=== PATIENT | male | born 1950 | race Caucasian/White ===

== ENCOUNTER 2017-05-04 07:53 | Emergency (ER) | payer OTHER ==
[~2017-05-04] VITALS: Ht 180.3 cm; Wt 86.5 kg
[~2017-05-04 07:53] MED LIST: ASPCH81 PO; ATOR-26 PO; LSN5 PO
[2017-05-04 07:58] VITALS: TEMP 36.7; Ht 180.3 cm; Wt 86.5 kg
[2017-05-04] MEDS ORDERED: LISI-729 PO (08:09)
--- NOTE | 2017-05-04 08:12 | EMERGENCY ROOM VISIT NOTE ---
History Report prepared by Vicente: Gretchen Paulino Under the Supervision of: Dr. Odell Negrete M.D. First contact with patient: 08:02 Chief Complaint: FOOT PAIN Stated Complaint: RIGHT FOOT PAIN History of Present Illness The patient is a 67 year old male who presents to the Emergency Room with complaints of sudden right foot pain beginning 2 days ago. The patient rates the pain at a 6/10. He denies doing anything out of the ordinary that may have prompted the pain. He reports taking Tylenol which slightly alleviates the pain. He states that he is able to walk on the foot but that it is very painful. He denies having surgery on his ankle or having a history of gout and diabetes. Source of History: patient Onset: 2 days ago Position: foot (right) Symptom Intensity: rated at a 6/10 Timing: other (sudden) Modifying Factors (Relieving): other (Tylenol ) Review of Systems See HPI for pertinent positives & negatives. A total of 10 systems reviewed and were otherwise negative. Past Medical & Surgical Medical Problems: (1) AAA (abdominal aortic aneurysm) (2) Acute appendicitis (3) BPH (benign prostatic hyperplasia) (4) Heart failure (5) HTN (hypertension) (6) Lymphoma (7) PAD (peripheral artery disease) (8) Tobacco abuse Surgical Problems: (1) kidney surgery (2) S/P CABG x 3 (3) S/P carotid endarterectomy Family History Diabetes mellitus BROTHER FH: CAD (coronary artery disease) BROTHER ( of AMI approximately age 58 ) Hypertension FATHER Social History Smoking Status: Current Every Day Smoker Alcohol Use: heavy Marital Status: Housing Status: lives with significant other Occupation Status: retired Current/Historical Medications Scheduled Aspirin (Aspirin Ec), 162 MG PO DAILY Atenolol (Tenormin), 25 MG PO DAILY Atorvastatin (Lipitor), 80 MG PO DAILY Lisinopril (Zestril), 5 MG PO DAILY Nitroglycerin (Nitrostat), 0.4 MG UT PRN Prednisone (Prednisone Tab), 0 PO DAILY Scheduled PRN Oxycodone Immediate Rel Tab (Roxicodone Ir), 1-2 TAB PO Q4H PRN for Severe Pain Allergies Coded Allergies: No Known Allergies (Verified , *, 05/04/17) Physical Exam Vital Signs Date Time Temp Pulse Resp B/P (MAP) Pulse Ox O2 Delivery O2 Flow Rate FiO2 05/04/17 09:40 60 16 141/67 96 05/04/17 09:01 65 15 113/55 93 Room Air 05/04/17 07:58 36.7 63 18 138/70 94 Room Air Physical Exam GENERAL: Patient is a healthy-appearing well-nourished [] HEAD: Normocephalic atraumatic EYES: Ocular movements intact pupils equal and react to light OROPHARYNX mucous membranes are moist no exudates present no erythema or edema present NECK: Supple no nuchal rigidity CHEST: Good equal expansion LUNGS: Clear and equal to auscultation CARDIAC: Normal S1 and S2 ABDOMEN: Soft nontender no guarding BACK: No CVA tenderness EXTREMITIES: Slight rash to the anterior right ankle, it is exquisitely tender to palpation. The rash is 2 cm by 2 cm and is consistent with gouty arthritis. The ankle joint itself does not seem to be involved. NEURO: Patient is following commands and answering questions appropriately. Alert and oriented x3 Cranial Nerves 2-12 grossly intact Medical Decision & Procedures ER Provider Diagnostic Interpretation: X-ray results as stated below per interpretation by me and the radiologist: RIGHT ANKLE MIN 3 VIEWS ROUTINE CLINICAL HISTORY: 67 years-old Male presenting with right ankle pain, redness, swelling along the anterior right ankle, no trauma. TECHNIQUE: Frontal, mortise, and lateral views of the right ankle were obtained. COMPARISON: None. FINDINGS: No acute fracture or malalignment. No significant degenerative change. Mild skin thickening may be present along the anterior right ankle, however, there is no global soft tissue swelling. Bone spur at the inferior calcaneus. Atherosclerosis. IMPRESSION: 1. No acute osseous injury of the right ankle. 2. Inferior calcaneal enthesophyte. Electronically signed by: Sandor Barakat M.D. 05/04/2017 8:46 AM Dictated Date/Time: 05/04/2017 8:43 AM Medications Administered Medications (Trade) Dose Ordered Sig/Gilmer Route Start Time Stop Time Status Last Admin Dose Admin Prednisone (PredniSONE TAB) 40 mg NOW STAT PO 05/04/17 08:10 05/04/17 08:12 DC 05/04/17 08:17 40 MG ED Course 0803: Past medical records reviewed. The patient was evaluated in room A11B. A complete history and physical examination was performed. 0810: Ordered Prednisone 40 mg PO. 0917: The patient is feeling better and I can touch his foot without excess pain. 929: Upon reexamination the patient is resting. I discussed results and treatment plan with the patient. He verbalizes agreement and understanding. The patient is ready for discharge. Medical Decision Prior records/ancillary studies reviewed regarding the history above. Triage Nursing notes reviewed. Additional history obtained from the family. The patient's history was concerning for hypertension. This is a 67-year-old male who presents emergency department complaining of rash that is exquisitely tender to touch to the right ankle area. Based on this finding I feel the patient is suffering from a gouty arthritis. He has no evidence of infection on examination. He is afebrile. Repeat examination revealed improvement the patient's symptoms. I do feel that the patient as well as to be discharged home for follow-up with orthopedics. Patient was in agreement with the treatment plan. Medication Reconcilliation Current Medication List: was personally reviewed by me Blood Pressure Screening Patient's blood pressure: Elevated blood pressure Blood pressure disposition: Referred to PCP Impression Primary Impression: Gouty arthritis Scribe Attestation The scribe's documentation has been prepared under my direction and personally reviewed by me in its entirety. I confirm that the note above accurately reflects all work, treatment, procedures, and medical decision making performed by me. Departure Information Dispostion Home / Self-Care Prescriptions Oxycodone Immediate Rel Tab (ROXICODONE IR) 5 Mg Tab 1-2 TAB PO Q4H Y for Severe Pain, #24 TAB Prov: Odell Negrete MD 05/04/17 Prednisone (Prednisone Tab) 20 Mg Tab 0 PO DAILY, #7 TAB 2 TABS DAILY FOR 2 DAYS, THEN 1 TAB DAILY FOR 2 DAYS, THEN 1/2 TAB DAILY FOR 2 DAYS. Prov: Odell Negrete MD 05/04/17 Referrals Arjun Harris D.O. (PCP) Forms HOME CARE DOCUMENTATION FORM, IMPORTANT VISIT INFORMATION, School Instructions, Work Instructions Patient Instructions Gout Attack Tx, My [facility] Additional Instructions Follow up with DR Jones's office You were found to have an elevated blood pressure today (>120 sytolic or >90 diastolic). Per medicare guidelines, you need to follow up with this blood pressure screening with your Primary Care Physician (PCP). For a new PCP call [phone]. You received narcotic or benzodiazepene medication while in the emergency room today. Do not drive, operate heavy machinery, or drink alcohol under the influence of this medication. Take 1000 mg Tylenol every 6 hours Take oxy for breakthrough pain You have been examined and treated today on an emergency basis only. This is not a substitute for, or an effort to provide, complete comprehensive medical care. It is impossible to recognize and treat all injuries or illnesses in a single emergency department visit. It is therefore important that you follow up closely with Dr Harris. Call as soon as possible for an appointment. Thank you for your time and consideration. I look forward to speaking with you again soon. Please don't hesitate to call us if you have any questions.
--- NOTE | 2017-05-04 08:47 | DIAGNOSTIC IMAGING REPORT ---
RIGHT ANKLE MIN 3 VIEWS ROUTINE CLINICAL HISTORY: 67 years-old Male presenting with right ankle pain, redness, swelling along the anterior right ankle, no trauma. TECHNIQUE: Frontal, mortise, and lateral views of the right ankle were obtained. COMPARISON: None. FINDINGS: No acute fracture or malalignment. No significant degenerative change. Mild skin thickening may be present along the anterior right ankle, however, there is no global soft tissue swelling. Bone spur at the inferior calcaneus. Atherosclerosis. IMPRESSION: 1. No acute osseous injury of the right ankle. 2. Inferior calcaneal enthesophyte. Electronically signed by: Sandor Barakat M.D. 05/04/2017 8:46 AM Dictated Date/Time: 05/04/2017 8:43 AM
[2017-05-04] MEDS ORDERED: PRED20TA2 PO (09:21)
[2017-05-04] MEDS ORDERED: OXYC1TAB3 PO (09:24)
[2017-05-04 09:40] VITALS: BP 141/67; PULSE 60; O2SAT 96
[2017-05-04] MEDS ORDERED: ATEN50TA8 PO (17:56)
[2017-06-15] MEDS ORDERED: ASPI81TA28 PO (08:09)
[2017-06-15] MEDS ORDERED: ATOR-26 PO (08:09)
[2017-06-15] MEDS ORDERED: NTRGSL/4 UT (08:20)
== END 2017-05-04 09:41 | disposition home or self-care (01) ==
LOC: C.EDB 07:55 → C.EDA 09:41
DX: M10.9 Gout, unspecified (principal); N40.0 Benign prostatic hyperplasia without lower urinary tract symptoms; Z85.72 Personal history of non-Hodgkin lymphomas; I73.9 Peripheral vascular disease, unspecified; F17.210 Nicotine dependence, cigarettes, uncomplicated; I11.0 Hypertensive heart disease with heart failure; Z83.3 Family history of diabetes mellitus; Z82.49 Family history of ischemic heart disease and other diseases of the circulatory system; Z79.82 Long term (current) use of aspirin; Z79.899 Other long term (current) drug therapy

== ENCOUNTER 2017-06-15 16:13 | Emergency (ER) | payer OTHER ==
[~2017-06-15] VITALS: Ht 180.3 cm; Wt 86.9 kg
[~2017-06-15 16:13] MED LIST changes: -ASPCH81 PO; +ASPI81TA28 PO; +ATEN50TA8 PO; +LISI-729 PO; -LSN5 PO; +NTRGSL/4 UT; +OXYC1TAB3 PO; +PRED20TA2 PO
[2017-06-15 16:24] VITALS: TEMP 36.9; Ht 180.3 cm; Wt 86.9 kg
[2017-06-15] MEDS ORDERED: LSN5 PO (16:46)
[2017-06-15] MEDS ORDERED: TNR50 PO (16:46)
[2017-06-15] MEDS ORDERED: ACET-1256 PO (16:46)
[2017-06-15 17:01] LABS: BASO % 0.1 %; BASO ABS # 0.01 K/uL (0-0.2); COMPLETE YES; EOS % 3.4 %; HEMATOCRIT 34.3 % (42-52); IG% 1.1 %; LYMPH % 29.6 %; LYMPH ABS # 2.95 K/uL (1.2-3.4); MEAN CELL VOLUME 94.5 fL (80-100); MEAN CORPUSCULAR HEMOGLOBIN 31.4 pg (25-34); MEAN CORPUSCULAR HGB CONC 33.2 g/dl (32-36); MEAN PLATELET VOLUME 10.6 fL (7.4-10.4); MONO % 10.9 %; NEUT % 54.9 %; PLATELET COUNT 116 K/uL (130-400); RED BLOOD COUNT 3.63 M/uL (4.7-6.1); WHITE BLOOD COUNT 9.98 K/uL (4.8-10.8)
--- NOTE | 2017-06-15 17:03 | EMERGENCY ROOM VISIT NOTE ---
ED Visit Note First contact with patient: 16:30 CHIEF COMPLAINT: Redness, swelling, pain to the left knee HISTORY OF PRESENT ILLNESS: This 67-year-old male patient presents to the emergency department, ambulatory, complaining of 2 day history of left knee swelling, redness, and pain. The patient states the pain is worse today than it has been since Wednesday. The patient denies any trauma. He states he does have a history of gout, and has had it before in the right foot and knee. The patient states he did recently have uric acid levels checked a few weeks ago, and was told that they weren't not high enough to start prophylactic medication. The patient states his pain today is worse than it has been with previous gout attacks. Patient denies any recent travel, and has not been sedentary. He denies any fever, discharge from the knee, nausea, vomiting, body aches, swelling, chest pain, dyspnea. The patient describes the pain as sore and rates it 5/10. The patient has taken no medication to help his symptoms. REVIEW OF SYSTEMS: A 10 system review of systems was performed with positives and pertinent negatives listed in the history of present illness. All other systems were reviewed and are negative. ALLERGIES: None MEDICATIONS: Atenolol, nitroglycerin, Lipitor, lisinopril, aspirin PMH: Open heart surgery, gout SOCIAL HISTORY: Lives locally with family. He admits to smoking one pack of cigarettes per day. The patient denies drug or alcohol use. PHYSICAL EXAM: VITALS: Vitals are noted on the nurse's note and reviewed by myself. Vital signs stable. GENERAL: This is a 67-year-old male, in no acute distress, nondiaphoretic, well- developed well-nourished. MENTAL STATUS: Alert, oriented to person place and time, and cooperative. MUSCULOSKELETAL: The left knee is mildly swollen inferiorly to the patella. There is no ecchymosis. There is no joint effusion present. The patient is tender in the anterior aspect, inferiorly to the patella. There is no joint line tenderness. The patella does appropriately subluxate. Range of motion is full, however painful. Strength of the quads and hamstrings is 5/5. Nate's is negative. Gaby's and Anterior Drawer tests are negative. There is no discomfort with varus and valgus stressing. The foot and toes are warm and well -perfused. Dorsalis pedis pulse 2+. Sensation to pain and light touch is intact. Capillary refill less than 2 seconds. RADIOLOGY: X-Ray Left Knee: L KNEE 3 VIEWS CLINICAL HISTORY: 67 years-old Male presenting with left knee redness, swelling, pain. TECHNIQUE: Frontal, lateral, and sunrise views of the left knee were obtained. COMPARISON: Comparison made to plain radiographs of the right knee from 05/03/2016. FINDINGS: Extensive chondrocalcinosis evident. No significant joint space loss. No osteophytosis in the medial or lateral compartments, although minimal osteophytosis is suggested in the patellofemoral compartment. No acute fracture or malalignment. No large effusion. No osseous erosion or periosteal reaction. Mild infrapatellar soft tissue swelling may be present. Surgical clips noted in the soft tissues of the proximal lower leg. Atherosclerosis. IMPRESSION: 1. Chondrocalcinosis can be seen in the setting of calcium pyrophosphate dihydrate deposition disease, osteoarthritis, and other etiologies. 2. Minimal degenerative change in the patellofemoral compartment. 3. Infrapatellar soft tissue swelling. Cellulitis not excluded. Superficial soft tissues would be better evaluated with ultrasound. Electronically signed by: Sandor Barakat M.D. 06/15/2017 5:30 PM Dictated Date/Time: 06/15/2017 5:26 PM EMERGENCY DEPARTMENT COURSE: The patient was seen and evaluated as above. Labs were drawn and an IV established. Lab work did show anemia, however this is improved since previous labs were drawn. The patient states he is under the care of a PCP regarding the anemia. The repeat did not show any significant electrolyte abnormalities. C-reactive protein was slightly elevated at 0.97. Uric level was normal at 6.9. Sedimentation rate was normal. Lyme testing was negative. X-ray of the left knee was reviewed by myself, Dr. Geiger, and radiologist. This did not reveal any acute abnormalities, but was suspicious for a cellulitis. Based on the patient's symptoms, workup, and physical examination, I do feel that treating him at this time for cellulitis versus gout is appropriate. The patient was seen and evaluate by Dr. Geiger as well, who is in agreement with the assessment and plan. The patient will be started on an antibiotic as well as anti-inflammatory medication. He was encouraged to follow up with his PCP in one to 2 days. The patient was discharged home in good condition. DIFFERENTIAL DIAGNOSIS: Gout, cellulitis, septic joint, fracture, effusion, lyme disease, malignancy, and others DIAGNOSIS: Cellulitis left knee DISCHARGE INSTRUCTIONS & TREATMENT: You were seen in the emergency department today for left knee swelling and redness. I do suspect a cellulitis versus gout. We will treat you for both. You were given your first dose of antibiotics and anti-inflammatory medication in the emergency department today. Please take these medications as prescribed. Try to get a second dose of the antibiotic (Keflex) in tonight before bed. Please wait at least 4 hours before taking this medication. You were prescribed Keflex to be taken four times daily. This is an antibiotic. All antibiotics have the potential to cause diarrhea. Stop this medication and contact a medical provider if you were to develop any significant adverse side effects including: wheezing, shortness of breath, passing out, vomiting, or a diffuse rash. Always take antibiotics as directed and COMPLETE the ENTIRE course regardless of the improvement of your symptoms. Please take naproxen 500 mg twice daily until the redness subsides. This will probably be for 3-5 days. Please use the shortest period of time necessary to treat the redness and inflammation. You may use ice with a barrier device over the need to help with swelling and discomfort. FOLLOW UP WITH YOUR PCP THIS WEEK FOR RE-CHECK AND RE-EVALUATION. Return to the ED for worsening redness, swelling, fever, chills, nausea, vomiting, abdominal pain, or other associated symptoms. Problem List Medical Problems: (1) AAA (abdominal aortic aneurysm) Status: Chronic (2) BPH (benign prostatic hyperplasia) Status: Chronic (3) Heart failure Status: Chronic (4) HTN (hypertension) Status: Chronic (5) Lymphoma Status: Chronic (6) PAD (peripheral artery disease) Status: Chronic (7) Tobacco abuse Status: Chronic Surgical Problems: (1) kidney surgery Status: Resolved (2) S/P CABG x 3 Status: Chronic (3) S/P carotid endarterectomy Status: Chronic Current/Historical Medications Scheduled Aspirin (Aspirin Ec), 162 MG PO DAILY Atenolol (Atenolol), 25 MG PO DAILY Atorvastatin (Lipitor), 80 MG PO DAILY Cephalexin Monohydrate (Keflex), 500 MG PO QID Lisinopril (Lisinopril), 5 MG PO DAILY Naproxen (Naprosyn), 500 MG PO BID Scheduled PRN Acetaminophen (Tylenol), 1,000 MG PO Q6H PRN for Pain Nitroglycerin (Nitrostat), 0.4 MG UT UD PRN for Chest Pain Allergies Coded Allergies: No Known Allergies (Verified , *, 05/04/17) Vital Signs Date Time Temp Pulse Resp B/P (MAP) Pulse Ox O2 Delivery O2 Flow Rate FiO2 06/15/17 18:52 64 15 140/64 92 06/15/17 18:39 64 15 140/64 92 Room Air 06/15/17 16:24 36.9 66 18 125/70 95 Room Air Laboratory Results 06/15/17 16:50 Red Blood Count 3.63, Mean Corpuscular Volume 94.5, Mean Corpuscular Hemoglobin 31.4, Mean Corpuscular Hemoglobin Concent 33.2, Mean Platelet Volume 10.6, Neutrophils (%) (Auto) 54.9, Lymphocytes (%) (Auto) 29.6, Monocytes (%) (Auto) 10.9, Eosinophils (%) (Auto) 3.4, Basophils (%) (Auto) 0.1, Neutrophils # (Auto ) 5.48, Lymphocytes # (Auto) 2.95, Monocytes # (Auto) 1.09, Eosinophils # (Auto ) 0.34, Basophils # (Auto) 0.01 06/15/17 16:50 Test 06/15/17 16:50 White Blood Count 9.98 K/uL (4.8-10.8) Red Blood Count 3.63 M/uL (4.7-6.1) Hemoglobin 11.4 g/dL (14.0-18.0) Hematocrit 34.3 % (42-52) Mean Corpuscular Volume 94.5 fL (80-100) Mean Corpuscular Hemoglobin 31.4 pg (25-34) Mean Corpuscular Hemoglobin Concent 33.2 g/dl (32-36) Platelet Count 116 K/uL (130-400) Mean Platelet Volume 10.6 fL (7.4-10.4) Neutrophils (%) (Auto) 54.9 % Lymphocytes (%) (Auto) 29.6 % Monocytes (%) (Auto) 10.9 % Eosinophils (%) (Auto) 3.4 % Basophils (%) (Auto) 0.1 % Neutrophils # (Auto) 5.48 K/uL (1.4-6.5) Lymphocytes # (Auto) 2.95 K/uL (1.2-3.4) Monocytes # (Auto) 1.09 K/uL (0.11-0.59) Eosinophils # (Auto) 0.34 K/uL (0-0.5) Basophils # (Auto) 0.01 K/uL (0-0.2) RDW Standard Deviation 59.9 fL (36.4-46.3) RDW Coefficient of Variation 17.7 % (11.5-14.5) Immature Granulocyte % (Auto) 1.1 % Immature Granulocyte # (Auto) 0.11 K/uL (0.00-0.02) Erythrocyte Sedimentation Rate 9 mm/hr (0-14) Anion Gap 8.0 mmol/L (3-11) Est Creatinine Clear Calc Drug Dose 92.1 ml/min Estimated GFR () 105.7 Estimated GFR (Non- 91.2 BUN/Creatinine Ratio 12.0 (10-20) Uric Acid 6.9 mg/dl (2.6-7.2) Calcium Level 9.5 mg/dl (8.5-10.1) C-Reactive Protein 0.97 mg/dl (0-0.29) Lyme Disease IgG Antibody NEG (NEG) Lyme Disease IgM Antibody NEG (NEG) Medications Administered Medications (Trade) Dose Ordered Sig/Gilmer Route Start Time Stop Time Status Last Admin Dose Admin Cephalexin Monohydrate (Keflex Cap) 500 mg NOW ONCE PO 06/15/17 18:30 06/15/17 18:31 DC 06/15/17 18:38 500 MG Naproxen (Naprosyn Tab) 500 mg NOW STAT PO 06/15/17 18:17 06/15/17 18:20 DC 06/15/17 18:39 500 MG Departure Information Impression Primary Impression: Cellulitis of left knee Additional Impression: Anemia Dispostion Home / Self-Care Condition GOOD Prescriptions Cephalexin Monohydrate (Keflex) 500 Mg Cap 500 MG PO QID for 10 Days, #40 CAP Prov: Soha Schaeffer, PA-C 06/15/17 Naproxen (Naprosyn) 500 Mg Tab 500 MG PO BID, #30 TAB Prov: Soha Schaeffer PA-C 06/15/17 Referrals Arjun Harris D.O. (PCP) Patient Instructions ED Diet Gout, ED Infec Skin Cellulitis, My [facility] Additional Instructions You were seen in the emergency department today for left knee swelling and redness. I do suspect a cellulitis versus gout. We will treat you for both. You were given your first dose of antibiotics and anti-inflammatory medication in the emergency department today. Please take these medications as prescribed. Try to get a second dose of the antibiotic (Keflex) in tonight before bed. Please wait at least 4 hours before taking this medication. You were prescribed Keflex to be taken four times daily. This is an antibiotic. All antibiotics have the potential to cause diarrhea. Stop this medication and contact a medical provider if you were to develop any significant adverse side effects including: wheezing, shortness of breath, passing out, vomiting, or a diffuse rash. Always take antibiotics as directed and COMPLETE the ENTIRE course regardless of the improvement of your symptoms. Please take naproxen 500 mg twice daily until the redness subsides. This will probably be for 3-5 days. Please use the shortest period of time necessary to treat the redness and inflammation. You may use ice with a barrier device over the need to help with swelling and discomfort. FOLLOW UP WITH YOUR PCP THIS WEEK FOR RE-CHECK AND RE-EVALUATION. Return to the ED for worsening redness, swelling, fever, chills, nausea, vomiting, abdominal pain, or other associated symptoms. Problem Qualifiers Additional Impression: Anemia Anemia type: unspecified type Qualified Codes: D64.9 - Anemia, unspecified
[2017-06-15 17:24] LABS: CALCIUM 9.5 mg/dl (8.5-10.1); CREATININE 0.84 mg/dl (0.60-1.40); POTASSIUM 3.8 mmol/L (3.5-5.1); URIC ACID 6.9 mg/dl (2.6-7.2)
--- NOTE | 2017-06-15 17:31 | DIAGNOSTIC IMAGING REPORT ---
L KNEE 3 VIEWS CLINICAL HISTORY: 67 years-old Male presenting with left knee redness, swelling, pain. TECHNIQUE: Frontal, lateral, and sunrise views of the left knee were obtained. COMPARISON: Comparison made to plain radiographs of the right knee from 05/03/2016. FINDINGS: Extensive chondrocalcinosis evident. No significant joint space loss. No osteophytosis in the medial or lateral compartments, although minimal osteophytosis is suggested in the patellofemoral compartment. No acute fracture or malalignment. No large effusion. No osseous erosion or periosteal reaction. Mild infrapatellar soft tissue swelling may be present. Surgical clips noted in the soft tissues of the proximal lower leg. Atherosclerosis. IMPRESSION: 1. Chondrocalcinosis can be seen in the setting of calcium pyrophosphate dihydrate deposition disease, osteoarthritis, and other etiologies. 2. Minimal degenerative change in the patellofemoral compartment. 3. Infrapatellar soft tissue swelling. Cellulitis not excluded. Superficial soft tissues would be better evaluated with ultrasound. Electronically signed by: Sandor Barakat M.D. 06/15/2017 5:30 PM Dictated Date/Time: 06/15/2017 5:26 PM
[2017-06-15 17:34] LABS: C-REACTIVE PROTEIN 0.97 mg/dl (0-0.29)
[2017-06-15] MEDS ORDERED: NAPROXEN 250 MG TAB PO STA (18:17)
[2017-06-15 18:22] LABS: LYME DISEASE AB IGG NEG (NEG); LYME DISEASE AB IGM NEG (NEG)
--- NOTE | 2017-06-15 18:23 | EMERGENCY ROOM VISIT NOTE ---
ED Visit Note First contact with patient: 16:30 I have personally evaluated this patient examined her and reviewed the pertinent labs and data. I have discussed the case with Soha Schaeffer, the physician captain assistant and agree with the plan. Please refer to the PA note This patient has pain in his left knee it is below the joint. On my exam, it does not feel like he has an effusion of the joint itself. He is able to bend the knee but has mild discomfort. He feels that this is consistent with gout that he's had before. He has no fever or white count or elevation of sedimentation rate to suggest inflammation. Uric acid was not elevated. X-ray shows no fracture there are findings that may be consistent with pseudogout. He does have some swelling of the prepatellar area could be that he has a prepatellar bursitis. He's been doing no activities to suggest this. We'll put him on antibiotics and anti-inflammatories it may still may be gout even with a low uric acid. At this point, I do not suspect septic bursitis or septic joint however I do want the patient close follow-up and return if increasing redness or warmth fever chills or any new problems.
[2017-06-15] MEDS ORDERED: CEPHALEXIN MONOHYDRATE 250 MG CAP PO ONE (18:30)
[2017-06-15] MEDS ORDERED: NAPR-1169 PO (18:43)
[2017-06-15] MEDS ORDERED: CEPH500C PO (18:43)
[2017-06-15 18:52] VITALS: BP 140/64; PULSE 64; O2SAT 92
== END 2017-06-15 18:52 | disposition home or self-care (01) ==
LOC: C.EDB 16:15 → C.EDD 18:52
DX: L03.116 Cellulitis of left lower limb (principal); D64.9 Anemia, unspecified; F17.210 Nicotine dependence, cigarettes, uncomplicated; I71.4 Abdominal aortic aneurysm, without rupture; N40.0 Benign prostatic hyperplasia without lower urinary tract symptoms; I50.9 Heart failure, unspecified; I11.0 Hypertensive heart disease with heart failure; I73.9 Peripheral vascular disease, unspecified; C85.90 Non-Hodgkin lymphoma, unspecified, unspecified site; Z95.1 Presence of aortocoronary bypass graft; Z79.82 Long term (current) use of aspirin

== ENCOUNTER 2017-08-28 12:34 | Emergency (ER) | payer OTHER ==
[~2017-08-28] VITALS: Ht 180.3 cm; Wt 85.9 kg
[~2017-08-28 12:34] MED LIST changes: +ACET-1256 PO; -ATEN50TA8 PO; -LISI-729 PO; +LSN5 PO; +NAPR-1169 PO; -OXYC1TAB3 PO; -PRED20TA2 PO; +TNR50 PO
[2017-08-28 12:41] VITALS: TEMP 36.7; Ht 180.3 cm; Wt 85.9 kg
--- NOTE | 2017-08-28 14:48 | EMERGENCY ROOM VISIT NOTE ---
History Report prepared by Vicente: Gretchen Paulino Under the Supervision of: Jo LawlerO. First contact with patient: 13:47 Chief Complaint: SHOULDER PAIN Stated Complaint: L SHOULDER AND R FOOT PAIN History of Present Illness The patient is a 67 year old male who presents to the Emergency Room with complaints of intermittent left shoulder pain beginning weeks ago. The patient rates the pain at a 5/10. He states that movement exacerbates the pain. The patient denies fevers and recent amount. Source of History: patient Onset: weeks ago Position: shoulder (left) Symptom Intensity: rated at a 5/10 Timing: intermittent Associated Symptoms: No fevers Note: also denies: trauma Review of Systems See HPI for pertinent positives & negatives. A total of 10 systems reviewed and were otherwise negative. Past Medical & Surgical Medical Problems: (1) AAA (abdominal aortic aneurysm) (2) Acute appendicitis (3) BPH (benign prostatic hyperplasia) (4) Heart failure (5) HTN (hypertension) (6) Lymphoma (7) PAD (peripheral artery disease) (8) Tobacco abuse Surgical Problems: (1) kidney surgery (2) S/P CABG x 3 (3) S/P carotid endarterectomy Family History Diabetes mellitus BROTHER FH: CAD (coronary artery disease) BROTHER ( of AMI approximately age 58 ) Hypertension FATHER Social History Smoking Status: Current Every Day Smoker Alcohol Use: heavy Marital Status: Housing Status: lives with significant other Occupation Status: retired Current/Historical Medications Scheduled Aspirin (Aspirin Ec), 162 MG PO DAILY Atenolol (Atenolol), 25 MG PO DAILY Atorvastatin (Lipitor), 80 MG PO DAILY Lisinopril (Lisinopril), 5 MG PO DAILY Naproxen (Naprosyn), 500 MG PO BID Scheduled PRN Acetaminophen (Tylenol), 1,000 MG PO Q6H PRN for Pain Nitroglycerin (Nitrostat), 0.4 MG UT UD PRN for Chest Pain Allergies Coded Allergies: No Known Allergies (Verified , *, 05/04/17) Physical Exam Vital Signs Date Time Temp Pulse Resp B/P (MAP) Pulse Ox O2 Delivery O2 Flow Rate FiO2 08/28/17 14:53 73 16 141/70 95 08/28/17 12:41 36.7 70 20 133/69 96 Room Air Physical Exam CONSTITUTIONAL/VITAL SIGNS: Reviewed / noted above. GENERAL: Non-toxic in appearance. INTEGUMENTARY: Warm, dry, and [place]. HEAD: Normocephalic. EYES: without scleral icterus or trauma. ENT/OROPHARYNX: clear and moist. LYMPHADENOPATHY/NECK: Is supple without lymphadenopathy or meningismus. RESPIRATORY: Lungs clear and equal. CARDIOVASCULAR: Regular rate and rhythm. GI/ABDOMEN: Soft and nontender. No organomegaly or pulsatile mass. No rebound or guarding. Normal bowel sounds. EXTREMITIES: No significant increase in warmth compared to opposing side. No redness or ecchymosis. Range of motion limited due to some discomfort. No obvious crepitus. Neurovascular function intact distally. BACK: No CVA tenderness. NEUROLOGICAL: Intact without focal deficits. PSYCHIATRIC: normal affect. MUSCULOSKELETAL: Normally developed with good muscle tone. Medical Decision & Procedures ER Provider Diagnostic Interpretation: Radiology results as stated below per my review and radiologist interpretation: L SHOULDER MIN 2 VIEWS ROUTINE CLINICAL HISTORY: Left shoulder pain. Evaluate for fracture. COMPARISON: Left shoulder radiographs June 30, 2010. FINDINGS: Alignment of the left shoulder is anatomic. No acute fracture is identified. There is no suspicious osseous lesion. There is moderate arthritis of the acromioclavicular and glenohumeral joints. Anterior cervical spinal fusion and median sternotomy wires are noted. IMPRESSION: 1. No acute fracture or dislocation of the left shoulder. 2. 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 Electronically signed by: Rajesh Smith M.D. 08/28/2017 3:01 PM Dictated Date/Time: 08/28/2017 3:00 PM ED Course 1410: Previous medical records were reviewed. The patient was evaluated in room B12B. A complete history and physical examination was performed. 1440: On reevaluation, the patient is resting. I discussed the results and findings with the patient. He verbalized agreement of the treatment plan. He was discharged home. Medical Decision Differential diagnosis: Etiologies such as fracture, dislocation, neurovascular compromise, compartment syndrome, soft tissue injury, as well as others were entertained. this is a 67-year-old male who presents to the ED with a chief complaint of left shoulder pain. The pain is mostly chronic but it intermittently worse. He comes in to the ED for evaluation of this. His also signs in as a patient as well and is being seen for a cough. The patients exam does not reveal any obvious acute findings to suggest acute infectious or traumatic process. X-ray of the left shoulder did not show just acute process. He is felt to be stable for discharge. He was given referral to orthopedics for outpatient follow-up and evaluation. Medication Reconcilliation Current Medication List: was personally reviewed by me Blood Pressure Screening Patient's blood pressure: Normal blood pressure Impression Primary Impression: Left shoulder pain Additional Impression: Arthritis Scribe Attestation The scribe's documentation has been prepared under my direction and personally reviewed by me in its entirety. I confirm that the note above accurately reflects all work, treatment, procedures, and medical decision making performed by me. Departure Information Dispostion Home / Self-Care Referrals Arjun Harris D.O. (PCP) Forms HOME CARE DOCUMENTATION FORM, IMPORTANT VISIT INFORMATION Patient Instructions My [facility] Additional Instructions Follow-up with Dr. Bang, orthopedics with [facility]. Call for an appointment. Take ibuprofen 600 mg every 6 hours as needed for pain. Problem Qualifiers
[2017-08-28 14:53] VITALS: BP 141/70; PULSE 73; O2SAT 95
--- NOTE | 2017-08-28 15:02 | DIAGNOSTIC IMAGING REPORT ---
L SHOULDER MIN 2 VIEWS ROUTINE CLINICAL HISTORY: Left shoulder pain. Evaluate for fracture. COMPARISON: Left shoulder radiographs June 30, 2010. FINDINGS: Alignment of the left shoulder is anatomic. No acute fracture is identified. There is no suspicious osseous lesion. There is moderate arthritis of the acromioclavicular and glenohumeral joints. Anterior cervical spinal fusion and median sternotomy wires are noted. IMPRESSION: 1. No acute fracture or dislocation of the left shoulder. 2. 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 Electronically signed by: Rajesh Smith M.D. 08/28/2017 3:01 PM Dictated Date/Time: 08/28/2017 3:00 PM
== END 2017-08-28 15:01 | disposition home or self-care (01) ==
LOC: C.EDB 12:36
DX: M25.512 Pain in left shoulder (principal); M19.012 Primary osteoarthritis, left shoulder; I71.4 Abdominal aortic aneurysm, without rupture; I11.0 Hypertensive heart disease with heart failure; I50.9 Heart failure, unspecified; N40.0 Benign prostatic hyperplasia without lower urinary tract symptoms; I73.9 Peripheral vascular disease, unspecified; C85.90 Non-Hodgkin lymphoma, unspecified, unspecified site; F17.200 Nicotine dependence, unspecified, uncomplicated; Z95.1 Presence of aortocoronary bypass graft; Z79.82 Long term (current) use of aspirin; Z83.3 Family history of diabetes mellitus; Z82.49 Family history of ischemic heart disease and other diseases of the circulatory system

== ENCOUNTER → 2017-10-12 | Outpatient (CLI) | payer OTHER | END | disposition home or self-care (01) | LOC: C.LAB 14:44 | PROVIDERS: ATTEND Physician Assistant | DX: C85.91 Non-Hodgkin lymphoma, unspecified, lymph nodes of head, face, and neck (principal) ==

== ENCOUNTER 2019-04-30 10:10 | Inpatient (IN) ==
[2019-04-30 12:17] LABS: INR 1.2 (0.9-1.1); Partial Thromboplastin Ratio 1.4; Partial Thromboplastin Time 38.4 Seconds (21.0-31.0); Prothrombin Time 12.1 Seconds (9.0-12.0)
[2019-04-30 12:23] LABS: Albumin Level 2.4 gm/dl (3.4-5.0); BUN Creatinine Ratio 22.4 (10-20); Calcium 8.2 mg/dl (8.5-10.1); Creatinine Clr Calc Pharmacy 60.9 ml/min; Est GFR (African American) 79.5; Est GFR (Non-African American) 68.6; Potassium 4.6 mmol/L (3.5-5.1)
[2019-04-30 12:28] LABS: Albumin Globulin Ratio 0.6 (0.9-2); Bilirubin,Total 1.7 mg/dl (0.2-1); Globulin 4.1 gm/dl (2.5-4.0); Total Protein 6.5 gm/dl (6.4-8.2); Troponin I 0.023 ng/ml (0-0.045)
[2019-04-30 12:46] LABS: Hematocrit (blood only) 20.4 % (42-52); Hemoglobin 6.9 g/dL (14.0-18.0); Mean Corpuscular Hemoglobin 29.1 pg (25-34); Mean Corpuscular Hgb Conc 33.8 g/dL (32-36); Mean Corpuscular Volume 86.1 fL (80-100); Mean Platelet Volume 9.4 fL (7.4-10.4); Platelet Count 62 K/uL (130-400); RDW Coefficient of Variation 22.1 % (11.5-14.5); RDW Standard Deviation 68.9 fL (36.4-46.3); Red Blood Count 2.37 M/uL (4.7-6.1); White Blood Count 2.69 K/uL (4.8-10.8)
[2019-04-30 12:52] LABS: Acanthocytes 1+; Anisocytosis Present; Basophils # (auto) 0.01 K/uL (0-0.2); Basophils % (auto) 0.4 %; Dohle Bodies 1+; Eosinophils # (auto) 0.01 K/uL (0-0.5); Eosinophils % (auto) 0.4 %; Immature Granulocytes # (auto) 0.02 K/uL (0.00-0.02); Immature Granulocytes % (auto) 0.7 %; Lymphocytes # (auto) 1.16 K/uL (1.2-3.4); Lymphocytes % (auto) 43.1 %; Monocytes # (auto) 0.32 K/uL (0.11-0.59); Monocytes % (auto) 11.9 %; Neutrophils # (auto) 1.17 K/uL (1.4-6.5); Neutrophils % (auto) 43.5 %; Ovalocytes 1+; Platelet Estimate Decreased (Normal); Toxic Granulation 2+
[2019-04-30] MEDS ORDERED: OPTIRAY 320 125ml IV PRN (12:56)
--- NOTE | 2019-04-30 13:06 | CT Scan Report ---
CT angio chest PE protocol CLINICAL HISTORY: 69 years-old Male presenting with hypoxemia, left-sided neck pain, concern for pulm onary embolus versus lung mass. TECHNIQUE: Multidetector CT angiography of the chest was performed after administration of intravenou s contrast. 3-D volumetric and/or maximum intensity projection (MIP) images were subsequently reconst ructed for review. IV contrast: 119 mL of Optiray 320. One or more dose lowering techniques were used consistent with the principles of ALARA (as low as reasonably achievable), including automatic expos ure control, mA or kV adjustment to individual patient size, and/or use of iterative reconstruction. COMPARISON: None. CT DOSE (mGy.cm): The estimated cumulative dose is 1029.43 mGy.cm. FINDINGS: Utilization Reviewer topogram: Median sternotomy wires. Pulmonary vasculature: The study is adequate for assessment of the pulmonary vascular tree. No filling defect within the pul monary arteries to suggest embolus. Main pulmonary artery is not enlarged. No flattening of the inter ventricular septum. No intracardiac filling defect. Reflux of contrast into the IVC and hepatic veins . This likely indicates elevated right heart pressure. Remaining chest: Soft tissues: Normal thyroid and thoracic inlet. Enlarged left supraclavicular lymph node. Enlarged m ediastinal lymph nodes in prevascular, paratracheal, precarinal and subcarinal regions. Bilateral hil ar lymphadenopathy. Calcified lymphadenopathy in the right suprahilar region. Atherosclerosis of the aorta. Postsurgical changes of median sternotomy with coronary artery bypass grafting. Normal heart s ize. Coronary artery and aortic valve calcification. No pericardial or pleural effusion. Splenomegaly is suspected. Calcifications in the spleen evidence of granulomatous disease. Lungs and airways: No pneumothorax. Mild diffuse bronchial wall thickening. Centrilobular and limited paraseptal emphysematous changes. Multilobular solid and cystic mass measuring 3.1 cm in the posteri or basal left lower lobe (series 6 image 89). This abuts the pleura. Multifocal dependent infiltrates in the right lower lobe, which are solid to groundglass in density. Few scattered groundglass opacit ies in the upper lobes in a dependent distribution. Pulmonary arteries are not significantly enlarged relative to adjacent bronchi. No interlobular septal thickening. Calcified granuloma noted in the ri ght lower lobe. Tree-in-bud opacities noted in the lingula. Musculoskeletal: Degenerative changes of the spine. Degenerative changes of the glenohumeral joints. IMPRESSION: 1. No evidence of pulmonary embolus. 2. Elevated right heart pressure. 3. Solid cavitary mass in the posterior basal left lower lobe. This is highly suspicious for primary bronchogenic neoplasm. Less likely differential consideration includes infection. 4. Mediastinal and hilar lymphadenopathy highly suspicious for metastatic disease. Left supraclavicu lar lymphadenopathy also noted. 5. Patchy predominant dependent infiltrates and tree in bud opacities may represent aspiration, infe ction, or less likely spread of metastases. 6. Background emphysema and bronchitis, evidence of smoking related lung injury. 7. Splenomegaly. This could potentially relate to metastatic disease, a lymphoproliferative disorder , or portal hypertension among other etiologies. Electronically signed by: Sandor Barakat M.D. 04/30/2019 1:05 PM
--- NOTE | 2019-04-30 13:12 | CT Scan Report ---
CT abd pelvis IV con only CLINICAL HISTORY: 69 years-old Male presenting with hypoxia, left-sided neck pain, concern for mass. TECHNIQUE: Multidetector CT of the abdomen and pelvis was performed after the administration of intra venous contrast. IV contrast: 119 mL of Optiray 320. One or more dose lowering techniques were used c onsistent with the principles of ALARA (as low as reasonably achievable), including automatic exposur e control, mA or kV adjustment to individual patient size, and/or use of iterative reconstruction. COMPARISON: 09/05/2016. CT DOSE (mGy.cm): The estimated cumulative dose is 1029.43. FINDINGS: Driver Salesman topogram: Median sternotomy wires. Lung bases: Normal heart size. Coronary artery calcification. No pericardial or pleural effusion. Lindsey id and partially cavitary mass in the posterior basal left lower lobe. Extensive nodular dependent pr edominant infiltrates. Background emphysema. Liver: Normal morphology. No liver lesion. Patent hepatic vasculature. Biliary: No intrahepatic or extrahepatic biliary ductal dilatation. Gallbladder contains gallstones. Pancreas: Normal. Spleen: Enlarged. Punctate calcification suggest a history of granulomatous disease. Adrenal glands: Normal. Kidneys and ureters: Severe atrophy of the right kidney. Compensatory hypertrophy of the left kidney. No nephrolithiasis or hydronephrosis. Ureters nondistended. Bladder: Circumferential bladder wall thickening. Pelvic organs: Prostate and seminal vesicles normal. Bowel: Postsurgical changes of appendectomy suspected. No bowel obstruction. Peritoneal cavity: No free fluid or intraperitoneal gas. Lymph nodes: No enlarged lymph nodes in the abdomen or pelvis. Vasculature: Atherosclerosis with an abdominal aortic aneurysm in the infrarenal portion. This has a maximum diameter of 3.7 x 3.6 cm, slightly increased in size from prior when it measured 3.5 cm. Dens e calcified atherosclerotic plaque in the right common and superficial femoral arteries. Multifocal s tenoses from calcified plaque. IVC patent. Abdominal wall: Normal. Musculoskeletal: Degenerative changes of the spine. IMPRESSION: 1. Splenomegaly. This is nonspecific. Metastatic disease or lymphoproliferative disorder cannot be e xcluded among other etiologies. 2. Evidence of old granulomatous disease, which could suggest prior histoplasmosis or other granulom atous infection. 3. No lymphadenopathy or other evidence to suggest metastatic disease in abdomen or pelvis. No acute intra-abdominal pathology. 4. Chronic bladder outlet obstruction is suspected despite the absence of prostatomegaly. Correlate with urinalysis to exclude cystitis. 5. Slight interval increased size of the infrarenal abdominal aortic aneurysm which measures 3.7 x 2 .6 cm. 6. Solid partially cavitary mass in the left lower lobe concerning for primary bronchogenic neoplasm . Please see separately dictated CT of the chest. 7. Multifocal dependent infiltrates on a background of emphysema concerning for aspiration or infect ion. Electronically signed by: Sandor Barakat M.D. 04/30/2019 1:11 PM
--- NOTE | 2019-04-30 13:29 | CT Scan Report ---
CT soft tissue neck w con CLINICAL HISTORY: 69 years-old Male presenting with left neck pain eval for mass. TECHNIQUE: Multidetector CT of the neck was performed after the administration of intravenous contras t. IV contrast: 119 mL of Optiray 320. One or more dose lowering techniques were used consistent with the principles of ALARA (as low as reasonably achievable), including automatic exposure control, mA or kV adjustment to individual patient size, and/or use of iterative reconstruction. COMPARISON: 01/12/2015. CT DOSE (mGy.cm): The estimated cumulative dose is 1029.43. FINDINGS: Online Program Coordinator topogram: Median sternotomy wires. No soft tissue mass is evident in the neck. Superficial cystic lesion associated with the acuteness of the premaxillary region on the left likely an epidermal inclusion cyst and similar to prior. Pathologically enlarged lymph nodes in the lower cervical region on the left extending into the left supraclavicular fossa. An index node measures 1.2 cm cyst and axial long axis. No more superior lymph adenopathy is appreciated. Mediastinal lymphadenopathy is partially visualized. Aerodigestive tract widely patent. No effacement of the piriform sinuses or valleculae. Atherosclerosis including of the carotid bifurcations. Internal carotid arteries remain patent. Ather osclerosis of the cavernous segments of the ICAs also noted. Limited intracranial evaluation within n ormal limits. Orbits normal. Mucosal thickening in the left sphenoid sinus and left posterior ethmoid air cells and minimally in t he maxillary sinuses inferiorly. Several teeth are absent with prominent dental caries. Degenerative changes of the cervical spine. Anterior fixation hardware in the cervical spine. Emphysema both centrilobular and paraseptal the lung apices. Scattered nodular opacities at the apice s. IMPRESSION: 1. No soft tissue mass in the neck. No suspicious nodular enhancement along the course of the aerodi gestive tract to suggest a primary lesion. 2. Lymphadenopathy at the left base of the neck and left supraclavicular fossa. Partially visualized mediastinal lymphadenopathy. Electronically signed by: Sandor Barakat M.D. 04/30/2019 1:27 PM
[2019-04-30] MEDS ORDERED: SODIUM CHLORIDE 0.9% 250 ML IV PRN ×2 (13:39→16:52)
[2019-04-30] MEDS ORDERED: SODIUM CHLORIDE 0.9% 1000ML 500 ML IV ONE ×2 (13:39→23:36)
[2019-04-30] MEDS ORDERED: PIPERACILLIN/TAZOBACTAM 4.5 GM/120 ML BAG IV ONE (13:39)
[2019-04-30] MEDS ORDERED: PIPERACILL/TAZOBAC CONSULT ACTIVE PRN ×2 (13:39→23:11)
[2019-04-30] MEDS ORDERED: SODIUM CHLORIDE 0.9% 1000ML 1,000 ML IV ONE (13:40)
--- NOTE | 2019-04-30 14:56 | History & Physical Report ---
Date of Service April 30, 2019 Assessment & Plan (1) Generalized weakness: (2) Pancytopenia: (3) Symptomatic anemia: (4) Mass of left lung: This is a 69-year-old male who has a known significant PMH of CAD with history of CABG x3, HTN, HLD, CHF, PVD, AAA, BPH, history of non-Hodgkin's B-cell lymphoma neck 05/2013, chronic thrombocytopenia who presents to [facility] ED secondary to 5 falls in the past 5 days. In ED pt remained hemodynamically stable; however BP on lower side 90s-low 100s with HR 80-100s. He did require supplemental O2 but remained afebrile. Patient was notably pancytopenic with a hemoglobin by 6.9 hematocrit 20.4, WBC 2.69, platelet 62 CMP significant for sodium 134, BUN 25, creatinine 1.10, total bilirubin 1.7, AST 89, alk phos 154, troponin WNL. In ED pt received IVF resuscitation along with empiric IV Zosyn for initial concerns of SIRS/sepsis. He was typed and screened and 2 units of PRBC were ordered to be transfused. Per current CMS guidelines pt did meet SIRS criteria given SBP < 90 at times, HR > 90, WBC < 4 This is likely in setting of Acute symptomatic Anemia requiring transfusion vs sepsis Lactic acid WNL Given patient's known history of lymphoma CT scan of neck, chest, abdomen pelvis were performed. Revealed solid cavitary mass in the posterior basal left lower lobe highly suspicious for primary bronchogenic neoplasm, mediastinal and hilar lymphadenopathy highly suspicious for metastatic disease, left supra clavicular lymphadenopathy noted. Patchy predominant dependent infiltrates and tree-in-bud opacities, background emphysema and bronchitis, splenomegaly. Patient was seen and examined in collaboration with Dr. Merrill, please see her full addendum for details regarding further assessment and tx plan. (5) Lymphoma: (6) CAD (coronary artery disease): (7) Heart failure: (8) HTN (hypertension): (9) HLD (hyperlipidemia): (10) AAA (abdominal aortic aneurysm): (11) DVT prophylaxis: History of Present Illness Chief Complaint: Fall x 5 days. Primary Care Provider: Arjun Harris, This is a 69-year-old male who has a known significant PMH of CAD with history of CABG x3, HTN, HLD, CHF, PVD, AAA, BPH, history of non-Hodgkin's B-cell lymphoma neck 05/2013, chronic thromobocytopenia who presents to [facility] ED secondary to 5 falls in the past 5 days. Grandson at bedside. Patient elicits his last fall was back in 2013. He now has fallen 5 times in the past 5 days from standing position. He feels like "legs get so weak and I fall." No known injury except mild abrasion and bruising. Overall has noticed increased weakness for the past year, more pronounced in the past week. Has had a 80 pound weight loss in the past 6 months. Complains of productive cough for the past 2 weeks, sputum clear/white. Different than his "smoker's cough." Denies f/c/s, chest pain, sob, padilla, hemopytsis, night sweats, lightheaded, dizz iness, syncope, n/v/d, hematemesis, hematochezia, melena. Elicits he moves his bowels every 5 days, that is normal for him. Despite a pound weight loss has overall good appetite. Of significance patient was diagnosed in April 2013 with low-grade non- Hodgkin's lymphoma, presented with lump in the neck on left side. Biopsy of the lymph node was done and was consistent with indolent low-grade non-Hodgkin's lymphoma. Follows Dr. Cho. Last seen 01/30/2019 which at that time patient overall been doing well. Given his low-grade lymphoma he had been managed conservatively. It was noted there was some unintentional weight loss at that visit but nothing clinically significant and patient otherwise had good appetite. He had CBC, CMP and LH were drawn. LDH was high which prompted CT scan. CT scan of chest was significant for multiple small supraclavicular lymph nodes, increased in size, multiple enlarged mediastinal and hilar lymph nodes. Pulmonary emphysema, new ill-defined patchy opacities in lower lobes, subtle ill-defined groundglass opacities also seen throughout the lung, new since prior exam. Abdomen pelvis CT significant for multiple large gastrohepatic, portal hepatic and retroperitoneal lymph nodes increased in size from prior exam, liver had mildly increased from 80.3 to 19.5 cm. Spleen has also increased in size from 12 cm to 16.3 cm. Stable infrarenal abdominal aortic aneurysm 3.9 x 4.2 cm. Allergies Allergy/AdvReac Type Severity Reaction Status Date / Time No Known Allergies Allergy * Verified 04/30/19 11:49 Home Medications Home Medications Medication Instructions Recorded Confirmed Type atenolol 25 mg PO DAILY 03/07/19 04/30/19 History atorvastatin 40 mg PO QAM 03/07/19 04/30/19 History lisinopril 5 mg PO QAM 03/07/19 04/30/19 History nitroglycerin 0.4 mg SUBLINGUAL Q4H PRN 03/07/19 04/30/19 History aspirin [Aspir-81] 162 mg PO DAILY 04/30/19 04/30/19 History Past Med/Surg History Medical History HLD (hyperlipidemia) (Chronic) Tobacco abuse (Chronic) HTN (hypertension) (Chronic) BPH (benign prostatic hyperplasia) (Chronic) Heart failure (Chronic) PAD (peripheral artery disease) (Chronic) Lymphoma (Chronic) tx with lymph node resection in 2012 AAA (abdominal aortic aneurysm) (Chronic) Cervical stenosis of spinal canal (Resolved) Peripheral vascular disease Surgical History History of fusion of cervical spine (Chronic) History of appendectomy (Chronic) S/P CABG x 3 (Chronic) S/P carotid endarterectomy (Chronic) Family History Mother Choked on food per pt history Father , unknown medical problems No problems noted. Brother Coronary heart disease massive NC age 61 Social History Preferred Language: [place] Communication Ability: Effective Beliefs That Will Affect Care: None marital status: Current Living Situation: Spouse and Family Current Living Situation Comment: Lives with , grandson Other Information That Helps Us Care for You: No Feels Safe at Home: Yes Safety Concerns: Feels Safe At This Time Smoking Status: Former smoker packs per day: 1 ; Years Smoked: 58 ; Smoking End Date: 1.5 months ago ; Hx Alcohol Use: No Hx Substance Use: No Review of Systems Review of Systems: As noted per HPI, 10 systems reviewed and negative unless noted above. Physical Exam Physical Exam: Gen: Thin, malnourished, male, appears older than stated age,NAD, sitting up in bed, purse lip breathing, pleasant, conversing easily Head: Normocephalic, Atraumatic Eyes: Sclera normal, no conjunctival injection, PERRLA, EOMI ENT: Gross hearing intact, normal pharynx, mucous membranes dry, poor dentition Neck: supple, no adenopathy palpated on exam, No JVD, no bruit, Resp: Clear to auscultation b/l, with expiratory wheezing throughout worse upper vs lower, no rales, rhonchi. 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 Extremities: No edema bilaterally, venous insuff changes b/l, diminished pedal pulses b/l but skin warm, good color Skin: warm, moist, no rash, negative turgor, cap refill < 2sec Neuro: Alert and oriented x 3, speech normal, good mood/affect, cran nerve 2-12 intact grossly : deferred Results & Data Vital Signs (Past 12 Hours) Vital Signs Temp Pulse Pulse Resp BP BP Pulse Ox 04/30/19 13:07 96 04/30/19 13:02 92 H 22 97/51 L 91 04/30/19 13:01 22 04/30/19 12:30 98 H 19 92 04/30/19 12:00 98 H 15 104/53 L 96 04/30/19 11:30 95 H 19 95 04/30/19 11:25 85 L 04/30/19 11:15 94 H 26 H 90 04/30/19 11:09 94 H 26 H 101/44 L 90 04/30/19 10:30 36.8 C 102 H 16 86/50 L 92 Laboratory Results Short CBC 04/30/19 04/30/19 Range/Units 11:59 11:59 WBC 2.69 L (4.8-10.8) K/uL Hgb 6.9 L* (14.0-18.0) g/dL Hct 20.4 L* (42-52) % Plt Count 62 L (130-400) K/uL AST 89 H (15-37) U/L BMP 04/30/19 11:59 Sodium 134 L Potassium 4.6 Chloride 101 Carbon Dioxide 24 BUN 25 H Creatinine 1.10 Glucose 103 H Calcium 8.2 L Cardiac Enzymes 04/30/19 Range/Units 11:59 Troponin I 0.023 (0-0.045) ng/ml Liver Function 04/30/19 Range/Units 11:59 Total Bilirubin 1.7 H (0.2-1) mg/dl AST 89 H (15-37) U/L ALT 55 (12-78) U/L Alkaline Phosphatase 154 H (45-117) U/L Albumin 2.4 L (3.4-5.0) gm/dl Diagnostic Findings Soft Tissue Neck CT: IMPRESSION: 1. No soft tissue mass in the neck. No suspicious nodular enhancement along the course of the aerodigestive tract to suggest a primary lesion. 2. Lymphadenopathy at the left base of the neck and left supraclavicular fossa. Partially visualized mediastinal lymphadenopathy. Chest CTA: IMPRESSION: 1. No evidence of pulmonary embolus. 2. Elevated right heart pressure. 3. Solid cavitary mass in the posterior basal left lower lobe. This is highly suspicious for primary bronchogenic neoplasm. Less likely differential consideration includes infection. 4. Mediastinal and hilar lymphadenopathy highly suspicious for metastatic disease. Left supraclavicular lymphadenopathy also noted. 5. Patchy predominant dependent infiltrates and tree in bud opacities may represent aspiration, infection, or less likely spread of metastases. 6. Background emphysema and bronchitis, evidence of smoking related lung injury. 7. Splenomegaly. This could potentially relate to metastatic disease, a lymphoproliferative disorder, or portal hypertension among other etiologies. Abd/Pelvis CT: IMPRESSION: 1. Splenomegaly. This is nonspecific. Metastatic disease or lymphoproliferative disorder cannot be excluded among other etiologies. 2. Evidence of old granulomatous disease, which could suggest prior histoplasmosis or other granulomatous infection. 3. No lymphadenopathy or other evidence to suggest metastatic disease in abdomen or pelvis. No acute intra-abdominal pathology. 4. Chronic bladder outlet obstruction is suspected despite the absence of prostatomegaly. Correlate with urinalysis to exclude cystitis. 5. Slight interval increased size of the infrarenal abdominal aortic aneurysm which measures 3.7 x 2.6 cm. 6. Solid partially cavitary mass in the left lower lobe concerning for primary bronchogenic neoplasm. Please see separately dictated CT of the chest. 7. Multifocal dependent infiltrates on a background of emphysema concerning for aspiration or infection. Medications Administered Ioversol (Optiray 320 125ml) 119 ml IV ONCE PRN PRN Reason: Interaction Checking Stop: 05/04/19 12:55 Last Admin: 04/30/19 12:57 Dose: 119 ml Documented by: [id number] Discontinued Medications Sodium Chloride (Nss 1000ml) 1,000 mls @ 999 mls/hr IV .Q1H1M ONE Stop: 04/30/19 14:40 Last Infusion: 04/30/19 14:55 Dose: 0 mls/hr Documented by: [id number] Admin: 04/30/19 13:41 Dose: 999 mls/hr Documented by: [id number] Piperacillin Sod/Tazobactam Sod (Zosyn) 4.5 gm in 120 mls @ 240 mls/hr IV NOW ONE Stop: 04/30/19 14:08 Last Infusion: 04/30/19 14:55 Dose: 0 mls/hr Documented by: [id number] Admin: 04/30/19 14:13 Dose: 240 mls/hr Documented by: [id number] Sodium Chloride (Nss 1000ml) 500 mls @ 999 mls/hr IV .Q31M ONE Stop: 04/30/19 14:09 Last Admin: 04/30/19 13:50 Dose: Not Given Documented by: [id number] ECG Rate (beats per minute): 91 Findings: + ST depression (Lateral) and + T-wave inversion (Lateral) Code Status & VTE Plan Code Status Full Code VTE Prophylaxis Plan VTE Prophylaxis will be ordered: Yes Reason for no VTE drug order: Contraindicated Supervising Physician Co-Signing Physician Notes Patient was seen and evaluated with JEWELS Recinos Patient is a 69-year-old male with history of CAD with CABG x3, hypertension, hyperlipidemia, CHF, PVD, abdominal aortic aneurysm, non-Hodgkin's B-cell lymphoma neck and 05/2013, chronic thrombocytopenia, Presented to ED with complaint of multiple falls in past 5 days. He feels like legs get so weak that he falls5 times fell in the past 5 days. No known injury except mild abrasion and bruising. Overall has noticed worsening generalized weakness for the past year, more pronounced in past week with 80 pound weight loss in last 6 months. Has productive cough for past 2 weeks. Being followed closely at oncology office for developing lymph nodes with hx of b cell lymphoma. EXAM: GENERAL- AAOX3, chronically ill looking, using pursed lip breathing NECK- Supple, no JVD LUNGS- Air entry bilaterally decreased, coarse breath sounds, few wheezes/crackles. HEART- Regular rate and rhythm. No murmurs ABDOMEN- Soft, non tender, non distended, Bowel sounds heard. EXTREMITIES- Good peripheral pulses, no edema NEUROMUSCULAR- AAOX3, Grossly no focal deficits ASSESSMENT / PLAN Generalized weakness / Physical deconditioning causing frequent falls : Multifactorial Pancytopenia/symptomatic anemia with hemoglobin dropping to 6.9, non-Hodgkin's B-cell lymphoma, splenomegaly, newly diagnosed left lung mass suspicious for malignancy -PT/OT ordered Newly diagnosed left lung mass suspicious for malignancy Patient does have a history of significant weight loss for many months, worsening cough for the past few weeks -As part of the ED work-up given his history of lymphoma, CT scan neck, chest, abdomen and pelvis were performed. Revealed solid cavitary mass in posterior basal left lower lobe highly suspicious for primary bronchogenic neoplasm, mediastinal and hilar lymphadenopathy highly suspicious for metastatic disease, left supraclavicular lymphadenopathy noted. Patchy predominant dependent infiltrates and tree-in-bud opacities, background emphysema and bronchitis, splenomegaly. Patient has a significant smoking history for more than 50 years, quit 1-1/2 years ago. Pulmonary consult placed for newly diagnosed left lung mass. Symptomatic Anemia/pancytopenia in setting of B cell small cell non-Hodgkin's lymphoma/splenomegaly: Chronic thrombocytopenia as per prior records. Chronic anemia in the range of 8-9. Hemoglobin on presentation 6.9. No signs of active bleeding. 2 units of packed red blood cells for transfusion ordered. Work up - 10/2018- Iron studies - neg, Will order FOBT, Reticulocyte count. -Monitor H & H Possible pneumonia Patient does have productive sputum, some chest pain, baseline shortness of breath -CT chest shows multifocal dependent infiltrates on background of emphysema concerning for aspiration or infection -Patient is a poor historian and has multiple respiratory complaints which could be secondary to newly diagnosed lung mass, however, being immunocompromised will cover empirically with Augmentin twice daily -If develops fever or signs of infection, may consider broadening the spectrum of antibiotics Sputum culture sensitivity Non-Hodgkin's B-cell lymphoma Known history of non-Hodgkin's B-cell lymphoma diagnosed in 2012. Follows up with [facility] oncology outpatient on a regular basis As per recent CT scan done in January 2019, had progressive worsening of lymphadenopathy. However, did not have any symptoms related to lymphoma at that time, therefore follow-up was scheduled for May 2019 or sooner if he develops symptoms. -CT scanning soft tissue neck, chest, abdomen, pelvis was done on admission shows lymphadenopathy at left base of neck and left supraclavicular fossa, splenomegaly -Of note, CT scan abd/pelvis here - doesnt show lymph nodes in abd or pelvis, but CT done outpatient in 01/2019 showed large gastrohepatic, portal hepatic, retroperitoneal lymph nodes increased in size from prior exam, hepatosplenomegaly had mildly increased as well. History of coronary artery disease status post CABG x3 Hold aspirin given symptomatic anemia requiring blood transfusion Continue with atorvastatin. COPD with no exacerbation -Mild wheezing on exam -Nebs QID -Not on inhaler at home Hypertension Blood pressure is borderline low in 80s. Received IV fluids in ED. Hold lisinopril 5 mg daily IV fluids Monitor trend Hyperlipidemia Continue with atorvastatin 40 mg nightly Abdominal aortic aneurysm Per CT scan- Slight interval increase in size of infrarenal abdominal aortic aneurysm which measures 3.7 x 2.6 cm Monitor outpatient DVT prophylaxis SCDS/TEDS; Re thrombocytopenia and anemia Full code Disposition Medical management in progress
[2019-04-30 16:26] LABS: Reticulocyte % 1.5 % (0.5-2.0); Reticulocytes # 0.03 10^6/uL (0.02-0.10)
[2019-04-30] MEDS ORDERED: MAGNESIUM HYDROXIDE SUSP 30 ML UDC PO PRN (16:52)
[2019-04-30] MEDS ORDERED: ONDANSETRON INJ 2 MG/ML 2 ML VIAL IV PRN (16:52)
[2019-04-30] MEDS ORDERED: ALUMINUM/MAGNESIUM SUSP 30 ML UDC PO PRN (16:52)
[2019-04-30] MEDS ORDERED: POLYETHYLENE (MIRALAX) 17 GM PACK PO PRN (16:52)
[2019-04-30] MEDS: ALBUT/IPRATROP 3MG/0.5MG NEB 3 ML VIAL NEB SCH ×2 (17:15→19:07)
[2019-04-30] MEDS ORDERED: SODIUM CHLORIDE 0.9% 1000ML 1,000 ML IV SCH ×2 (17:15→23:11)
[2019-04-30] MEDS ORDERED: AMOXICILLIN/CLAVULANATE 875 MG TAB PO SCH (17:30)
--- NOTE | 2019-04-30 17:47 | Emergency Department Note ---
Entered by Jennifer Raymond acting as a scribe for History of Present Illness General Chief complaint: Fall Stated complaint: LOSING BALANCE AND FALLING Source: patient History of Present Illness Provider complaint: weakness Onset (ago): day(s) 3 Location: lower extremity Maximum Pain Intensity: 94 Quality: + other (weakness ) Associated symptoms: + cough (with production) and + other (Positive diarrhea; Negative abdominal pain; Negative black stools; Negative bloody stools; Negative abdominal pain; Negative irregular urinary symptoms; Negative head trauma; Negative ankle pain); no chest pain, no fever/chills, no nausea/vomiting and no shortness of breath Treatments prior to arrival: none The patient, who is a 69 year old male with a medical history of hypertension, benign prostatic hyperplasia and heart failure, presents to the Emergency Room with complaints of weakness that started 3 days ago. The patient explains that for the past three days he fell 5 times. The patient states that during these episodes his legs would become shaky and weak and he would fall to the ground. He denies any significant injuries from the fall. He states that he landed on his buttocks and did not hit his head. The patient states that he had diarrhea three days ago but this has now been resolved. The patient explains that he has a cough with production. The patient denies fever, shortness of breath, chest pain, bloody stools, black stools, abdominal pain, irregular urinary symptoms, head trauma, ankle pain. The patient expresses that the has lost 40 pounds in 6 months. The patient reports that he stopped smoking a month and a half ago. The patient states that he has had open heart surgery 15 years ago. The patient expl ains that he has an enlarged lymph node on his right side that was removed 8 years ago. He was told by his doctor that he had abnormal lymph nodes in his chest which they were going to monitor. He states that recently he has noticed pain to the left side of his neck. Home Medications Home Medications Medication Instructions Recorded Confirmed Type atenolol 25 mg PO DAILY 03/07/19 04/30/19 History atorvastatin 40 mg PO QAM 03/07/19 04/30/19 History lisinopril 5 mg PO QAM 03/07/19 04/30/19 History nitroglycerin 0.4 mg SUBLINGUAL Q4H PRN 03/07/19 04/30/19 History aspirin [Aspir-81] 162 mg PO DAILY 04/30/19 04/30/19 History Allergies Allergy/AdvReac Type Severity Reaction Status Date / Time No Known Allergies Allergy * Verified 04/30/19 11:49 Past Med/Surg History Medical History HLD (hyperlipidemia) (Chronic) Tobacco abuse (Chronic) HTN (hypertension) (Chronic) BPH (benign prostatic hyperplasia) (Chronic) Heart failure (Chronic) PAD (peripheral artery disease) (Chronic) Lymphoma (Chronic) tx with lymph node resection in 2012 AAA (abdominal aortic aneurysm) (Chronic) Cervical stenosis of spinal canal (Resolved) Peripheral vascular disease Surgical History History of fusion of cervical spine (Chronic) History of appendectomy (Chronic) S/P CABG x 3 (Chronic) S/P carotid endarterectomy (Chronic) Family History Mother Choked on food per pt history Father , unknown medical problems No problems noted. Brother Coronary heart disease massive AL age 61 Social History Preferred Language: Belarusian Communication Ability: Effective Beliefs That Will Affect Care: None marital status: Current Living Situation: Spouse and Family Current Living Situation Comment: Lives with , grandson Other Information That Helps Us Care for You: No Feels Safe at Home: Yes Safety Concerns: Feels Safe At This Time Smoking Status: Former smoker packs per day: 1 ; Years Smoked: 58 ; Smoking End Date: 1.5 months ago ; Hx Alcohol Use: No Hx Substance Use: No Review of Systems See HPI for pertinent positives & negatives. and A total of 10 systems reviewed and were otherwise negative Physical Exam Vital Signs Vital Signs - 24 hr 04/30/19 10:30 04/30/19 11:09 04/30/19 11:15 Temperature 36.8 C Temperature Source Oral Sepsis Recent Fever Within 48 Hours No Sepsis New/Unexplained Change in Mental Status No Sepsis Action Taken by Nursing No Action Required Oxygen Flow Rate - Titration Pulse Oximetry Post Tiitration Pulse Rate 102 H 94 H 94 H Pulse Rate [Apical] Pulse Rate from SpO2 Sensor 93 H 100 H Respiratory Rate 16 26 H 26 H Blood Pressure 86/50 L 101/44 L Blood Pressure [Right Arm] Blood Pressure Mean 62 63 Blood Pressure Mean [Right Arm] Pulse Oximetry 92 90 90 Oxygen Delivery Method Room Air Oxygen Flow Rate 04/30/19 11:25 04/30/19 11:30 04/30/19 12:00 Temperature Temperature Source Sepsis Recent Fever Within 48 Hours Sepsis New/Unexplained Change in Mental Status Sepsis Action Taken by Nursing Oxygen Flow Rate - Titration 2 Pulse Oximetry Post Tiitration 94 Pulse Rate 95 H 98 H Pulse Rate [Apical] Pulse Rate from SpO2 Sensor 92 H 96 H Respiratory Rate 19 15 Blood Pressure 104/53 L Blood Pressure [Right Arm] Blood Pressure Mean 70 Blood Pressure Mean [Right Arm] Pulse Oximetry 85 L 95 96 Oxygen Delivery Method Room Air Nasal Cannula Oxygen Flow Rate 2 04/30/19 12:30 04/30/19 13:01 04/30/19 13:02 Temperature Temperature Source Sepsis Recent Fever Within 48 Hours Sepsis New/Unexplained Change in Mental Status Sepsis Action Taken by Nursing Oxygen Flow Rate - Titration Pulse Oximetry Post Tiitration Pulse Rate 98 H 92 H Pulse Rate [Apical] 92 H Pulse Rate from SpO2 Sensor 97 H 90 Respiratory Rate 19 22 25 H Blood Pressure 97/51 L Blood Pressure [Right Arm] 97/51 L Blood Pressure Mean 66 Blood Pressure Mean [Right Arm] 66 Pulse Oximetry 92 92 Oxygen Delivery Method Nasal Cannula Room Air Oxygen Flow Rate 1 04/30/19 13:07 04/30/19 13:30 04/30/19 13:34 Temperature Temperature Source Sepsis Recent Fever Within 48 Hours Sepsis New/Unexplained Change in Mental Status Sepsis Action Taken by Nursing Oxygen Flow Rate - Titration Pulse Oximetry Post Tiitration Pulse Rate 85 89 Pulse Rate [Apical] Pulse Rate from SpO2 Sensor 85 89 Respiratory Rate 24 15 Blood Pressure 75/51 L Blood Pressure [Right Arm] Blood Pressure Mean 59 Blood Pressure Mean [Right Arm] Pulse Oximetry 96 95 95 Oxygen Delivery Method Nasal Cannula Oxygen Flow Rate 2 04/30/19 13:35 04/30/19 13:46 04/30/19 14:00 Temperature Temperature Source Sepsis Recent Fever Within 48 Hours Sepsis New/Unexplained Change in Mental Status Sepsis Action Taken by Nursing Oxygen Flow Rate - Titration Pulse Oximetry Post Tiitration Pulse Rate 85 83 84 Pulse Rate [Apical] Pulse Rate from SpO2 Sensor 87 83 86 Respiratory Rate 21 22 28 H Blood Pressure 88/46 L 93/43 L Blood Pressure [Right Arm] Blood Pressure Mean 60 59 Blood Pressure Mean [Right Arm] Pulse Oximetry 95 97 96 Oxygen Delivery Method Oxygen Flow Rate 04/30/19 14:04 04/30/19 14:30 Temperature Temperature Source Sepsis Recent Fever Within 48 Hours Sepsis New/Unexplained Change in Mental Status Sepsis Action Taken by Nursing Oxygen Flow Rate - Titration Pulse Oximetry Post Tiitration Pulse Rate 88 87 Pulse Rate [Apical] Pulse Rate from SpO2 Sensor 91 H 92 H Respiratory Rate 25 H 26 H Blood Pressure 92/46 L 108/55 L Blood Pressure [Right Arm] Blood Pressure Mean 61 72 Blood Pressure Mean [Right Arm] Pulse Oximetry 92 96 Oxygen Delivery Method Oxygen Flow Rate Constitutional: Vital signs reviewed. Hypoxemic. Eyes: Pupils are equal round reactive to light. Conjunctiva are noninjected. ENT: Pharynx is clear without erythema or exudate. Mucous membranes are moist. Neck supple without meningeal signs. Left cervical lymphadenopathy no swelling or tenderness. Respiratory: Clear to auscultation bilaterally. Breath sounds are equal bilaterally. Pursed lip breathing. Cardiovascular: Regular rate and rhythm. No rubs or gallops. GI: Soft, nondistended and nontender. Bowel sounds are present. Musculoskeletal: No peripheral edema. No lower extremity tenderness. Integumentary: No cyanosis. Neurological: The patient is awake and alert. No focal deficits. Psychiatric: Normal affect. Course 1126: Past medical records reviewed. The patient was evaluated in room C7. A complete history and physical exam was performed. 1339: I reviewed the patient's case with Carmella Recinos PA-C. Dr. Merrill, [facility] will evaluate the patient for further management. 1348: I reassessed the patient who has a blood pressure is 88/46. I discussed his test results in detail. He is agreeable for transfusion after discussion about risk. He is agreeable for treatment and he is just requesting water. They are currently getting a second line and preparing for transfusion. 1438: I reassessed the patient who's blood pressure is 108/55 he received antibiotics and is waiting for blood products. 1533: I reassessed the patient who's blood pressure is 88. They are getting the blood right now. 1551: I reassessed the patient who's blood pressure is 98/51. The first unit of blood is transfusing. Consultations Consultation #1: I reviewed the patient's case with Carmella Recinos PA-C. Dr. Merrill, [facility] Hospitalist will evaluate the patient for further management. Time: 13:39 Administered Medications Albuterol (Duoneb) 3 ml NEB QIDR TAJ Stop: 05/30/19 17:29 Last Admin: 04/30/19 17:15 Dose: 3 ml Documented by: [id number] Ioversol (Optiray 320 125ml) 119 ml IV ONCE PRN PRN Reason: Interaction Checking Stop: 05/04/19 12:55 Last Admin: 04/30/19 12:57 Dose: 119 ml Documented by: [id number] Discontinued Medications Sodium Chloride (Nss 1000ml) 1,000 mls @ 999 mls/hr IV .Q1H1M ONE Stop: 04/30/19 14:40 Last Infusion: 04/30/19 14:55 Dose: 0 mls/hr Documented by: [id number] Admin: 04/30/19 13:41 Dose: 999 mls/hr Documented by: [id number] Piperacillin Sod/Tazobactam Sod (Zosyn) 4.5 gm in 120 mls @ 240 mls/hr IV NOW ONE Stop: 04/30/19 14:08 Last Infusion: 04/30/19 14:55 Dose: 0 mls/hr Documented by: [id number] Admin: 04/30/19 14:13 Dose: 240 mls/hr Documented by: [id number] Sodium Chloride (Nss 1000ml) 500 mls @ 999 mls/hr IV .Q31M ONE Stop: 04/30/19 14:09 Last Admin: 04/30/19 13:50 Dose: Not Given Documented by: [id number] Medical Decision Making Differential Diagnosis Differential diagnosis includes: Lung cancer, abscess, pneumonia, urinary tract infection, anemia, lymphadenopathy as well as others were entertained. Medical Records Attestation: I reviewed the patient's medical records. I did perform a limited focused review of portions of the patient's old chart on the electronic medical record. The patient has had no recent pertinent visits to this hospital. Home Medications Current Medication List: was personally reviewed by me Laboratory Data Attestation: I reviewed the patient's lab results. Result diagrams: 04/30/19 11:59 04/30/19 11:59 Lab Results 04/30/19 04/30/19 04/30/19 Range/Units 11:59 11:59 11:59 WBC 2.69 L (4.8-10.8) K/uL RBC 2.37 L (4.7-6.1) M/uL Hgb 6.9 L* (14.0-18.0) g/dL Hct 20.4 L* (42-52) % MCV 86.1 (80-100) fL MCH 29.1 (25-34) pg MCHC 33.8 (32-36) g/dL RDW Std Deviation 68.9 H (36.4-46.3) fL RDW Coeff of John 22.1 H (11.5-14.5) % Plt Count 62 L (130-400) K/uL MPV 9.4 (7.4-10.4) fL Immature Gran % (Auto) 0.7 % Neut % (Auto) 43.5 % Lymph % (Auto) 43.1 % Gulf % (Auto) 11.9 % Eos % (Auto) 0.4 % Baso % (Auto) 0.4 % Reticulocyte % (Auto) (0.5-2.0) % Immature Gran # (Auto) 0.02 (0.00-0.02) K/uL Neut # (Auto) 1.17 L (1.4-6.5) K/uL Lymph # (Auto) 1.16 L (1.2-3.4) K/uL Gulf # (Auto) 0.32 (0.11-0.59) K/uL Eos # (Auto) 0.01 (0-0.5) K/uL Baso # (Auto) 0.01 (0-0.2) K/uL Reticulocyte # (0.02-0.10) 10^6/uL Toxic Granulation 2+ Dohle Bodies 1+ Platelet Estimate Decreased L (Normal) Anisocytosis Present Ovalocytes 1+ Acanthocytes (Spur) 1+ PT 12.1 H (9.0-12.0) Seconds INR 1.2 H (0.9-1.1) APTT 38.4 H (21.0-31.0) Seconds PTT Ratio 1.4 Sodium 134 L (136-145) mmol/L Potassium 4.6 (3.5-5.1) mmol/L Chloride 101 (98-107) mmol/L Carbon Dioxide 24 (21-32) mmol/L Anion Gap 9.0 (3-11) BUN 25 H (7-18) mg/dl Creatinine 1.10 (0.6-1.4) mg/dl Est Cr Clr Drug Dosing 60.9 ml/min Est GFR ( Amer) 79.5 Est GFR (Non-Af Amer) 68.6 BUN/Creatinine Ratio 22.4 H (10-20) Glucose 103 H (70-99) mg/dl POC Lactic Acid Jerome (0.90-1.70) mmol/L Calcium 8.2 L (8.5-10.1) mg/dl Total Bilirubin 1.7 H (0.2-1) mg/dl AST 89 H (15-37) U/L ALT 55 (12-78) U/L Alkaline Phosphatase 154 H (45-117) U/L Troponin I 0.023 (0-0.045) ng/ml Total Protein 6.5 (6.4-8.2) gm/dl Albumin 2.4 L (3.4-5.0) gm/dl Globulin 4.1 H (2.5-4.0) gm/dl Albumin/Globulin Ratio 0.6 L (0.9-2) Blood Type Antibody Screen Crossmatch 04/30/19 04/30/19 04/30/19 Range/Units 11:59 14:01 14:08 WBC (4.8-10.8) K/uL RBC (4.7-6.1) M/uL Hgb (14.0-18.0) g/dL Hct (42-52) % MCV (80-100) fL MCH (25-34) pg MCHC (32-36) g/dL RDW Std Deviation (36.4-46.3) fL RDW Coeff of John (11.5-14.5) % Plt Count (130-400) K/uL MPV (7.4-10.4) fL Immature Gran % (Auto) % Neut % (Auto) % Lymph % (Auto) % Gulf % (Auto) % Eos % (Auto) % Baso % (Auto) % Reticulocyte % (Auto) 1.5 (0.5-2.0) % Immature Gran # (Auto) (0.00-0.02) K/uL Neut # (Auto) (1.4-6.5) K/uL Lymph # (Auto) (1.2-3.4) K/uL Gulf # (Auto) (0.11-0.59) K/uL Eos # (Auto) (0-0.5) K/uL Baso # (Auto) (0-0.2) K/uL Reticulocyte # 0.03 (0.02-0.10) 10^6/uL Toxic Granulation Dohle Bodies Platelet Estimate (Normal) Anisocytosis Ovalocytes Acanthocytes (Spur) PT (9.0-12.0) Seconds INR (0.9-1.1) APTT (21.0-31.0) Seconds PTT Ratio Sodium (136-145) mmol/L Potassium (3.5-5.1) mmol/L Chloride (98-107) mmol/L Carbon Dioxide (21-32) mmol/L Anion Gap (3-11) BUN (7-18) mg/dl Creatinine (0.6-1.4) mg/dl Est Cr Clr Drug Dosing ml/min Est GFR ( Amer) Est GFR (Non-Af Amer) BUN/Creatinine Ratio (10-20) Glucose (70-99) mg/dl POC Lactic Acid Jerome 0.79 L (0.90-1.70) mmol/L Calcium (8.5-10.1) mg/dl Total Bilirubin (0.2-1) mg/dl AST (15-37) U/L ALT (12-78) U/L Alkaline Phosphatase (45-117) U/L Troponin I (0-0.045) ng/ml Total Protein (6.4-8.2) gm/dl Albumin (3.4-5.0) gm/dl Globulin (2.5-4.0) gm/dl Albumin/Globulin Ratio (0.9-2) Blood Type A Positive Antibody Screen NEGATIVE Crossmatch See Detail Imaging Data Radiologist's Impression: Radiology results as stated below per my review and the radiologist's interpretation: CT abd pelvis IV con only CLINICAL HISTORY: 69 years-old Male presenting with hypoxia, left-sided neck pain, concern for mass. TECHNIQUE: Multidetector CT of the abdomen and pelvis was performed after the administration of intravenous contrast. IV contrast: 119 mL of Optiray 320. One or more dose lowering techniques were used consistent with the principles of ALARA (as low as reasonably achievable), including automatic exposure control, mA or kV adjustment to individual patient size, and/or use of iterative reconstruction. COMPARISON: 09/05/2016. CT DOSE (mGy.cm): The estimated cumulative dose is 1029.43. FINDINGS: Junior Legal Secretary topogram: Median sternotomy wires. Lung bases: Normal heart size. Coronary artery calcification. No pericardial or pleural effusion. Solid and partially cavitary mass in the posterior basal left lower lobe. Extensive nodular dependent predominant infiltrates. Background emphysema. Liver: Normal morphology. No liver lesion. Patent hepatic vasculature. Biliary: No intrahepatic or extrahepatic biliary ductal dilatation. Gallbladder contains gallstones. Pancreas: Normal. Spleen: Enlarged. Punctate calcification suggest a history of granulomatous disease. Adrenal glands: Normal. Kidneys and ureters: Severe atrophy of the right kidney. Compensatory hypertrophy of the left kidney. No nephrolithiasis or hydronephrosis. Ureters nondistended. Bladder: Circumferential bladder wall thickening. Pelvic organs: Prostate and seminal vesicles normal. Bowel: Postsurgical changes of appendectomy suspected. No bowel obstruction. Peritoneal cavity: No free fluid or intraperitoneal gas. Lymph nodes: No enlarged lymph nodes in the abdomen or pelvis. Vasculature: Atherosclerosis with an abdominal aortic aneurysm in the infrarenal portion. This has a maximum diameter of 3.7 x 3.6 cm, slightly increased in size from prior when it measured 3.5 cm. Dense calcified atherosclerotic plaque in the right common and superficial femoral arteries. Multifocal stenoses from calcified plaque. IVC patent. Abdominal wall: Normal. Musculoskeletal: Degenerative changes of the spine. IMPRESSION: 1. Splenomegaly. This is nonspecific. Metastatic disease or lymphoproliferative disorder cannot be excluded among other etiologies. 2. Evidence of old granulomatous disease, which could suggest prior histoplasmosis or other granulomatous infection. 3. No lymphadenopathy or other evidence to suggest metastatic disease in abdomen or pelvis. No acute intra-abdominal pathology. 4. Chronic bladder outlet obstruction is suspected despite the absence of prostatomegaly. Correlate with urinalysis to exclude cystitis. 5. Slight interval increased size of the infrarenal abdominal aortic aneurysm w hich measures 3.7 x 2.6 cm. 6. Solid partially cavitary mass in the left lower lobe concerning for primary bronchogenic neoplasm. Please see separately dictated CT of the chest. 7. Multifocal dependent infiltrates on a background of emphysema concerning for aspiration or infection. Electronically signed by: Sandor Barakat M.D. 04/30/2019 1:[address] angio chest PE protocol CLINICAL HISTORY: 69 years-old Male presenting with hypoxemia, left-sided neck pain, concern for pulmonary embolus versus lung mass. TECHNIQUE: Multidetector CT angiography of the chest was performed after administration of intravenous contrast. 3-D volumetric and/or maximum intensity projection (MIP) images were subsequently reconstructed for review. IV contrast: 119 mL of Optiray 320. One or more dose lowering techniques were used consistent with the principles of ALARA (as low as reasonably achievable), including automatic exposure control, mA or kV adjustment to individual patient size, and/or use of iterative reconstruction. COMPARISON: None. CT DOSE (mGy.cm): The estimated cumulative dose is 1029.43 mGy.cm. FINDINGS: Junior Legal Secretary topogram: Median sternotomy wires. Pulmonary vasculature: The study is adequate for assessment of the pulmonary vascular tree. No filling defect within the pulmonary arteries to suggest embolus. Main pulmonary artery is not enlarged. No flattening of the interventricular septum. No intracardiac filling defect. Reflux of contrast into the IVC and hepatic veins. This likely indicates elevated right heart pressure. Remaining chest: Soft tissues: Normal thyroid and thoracic inlet. Enlarged left supraclavicular lymph node. Enlarged mediastinal lymph nodes in prevascular, paratracheal, precarinal and subcarinal regions. Bilateral hilar lymphadenopathy. Calcified lymphadenopathy in the right suprahilar region. Atherosclerosis of the aorta. Postsurgical changes of median sternotomy with coronary artery bypass grafting. Normal heart size. Coronary artery and aortic valve calcification. No pericardial or pleural effusion. Splenomegaly is suspected. Calcifications in the spleen evidence of granulomatous disease. Lungs and airways: No pneumothorax. Mild diffuse bronchial wall thickening. Centrilobular and limited paraseptal emphysematous changes. Multilobular solid and cystic mass measuring 3.1 cm in the posterior basal left lower lobe (series 6 image 89). This abuts the pleura. Multifocal dependent infiltrates in the right lower lobe, which are solid to groundglass in density. Few scattered groundglass opacities in the upper lobes in a dependent distribution. Pulmonary arteries are not significantly enlarged relative to adjacent bronchi. No interlobular septal thickening. Calcified granuloma noted in the right lower lobe. Tree-in-bud opacities noted in the lingula. Musculoskeletal: Degenerative changes of the spine. Degenerative changes of the glenohumeral joints. IMPRESSION: 1. No evidence of pulmonary embolus. 2. Elevated right heart pressure. 3. Solid cavitary mass in the posterior basal left lower lobe. This is highly suspicious for primary bronchogenic neoplasm. Less likely differential consideration includes infection. 4. Mediastinal and hilar lymphadenopathy highly suspicious for metastatic disease. Left supraclavicular lymphadenopathy also noted. 5. Patchy predominant dependent infiltrates and tree in bud opacities may represent aspiration, infection, or less likely spread of metastases. 6. Background emphysema and bronchitis, evidence of smoking related lung injury. 7. Splenomegaly. This could potentially relate to metastatic disease, a lymphoproliferative disorder, or portal hypertension among other etiologies. Electronically signed by: Sandor Barakat M.D. 04/30/2019 1:[address] soft tissue neck w con CLINICAL HISTORY: 69 years-old Male presenting with left neck pain eval for mass. TECHNIQUE: Multidetector CT of the neck was performed after the administration of intravenous contrast. IV contrast: 119 mL of Optiray 320. One or more dose lowering techniques were used consistent with the principles of ALARA (as low as reasonably achievable), including automatic exposure control, mA or kV adjustment to individual patient size, and/or use of iterative reconstruction. COMPARISON: 01/12/2015. CT DOSE (mGy.cm): The estimated cumulative dose is 1029.43. FINDINGS: Junior Legal Secretary topogram: Median sternotomy wires. No soft tissue mass is evident in the neck. Superficial cystic lesion associated with the acuteness of the premaxillary region on the left likely an epidermal inclusion cyst and similar to prior. Pathologically enlarged lymph nodes in the lower cervical region on the left extending into the left supraclavicular fossa. An index node measures 1.2 cm cyst and axial long axis. No more superior lymphadenopathy is appreciated. Mediastinal lymphadenopathy is partially visualized. Aerodigestive tract widely patent. No effacement of the piriform sinuses or valleculae. Atherosclerosis including of the carotid bifurcations. Internal carotid arteries remain patent. Atherosclerosis of the cavernous segments of the ICAs also noted. Limited intracranial evaluation within normal limits. Orbits normal. Mucosal thickening in the left sphenoid sinus and left posterior ethmoid air cells and minimally in the maxillary sinuses inferiorly. Several teeth are absent with prominent dental caries. Degenerative changes of the cervical spine. Anterior fixation hardware in the cervical spine. Emphysema both centrilobular and paraseptal the lung apices. Scattered nodular opacities at the apices. IMPRESSION: 1. No soft tissue mass in the neck. No suspicious nodular enhancement along the course of the aerodigestive tract to suggest a primary lesion. 2. Lymphadenopathy at the left base of the neck and left supraclavicular fossa. Partially visualized mediastinal lymphadenopathy. Electronically signed by: Sandor Barakat M.D. 04/30/2019 1:27 PM ECG Data Attestation: I personally reviewed and interpreted this ECG as follows: Indication: weakness Rate (beats per minute): 91 Rhythm: sinus rhythm Findings: + other (Short MI interval at 110; No delta waves) and + ST depression (with biphasic T Wave in the lateral doni); no ST elevation Comparison ECG Date: from (08/28/2017) Change: the following changes noted (Similar depressions) Blood Pressure Blood Pressure Findings: Low blood pressure Blood Pressure Disposition: Referred to patients primary care provider MDM Narrative I did evaluate the patient as noted above. Patient is presenting with generalized weakness with frequent falls. He also notes that he has pain to the left side of his neck where he has some lymphadenopathy. He is hypoxemic here and was placed on supplemental oxygen. IV access was established. The patient was placed on a continuous director of cardiac cath lab. He was also hypotensive and was given normal saline IV. I did order and personally review the patient's 12-lead EKG as described above. His twelve-lead EKG showed ST depressions which were present on his previous EKG from 2017. He denies having any chest discomfort or shortness of breath. I did order and review the patient's blood work as noted in the electronic medical record. He has significant pancytopenia with a hemoglobin of 6.9. AST is elevated. Sodium is 134. I did order a CT of the soft tissue neck, chest, abdomen and pelvis. I did review the images myself as well as the radiology report as described above. The patient has mediastinal, hilar and cervical lymphadenopathy. He also has a cavitary mass lesion in the left lung with associated infiltrate concerning for pneumonia. No acute intra- abdominal pathology is noted. I did discuss the test results with the patient. I did recommend hospitalization and transfusion. I did obtain informed consent from the patient for blood transfusion. I did order 2 units of packed red blood cells. Blood cultures were also ordered and I did treat the patient with Zosyn IV. His blood pressure dropped again and blood transfusion was started in the ED. His blood pressure improved and he was admitted to the hospital. I did discuss the case with the hospitalist and correctional counselor/case manager. Impression & Plan Pancytopenia, Hypoxia, Hypotension, Mass of left lung, Pneumonia, Lymphadenopathy Critical Care Time Critical Care Time: Yes Total Critical Care Time: 40 I have personally spent 40 minutes of critical care time in the direct management of this patient. This includes bedside care, interpretation of diagnostic studies, and testing, discussion with consultants, patient, and family members, and other required patient management activities. This 40 minutes is in excess of all separately billable procedures. Discharge Plan Visit Data *Final* Discharge Date/Time: 04/30/19 15:26 Chief Complaint: Fall Stated Complaint: LOSING BALANCE AND FALLING ED Provider: Sancho Dexter Discharge Problem: Pancytopenia, Hypoxia, Hypotension, Mass of left lung, Pneumonia, Lymphadenopathy Patient Disposition: Admitted As Inpatient Discharge Instructions Interventions: ED Discharge Assessment Last Done: 04/30/19 15:26 Discharge Problem: Hypotension Qualifiers: Hypotension type: unspecified hypotension type Qualified Code(s): I95.9 - Hypotension, unspecified Pneumonia Qualifiers: Pneumonia type: due to unspecified organism Laterality: left Lung location: unspecified part of lung Qualified Code(s): J18.9 - Pneumonia, unspecified organism The scribe's documentation has been prepared under my direction and personally reviewed by me in its entirety. I confirm that the note above accurately reflects all work, treatment, procedures, and medical decision making performed by me.
[2019-04-30] MEDS ORDERED: FUROSEMIDE 40 MG/4 ML VIAL IV STA (18:06)
[2019-04-30 18:24] LABS: Hematocrit (blood only) 23.2 % (42-52); Hemoglobin 7.7 g/dL (14.0-18.0)
[2019-04-30] MEDS: ACETAMINOPHEN 325 MG TAB PO PRN (20:13)
[2019-04-30] MEDS ORDERED: ADENOSINE IV SOLN 3 MG/ML 2 ML VIAL IV ONE (20:45)
[2019-04-30] MEDS ORDERED: AMIODARONE / D5W 150 MG/100 ML BAG IV STA (20:55)
[2019-04-30] MEDS ORDERED: AMIODARONE IV BOLUS / DRIP IV STA (20:55)
[2019-04-30] MEDS ORDERED: AMIODARONE 150MG / 100ML D5W IV ONE (20:58)
[2019-04-30] MEDS ORDERED: AMIODARONE 360MG / 200ML D5W IV ONE (20:58)
[2019-04-30] MEDS ORDERED: AMIODARONE / D5W 360 MG/200 ML BAG IV SCH (21:00)
[2019-04-30] MEDS ORDERED: ADENOSINE IV SOLN 3 MG/ML 2 ML VIAL IV STA (21:06)
--- NOTE | 2019-04-30 21:21 | XRay Report ---
XR chest 1V portable CLINICAL HISTORY: 69 years-old Male presenting with congestion. TECHNIQUE: Portable upright AP view of the chest was obtained. COMPARISON: 06/30/2010 and CTA chest performed earlier today. FINDINGS: Median sternotomy wires with breakage of one of the [id number] wires. Mediastinal surgical clips noted. Atherosclerosis of the aortic arch. Cardiac silhouette borderline enlarged. Reticular opaciti es at the left lung base. The cavitary lung mass at the left lung base is minimally apparent. Diffuse ly coarsened lung markings. No pleural effusion or pneumothorax. Anterior cervical fusion hardware. S urgical clip projects over the right upper quadrant. IMPRESSION: 1. Left basilar infiltrates. Infectious etiology to be considered. 2. Dominant left lower lobe mass not well depicted. 3. Borderline cardiomegaly. Electronically signed by: Sandor Barakat M.D. 04/30/2019 9:20 PM
[2019-04-30 21:35] LABS: Hematocrit (blood only) 24.2 % (42-52); Mean Corpuscular Hemoglobin 28.6 pg (25-34); Mean Corpuscular Volume 86.4 fL (80-100); RDW Coefficient of Variation 20.3 % (11.5-14.5); RDW Standard Deviation 64.1 fL (36.4-46.3); White Blood Count 2.16 K/uL (4.8-10.8)
[2019-04-30 21:56] LABS: BUN Creatinine Ratio 18.9 (10-20); Creatinine Clr Calc Pharmacy 54.9 ml/min; Est GFR (African American) 70.2; Est GFR (Non-African American) 60.5; Magnesium 2.3 mg/dl (1.8-2.4)
[2019-04-30 21:57] LABS: Potassium 3.7 mmol/L (3.5-5.1)
[2019-04-30 22:22] LABS: Mean Corpuscular Hgb Conc 33.1 g/dL (32-36); Mean Platelet Volume 9.4 fL (7.4-10.4); Platelet Count 53 K/uL (130-400)
[2019-04-30 22:37] LABS: Acanthocytes 1+; Anisocytosis Present; Basophils # (auto) 0.01 K/uL (0-0.2); Basophils % (auto) 0.5 %; Dohle Bodies 1+; Immature Granulocytes # (auto) 0.03 K/uL (0.00-0.02); Immature Granulocytes % (auto) 1.4 %; Lymphocytes # (auto) 0.92 K/uL (1.2-3.4); Lymphocytes % (auto) 42.6 %; Monocytes # (auto) 0.21 K/uL (0.11-0.59); Monocytes % (auto) 9.7 %; Neutrophils % (auto) 45.8 %; Toxic Granulation 1+
[2019-04-30 22:40] LABS: Neutrophils # (auto) 0.99 K/uL (1.4-6.5)
[2019-04-30] MEDS ORDERED: ALBUMIN 25% 50 ML IV ONE (23:08)
[2019-04-30] MEDS ORDERED: SODIUM CHLORIDE 0.9% 500 ML IV SCH (23:11)
[2019-04-30] MEDS ORDERED: SODIUM CHLORIDE 0.9% 1000ML 250 ML IV ONE (23:36)
--- NOTE | 2019-04-30 23:36 | Procedure Note ---
Procedure Note Date of Service April 30, 2019 Procedure: Arterial Line Placement Attending: Dr. Ramirez APC: Jg Mercado PA-C Indication: Monitoring on Pressors Anesthesia: Lidocaine 1% Procedure discussed with the patient in great length. Risks and complications were discussed the patient. As patient is in unstable A. fib with hypotension and need for aggressive resuscitation including volume and likely need for vasoactive support medications, emergent consent implied. Patient verbally consents given the acuity of situation and state of active extremis. A time-out was completed verifying correct patient, procedure, site, positioning, and implant(s) or special equipment if applicable. Allens test was performed to ensure adequate perfusion. Patients LEFT wrist was prepped and draped in the usual sterile fashion. Ultrasound guidance was used to aid needle placement. A 20g Arrow arterial line was introduced into the LEFT Radial artery. Catheter was threaded, and the needle was removed with appropriate blood return. Good waveform was observed. The patient tolerated the procedure well. Confirmation of placement with ultrasound. Blood Loss: Minimal Complications: None Procedural Ultrasound Guidance: Procedure Date: 05/01/2019 Indication: Hypotension, Frequent Lab Draws, Pressors Attending: Dr. Ramirez APC: Jg Mercado PA-C Artery Identified: YES Line confirmed in Artery with ultrasound: YES Complications: NONE Patient tolerated procedure: WELL Coding CPT Codes Tubes, Drains, and Vasc Access - Tubes, Drains, and Vasc Access: Place Catheter In Artery ([id number])
--- NOTE | 2019-04-30 23:36 | Critical Care Consultation ---
Date of Consultation April 30, 2019 Assessment & Plan (1) Admitted to intensive care unit: Reason Critically Ill: 69-year-old critically ill male presenting with unstable A. fib with rapid ventricular response with associated hypotension requiring increasing resuscitative efforts as well as need for transfusion in the setting of pancytopenia and heme positive stools. NEURO - * CAM ICU: NEGATIVE * s/p Cervical Spine Fusion: * Acetaminophen PRN CARDIAC/VASCULAR - * Atrial fibrillation with rapid ventricular response: * In combination with symptomatic anemia. * Initially received 2 units PRBCs with start of A. fib shortly after. * Initially received adenosine followed by amiodarone bolus and drip without slowing of rate or conversion. * Bedside ultrasound performed and demonstrated collapsibility of IVC indicating persistent hypovolemia. * Resuscitated initially with crystalloid bolus followed by albumin and additional crystalloid bolus. * Potassium and calcium repleted. * We will recheck labs for possibility of worsening anemia. No signs/symptoms of active bleeding at this point. * Will place arterial line for close hemodynamic monitoring, especially if need for vasoactive medications. * Plan to transfuse to maintain hemoglobin ~9. * Will consider initiation of vasopressors, particularly Rian-Synephrine, for the benefit of reflexive bradycardia in the tachycardic patient. * Will hold on Heparin gtt 2/2 thrombocytopenia, Symptomatic anemia, and concerns of lower GIB. * EKG: A.fib w/ RVR @165bpm. ST-depression laterally - unchanged from prior. QTc 480ms. * Monitor on telemetry. RESPIRATORY - * Chronic cough with new LEFT lower lobe lesion concerning for neoplastic proce ss: * Continue with current work-up. * Likely new COPD diagnosis: * Will add scheduled IV steroids. * Will add nebulizers, but will use caution in the tachycardic patient. * Check ABG as he is required supplemental O2. * CTA of the chest points towards malignancy versus metastatic process. No pulmonary emboli. Elevated right heart pressures as expected the patient with diffuse lung disease. GI/NUTRITION - * Heme positive stools: * In the anemic patient, presumed GI bleed. * No overt bleeding at this time. * Will add Protonix twice daily. * Splenomegaly noted on CT abd/pelvis. * No other substantial findings appreciated. * Lactate not elevated to suggest ischemic gut. * Will make n.p.o. at this point. RENAL/LYTES - * While the patient is without significant electrolyte derangement at this point, will optimize electrolytes in the setting of A. fib. * IVF: Currently normal saline at 125 mL/hr - * Bejarano in place - Strict I&Os. ENDO - * No h/o DMII or Thyroid Dz * BSGs per unit protocol. ISS --> gtt per unit policy. * Will check TSH/Free T4 in setting of new onset A. Fib HEME - * Anemia: * Unknown etiology at this point. * Will transfuse to maintain hemoglobin approximately 9 in the patient with new onset A. fib. * Chronic thrombocytopenia: * Monitor platelet count daily. * Transfuse as needed. * Pancytopenia: * In the setting of new malignancy diagnosis. * Neutropenic as well. * Replace neutropenic precautions. ID - * With hypotension and possible concerns of pneumonia versus emphysematous change versus metastatic process, agree with antibiotic coverage. * Received Zosyn and Doxy. * Lactate not elevated. * Will add AM ProCal. LINES/IV ACCESS - * PIVs x3 * LEFT Radial A Line * Bejarano DVT PROPHYLAXIS - * Will hold on prophylaxis or heparin gtt in the setting of anemia and c/o lower GIB. * SCDs I have personally spent 60 minutes of critical care time in the direct management of this patient. This is a life/limb threatening event. This includes time spent evaluating patient, direct bedside care, chart review, placing orders, interpretation of diagnostic studies, discussion with consultants, patient, and family members, as well as other required patient management activ ities. This time is exclusive of all separately billable procedures, and teaching time and separate from and in addition to any other critical care service time. Thank you for allowing us to participate in the care of this patient. Please refer to my attending physician's documentation for any further recommendations. (2) Atrial fibrillation with rapid ventricular response: (3) Hypotension: (4) Symptomatic anemia: (5) Thrombocytopenia: (6) Generalized weakness: (7) Anemia requiring transfusions: (8) CAD (coronary artery disease): (9) Mass of left lung: (10) Hypoxia: (11) Pancytopenia: (12) History of fusion of cervical spine: (13) Heme positive stool: History of Present Illness Attending Physician: Danitza Merrill History of Present Illness Patient is a 69-year-old male with significant past medical history of coronary artery disease status post CABG x3, peripheral arterial disease, peripheral vascular disease, CHF, hyperlipidemia, hypertension, and abdominal aortic aneurysm who presented to the emergency department today for increasing weakness and frequency of falls. During evaluation, he was found to have concerns for new LEFT lower lobe changes of concern for neoplastic process. He was found to be anemic and initially transfused 2 units PRBCs. He received IV Lasix between doses. In addition, he has had Hemoccult positive stools. He reports an 80 pound weight loss in the last 6 months. He reports night sweats despite no change in appetite or food intake. Other than generalized weakness and falls, he reports an ongoing cough which is been nonproductive for the past several months. He did quit smoking 1 month ago. He had previously smoked 1 pack/day for an extended period of time. While admitted to the hospital, the patient went into a rapid A. fib with heart rates in the 170s to 180s. He initially received adenosine x1. He subsequently received amiodarone bolus followed by drip. Pressures dropped with systolics in the 60s to 70s. Despite this, the patient is continuing to mentate well. Patient was transferred to the ICU for further evaluation and management. Upon arrival in the ICU, the patient is awake, alert, and oriented. He reports that during these episodes he felt absolutely nothing. Specifically, he did not feel lightheadedness, dizziness, or palpitations. He reports absolutely no chest pain. Other than increasing weakness and coarse cough, he offers no new complaints otherwise. He denies any headaches, dizziness, vision changes, slurred speech, facial droop, unilateral weakness/numbness, chest pain, palpitations, pleuritic pain, hemoptysis, nausea, vomiting, abdominal pain, hematochezia, melena, hematuria, or dysuria. Other than history of cigarette smoking, the patient denies any significant use of alcohol. He reports no use of illicit drugs. Allergies Allergy/AdvReac Type Severity Reaction Status Date / Time No Known Allergies Allergy * Verified 04/30/19 11:49 Home Medications Home Medications Medication Instructions Recorded Confirmed Type atenolol 25 mg PO DAILY 03/07/19 04/30/19 History atorvastatin 40 mg PO QAM 03/07/19 04/30/19 History lisinopril 5 mg PO QAM 03/07/19 04/30/19 History nitroglycerin 0.4 mg SUBLINGUAL Q4H PRN 03/07/19 04/30/19 History aspirin [Aspir-81] 162 mg PO DAILY 04/30/19 04/30/19 History Patient History Medical History HLD (hyperlipidemia) (Chronic) Tobacco abuse (Chronic) HTN (hypertension) (Chronic) BPH (benign prostatic hyperplasia) (Chronic) Heart failure (Chronic) PAD (peripheral artery disease) (Chronic) Lymphoma (Chronic) tx with lymph node resection in 2012 AAA (abdominal aortic aneurysm) (Chronic) Cervical stenosis of spinal canal (Resolved) Peripheral vascular disease Surgical History History of fusion of cervical spine (Chronic) History of appendectomy (Chronic) S/P CABG x 3 (Chronic) S/P carotid endarterectomy (Chronic) Family History Mother Choked on food per pt history Father , unknown medical problems No problems noted. Brother Coronary heart disease massive VT age 61 Social History Preferred Language: Albanian Communication Ability: Effective Beliefs That Will Affect Care: None marital status: Current Living Situation: Spouse and Family Current Living Situation Comment: Lives with , grandson Other Information That Helps Us Care for You: No Feels Safe at Home: Yes Safety Concerns: Feels Safe At This Time Smoking Status: Former smoker packs per day: 1 ; Years Smoked: 58 ; Smoking End Date: 1.5 months ago ; Hx Alcohol Use: No Hx Substance Use: No Review of Systems Review of Systems: A complete 10 point review of systems was reviewed with the patient with pertinent positives and negatives as per history of present illness. All else were negative. Physical Exam Physical Exam: VITAL SIGNS - Vital signs and nursing notes were reviewed. GENERAL - 69-year-old cachectic appearing male appearing his stated age who is in no acute distress. Communicates well with provider and answers questions appropriately. SKIN - Without rashes. HEAD - NC/AT. EYES - PERRL with EOMI bilaterally. Sclera anicteric. Palpebral conjunctiva pink and moist with no injection noted. EARS - No deformities of external structures noted on gross examination bilaterally. NOSE - Midline and without cyanosis. No epistaxis or purulent drainage noted. MOUTH/OROPHARYNX - Without perioral cyanosis. Buccal mucosa pink and moist and without leukoplakia. Tongue midline with equal elevation of palate bilaterally. No tonsillar hypertrophy, erythema, or exudates noted. Poor dentition noted. NECK - Neck with FROM. Supple to palpation. No lymphadenopathy noted. No nuchal rigidity. LUNGS - Chest wall w/ 1:1 A:P ratio. Pursed lip breathing. Without accessory muscle use, intercostals retractions, or central cyanosis. Normal vesicular breath sounds. Diffuse inspiratory wheezes noted at the lung bases. No rales or rhonchi appreciated. CARDIAC - Irregularly irregular rhythm. No murmur, rubs, or gallops appreciated. ABDOMEN - Abdominal contour flat without pulsations or visible masses. BS normoactive all four quadrants. No tenderness, palpable masses, hepatosplenomegaly, or ascites noted. EXTREMITIES - No clubbing or peripheral cyanosis. No pretibial edema present. +3/5 radial and faint dorsalis pedis pulses palpated throughout. +4/5 strength noted in UE/LE bilaterally. NEUROLOGIC - Cranial nerves II through XII grossly intact. Sensory intact to light touch throughout. PSYCH - A&Ox3 and cooperates fully with examiner. Pt is very pleasant and interacts well with examiner. Results & Data Vital Signs (Past 12 Hours) Vital Signs Temp Pulse Pulse Resp BP BP BP 04/30/19 22:22 135 H 18 85/48 L 04/30/19 22:05 145 H 69/51 L 04/30/19 20:30 194 H 25 H 120/72 04/30/19 19:43 37.3 C 109 H 18 104/57 L 04/30/19 19:32 37.3 C 103 H 18 111/47 L 04/30/19 19:09 94 H 18 04/30/19 19:02 37.3 C 109 H 18 116/58 L 04/30/19 18:47 37.4 C 113 H 18 115/47 L 04/30/19 18:30 37.6 C H 119 H 20 104/60 04/30/19 17:50 37.6 C H 98 H 22 115/47 L 04/30/19 17:48 37.3 C 97 H 19 109/52 L 04/30/19 17:16 95 H 18 04/30/19 17:05 84 04/30/19 16:50 37.2 C 93 H 17 111/51 L 04/30/19 16:20 37.5 C 84 22 89/47 L 04/30/19 16:05 37.5 C 85 24 104/50 L 04/30/19 15:50 37.5 C 87 24 98/51 L 04/30/19 15:46 86 23 98/51 L 04/30/19 15:30 89 23 99/52 L 04/30/19 15:10 91 H 17 88/53 L 04/30/19 15:00 88 22 76/51 L 04/30/19 14:30 87 26 H 108/55 L 04/30/19 14:04 88 25 H 92/46 L 04/30/19 14:00 84 28 H 04/30/19 13:46 83 22 93/43 L 04/30/19 13:35 85 21 88/46 L 04/30/19 13:34 89 15 75/51 L 04/30/19 13:30 85 24 04/30/19 13:07 04/30/19 13:02 92 H 92 H 25 H 97/51 L 97/51 L 04/30/19 13:01 22 04/30/19 12:30 98 H 19 04/30/19 12:00 98 H 15 104/53 L Pulse Ox Pulse Ox 04/30/19 22:22 97 04/30/19 22:05 04/30/19 20:30 98 04/30/19 19:43 97 04/30/19 19:32 96 04/30/19 19:09 97 04/30/19 19:02 97 04/30/19 18:47 97 04/30/19 18:30 04/30/19 17:50 97 04/30/19 17:48 93 04/30/19 17:16 91 04/30/19 17:05 96 04/30/19 16:50 96 04/30/19 16:20 98 04/30/19 16:05 95 04/30/19 15:50 96 04/30/19 15:46 95 04/30/19 15:30 94 04/30/19 15:10 95 04/30/19 15:00 96 04/30/19 14:30 96 04/30/19 14:04 92 04/30/19 14:00 96 04/30/19 13:46 97 04/30/19 13:35 95 04/30/19 13:34 95 04/30/19 13:30 95 04/30/19 13:07 96 04/30/19 13:02 92 04/30/19 13:01 04/30/19 12:30 92 04/30/19 12:00 96 PG Care Time/CCT Total # of Minutes Spent Total Time Spent with Patient: Total time spent is greater than 50% in coord ination of care (as documented) at patient's floor/unit and/or counseling patient: Critical Care Time: Yes Total Critical Care Time: 60 (1) Hypotension Hypotension type: unspecified hypotension type Qualified Code(s): I95.9 - Hypotension, unspecified
[2019-04-30] MEDS ORDERED: CALCIUM GLUCONATE 10% 1,000 MG in SODIUM CHLORIDE 0.9% 50 ML IV STA (23:46)
[2019-05-01] MEDS ORDERED: DOXYCYCLINE HYCLATE 100 MG in DEXTROSE 5% 100 ML IV SCH
[2019-05-01] MEDS: PIPERACILLIN/TAZOBACTAM 4.5 GM in DEXTROSE 5% 100 ML IV SCH ×2 (00:07→08:45)
[2019-05-01] MEDS: POTASSIUM CHLORIDE / WTR 10 MEQ/100 ML PLCT IV SCH ×2 (00:12→01:16)
[2019-05-01 00:31] LABS: Hematocrit (blood only) 22.1 % (42-52); Hemoglobin 7.4 g/dL (14.0-18.0); Reticulocyte % 0.9 % (0.5-2.0); Reticulocytes # 0.02 10^6/uL (0.02-0.10)
[2019-05-01 00:39] LABS: Base Excess ABG -3.5 mEq/L (-9-1.8); HCO3 ABG 20 mmol/L (19-24); Oxygen Saturation ABG 96.9 % (90-95); PCO2 ABG 29 mmHg (35-46); PO2 ABG 129 mm/Hg (80-95); pH ABG 7.46 (7.35-7.45)
[2019-05-01 00:41] LABS: Allen Test POS (Pos)
[2019-05-01 00:59] LABS: T4 Free Thyroxine 1.11 ng/dl (0.8-1.6); Thyroid Stimulating Hormone 1.38 uIu/ml (0.300-4.500)
[2019-05-01] MEDS ORDERED: SODIUM CHLORIDE 0.9% 250 ML IV PRN (01:07)
--- NOTE | 2019-05-01 01:13 | Critical Care Progress Note ---
Date of Service May 01, 2019 Subjective At 0115, the patient was noted to have increasing heart rate with irregularly ir regular pattern noted on monitor. Patient had been previously aggressively resuscitated with amiodarone, crystalloids, electrolytes, and colloids. Patient had been mentating well to this point. Repeat H&H obtained and demonstrates drop in H&H since completion of transfusion. At this point, orders are placed for an additional 2 units of PRBCs to be transfused. Patient is neutropenic and pancytopenic. At this point, with an effort of being cautious, the patient was transfused with irradiated PRBCs. Patient had developed tachyarrhythmia after receiving initial 2 units of blood products. He has no other findings consistent with blood reaction. Regardless, patient was treated with IV Solu- Medrol which would certainly be beneficial for his COPD exacerbation. He was bolused with an additional dose of 12.5 g of 25% albumin. Patient remained hypotensive. Despite this, he is completely asymptomatic and reports feeling well. Orders were placed for second 150 mg amiodarone bolus as well as addition of Rian-Synephrine. I did have nursing staff wait until Rian-Synephrine was at bedside prior to administration of amiodarone. Amiodarone bolus provided no significant relief of tachycardia. Rian-Synephrine. Was instituted. Patient did have great improvement of tachycardia at this point. Blood pressures maintained with maps greater than 60s. 2 units of PRBCs transfused with orders for repeat H&H after transfusion. With addition of vasoactive support, add an additional dose of 40 mg IV Lasix to be administered after the first unit of blood. Will add Normosol at a rate of 80 mL/hr after transfusion complete. Patient monitored and rounded several times and clinically appears well. He reports that he feels much better at this point. I have personally spent 85 minutes of critical care time in the direct management of this patient. This is a life/limb threatening event. This includes time spent evaluating patient, direct bedside care, chart review, placing orders, interpretation of diagnostic studies, discussion with consultants, patient, and family members, as well as other required patient management activities. This time is exclusive of all separately billable procedures, and teaching time and separate from and in addition to any other critical care service time. Results & Data Vital Signs (Past 12 Hours) Vital Signs Temp Pulse Pulse Resp BP BP Pulse Ox 08/12/19 00:30 120 H 29 H 88/56 L 97 05/01/19 00:24 128 H 21 92/56 L 98 05/01/19 00:00 137 H 27 H 98 04/30/19 23:53 137 H 22 94/55 L 94 04/30/19 23:47 136 H 15 71/58 L 98 04/30/19 23:34 133 H 21 98/58 L 97 04/30/19 23:33 136 H 20 72/57 L 98 04/30/19 23:30 143 H 19 98 04/30/19 23:10 140 H 21 78/62 L 99 04/30/19 23:00 144 H 26 H 98 04/30/19 22:49 137 H 29 H 84/73 L 04/30/19 22:31 146 H 28 H 97 04/30/19 22:30 143 H 31 H 79/44 L 96 04/30/19 22:22 150 H 135 H 29 H 85/48 L 85/48 L 97 04/30/19 22:16 144 H 19 62/45 L 95 04/30/19 22:07 145 H 29 H 87/59 L 96 04/30/19 22:05 159 H 145 H 23 69/49 L 69/51 L 95 04/30/19 22:01 154 H 22 96 04/30/19 22:00 147 H 21 70/49 L 94 04/30/19 21:55 152 H 21 81/64 L 96 04/30/19 21:53 161 H 20 74/57 L 95 04/30/19 21:45 157 H 20 77/57 L 97 04/30/19 21:32 171 H 22 77/52 L 96 04/30/19 21:30 160 H 26 H 96 04/30/19 21:15 145 H 25 H 91/51 L 96 04/30/19 21:01 185 H 19 95 04/30/19 21:00 174 H 25 H 113/56 L 96 04/30/19 20:52 180 H 23 84/51 L 96 04/30/19 20:47 181 H 37 H 81/58 L 96 04/30/19 20:45 185 H 22 78/54 L 96 04/30/19 20:37 84/72 L 97 04/30/19 20:31 178 H 97 04/30/19 20:30 185 H 194 H 25 H 120/72 120/72 98 04/30/19 20:29 202 H 108/68 96 04/30/19 20:20 36.8 C 96 04/30/19 19:43 37.3 C 109 H 18 104/57 L 97 04/30/19 19:32 37.3 C 103 H 18 111/47 L 96 04/30/19 19:09 94 H 18 97 04/30/19 19:02 37.3 C 109 H 18 116/58 L 97 04/30/19 18:47 37.4 C 113 H 18 115/47 L 97 04/30/19 18:30 37.6 C H 119 H 20 104/60 04/30/19 17:50 37.6 C H 98 H 22 115/47 L 97 04/30/19 17:48 37.3 C 97 H 19 109/52 L 93 04/30/19 17:16 95 H 18 91 04/30/19 17:05 84 04/30/19 16:50 37.2 C 93 H 17 111/51 L 96 04/30/19 16:20 37.5 C 84 22 89/47 L 98 04/30/19 16:05 37.5 C 85 24 104/50 L 95 04/30/19 15:50 37.5 C 87 24 98/51 L 96 04/30/19 15:46 86 23 98/51 L 95 04/30/19 15:30 89 23 99/52 L 94 04/30/19 15:10 91 H 17 88/53 L 95 04/30/19 15:00 88 22 76/51 L 96 04/30/19 14:30 87 26 H 108/55 L 96 04/30/19 14:04 88 25 H 92/46 L 92 04/30/19 14:00 84 28 H 96 04/30/19 13:46 83 22 93/43 L 97 04/30/19 13:35 85 21 88/46 L 95 04/30/19 13:34 89 15 75/51 L 95 04/30/19 13:30 85 24 95 Pulse Ox 05/01/19 00:30 05/01/19 00:24 05/01/19 00:00 04/30/19 23:53 04/30/19 23:47 04/30/19 23:34 04/30/19 23:33 04/30/19 23:30 04/30/19 23:10 04/30/19 23:00 04/30/19 22:49 04/30/19 22:31 04/30/19 22:30 04/30/19 22:22 04/30/19 22:16 04/30/19 22:07 04/30/19 22:05 04/30/19 22:01 04/30/19 22:00 04/30/19 21:55 04/30/19 21:53 04/30/19 21:45 04/30/19 21:32 04/30/19 21:30 04/30/19 21:15 04/30/19 21:01 04/30/19 21:00 04/30/19 20:52 04/30/19 20:47 04/30/19 20:45 04/30/19 20:37 04/30/19 20:31 04/30/19 20:30 04/30/19 20:29 04/30/19 20:20 04/30/19 19:43 04/30/19 19:32 04/30/19 19:09 04/30/19 19:02 04/30/19 18:47 04/30/19 18:30 04/30/19 17:50 04/30/19 17:48 04/30/19 17:16 04/30/19 17:05 96 04/30/19 16:50 04/30/19 16:20 04/30/19 16:05 04/30/19 15:50 04/30/19 15:46 04/30/19 15:30 04/30/19 15:10 04/30/19 15:00 04/30/19 14:30 04/30/19 14:04 04/30/19 14:00 04/30/19 13:46 04/30/19 13:35 04/30/19 13:34 04/30/19 13:30 PG Care Time/CCT Total # of Minutes Spent Total Time Spent with Patient: Total time spent is greater than 50% in coordination of care (as documented) at patient's floor/unit and/or counseling patient: Critical Care Time: Yes Total Critical Care Time: 85
[2019-05-01] MEDS ORDERED: ALBUMIN 25% 50 ML IV ONE (01:16)
[2019-05-01] MEDS: PANTOprazole 40 MG in SYRINGE 0 ML IV SCH ×3 (01:20→20:18)
[2019-05-01] MEDS ORDERED: AMIODARONE / D5W 150 MG/100 ML BAG IV ONE (01:26)
[2019-05-01] MEDS ORDERED: methylPREDNISolone 40 MG in SYRINGE 0 ML IV ONE (01:30)
[2019-05-01] MEDS ORDERED: AMIODARONE 150MG / 100ML D5W IV ONE (01:32)
[2019-05-01] MEDS ORDERED: ICU PROTOCOL FOR HYPERGLYCEMIA PRN (01:36)
[2019-05-01] MEDS: AMIODARONE / D5W 360 MG/200 ML BAG IV SCH ×2 (02:33→14:46)
[2019-05-01] MEDS: PHENYLEPHRINE HCL 20 MG in DEXTROSE 5% 500 ML IV SCH ×2 (02:47→15:02)
[2019-05-01] MEDS ORDERED: FUROSEMIDE 40 MG/4 ML VIAL IV SCH (04:00)
[2019-05-01] MEDS: NORMOSOL-R 1,000 ML IV SCH ×4 (04:59→20:16)
[2019-05-01] MEDS: methylPREDNISolone 40 MG in SYRINGE 0 ML IV SCH ×3 (05:29→17:26)
[2019-05-01 05:49] LABS: Hematocrit (blood only) 26.8 % (42-52); Mean Corpuscular Hemoglobin 28.8 pg (25-34); Mean Corpuscular Hgb Conc 33.6 g/dL (32-36); Mean Corpuscular Volume 85.9 fL (80-100); RDW Coefficient of Variation 19.2 % (11.5-14.5); RDW Standard Deviation 60.6 fL (36.4-46.3); Red Blood Count 3.12 M/uL (4.7-6.1); White Blood Count 1.63 K/uL (4.8-10.8)
[2019-05-01 06:03] LABS: Mean Platelet Volume 10.7 fL (7.4-10.4); Platelet Count 45 K/uL (130-400)
[2019-05-01 06:06] LABS: INR 1.3 (0.9-1.1); Prothrombin Time 12.9 Seconds (9.0-12.0)
[2019-05-01 06:21] LABS: Albumin Level 2.6 gm/dl (3.4-5.0); Calcium 7.8 mg/dl (8.5-10.1); Creatinine Clr Calc Pharmacy 68.2 ml/min; Est GFR (African American) 89.2; Magnesium 2.2 mg/dl (1.8-2.4); Potassium 4.1 mmol/L (3.5-5.1)
[2019-05-01 06:22] LABS: Basophils # (auto) 0.02 K/uL (0-0.2); Basophils % (auto) 1.2 %; Dohle Bodies 2+; Echinocytes 1+; Immature Granulocytes # (auto) 0.02 K/uL (0.00-0.02); Immature Granulocytes % (auto) 1.2 %; Lymphocytes # (auto) 0.65 K/uL (1.2-3.4); Lymphocytes % (auto) 39.9 %; Monocytes # (auto) 0.16 K/uL (0.11-0.59); Monocytes % (auto) 9.8 %; Neutrophils # (auto) 0.78 K/uL (1.4-6.5); Neutrophils % (auto) 47.9 %; Tear Drop Cells 1+; Toxic Granulation 2+
[2019-05-01 06:30] LABS: Albumin Globulin Ratio 0.7 (0.9-2); Bilirubin,Total 2.9 mg/dl (0.2-1); Globulin 3.9 gm/dl (2.5-4.0); Phosphorus 4.1 mg/dl (2.5-4.9); Total Protein 6.5 gm/dl (6.4-8.2); Troponin I 0.352 ng/ml (0-0.045)
[2019-05-01] MEDS ORDERED: CALCIUM GLUCONATE 10% 1,000 MG in SODIUM CHLORIDE 0.9% 50 ML IV ONE (06:30)
[2019-05-01 07:18] LABS: Fibrinogen 642 mg/dl (184-400)
[2019-05-01 07:22] LABS: D Dimer 2080 ug/L FEU (0-500)
[2019-05-01] MEDS: ALBUT/IPRATROP 3MG/0.5MG NEB 3 ML VIAL NEB SCH ×4 (08:10→19:50)
--- NOTE | 2019-05-01 08:45 | Cardiology Consultation ---
Date of Consultation May 01, 2019 Assessment & Plan (1) Atrial fibrillation with rapid ventricular response: (2) Symptomatic anemia: (3) Heme positive stool: (4) Thrombocytopenia: (5) S/P CABG x 3: (6) S/P carotid endarterectomy: (7) AAA (abdominal aortic aneurysm): (8) Lymphoma: At this point I would recommend that the patient be treated with supportive care. I would continue the Rian-Synephrine as required to maintain his blood pressure. I would except a heart rate in the low 100s with his atrial fibrillation. Some of the tachycardia is stress-induced from his anemia and other medical problems. I would continue the amiodarone. Anticoagulation is not indicated with his profound anemia and possible GI bleeding. Hematology evaluation is pending. We will follow along with you during his hospital stay. History of Present Illness Attending Physician: Danitza Merrill History of Present Illness This is a 69-year-old male patient with a history of a low-grade non-Hodgkin's B-cell lymphoma and thrombocytopenia, which has been treated with observation only since 2012. In 2004 the patient underwent coronary artery bypass surgery receiving a PERSAUD to the LAD, saphenous vein graft to the obtuse marginal and saphenous vein graft to the posterior descending artery. He also has significant arteriosclerotic vascular disease and is status post left carotid endarterectomy and has severe claudication of the lower extremities as well as a history of an abdominal aortic aneurysm. He was last seen in our practice in 2014. He was in his usual state of health until the last couple weeks when he noticed progressive weakness. He considered and was going to see his group fitness instructor this week, but over the past several days he is been lightheaded dizzy and falling. He decided to come to the emergency department where he was found to be profoundly anemic with a hemoglobin is 6.9 and atrial fibrillation with RVR. The patient was found to have a new left lower lobe mass suggested a second primary or metastatic disease. The patient also has guaiac positive stools suggesting GI bleeding. Overnight he has received 4 units of packed red blood cells, admitted to the ICU and started on Rian-Synephrine to maintain blood pressure as well as amiodarone to control his heart rate with the atrial fibrillation. He is currently hemodynamically stable. Consideration is now being given for further care by the critical care team. Past medical history: 1. Atherosclerotic coronary disease, status post coronary bypass grafting, May 2005; PERSAUD graft to LAD, saphenous vein graft to obtuse marginal, saphenous vein graft to posterior descending artery. 2. Atherosclerotic carotid disease, status post left carotid endarterectomy. 3. Atherosclerotic peripheral vascular disease, with chronic right lower extremity 3-block claudication. 4. History of hypertension. 5. History of hyperlipidemia. 6. Chronic tobacco use. 7. Low-grade non-Hodgkin lymphoma. Allergies Allergy/AdvReac Type Severity Reaction Status Date / Time No Known Allergies Allergy * Verified 04/30/19 11:49 Home Medications Home Medications Medication Instructions Recorded Confirmed Type atenolol 25 mg PO DAILY 03/07/19 04/30/19 History atorvastatin 40 mg PO QAM 03/07/19 04/30/19 History lisinopril 5 mg PO QAM 03/07/19 04/30/19 History nitroglycerin 0.4 mg SUBLINGUAL Q4H PRN 03/07/19 04/30/19 History aspirin [Aspir-81] 162 mg PO DAILY 04/30/19 04/30/19 History Patient History Medical History HLD (hyperlipidemia) (Chronic) Tobacco abuse (Chronic) HTN (hypertension) (Chronic) BPH (benign prostatic hyperplasia) (Chronic) Heart failure (Chronic) PAD (peripheral artery disease) (Chronic) Lymphoma (Chronic) tx with lymph node resection in 2012 AAA (abdominal aortic aneurysm) (Chronic) Cervical stenosis of spinal canal (Resolved) Peripheral vascular disease Surgical History History of fusion of cervical spine (Chronic) History of appendectomy (Chronic) S/P CABG x 3 (Chronic) S/P carotid endarterectomy (Chronic) Family History Mother Choked on food per pt history Father , unknown medical problems No problems noted. Brother Coronary heart disease massive [place] age 61 Social History Preferred Language: Thai Communication Ability: Effective Beliefs That Will Affect Care: None marital status: Current Living Situation: Spouse and Family Current Living Situation Comment: Lives with , grandson Other Information That Helps Us Care for You: No Feels Safe at Home: Yes Safety Concerns: Feels Safe At This Time Smoking Status: Former smoker packs per day: 1 ; Years Smoked: 58 ; Smoking End Date: 1.5 months ago ; Hx Alcohol Use: No Hx Substance Use: No Review of Systems Review of Systems: All systems reviewed & are unremarkable except as noted in HPI & below Per the history of chief complaint and no additional information. Physical Exam Physical Exam: General: no acute distress and stated age Head: normocephalic, no masses, lesions, tenderness or abnormalities Eyes: conjunctiva are pink and non-injected, sclera clear Neck: supple, no adenopathy, no bruits, normal jugular venous pulse, no hepatojugular reflux Chest: normal shape and normal respiratory effort Lungs: clear to auscultation and percussion Cardiac Exam: - irregular rate & rhythm, no murmurs gallops or rubs - normal S1, normal S2 Pulses: 2(+) throughout Abdomen: abdomen soft, non-tender, no abnormal masses and no hepatosplenomegaly Musculoskeletal: no gait disturbance, no joint inflammation, no deforming arthritis Extremities: no edema and no cyanosis Neuro: grossly normal exam Results & Data Vital Signs (Past 12 Hours) Vital Signs Temp Pulse Pulse Resp BP BP Pulse Ox 05/01/19 05:00 36.8 C 104 H 23 108/63 95 05/01/19 04:45 109 H 19 95/67 L 96 05/01/19 04:35 36.8 C 102 H 25 H 120/44 L 95 05/01/19 04:30 124 H 26 H 101/67 92 05/01/19 04:16 123 H 25 H 104/67 97 05/01/19 04:15 127 H 21 96 05/01/19 04:01 125 H 16 111/74 96 05/01/19 04:00 116 H 20 98 05/01/19 03:57 36.4 C L 119 H 22 120/82 96 05/01/19 03:45 36.4 C L 123 H 19 120/82 96 05/01/19 03:30 36.8 C 120 H 28 H 113/72 96 05/01/19 03:15 121 H 25 H 97/63 L 95 05/01/19 03:00 97 H 23 103/60 96 05/01/19 02:50 36.8 C 124 H 30 H 92/59 L 96 05/01/19 02:45 101 H 28 H 77/56 L 95 05/01/19 02:30 128 H 25 H 73/55 L 94 05/01/19 02:15 117 H 24 93 05/01/19 02:10 36.6 C 112 H 23 94/40 L 94 05/01/19 02:00 36.6 C 129 H 25 H 81/56 L 94 05/01/19 01:54 130 H 27 H 74/52 L 94 05/01/19 01:45 123 H 26 H 91 05/01/19 01:30 125 H 26 H 98 05/01/19 01:15 135 H 27 H 98 05/01/19 01:00 136 H 28 H 88/57 L 97 05/01/19 00:55 130 H 18 83/54 L 98 05/01/19 00:46 120 H 26 H 74/56 L 97 05/01/19 00:45 112 H 24 97 05/01/19 00:30 120 H 29 H 88/56 L 97 05/01/19 00:24 128 H 21 92/56 L 98 05/01/19 00:15 76 25 H 98 05/01/19 00:00 137 H 27 H 98 04/30/19 23:53 137 H 22 94/55 L 94 04/30/19 23:47 136 H 15 71/58 L 98 04/30/19 23:45 154 H 22 98 04/30/19 23:34 133 H 21 98/58 L 97 04/30/19 23:33 136 H 20 72/57 L 98 04/30/19 23:30 143 H 19 98 04/30/19 23:15 142 H 20 99 04/30/19 23:10 140 H 21 78/62 L 99 04/30/19 23:00 144 H 26 H 98 04/30/19 22:49 137 H 29 H 84/73 L 04/30/19 22:48 155 H 25 H 04/30/19 22:31 146 H 28 H 97 04/30/19 22:30 143 H 31 H 79/44 L 96 04/30/19 22:22 150 H 135 H 29 H 85/48 L 85/48 L 97 04/30/19 22:16 144 H 19 62/45 L 95 04/30/19 22:15 146 H 21 96 04/30/19 22:07 145 H 29 H 87/59 L 96 04/30/19 22:05 159 H 145 H 23 69/49 L 69/51 L 95 04/30/19 22:01 154 H 22 96 04/30/19 22:00 147 H 21 70/49 L 94 04/30/19 21:55 152 H 21 81/64 L 96 04/30/19 21:53 161 H 20 74/57 L 95 04/30/19 21:45 157 H 20 77/57 L 97 04/30/19 21:32 171 H 22 77/52 L 96 04/30/19 21:30 160 H 26 H 96 04/30/19 21:15 145 H 25 H 91/51 L 96 04/30/19 21:01 185 H 19 95 04/30/19 21:00 174 H 25 H 113/56 L 96 04/30/19 20:52 180 H 23 84/51 L 96 04/30/19 20:47 181 H 37 H 81/58 L 96 04/30/19 20:46 182 H 18 97 Laboratory Results Laboratory Results - last 24 hr 04/30/19 04/30/19 04/30/19 11:59 11:59 11:59 WBC 2.69 L RBC 2.37 L Hgb 6.9 L* Hct 20.4 L* MCV 86.1 MCH 29.1 MCHC 33.8 RDW Std Deviation 68.9 H RDW Coeff of John 22.1 H Plt Count 62 L MPV 9.4 Immature Gran % (Auto) 0.7 Neut % (Auto) 43.5 Lymph % (Auto) 43.1 [place] % (Auto) 11.9 Eos % (Auto) 0.4 Baso % (Auto) 0.4 Reticulocyte % (Auto) Immature Gran # (Auto) 0.02 Neut # (Auto) 1.17 L Lymph # (Auto) 1.16 L [place] # (Auto) 0.32 Eos # (Auto) 0.01 Baso # (Auto) 0.01 Reticulocyte # Toxic Granulation 2+ Dohle Bodies 1+ Platelet Estimate Decreased L Anisocytosis Present Tear Drop Cells Ovalocytes 1+ Echinocytes Acanthocytes (Spur) 1+ Haptoglobin PT 12.1 H INR 1.2 H APTT 38.4 H PTT Ratio 1.4 Fibrinogen Fibrin Degrad Products D-Dimer ABG pH ABG pCO2 ABG pO2 ABG HCO3 ABG O2 Saturation ABG Base Excess Logan Test Barometric Pressure Oxygen Given Sodium 134 L Potassium 4.6 Chloride 101 Carbon Dioxide 24 Anion Gap 9.0 BUN 25 H Creatinine 1.10 Est Cr Clr Drug Dosing 60.9 Est GFR ( Amer) 79.5 Est GFR (Non-Af Amer) 68.6 BUN/Creatinine Ratio 22.4 H Glucose 103 H POC Glucose POC Lactic Acid Jerome Lactate Calcium 8.2 L Ionized Calcium Phosphorus Magnesium Total Bilirubin 1.7 H AST 89 H ALT 55 Alkaline Phosphatase 154 H Troponin I 0.023 Total Protein 6.5 Albumin 2.4 L Globulin 4.1 H Albumin/Globulin Ratio 0.6 L Procalcitonin TSH Free T4 Random Cortisol Nasal Screen MRSA (PCR) Stool Occult Bld Scrn Blood Type Antibody Screen Direct Antiglob Test ANDREINA (IgG-AHG) ANDREINA, Polyspecific ANDREINA C3b, C3d 5 Min Crossmatch 04/30/19 04/30/19 04/30/19 11:59 12:01 14:01 WBC RBC Hgb Hct MCV MCH MCHC RDW Std Deviation RDW Coeff of John Plt Count MPV Immature Gran % (Auto) Neut % (Auto) Lymph % (Auto) [place] % (Auto) Eos % (Auto) Baso % (Auto) Reticulocyte % (Auto) 1.5 Immature Gran # (Auto) Neut # (Auto) Lymph # (Auto) [place] # (Auto) Eos # (Auto) Baso # (Auto) Reticulocyte # 0.03 Toxic Granulation Dohle Bodies Platelet Estimate Anisocytosis Tear Drop Cells Ovalocytes Echinocytes Acanthocytes (Spur) Haptoglobin Pending PT INR APTT PTT Ratio Fibrinogen Fibrin Degrad Products D-Dimer ABG pH ABG pCO2 ABG pO2 ABG HCO3 ABG O2 Saturation ABG Base Excess Logan Test Barometric Pressure Oxygen Given Sodium Potassium Chloride Carbon Dioxide Anion Gap BUN Creatinine Est Cr Clr Drug Dosing Est GFR ( Amer) Est GFR (Non-Af Amer) BUN/Creatinine Ratio Glucose POC Glucose POC Lactic Acid Jerome Lactate Calcium Ionized Calcium Phosphorus Magnesium Total Bilirubin AST ALT Alkaline Phosphatase Troponin I Total Protein Albumin Globulin Albumin/Globulin Ratio Procalcitonin TSH Free T4 Random Cortisol Nasal Screen MRSA (PCR) Stool Occult Bld Scrn Blood Type A Positive Antibody Screen NEGATIVE Direct Antiglob Test Pending ANDREINA (IgG-AHG) Pending ANDREINA, Polyspecific Pending ANDREINA C3b, C3d 5 Min Pending Crossmatch See Detail 04/30/19 04/30/19 04/30/19 14:08 18:16 18:45 WBC RBC Hgb 7.7 L Hct 23.2 L MCV MCH MCHC RDW Std Deviation RDW Coeff of John Plt Count MPV Immature Gran % (Auto) Neut % (Auto) Lymph % (Auto) [place] % (Auto) Eos % (Auto) Baso % (Auto) Reticulocyte % (Auto) Immature Gran # (Auto) Neut # (Auto) Lymph # (Auto) [place] # (Auto) Eos # (Auto) Baso # (Auto) Reticulocyte # Toxic Granulation Dohle Bodies Platelet Estimate Anisocytosis Tear Drop Cells Ovalocytes Echinocytes Acanthocytes (Spur) Haptoglobin PT INR APTT PTT Ratio Fibrinogen Fibrin Degrad Products D-Dimer ABG pH ABG pCO2 ABG pO2 ABG HCO3 ABG O2 Saturation ABG Base Excess Logan Test Barometric Pressure Oxygen Given Sodium Potassium Chloride Carbon Dioxide Anion Gap BUN Creatinine Est Cr Clr Drug Dosing Est GFR ( Amer) Est GFR (Non-Af Amer) BUN/Creatinine Ratio Glucose POC Glucose POC Lactic Acid Jerome 0.79 L Lactate Calcium Ionized Calcium Phosphorus Magnesium Total Bilirubin AST ALT Alkaline Phosphatase Troponin I Total Protein Albumin Globulin Albumin/Globulin Ratio Procalcitonin TSH Free T4 Random Cortisol Nasal Screen MRSA (PCR) Stool Occult Bld Scrn Positive A Blood Type Antibody Screen Direct Antiglob Test ANDREINA (IgG-AHG) ANDREINA, Polyspecific ANDREINA C3b, C3d 5 Min Crossmatch 04/30/19 04/30/19 04/30/19 20:40 21:19 21:19 WBC 2.16 L RBC 2.80 L Hgb 8.0 L Hct 24.2 L MCV 86.4 MCH 28.6 MCHC 33.1 RDW Std Deviation 64.1 H RDW Coeff of John 20.3 H Plt Count 53 L MPV 9.4 Immature Gran % (Auto) 1.4 Neut % (Auto) 45.8 Lymph % (Auto) 42.6 [place] % (Auto) 9.7 Eos % (Auto) 0.0 Baso % (Auto) 0.5 Reticulocyte % (Auto) Immature Gran # (Auto) 0.03 H Neut # (Auto) 0.99 L* Lymph # (Auto) 0.92 L [place] # (Auto) 0.21 Eos # (Auto) 0.00 Baso # (Auto) 0.01 Reticulocyte # Toxic Granulation 1+ Dohle Bodies 1+ Platelet Estimate Anisocytosis Present Tear Drop Cells Ovalocytes Echinocytes Acanthocytes (Spur) 1+ Haptoglobin PT INR APTT PTT Ratio Fibrinogen Fibrin Degrad Products D-Dimer ABG pH ABG pCO2 ABG pO2 ABG HCO3 ABG O2 Saturation ABG Base Excess Logan Test Barometric Pressure Oxygen Given Sodium Potassium Chloride Carbon Dioxide Anion Gap BUN Creatinine Est Cr Clr Drug Dosing Est GFR ( Amer) Est GFR (Non-Af Amer) BUN/Creatinine Ratio Glucose POC Glucose 153 H POC Lactic Acid Jerome Lactate Calcium Ionized Calcium Phosphorus Magnesium Total Bilirubin AST ALT Alkaline Phosphatase Troponin I 0.023 Total Protein Albumin Globulin Albumin/Globulin Ratio Procalcitonin TSH Free T4 Random Cortisol Nasal Screen MRSA (PCR) Stool Occult Bld Scrn Blood Type Antibody Screen Direct Antiglob Test ANDREINA (IgG-AHG) ANDREINA, Polyspecific ANDREINA C3b, C3d 5 Min Crossmatch 04/30/19 04/30/19 05/01/19 21:19 22:49 00:19 WBC RBC Hgb 7.4 L Hct 22.1 L MCV MCH MCHC RDW Std Deviation RDW Coeff of John Plt Count MPV Immature Gran % (Auto) Neut % (Auto) Lymph % (Auto) [place] % (Auto) Eos % (Auto) Baso % (Auto) Reticulocyte % (Auto) 0.9 Immature Gran # (Auto) Neut # (Auto) Lymph # (Auto) [place] # (Auto) Eos # (Auto) Baso # (Auto) Reticulocyte # 0.02 Toxic Granulation Dohle Bodies Platelet Estimate Anisocytosis Tear Drop Cells Ovalocytes Echinocytes Acanthocytes (Spur) Haptoglobin PT INR APTT PTT Ratio Fibrinogen Fibrin Degrad Products D-Dimer ABG pH ABG pCO2 ABG pO2 ABG HCO3 ABG O2 Saturation ABG Base Excess Logan Test Barometric Pressure Oxygen Given Sodium 134 L Potassium 3.7 D Chloride 102 Carbon Dioxide 21 Anion Gap 11.0 BUN 23 H Creatinine 1.22 Est Cr Clr Drug Dosing 54.9 Est GFR ( Amer) 70.2 Est GFR (Non-Af Amer) 60.5 BUN/Creatinine Ratio 18.9 Glucose 139 H POC Glucose POC Lactic Acid Jerome Lactate Calcium 8.0 L Ionized Calcium Phosphorus Magnesium 2.3 Total Bilirubin AST ALT Alkaline Phosphatase Troponin I Total Protein Albumin Globulin Albumin/Globulin Ratio Procalcitonin TSH Free T4 Random Cortisol Nasal Screen MRSA (PCR) Negative Stool Occult Bld Scrn Blood Type Antibody Screen Direct Antiglob Test ANDREINA (IgG-AHG) ANDREINA, Polyspecific ANDREINA C3b, C3d 5 Min Crossmatch 05/01/19 05/01/19 05/01/19 00:19 00:19 00:19 WBC RBC Hgb Hct MCV MCH MCHC RDW Std Deviation RDW Coeff of John Plt Count MPV Immature Gran % (Auto) Neut % (Auto) Lymph % (Auto) [place] % (Auto) Eos % (Auto) Baso % (Auto) Reticulocyte % (Auto) Immature Gran # (Auto) Neut # (Auto) Lymph # (Auto) [place] # (Auto) Eos # (Auto) Baso # (Auto) Reticulocyte # Toxic Granulation Dohle Bodies Platelet Estimate Anisocytosis Tear Drop Cells Ovalocytes Echinocytes Acanthocytes (Spur) Haptoglobin PT INR APTT PTT Ratio Fibrinogen Fibrin Degrad Products D-Dimer ABG pH 7.46 H ABG pCO2 29 L ABG pO2 129 H ABG HCO3 20 ABG O2 Saturation 96.9 H ABG Base Excess -3.5 Logan Test POS Barometric Pressure 733.3 Oxygen Given 3 L Sodium Potassium Chloride Carbon Dioxide Anion Gap BUN Creatinine Est Cr Clr Drug Dosing Est GFR ( Amer) Est GFR (Non-Af Amer) BUN/Creatinine Ratio Glucose POC Glucose POC Lactic Acid Jerome Lactate Calcium Ionized Calcium Phosphorus Magnesium Total Bilirubin AST ALT Alkaline Phosphatase Troponin I Total Protein Albumin Globulin Albumin/Globulin Ratio Procalcitonin TSH 1.380 Free T4 1.11 Random Cortisol 27.61 Nasal Screen MRSA (PCR) Stool Occult Bld Scrn Blood Type Antibody Screen Direct Antiglob Test ANDREINA (IgG-AHG) ANDREINA, Polyspecific ANDREINA C3b, C3d 5 Min Crossmatch 05/01/19 05/01/19 05/01/19 00:22 05:34 05:34 WBC 1.63 L RBC 3.12 L Hgb 9.0 L Hct 26.8 L MCV 85.9 MCH 28.8 MCHC 33.6 RDW Std Deviation 60.6 H RDW Coeff of John 19.2 H Plt Count 45 L MPV 10.7 H Immature Gran % (Auto) 1.2 Neut % (Auto) 47.9 Lymph % (Auto) 39.9 [place] % (Auto) 9.8 Eos % (Auto) 0.0 Baso % (Auto) 1.2 Reticulocyte % (Auto) Immature Gran # (Auto) 0.02 Neut # (Auto) 0.78 L* Lymph # (Auto) 0.65 L [place] # (Auto) 0.16 Eos # (Auto) 0.00 Baso # (Auto) 0.02 Reticulocyte # Toxic Granulation 2+ Dohle Bodies 2+ Platelet Estimate Anisocytosis Tear Drop Cells 1+ Ovalocytes Echinocytes 1+ Acanthocytes (Spur) Haptoglobin PT 12.9 H INR 1.3 H APTT PTT Ratio Fibrinogen Fibrin Degrad Products D-Dimer ABG pH ABG pCO2 ABG pO2 ABG HCO3 ABG O2 Saturation ABG Base Excess Logan Test Barometric Pressure Oxygen Given Sodium Potassium Chloride Carbon Dioxide Anion Gap BUN Creatinine Est Cr Clr Drug Dosing Est GFR ( Amer) Est GFR (Non-Af Amer) BUN/Creatinine Ratio Glucose POC Glucose POC Lactic Acid Jerome Lactate 0.9 Calcium Ionized Calcium Phosphorus Magnesium Total Bilirubin AST ALT Alkaline Phosphatase Troponin I Total Protein Albumin Globulin Albumin/Globulin Ratio Procalcitonin TSH Free T4 Random Cortisol Nasal Screen MRSA (PCR) Stool Occult Bld Scrn Blood Type Antibody Screen Direct Antiglob Test ANDREINA (IgG-AHG) ANDREINA, Polyspecific ANDREINA C3b, C3d 5 Min Crossmatch 05/01/19 05/01/19 05/01/19 05:34 05:34 05:34 WBC RBC Hgb Hct MCV MCH MCHC RDW Std Deviation RDW Coeff of John Plt Count MPV Immature Gran % (Auto) Neut % (Auto) Lymph % (Auto) [place] % (Auto) Eos % (Auto) Baso % (Auto) Reticulocyte % (Auto) Immature Gran # (Auto) Neut # (Auto) Lymph # (Auto) [place] # (Auto) Eos # (Auto) Baso # (Auto) Reticulocyte # Toxic Granulation Dohle Bodies Platelet Estimate Anisocytosis Tear Drop Cells Ovalocytes Echinocytes Acanthocytes (Spur) Haptoglobin PT INR APTT PTT Ratio Fibrinogen 642 H Fibrin Degrad Products 10-40 H D-Dimer 2080 H* ABG pH ABG pCO2 ABG pO2 ABG HCO3 ABG O2 Saturation ABG Base Excess Logan Test Barometric Pressure Oxygen Given Sodium 135 L Potassium 4.1 Chloride 103 Carbon Dioxide 22 Anion Gap 10.0 BUN 19 H Creatinine 1.00 Est Cr Clr Drug Dosing 68.2 Est GFR ( Amer) 89.2 Est GFR (Non-Af Amer) 77.0 BUN/Creatinine Ratio 19.0 Glucose 167 H POC Glucose POC Lactic Acid Jerome Lactate Calcium 7.8 L Ionized Calcium Phosphorus 4.1 Magnesium 2.2 Total Bilirubin 2.9 H D AST 134 H ALT 94 H Alkaline Phosphatase 219 H Troponin I 0.352 H* Total Protein 6.5 Albumin 2.6 L Globulin 3.9 Albumin/Globulin Ratio 0.7 L Procalcitonin TSH Free T4 Random Cortisol Nasal Screen MRSA (PCR) Stool Occult Bld Scrn Blood Type Antibody Screen Direct Antiglob Test ANDREINA (IgG-AHG) ANDREINA, Polyspecific ANDREINA C3b, C3d 5 Min Crossmatch 05/01/19 05/01/19 05/01/19 05:34 05:34 05:34 WBC RBC Hgb Hct MCV MCH MCHC RDW Std Deviation RDW Coeff of John Plt Count MPV Immature Gran % (Auto) Neut % (Auto) Lymph % (Auto) [place] % (Auto) Eos % (Auto) Baso % (Auto) Reticulocyte % (Auto) Immature Gran # (Auto) Neut # (Auto) Lymph # (Auto) [place] # (Auto) Eos # (Auto) Baso # (Auto) Reticulocyte # Toxic Granulation Dohle Bodies Platelet Estimate Anisocytosis Tear Drop Cells Ovalocytes Echinocytes Acanthocytes (Spur) Haptoglobin PT INR APTT PTT Ratio Fibrinogen Fibrin Degrad Products D-Dimer ABG pH ABG pCO2 ABG pO2 ABG HCO3 ABG O2 Saturation ABG Base Excess Logan Test Barometric Pressure Oxygen Given Sodium Potassium Chloride Carbon Dioxide Anion Gap BUN Creatinine Est Cr Clr Drug Dosing Est GFR ( Amer) Est GFR (Non-Af Amer) BUN/Creatinine Ratio Glucose POC Glucose POC Lactic Acid Jerome Lactate 1.0 Calcium Ionized Calcium 1.04 L Phosphorus Magnesium Total Bilirubin AST ALT Alkaline Phosphatase Troponin I Total Protein Albumin Globulin Albumin/Globulin Ratio Procalcitonin 0.88 H TSH Free T4 Random Cortisol Nasal Screen MRSA (PCR) Stool Occult Bld Scrn Blood Type Antibody Screen Direct Antiglob Test ANDREINA (IgG-AHG) ANDREINA, Polyspecific ANDREINA C3b, C3d 5 Min Crossmatch 05/01/19 06:13 WBC RBC Hgb Hct MCV MCH MCHC RDW Std Deviation RDW Coeff of John Plt Count MPV Immature Gran % (Auto) Neut % (Auto) Lymph % (Auto) [place] % (Auto) Eos % (Auto) Baso % (Auto) Reticulocyte % (Auto) Immature Gran # (Auto) Neut # (Auto) Lymph # (Auto) [place] # (Auto) Eos # (Auto) Baso # (Auto) Reticulocyte # Toxic Granulation Dohle Bodies Platelet Estimate Anisocytosis Tear Drop Cells Ovalocytes Echinocytes Acanthocytes (Spur) Haptoglobin PT INR APTT PTT Ratio Fibrinogen Fibrin Degrad Products D-Dimer ABG pH ABG pCO2 ABG pO2 ABG HCO3 ABG O2 Saturation ABG Base Excess Logan Test Barometric Pressure Oxygen Given Sodium Potassium Chloride Carbon Dioxide Anion Gap BUN Creatinine Est Cr Clr Drug Dosing Est GFR ( Amer) Est GFR (Non-Af Amer) BUN/Creatinine Ratio Glucose POC Glucose 188 H POC Lactic Acid Jerome Lactate Calcium Ionized Calcium Phosphorus Magnesium Total Bilirubin AST ALT Alkaline Phosphatase Troponin I Total Protein Albumin Globulin Albumin/Globulin Ratio Procalcitonin TSH Free T4 Random Cortisol Nasal Screen MRSA (PCR) Stool Occult Bld Scrn Blood Type Antibody Screen Direct Antiglob Test ANDREINA (IgG-AHG) ANDREINA, Polyspecific ANDREINA C3b, C3d 5 Min Crossmatch Medications Administered Current Inpatient Medications Acetaminophen (Tylenol) 650 mg PO Q4H PRN PRN Reason: Pain or Fever Stop: 05/30/19 16:51 Last Admin: 04/30/19 20:13 Dose: 650 mg Documented by: Al Hydrox/Mg Hydrox/Simethicone (Maalox) 15 ml PO Q4H PRN PRN Reason: Dyspepsia Stop: 05/30/19 16:51 Albuterol (Duoneb) 3 ml NEB QIDR TAJ Stop: 05/30/19 17:29 Last Admin: 05/01/19 08:10 Dose: Not Given Documented by: Amiodarone HCl/Dextrose (Nexterone / D5w) 360 mg in 200 mls @ 16.667 mls/hr IV .Q12H TAJ Stop: 05/31/19 02:55 Last Infusion: 05/01/19 07:06 Dose: 0.5 mg/min, 16.7 mls/hr Documented by: Doxycycline Hyclate 100 mg/ (Dextrose) 110 mls @ 50 mls/hr IV Q12H TAJ Stop: 05/08/19 00:00 Last Infusion: 05/01/19 02:18 Dose: Infused Documented by: Sodium Chloride (Nss) 250 mls @ 15 mls/hr IV .[id number] PRN PRN Reason: For Transfusion Stop: 05/31/19 01:06 Pantoprazole Sodium 40 mg/ (Syringe) 10 mls @ 5 mls/min IV Q12 [facility] Stop: 05/31/19 01:29 Last Admin: 05/01/19 01:20 Dose: 5 mls/min Documented by: Phenylephrine HCl 20 mg/ (Dextrose) 502 mls @ 50.45 mls/hr IV .[id number] [facility]; Protocol Stop: 05/31/19 01:18 Last Titration: 05/01/19 07:06 Dose: 0.5 mcg/kg/min, 50.5 mls/hr Documented by: Methylprednisolone 40 mg/ (Syringe) 0.64 mls @ 1.5 mls/min IV Q6 [facility] Stop: 05/31/19 05:59 Last Admin: 05/01/19 05:29 Dose: 1.5 mls/min Documented by: Parenteral Electrolytes (Normosol-R) 1,000 mls @ 80 mls/hr IV .[id number] [facility] Stop: 05/31/19 06:59 Last Infusion: 05/01/19 07:06 Dose: 80 mls/hr Documented by: Magnesium Hydroxide (Milk Of Magnesia) 30 ml PO Q12H PRN PRN Reason: Constipation Stop: 05/30/19 16:51 Miscellaneous (Icu Protocol For Hyperglycemia) 1 ea N/A PRN PRN; Protocol PRN Reason: Hyperglycemia Protocol Stop: 05/03/19 01:35 Ondansetron HCl (Zofran) 4 mg IV Q6H PRN PRN Reason: Nausea Stop: 05/30/19 16:51 Polyethylene Glycol (Miralax Powder Packet) 17 gm PO DAILY PRN PRN Reason: Constipation Stop: 05/30/19 16:51
--- NOTE | 2019-05-01 08:47 | Hospitalist Progress Note ---
Date of Service May 01, 2019 Subjective Date of service: 04/30/19 Was Called as patient was having tachycardia. Heart rates in 190-201 range on the monitor. Patient feeling diaphoretic but no other complains. It was narrow complex tachycardia. EKG earlier showed a fib. Was given iv adenosine 6mg but nothing happened. Patient heart rates still in same range. Systolic Blood pressure dropped to 80's. Given fluid bolus which improved BP. Called Cardiology and was advised for amiodarone bolus and drip which was started and heart rates improved to 160 range. But later SBP was dropping to 60-80. Labs showed hb 8.0. He was heme positive in ER. At that time transferred to ICU for close monitoring. Also stated on zosyn and doxycyline. In ICU was placed on ppi drip and later required phenyl epherine drip.Echo ordered. Results & Data Vital Signs (Past 12 Hours) Vital Signs Temp Pulse Pulse Resp BP BP Pulse Ox 05/01/19 05:00 36.8 C 104 H 23 108/63 95 05/01/19 04:45 109 H 19 95/67 L 96 05/01/19 04:35 36.8 C 102 H 25 H 120/44 L 95 05/01/19 04:30 124 H 26 H 101/67 92 05/01/19 04:16 123 H 25 H 104/67 97 05/01/19 04:15 127 H 21 96 05/01/19 04:01 125 H 16 111/74 96 05/01/19 04:00 116 H 20 98 05/01/19 03:57 36.4 C L 119 H 22 120/82 96 05/01/19 03:45 36.4 C L 123 H 19 120/82 96 05/01/19 03:30 36.8 C 120 H 28 H 113/72 96 05/01/19 03:15 121 H 25 H 97/63 L 95 05/01/19 03:00 97 H 23 103/60 96 05/01/19 02:50 36.8 C 124 H 30 H 92/59 L 96 05/01/19 02:45 101 H 28 H 77/56 L 95 05/01/19 02:30 128 H 25 H 73/55 L 94 05/01/19 02:15 117 H 24 93 05/01/19 02:10 36.6 C 112 H 23 94/40 L 94 05/01/19 02:00 36.6 C 129 H 25 H 81/56 L 94 05/01/19 01:54 130 H 27 H 74/52 L 94 05/01/19 01:45 123 H 26 H 91 05/01/19 01:30 125 H 26 H 98 05/01/19 01:15 135 H 27 H 98 05/01/19 01:00 136 H 28 H 88/57 L 97 05/01/19 00:55 130 H 18 83/54 L 98 05/01/19 00:46 120 H 26 H 74/56 L 97 05/01/19 00:45 112 H 24 97 05/01/19 00:30 120 H 29 H 88/56 L 97 05/01/19 00:24 128 H 21 92/56 L 98 05/01/19 00:15 76 25 H 98 05/01/19 00:00 137 H 27 H 98 04/30/19 23:53 137 H 22 94/55 L 94 04/30/19 23:47 136 H 15 71/58 L 98 04/30/19 23:45 154 H 22 98 04/30/19 23:34 133 H 21 98/58 L 97 04/30/19 23:33 136 H 20 72/57 L 98 04/30/19 23:30 143 H 19 98 04/30/19 23:15 142 H 20 99 04/30/19 23:10 140 H 21 78/62 L 99 04/30/19 23:00 144 H 26 H 98 04/30/19 22:49 137 H 29 H 84/73 L 04/30/19 22:48 155 H 25 H 04/30/19 22:31 146 H 28 H 97 04/30/19 22:30 143 H 31 H 79/44 L 96 04/30/19 22:22 150 H 135 H 29 H 85/48 L 85/48 L 97 04/30/19 22:16 144 H 19 62/45 L 95 04/30/19 22:15 146 H 21 96 04/30/19 22:07 145 H 29 H 87/59 L 96 04/30/19 22:05 159 H 145 H 23 69/49 L 69/51 L 95 04/30/19 22:01 154 H 22 96 04/30/19 22:00 147 H 21 70/49 L 94 04/30/19 21:55 152 H 21 81/64 L 96 04/30/19 21:53 161 H 20 74/57 L 95 04/30/19 21:45 157 H 20 77/57 L 97 04/30/19 21:32 171 H 22 77/52 L 96 04/30/19 21:30 160 H 26 H 96 04/30/19 21:15 145 H 25 H 91/51 L 96 04/30/19 21:01 185 H 19 95 04/30/19 21:00 174 H 25 H 113/56 L 96 04/30/19 20:52 180 H 23 84/51 L 96 04/30/19 20:47 181 H 37 H 81/58 L 96 04/30/19 20:46 182 H 18 97 04/30/19 20:45 185 H 22 78/54 L 96
[2019-05-01] MEDS ORDERED: GLUCAGON FOR INJ 1 MG VIAL SQ PRN (09:15)
[2019-05-01] MEDS ORDERED: GLUCOSE 40% GEL 15 GM TUBE PO PRN (09:15)
[2019-05-01] MEDS ORDERED: GLUCOSE 10 TABS/TUBE PO PRN (09:15)
[2019-05-01] MEDS ORDERED: CARBOHYDRATES FOR HYPOGLYCEMIA PO PRN (09:15)
[2019-05-01] MEDS ORDERED: DEXTROSE 50% 50 ML SYRINGE IV PRN (09:15)
[2019-05-01 09:21] LABS: Hematocrit (blood only) 28.2 % (42-52); Hemoglobin 9.6 g/dL (14.0-18.0)
[2019-05-01 09:51] LABS: Troponin I 0.934 ng/ml (0-0.045); Uric Acid 5.1 mg/dl (2.6-7.2)
--- NOTE | 2019-05-01 10:47 | Procedure Note ---
Procedure Note Date of Service May 01, 2019 Note INTERNAL JUGULAR CENTRAL LINE PROCEDURE NOTE: Procedure: Internal Jugular Central Line Placement Attending: Dr. Anthony Ramirez Provider: FRANKLIN Kessler Indication: Central Drug Administration Anesthesia: Lidocaine 1% Consent was signed and placed on the chart prior to procedure. Indication, risks, and benefits were explained at length. A time-out was completed verifying correct patient, procedure, site, positioning, and implants(s) or special equipment if applicable. Patients right neck was cleansed and draped in the typical sterile fashion using Chloraprep. The Internal Jugular Vein and Carotid Artery were identified using ultrasound. The superficial tissue was anesthetized using 5 mL of 1% lidocaine without epinephrine under direct visualization with the ultrasound. After adequate anesthetization was achieved, the Internal Jugular vein was cannulated under direct ultrasound guidance using an introducer needle on a syringe. Good venous blood return was maintained prior to removal of syringe from introducer needle. Using Seldinger Technique, a guide wire was advanced through the introducer needle without resistance. The introducer needle was removed and ultrasound images were obtained of the guide wire within the Internal Jugular Vein and saved to the patients medical record. A small incision was made in penetrating fashion at the guide wire insertion site utilizing an 11 blade scalpel. The dilator was advanced to the vessel without resistance. The dilator was exchanged for the triple lumen catheter which was advanced into the vessel without resistance. The guide wire was removed intact from the catheter without issue. Claves were placed on each catheter tip with confirmation of good blood flow from each lumen. Each port was easily flushed with sterile saline. The catheter was placed at 15 cm and sutured in place. BioPatch was applied to the catheter and a sterile Tegaderm dressing was applied over the catheter with careful attention to sterility. Patient tolerated procedure well. No immediate complications were met. Post procedure x-ray was completed, placement was appropriate and no pneumothorax was noted. Images obtained are saved for permanent record Procedural Ultrasound Guidance: Procedure Date: 05/01/2019 Indication: Right IJ central line placement Attending: Dr. Anthony Ramirez Provider: FRANKLIN Kessler Artery AND Vein visualized: Yes Compressible Vein: Yes Guidewire or Short Catheter seen in vein prior to dilation: Yes Line confirmed in Vein with ultrasound: Yes Images obtained are saved for permanent record. Supervising Physician Co-Signing Physician Notes I was present and scrubbed for the procedure and assisted with weinberg elements. Please refer to the MERRY's note for additional details. Coding
--- NOTE | 2019-05-01 10:52 | XRay Report ---
XR chest 1V portable CLINICAL HISTORY: cvc insertion line position COMPARISON STUDY: 04/30/2019 FINDINGS: Mild stable cardiomegaly. Prior median sternotomy. Central catheter placed in superior vena cava. No evidence for pneumothorax. Stable infiltrative liriano ges left lung base. IMPRESSION: Central catheter placed in the superior vena cava. No evidence of pneumothorax. Otherwis e unchanged exam from the prior study. The above report was generated using voice recognition software. It may contain grammatical, syntax or spelling errors. Electronically signed by: Hipolito Haddad M.D. 05/01/2019 10:50 AM
--- NOTE | 2019-05-01 11:02 | Pulmonology Progress Note ---
Date of Service May 01, 2019 Assessment & Plan (1) Admitted to intensive care unit: Patient seen and examined. Electronic medical record extensively reviewed as well as independently review of all imaging studies. Please refer to the separate MERRY note from this day for complete details. Briefly this is a 69-year-old male who presented to the emergency room with weakness and falls. He is had a 60 pound unintentional weight loss over the last several months. CT scanning showed presence of mediastinal and hilar adenopathy with a new peripheral lung lesion concerning for potential neoplastic process. The patient does have a history of a B-cell lymphoma diagnosed approximately 5 years ago. He has been undergoing clinical surveillance for this. He initially was admitted to the floor but developed atrial fibrillation with rapid ventricular response and was transferred to the intensive care unit. Arterial line was placed and he was initiated on pressors in the form of Rian- Synephrine. Amiodarone was also initiated given his A. fib. He has been on antibiotics for possible infectious etiology and did receive blood products in the form of packed red cells for low hemoglobin. No obvious sites of bleeding or acute blood loss were identified. Recommendations: 1. Pancytopenia: Discussed case with hematology oncology. They recommended obtaining a biopsy of lymph node. The patient does have targets for endobronchial ultrasound with transbronchial needle aspiration although this would not provide definitive lymph node architecture. There is comment of a supraclavicular node on the CT scan. May need to discuss with surgery whether or not this is accessible. PET scan would be helpful but cannot be obtained in the acute setting. We discussed a bone marrow biopsy but they would like to hold off pending a biopsy of his lymph nodes. If the patient's hemodynamic status improves, consideration for bronchoscopy with endobronchial ultrasound transbronchial needle aspiration can be undertaken if the lymph nodes are not accessible. We will check LDH, uric acid and see if haptoglobin and Jennifer can be added to his admission/pretransfusion labs 2. Atrial fibrillation with rapid ventricular response: Appreciate cardiology input. Continue amiodarone. Patient's troponin is mildly elevated but I suspect this is likely supply demand mismatch rather than an acute coronary syndrome. No indication for anticoagulation currently 3. Hypotension: Lactate is normal. He is currently on a low-dose of Rian- Synephrine. Formal echocardiogram pending. He did receive steroids which should be adequate for relative adrenal insufficiency if present. His cortisol was borderline. 4. Possible infection: His CT scan is not highly concerning for infection but will continue antibiotics after discussion with oncology given his potential immune suppressed state. If cultures remain negative, these can likely be discontinued. 5. Hyponatremia: Potential hypovolemic hyponatremia. We will continue to trend as resuscitation is undertaken and reassess. Patient remains critically ill at this point time with significant possibility of clinical deterioration. We will continue to follow. Additional 30 minutes critical care time added to MERRY's time and previous notes 5. 5. Results & Data Vital Signs (Past 12 Hours) Vital Signs Temp Pulse Resp BP Pulse Ox 05/01/19 08:00 109 H 05/01/19 05:00 36.8 C 104 H 23 108/63 95 05/01/19 04:45 109 H 19 95/67 L 96 05/01/19 04:35 36.8 C 102 H 25 H 120/44 L 95 05/01/19 04:30 124 H 26 H 101/67 92 05/01/19 04:16 123 H 25 H 104/67 97 05/01/19 04:15 127 H 21 96 05/01/19 04:01 125 H 16 111/74 96 05/01/19 04:00 116 H 20 98 05/01/19 03:57 36.4 C L 119 H 22 120/82 96 05/01/19 03:45 36.4 C L 123 H 19 120/82 96 05/01/19 03:30 36.8 C 120 H 28 H 113/72 96 05/01/19 03:15 121 H 25 H 97/63 L 95 05/01/19 03:00 97 H 23 103/60 96 05/01/19 02:50 36.8 C 124 H 30 H 92/59 L 96 05/01/19 02:45 101 H 28 H 77/56 L 95 05/01/19 02:30 128 H 25 H 73/55 L 94 05/01/19 02:15 117 H 24 93 05/01/19 02:10 36.6 C 112 H 23 94/40 L 94 05/01/19 02:00 36.6 C 129 H 25 H 81/56 L 94 05/01/19 01:54 130 H 27 H 74/52 L 94 05/01/19 01:45 123 H 26 H 91 08/12/19 01:30 125 H 26 H 98 08/12/19 01:15 135 H 27 H 98 05/01/19 01:00 136 H 28 H 88/57 L 97 05/01/19 00:55 130 H 18 83/54 L 98 05/01/19 00:46 120 H 26 H 74/56 L 97 05/01/19 00:45 112 H 24 97 05/01/19 00:30 120 H 29 H 88/56 L 97 05/01/19 00:24 128 H 21 92/56 L 98 05/01/19 00:15 76 25 H 98 05/01/19 00:00 137 H 27 H 98 04/30/19 23:53 137 H 22 94/55 L 94 04/30/19 23:47 136 H 15 71/58 L 98 04/30/19 23:45 154 H 22 98 04/30/19 23:34 133 H 21 98/58 L 97 04/30/19 23:33 136 H 20 72/57 L 98 04/30/19 23:30 143 H 19 98 04/30/19 23:15 142 H 20 99 04/30/19 23:10 140 H 21 78/62 L 99 04/30/19 23:00 144 H 26 H 98 PG Care Time/CCT Total # of Minutes Spent Total Time Spent with Patient: Total time spent is greater than 50% in coordination of care (as documented) at patient's floor/unit and/or counseling patient:
[2019-05-01] MEDS: cefTRIAXone SODIUM 1,000 MG in DEXTROSE 5% 50 ML IV SCH (11:20)
[2019-05-01] MEDS: AZITHROMYCIN 250 MG in DEXTROSE 5% 250 ML IV SCH (11:35)
[2019-05-01] MEDS: ALBUMIN 25% 50 ML IV SCH ×2 (11:43→12:26)
[2019-05-01] MEDS ORDERED: INSULIN ASPART 100 UNITS/ML 3 ML PEN SC SCH (12:00)
[2019-05-01] MEDS ORDERED: PHARMACY GLYCEMIC MGMT CONSULT PRN (12:21)
--- NOTE | 2019-05-01 12:29 | Pharmacy Report ---
Pharmacy Glycemic Short Note 2 - Date of Service May 01, 2019 - Glycemic Short BSG Results (Last 24 hours): 04/30/19 04/30/19 04/30/19 11:59 20:40 21:19 Glucose 103 H 139 H POC Glucose 153 H 05/01/19 05/01/19 05/01/19 05:34 06:13 12:05 Glucose 167 H POC Glucose 188 H 200 H OUTPATIENT ANTIDIABETIC REGIMEN: * N/A ASSESSMENT: * 69 year old male presenting with weakness with 60 pound unintentional weight loss over several months, patient has history of B-cell lymphoma undergoing clinical surveillance with CT with new peripheral lung lesion. * No known history of diabetes and patient is not on medications outpatient. BSGs increased with initiation of methylprenisolone 40 mg q6H. Additionally patient is on phenylephrine and amiodarone drips. Patient is pancytopenic and on azithromycin/rocephin. * BSGs mildly elevated 188 this morning and then 200 at noon, (with no previous correction) * Initiated weight based stress of 2 lantus/novolog per icu protocol. Will continue to monitor PLAN FOR INPATIENT GLYCEMIC CONTROL: * Hold outpatient oral diabetes medications * Basal insulin * Lantus 12 units SQ x1 * scale for evening 0/03/01 * Bolus insulin * NovoLog per scale ACHS or Q6hrs while NPO * Goal Range: Low 140 mg/dL - High 180 mg/dL * Correction Factor: 35 mg/dL/unit * Nutritional / Prandial insulin per carb ratio of 1 unit per 11 grams CHO consumed
[2019-05-01] MEDS ORDERED: INSULIN GLARGINE SOLOSTAR 100 UNITS/ML 3 ML PEN SC ONE ×2 (12:30→21:00)
[2019-05-01 14:11] LABS: Hemoglobin 8.5 g/dL (14.0-18.0)
[2019-05-01] MEDS: INSULIN ASPART 100 UNITS/ML 3 ML PEN SC SCH ×2 (15:49→20:15)
--- NOTE | 2019-05-01 16:02 | Hospitalist Progress Note ---
Date of Service May 01, 2019 Assessment & Plan (1) Mass of left lung: Patient presented with generalized weakness causing frequent falls in last 5 days. Admitted to Med surg telemetry and overnight transferred to ICU for A flutter with RVR , Borderline low BP. Newly diagnosed left lung mass suspicious for malignancy Patient does have a history of significant weight loss for many months, worsening cough for the past few weeks. -As part of the ED work-up given his history of lymphoma, CT scan neck, chest, abdomen and pelvis were performed. Revealed solid cavitary mass in posterior basal left lower lobe highly suspicious for primary bronchogenic neoplasm, mediastinal and hilar lymphadenopathy highly suspicious for metastatic disease, left supraclavicular lymphadenopathy noted. Patchy predominant dependent infiltrates and tree-in-bud opacities, background emphysema and bronchitis, splenomegaly. Patient has a significant smoking history for more than 50 years, quit 1-1/2 years ago. -Per d/w pulmonary , this could be lymphoma than primary lung malignancy. -Per d/w oncology with pulmonary, biopsy of lymph node would provide more information. Pulmonary will discuss with surgery to plan lymph node excision. Appreciate pulmonary inputs Symptomatic Anemia/pancytopenia in setting of B cell small cell non-Hodgkin's lymphoma/splenomegaly: Chronic thrombocytopenia as per prior records. Chronic anemia in the range of 8-9. Hemoglobin on presentation 6.9. No signs of active bleeding. 2 units of packed red blood cells since admission Work up - 10/2018- Iron studies - neg, FOBT, Reticulocyte count. -Monitor H & H Atrial fibrillation with RVR Contributing factors: Anemia -Started on IV Amiodarone drip overnight as BP borderline low -Converted to NSR with HR in 60s now -Not a candidate for anticoagulation given thrombocytopenia -Echo- EF 40-45%, Mild moderate MR, Mild TR, Post, inferior wall kinesis= old, LV -dilated -Cardiology on board Hypotension -S/P IVF. Held lisinopril -Off Neosynephrine which was started overnight -Received steroids -Monitor trend Possible pneumonia Patient does have productive sputum, some chest pain, baseline shortness of breath -CT chest shows multifocal dependent infiltrates on background of emphysema concerning for aspiration or infection -Empirically started on IV rocephin and azithromycin -Sputum c/s ordered -If cx neg, may discontinue Non-Hodgkin's B-cell lymphoma Known history of non-Hodgkin's B-cell lymphoma diagnosed in 2012. Follows up with [facility] oncology outpatient on a regular basis As per recent CT scan done in January 2019, had progressive worsening of lymphadenopathy. However, did not have any symptoms related to lymphoma at that time, therefore follow-up was scheduled for May 2019 or sooner if he develops symptoms. -CT scanning soft tissue neck, chest, abdomen, pelvis was done on admission shows lymphadenopathy at left base of neck and left supraclavicular fossa, splenomegaly -Of note, CT scan abd/pelvis here - doesnt show lymph nodes in abd or pelvis, but CT done outpatient in 01/2019 showed large gastrohepatic, portal hepatic, retroperitoneal lymph nodes increased in size from prior exam, hepatosplenomegaly had mildly increased as well. Generalized weakness / Physical deconditioning causing frequent falls : Multifactorial Pancytopenia/symptomatic anemia with hemoglobin dropping to 6.9, non-Hodgkin's B-cell lymphoma, splenomegaly, newly diagnosed left lung mass suspicious for malignancy -PT/OT ordered History of coronary artery disease status post CABG x3 Hold aspirin given symptomatic anemia requiring blood transfusion Continue with atorvastatin. COPD with no exacerbation -Mild wheezing on exam on admission -Nebs QID -Not on inhaler at home Hyperlipidemia Continue with atorvastatin 40 mg nightly Abdominal aortic aneurysm Per CT scan- Slight interval increase in size of infrarenal abdominal aortic aneurysm which measures 3.7 x 2.6 cm Monitor outpatient DVT prophylaxis SCDS/TEDS; Re thrombocytopenia and anemia Full code Disposition Continue with ICU monitoring Discussed case with pulmonary Subjective Patient was transferred to ICU overnight for A flutter with RVR. Currently doing better. Denies any chest pain, fever, chills. Not on oxygen On amiodarone drip Physical Exam Physical Exam: GENERAL- AAOX3, No acute distress LUNGS- Air entry bilaterally decreased, coarse breath sounds, no wheezing HEART- Regular rate and rhythm. No murmurs ABDOMEN- Soft, non tender, non distended, Bowel sounds heard. EXTREMITIES- Good peripheral pulses, no edema SKIN- Central line present Results & Data Vital Signs (Past 12 Hours) Vital Signs Temp Pulse Resp BP Pulse Ox 05/01/19 12:30 62 18 113/63 97 05/01/19 12:16 64 16 122/64 97 05/01/19 12:00 36.4 C L 58 L 20 116/62 97 05/01/19 11:46 59 L 19 130/67 94 05/01/19 11:30 106 H 19 127/77 92 05/01/19 11:00 117 H 20 123/74 98 05/01/19 10:00 114 H 21 108/83 96 05/01/19 09:00 93 H 19 112/78 97 05/01/19 08:00 36.4 C L 103 H 23 113/80 95 05/01/19 07:00 87 23 124/74 97 05/01/19 05:00 36.8 C 104 H 23 108/63 95 05/01/19 04:45 109 H 19 95/67 L 96 05/01/19 04:35 36.8 C 102 H 25 H 120/44 L 95 05/01/19 04:30 124 H 26 H 101/67 92 05/01/19 04:16 123 H 25 H 104/67 97 05/01/19 04:15 127 H 21 96 05/01/19 04:01 125 H 16 111/74 96 05/01/19 04:00 116 H 20 98 05/01/19 03:57 36.4 C L 119 H 22 120/82 96
[2019-05-01 17:29] LABS: Hematocrit (blood only) 26.2 % (42-52); Mean Corpuscular Hemoglobin 29.2 pg (25-34); Mean Corpuscular Hgb Conc 34.4 g/dL (32-36); Mean Corpuscular Volume 85.1 fL (80-100); Mean Platelet Volume 10.8 fL (7.4-10.4); Platelet Count 43 K/uL (130-400); RDW Coefficient of Variation 19.4 % (11.5-14.5); RDW Standard Deviation 60.2 fL (36.4-46.3); Red Blood Count 3.08 M/uL (4.7-6.1); White Blood Count 0.79 K/uL (4.8-10.8)
[2019-05-01 18:32] LABS: Echinocytes 1+; Immature Granulocytes # (auto) 0.04 K/uL (0.00-0.02); Immature Granulocytes % (auto) 5.1 %; Lymphocytes % (auto) 50.6 %; Monocytes # (auto) 0.01 K/uL (0.11-0.59); Monocytes % (auto) 1.3 %; Neutrophils # (auto) 0.34 K/uL (1.4-6.5)
[2019-05-01] MEDS: TAMSULOSIN HCL 0.4 MG CAP PO SCH (20:17)
--- NOTE | 2019-05-01 20:52 | Consultation Report ---
DATE OF CONSULTATION: 05/01/2019 REASON FOR CONSULTATION: Evaluate for possible mediastinoscopy. HISTORY OF PRESENT ILLNESS: Aman Gonzales is a 69-year-old male with a history of lymphoma that was diagnosed with a biopsy but never treated. He has a history of undergoing a coronary artery bypass grafting x3 about 15 years ago at [facility]. He has peripheral vascular disease, long history of active cigarette smoking. His B-cell lymphoma was diagnosed back in 2012, who has chronic thrombocytopenia who presented with falls over the last 5 days. He was found to be in atrial fibrillation with a very high rate. His hemoglobin was only 6.9 when he came in, white blood count of only 2.69 and platelet count of 62,000. The patient has mediastinal adenopathy with a very small supraclavicular lymph node on the left. He also had some patchy infiltrates, but the bigger concern from a parenchymal standpoint appeared to be a cavitary lesion in the left lower lobe. He also has some bullous disease and emphysema. I was asked to evaluate him for tissue diagnosis. It is felt that an endobronchial ultrasound with biopsy is not going to be as helpful as it will not preserve the cellular architecture required to identify this particular lymphoma. PAST MEDICAL HISTORY: 1. 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 He was smoking cigarettes up until this admission). 2. Hypertension. 3. Hyperlipidemia. 4. Episodes of congestive heart failure. 5. Peripheral arterial disease. 6. Benign prostatic hypertrophy. 7. Chronic lymphoma. 8. Known abdominal aortic aneurysm. 9. Cervical stenosis of spinal canal. 10. Coronary artery disease. 11. Cerebrovascular disease. PAST SURGICAL HISTORY: 1. Coronary artery bypass grafting x3. 2. Status post carotid endarterectomy. 3. History of appendectomy. 4. History of cervical decompression with fusion. MEDICATIONS AT HOME: 1. Aspirin. 2. Atenolol. 3. Nitroglycerin sublingually p.r.n. 4. Lisinopril. 5. Atorvastatin. ALLERGIES: No known drug allergies. 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 He grew up in [place], but did not go very far in school. He has been smoking at least a pack a day for the last 58 years. He states he quit a few weeks ago when he developed a cough which would not resolve. He lives with his spouse. His grandson also lives with him. 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 FAMILY MEDICAL HISTORY: The patient's brother from a myocardial infarction at age 61. Father in his fairly elderly. Mother after a "choking on some food." REVIEW OF SYSTEMS: The patient has lost about 60 pounds in the last year. He has also become very weak. He has had easy bruising. He has had a cough for the last few weeks. States this is "different." He is productive of whitish sputum. He has had no fever or chills. He denies palpitations or chest pain, but he did get hypotensive when he had a rapid atrial fibrillation. He has had no hemoptysis or night sweats. He denies any GI symptoms such as hematemesis or hematochezia, but has been a bit anorexic. He has had some abrasions to his legs upon falling. He is normally followed by Dr. Cho who was instrumental in him being diagnosed. He developed a left supraclavicular lymph node which was biopsied and was found to have a low-grade lymphoma. This was not treated. He had been followed; however, and was found to have weight loss. He had a CT scan which showed the marked mediastinal and hilar nodes. He also had some patchy infiltrates and I am a bit concerned about the left lower lobe mass. He also has some abdominal lymph nodes. His infrarenal abdominal aortic aneurysm measures 4.2 cm. PHYSICAL EXAMINATION: GENERAL: This is a thin 5 feet 11 inch, 150 pound male who is awake, alert and oriented. He has a ashton. He looks older than stated age of 69. He is conversant, awake and alert. His daughter was with him. He has very poor dentition. HEENT: Extraocular movements are intact. He has bilateral arcus senilis. Sclerae are anicteric. They are a bit pale. He has no nasolabial flattening. Tongue is midline. Oral mucosa is a bit dry. NECK: Thin but supple. I really do not palpate his supraclavicular adenopathy. He has a well-healed right carotid incision. He has a soft bruit on the right side. He has no neck vein distention or thyromegaly. LUNGS: Upon auscultation he has expiratory wheezing throughout. He has a few upper airway rhonchi. HEART: He has a regular rate and rhythm currently of his heart at about 90 beats per minute. ABDOMEN: Flat, soft, nontender with no evidence of ascites. Despite the findings on the CT scan, I could not really palpate a spleen and his liver did not appear enlarged. EXTREMITIES: He does have a palpable aneurysm in the infrarenal aortic area. He has femoral pulses. I actually can palpate dorsalis pedis pulses bilaterally, but I do not palpate posterior tibialis. His feet are fairly cool but have good capillary refill. He has no joint effusions. NEUROLOGIC: He is awake, alert, oriented without focal deficits. ASSESSMENT AND PLAN: Mediastinal adenopathy in a patient with a longstanding history of lymphoma. I would agree that we need tissue diagnosis and I believe a mediastinoscopy would be the best way to approach this. His left supraclavicular node is small. Platelet count is only 62,000 and this is chronic for him. I do not think it should be a problem. I would like to make sure his rhythm stays stable and I will plan on offering him a video mediastinoscopy in the next few days.
[2019-05-02] MEDS: methylPREDNISolone 40 MG in SYRINGE 0 ML IV SCH ×4 (00:11→22:01)
[2019-05-02] MEDS: INSULIN ASPART 100 UNITS/ML 3 ML PEN SC SCH ×6 (00:41→21:36)
[2019-05-02 02:50] LABS: INR 1.3 (0.9-1.1); Prothrombin Time 13.2 Seconds (9.0-12.0)
[2019-05-02 03:04] LABS: Albumin Level 2.3 gm/dl (3.4-5.0); BUN Creatinine Ratio 24.1 (10-20); Bilirubin Direct 0.5 mg/dl (0-0.2); Calcium 7.8 mg/dl (8.5-10.1); Creatinine Clr Calc Pharmacy 89.7 ml/min; Est GFR (African American) 108.7; Est GFR (Non-African American) 93.7; Magnesium 2.4 mg/dl (1.8-2.4); Potassium 3.6 mmol/L (3.5-5.1)
[2019-05-02 03:06] LABS: Hematocrit (blood only) 23.9 % (42-52); Hemoglobin 8.2 g/dL (14.0-18.0); Mean Corpuscular Hgb Conc 34.3 g/dL (32-36); Mean Corpuscular Volume 84.5 fL (80-100); Mean Platelet Volume 9.9 fL (7.4-10.4); Platelet Count 41 K/uL (130-400); RDW Coefficient of Variation 19.3 % (11.5-14.5); RDW Standard Deviation 59.8 fL (36.4-46.3); Red Blood Count 2.83 M/uL (4.7-6.1); White Blood Count 0.83 K/uL (4.8-10.8)
[2019-05-02 03:07] LABS: Dohle Bodies 2+; Echinocytes 1+; Immature Granulocytes # (auto) 0.04 K/uL (0.00-0.02); Immature Granulocytes % (auto) 4.8 %; Lymphocytes % (auto) 48.2 %; Monocytes # (auto) 0.04 K/uL (0.11-0.59); Monocytes % (auto) 4.8 %; Neutrophils # (auto) 0.35 K/uL (1.4-6.5); Neutrophils % (auto) 42.2 %; Tear Drop Cells 1+; Toxic Granulation 2+
[2019-05-02] MEDS ORDERED: CALCIUM GLUCONATE 10% 1,000 MG in SODIUM CHLORIDE 0.9% 50 ML IV STA (03:17)
[2019-05-02 03:23] LABS: Bilirubin,Total 1.4 mg/dl (0.2-1); Phosphorus 2.9 mg/dl (2.5-4.9); Total Protein 5.9 gm/dl (6.4-8.2)
[2019-05-02] MEDS: AMIODARONE / D5W 360 MG/200 ML BAG IV SCH (04:23)
[2019-05-02] MEDS: ALBUT/IPRATROP 3MG/0.5MG NEB 3 ML VIAL NEB SCH (07:01)
--- NOTE | 2019-05-02 07:27 | Critical Care Progress Note ---
Date of Service May 02, 2019 Assessment & Plan (1) Admitted to intensive care unit: Reason Critically Ill: 69-year-old critically ill male presenting with unstable A. fib with rapid ventricular response with associated hypotension requiring increasing resuscitative efforts as well as need for transfusion in the setting of pancytopenia and heme positive stools. NEURO - CAM ICU: NEGATIVE Acetaminophen PRN CARDIAC/VASCULAR - Atrial fibrillation RVR: Initial onset after receiving 2 units RBCs, received adenosine followed by amiodarone bolus and drip -Converted to sinus rhythm yesterday, amiodarone drip now off -Cardiology following, appreciate Recs -Initially required kimberly-drip, now weaned off -We will hold anticoagulation considering platelet count -Continue to monitor on telemetry RESPIRATORY - Chronic cough with new LEFT lower lobe lesion concerning for neoplastic process: Currently stable on room air, still has productive cough -We will continue antibiotics -Biopsy of mass planned for with Dr. Quinn - Continue IV steroids. PRN nebs CTA of the chest points towards malignancy versus metastatic process. No pulmonary emboli. Elevated right heart pressures as expected the patient with diffuse lung disease. GI/NUTRITION - Heme positive stools: Patient was initially anemic, however H&H has been stable and patient has not passed any melena. Anemia more likely related to malignancy We will continue PPI Splenomegaly noted on CT abd/pelvis, No other substantial findings appreciated. Diet advanced RENAL/LYTES - Maximize electrolytes, routine BMPs - Bejarano in place - Strict I&Os. ENDO - No h/o DMII or Thyroid Dz Will continue NovoLog, Lantus; hyperglycemia likely related to IV steroids/stress TSH/T4 within normal limit HEME - Pancytopenia: Likely secondary to new malignancy -Patient is currently neutropenic, thrombocytopenic with platelet 41 this a.m. -Was also anemic and required total 4 units RBCs, H&H currently stable, will continue to monitor -Follow neutropenic precautions -Heme-onc consulted, holding on bone biopsy until biopsy of lung mass obtained, patient scheduled for ID - Currently on azithromycin and cefepime Lactate not elevated. Procalcitonin unremarkable LINES/IV ACCESS - Right IJ CVC LEFT Radial A Line Bejarano DVT PROPHYLAXIS - SCDs, holding anticoagulants for thrombocytopenia Thank you for allowing us to participate in the care of this patient. Please refer to my attending physician's documentation for any further recommendations. (2) PAF (paroxysmal atrial fibrillation): (3) Atrial fibrillation with rapid ventricular response: (4) Heme positive stool: (5) Hypoxia: (6) Pancytopenia: (7) CAD (coronary artery disease): (8) Mass of left lung: Supervising Physician Co-Signing Physician Notes I have personally evaluated and examined this patient. I agree with assessment and plan of Brent REID. Subjective Patient remains stable overnight, no longer requiring vasopressors or oxygen since yesterday. He is currently on neutropenic precautions. On interview he was alert and oriented and sitting in chair. He denies pain, headache, syncopal episodes, shortness of breath, increased work of breathing, palpitations, chest pain, or abdominal pain. He denies nausea vomiting or blood in stools. He reports a productive cough which is unchanged. Patient is scheduled for biopsy of lung mass on . At this time patient is stable for downgrade. Review of Systems Review of Systems: All systems reviewed & are unremarkable except as noted in HPI & below Physical Exam Constitutional: WD/WN, vitals as above Eyes: PERRL, conjunctivae normal, anicteric sclerae ENMT: external ear and nose normal, oropharynx normal Neck: trachea midline, no thyromegaly Respiratory: normal respiratory effort, lungs clear to auscultation normal respiratory effort Cardiovascular: RRR, no murmur, no edema Rate/Rhythm: regular rate and regular rhythm Heart Sounds: normal S1 and normal S2 Vessels: no JVD Extremities: normal capillary refill Gastrointestinal (Abdomen): normal bowel sounds, soft, nontender, no hepatosplenomegaly Skin: no rashes, warm and dry Neurologic: PERRL, EOMI, accommodation nl, no face palsy, no dysarthria Psychiatric: A+Ox3, euthymic affect Results & Data Vital Signs (Past 12 Hours) Vital Signs Temp Pulse Pulse Resp BP Pulse Ox 05/02/19 07:01 55 L 16 100 05/02/19 06:00 65 21 130/67 100 05/02/19 05:01 54 L 18 106/60 91 05/02/19 04:00 36.6 C 54 L 17 125/56 L 99 05/02/19 03:01 58 L 21 113/51 L 97 05/02/19 02:01 57 L 15 127/64 99 05/02/19 01:01 53 L 18 119/60 98 05/02/19 00:00 36.5 C 67 21 136/69 99 05/01/19 23:00 63 22 128/66 97 05/01/19 22:01 61 22 124/65 93 05/01/19 21:30 69 14 119/62 93 05/01/19 21:01 70 19 124/63 93 05/01/19 20:45 70 19 124/60 96 05/01/19 20:30 72 17 122/64 95 05/01/19 20:00 36.5 C 65 20 127/60 96 05/01/19 19:51 60 16 93 05/01/19 19:44 70 05/01/19 19:30 61 24 128/62 94 PG Care Time/CCT Total # of Minutes Spent Total Time Spent with Patient: Total time spent is greater than 50% in coordination of care (as documented) at patient's floor/unit and/or counseling patient:
[2019-05-02] MEDS: PANTOprazole 40 MG in SYRINGE 0 ML IV SCH ×2 (07:45→22:01)
[2019-05-02] MEDS: NORMOSOL-R 1,000 ML IV SCH (07:45)
[2019-05-02] MEDS ORDERED: ONDANSETRON INJ 2 MG/ML 2 ML VIAL IV PRN (08:43)
[2019-05-02] MEDS ORDERED: INSULIN GLARGINE SOLOSTAR 100 UNITS/ML 3 ML PEN SC SCH ×2 (09:00→21:00)
--- NOTE | 2019-05-02 09:21 | Cardiology Progress Note ---
Date of Service May 02, 2019 Assessment & Plan (1) Pancytopenia: (2) Lymphoma: (3) PAF (paroxysmal atrial fibrillation): (4) Mass of left lung: (5) S/P CABG x 3: (6) S/P carotid endarterectomy: (7) AAA (abdominal aortic aneurysm): The patient is clinically stable and off of pressors. Amiodarone was discontinued yesterday and he is maintaining sinus rhythm. Patient is currently pancytopenic most likely due to bone marrow failure. He is scheduled to undergo bronchoscopy for biopsy of his lung mass later this week. Subjective Patient has no new cardiac complaints today. He converted to sinus rhythm he late yesterday morning and is currently in a sinus rhythm. Amiodarone was discontinued by the critical care service. Review of Systems Review of Systems: All systems reviewed & are unremarkable except as noted in HPI & below Nothing additional Physical Exam Physical Exam: General: no acute distress and stated age Head: normocephalic, no masses, lesions, tenderness or abnormalities Eyes: conjunctiva are pink and non-injected, sclera clear Neck: supple, no adenopathy, no bruits, normal jugular venous pulse, no hepatojugular reflux Chest: normal shape and normal respiratory effort Lungs: clear to auscultation and percussion Cardiac Exam: - regular rate & rhythm, no murmurs gallops or rubs - normal S1, normal S2 Pulses: 2(+) throughout Abdomen: abdomen soft, non-tender, no abnormal masses and no hepatosplenomegaly Musculoskeletal: no gait disturbance, no joint inflammation, no deforming arthritis Extremities: no edema and no cyanosis Neuro: grossly normal exam Results & Data Vital Signs (Past 12 Hours) Vital Signs Temp Pulse Pulse Resp BP Pulse Ox 05/02/19 08:00 36.5 C 90 18 115/64 94 05/02/19 07:01 55 L 16 100 05/02/19 07:00 59 L 17 126/67 100 05/02/19 06:00 65 21 130/67 100 05/02/19 05:01 54 L 18 106/60 91 05/02/19 04:00 36.6 C 54 L 17 125/56 L 99 05/02/19 03:01 58 L 21 113/51 L 97 05/02/19 02:01 57 L 15 127/64 99 05/02/19 01:01 53 L 18 119/60 98 05/02/19 00:00 36.5 C 67 21 136/69 99 05/01/19 23:00 63 22 128/66 97 05/01/19 22:01 61 22 124/65 93 05/01/19 21:30 69 14 119/62 93 Laboratory Results Laboratory Results - last 24 hr 04/30/19 05/01/19 05/01/19 14:01 09:09 09:09 WBC RBC Hgb 9.6 L Hct 28.2 L MCV MCH MCHC RDW Std Deviation RDW Coeff of John Plt Count MPV Immature Gran % (Auto) Neut % (Auto) Lymph % (Auto) Arroyo % (Auto) Eos % (Auto) Baso % (Auto) Immature Gran # (Auto) Neut # (Auto) Lymph # (Auto) Arroyo # (Auto) Eos # (Auto) Baso # (Auto) Toxic Granulation Dohle Bodies Tear Drop Cells Echinocytes PT INR Sodium Potassium Chloride Carbon Dioxide Anion Gap BUN Creatinine Est Cr Clr Drug Dosing Est GFR ( Amer) Est GFR (Non-Af Amer) BUN/Creatinine Ratio Glucose POC Glucose Uric Acid 5.1 Calcium Phosphorus Magnesium Total Bilirubin Direct Bilirubin AST ALT Alkaline Phosphatase Lactate Dehydrogenase Troponin I 0.934 H* Total Protein Albumin Procalcitonin Direct Antiglob Test Negative ANDREINA (IgG-AHG) Neg ANDREINA, Polyspecific Neg ANDREINA C3b, C3d 5 Min Neg Crossmatch See Detail 05/01/19 05/01/19 05/01/19 09:09 12:05 13:38 WBC RBC Hgb 8.5 L Hct 25.0 L MCV MCH MCHC RDW Std Deviation RDW Coeff of John Plt Count MPV Immature Gran % (Auto) Neut % (Auto) Lymph % (Auto) Arroyo % (Auto) Eos % (Auto) Baso % (Auto) Immature Gran # (Auto) Neut # (Auto) Lymph # (Auto) Arroyo # (Auto) Eos # (Auto) Baso # (Auto) Toxic Granulation Dohle Bodies Tear Drop Cells Echinocytes PT INR Sodium Potassium Chloride Carbon Dioxide Anion Gap BUN Creatinine Est Cr Clr Drug Dosing Est GFR ( Amer) Est GFR (Non-Af Amer) BUN/Creatinine Ratio Glucose POC Glucose 200 H Uric Acid Calcium Phosphorus Magnesium Total Bilirubin Direct Bilirubin AST ALT Alkaline Phosphatase Lactate Dehydrogenase 324 H Troponin I Total Protein Albumin Procalcitonin Direct Antiglob Test ANDREINA (IgG-AHG) ANDREINA, Polyspecific ANDREINA C3b, C3d 5 Min Crossmatch 05/01/19 05/01/19 05/01/19 15:48 17:17 20:12 WBC 0.79 L* RBC 3.08 L Hgb 9.0 L Hct 26.2 L MCV 85.1 MCH 29.2 MCHC 34.4 RDW Std Deviation 60.2 H RDW Coeff of John 19.4 H Plt Count 43 L MPV 10.8 H Immature Gran % (Auto) 5.1 Neut % (Auto) 43.0 Lymph % (Auto) 50.6 Arroyo % (Auto) 1.3 Eos % (Auto) 0.0 Baso % (Auto) 0.0 Immature Gran # (Auto) 0.04 H Neut # (Auto) 0.34 L* Lymph # (Auto) 0.40 L Arroyo # (Auto) 0.01 L Eos # (Auto) 0.00 Baso # (Auto) 0.00 Toxic Granulation Dohle Bodies Tear Drop Cells Echinocytes 1+ PT INR Sodium Potassium Chloride Carbon Dioxide Anion Gap BUN Creatinine Est Cr Clr Drug Dosing Est GFR ( Amer) Est GFR (Non-Af Amer) BUN/Creatinine Ratio Glucose POC Glucose 186 H 207 H Uric Acid Calcium Phosphorus Magnesium Total Bilirubin Direct Bilirubin AST ALT Alkaline Phosphatase Lactate Dehydrogenase Troponin I Total Protein Albumin Procalcitonin Direct Antiglob Test ANDREINA (IgG-AHG) ANDREINA, Polyspecific ANDREINA C3b, C3d 5 Min Crossmatch 05/02/19 05/02/19 05/02/19 00:00 02:33 02:33 WBC 0.83 L* RBC 2.83 L Hgb 8.2 L Hct 23.9 L MCV 84.5 MCH 29.0 MCHC 34.3 RDW Std Deviation 59.8 H RDW Coeff of John 19.3 H Plt Count 41 L MPV 9.9 Immature Gran % (Auto) 4.8 Neut % (Auto) 42.2 Lymph % (Auto) 48.2 Arroyo % (Auto) 4.8 Eos % (Auto) 0.0 Baso % (Auto) 0.0 Immature Gran # (Auto) 0.04 H Neut # (Auto) 0.35 L* Lymph # (Auto) 0.40 L Arroyo # (Auto) 0.04 L Eos # (Auto) 0.00 Baso # (Auto) 0.00 Toxic Granulation 2+ Dohle Bodies 2+ Tear Drop Cells 1+ Echinocytes 1+ PT INR Sodium 135 L Potassium 3.6 Chloride 101 Carbon Dioxide 27 Anion Gap 7.0 BUN 18 Creatinine 0.76 Est Cr Clr Drug Dosing 89.7 Est GFR ( Amer) 108.7 Est GFR (Non-Af Amer) 93.7 BUN/Creatinine Ratio 24.1 H Glucose 176 H POC Glucose 211 H Uric Acid Calcium 7.8 L Phosphorus 2.9 D Magnesium 2.4 Total Bilirubin 1.4 H D Direct Bilirubin 0.5 H AST 63 H ALT 68 Alkaline Phosphatase 160 H Lactate Dehydrogenase Troponin I Total Protein 5.9 L Albumin 2.3 L Procalcitonin Direct Antiglob Test ANDREINA (IgG-AHG) ANDREINA, Polyspecific ANDREINA C3b, C3d 5 Min Crossmatch 05/02/19 05/02/19 05/02/19 02:33 02:33 04:15 WBC RBC Hgb Hct MCV MCH MCHC RDW Std Deviation RDW Coeff of John Plt Count MPV Immature Gran % (Auto) Neut % (Auto) Lymph % (Auto) Arroyo % (Auto) Eos % (Auto) Baso % (Auto) Immature Gran # (Auto) Neut # (Auto) Lymph # (Auto) Arroyo # (Auto) Eos # (Auto) Baso # (Auto) Toxic Granulation Dohle Bodies Tear Drop Cells Echinocytes PT 13.2 H INR 1.3 H Sodium Potassium Chloride Carbon Dioxide Anion Gap BUN Creatinine Est Cr Clr Drug Dosing Est GFR ( Amer) Est GFR (Non-Af Amer) BUN/Creatinine Ratio Glucose POC Glucose 182 H Uric Acid Calcium Phosphorus Magnesium Total Bilirubin Direct Bilirubin AST ALT Alkaline Phosphatase Lactate Dehydrogenase Troponin I Total Protein Albumin Procalcitonin 0.36 Direct Antiglob Test ANDREINA (IgG-AHG) ANDREINA, Polyspecific ANDREINA C3b, C3d 5 Min Crossmatch 05/02/19 07:40 WBC RBC Hgb Hct MCV MCH MCHC RDW Std Deviation RDW Coeff of John Plt Count MPV Immature Gran % (Auto) Neut % (Auto) Lymph % (Auto) Arroyo % (Auto) Eos % (Auto) Baso % (Auto) Immature Gran # (Auto) Neut # (Auto) Lymph # (Auto) Arroyo # (Auto) Eos # (Auto) Baso # (Auto) Toxic Granulation Dohle Bodies Tear Drop Cells Echinocytes PT INR Sodium Potassium Chloride Carbon Dioxide Anion Gap BUN Creatinine Est Cr Clr Drug Dosing Est GFR ( Amer) Est GFR (Non-Af Amer) BUN/Creatinine Ratio Glucose POC Glucose 192 H Uric Acid Calcium Phosphorus Magnesium Total Bilirubin Direct Bilirubin AST ALT Alkaline Phosphatase Lactate Dehydrogenase Troponin I Total Protein Albumin Procalcitonin Direct Antiglob Test ANDREINA (IgG-AHG) ANDREINA, Polyspecific ANDREINA C3b, C3d 5 Min Crossmatch Medications Administered Current Inpatient Medications Acetaminophen (Tylenol) 650 mg PO Q4H PRN PRN Reason: Pain or Fever Stop: 05/30/19 16:51 Last Admin: 04/30/19 20:13 Dose: 650 mg Documented by: Al Hydrox/Mg Hydrox/Simethicone (Maalox) 15 ml PO Q4H PRN PRN Reason: Dyspepsia Stop: 05/30/19 16:51 Albuterol (Duoneb) 3 ml NEB QIDR PRN PRN Reason: Shortness Of Breath Or Wheezing Stop: 05/30/19 11:59 Dextrose (Dextrose 50%) 25 - 50 ml IV UD PRN; Protocol PRN Reason: Hypoglycemia Protocol Stop: 05/31/19 09:14 Glucagon (Glucagen) 1 mg SQ UD PRN; Protocol PRN Reason: Hypoglycemia Protocol Stop: 05/31/19 09:14 Glucose (Glucose 40%) 15 - 30 gm PO UD PRN; Protocol PRN Reason: Hypoglycemia Protocol Stop: 05/31/19 09:14 Glucose (Dex4 Glucose) 4 - 8 tabs PO UD PRN; Protocol PRN Reason: Hypoglycemia Protocol Stop: 05/31/19 09:14 Sodium Chloride (Nss) 250 mls @ 15 mls/hr IV .[id number] PRN PRN Reason: For Transfusion Stop: 05/31/19 01:06 Pantoprazole Sodium 40 mg/ (Syringe) 10 mls @ 5 mls/min IV Q12 TAJ Stop: 05/31/19 01:29 Last Admin: 05/02/19 07:45 Dose: 5 mls/min Documented by: Azithromycin 250 mg/ Dextrose 252.5 mls @ 125 mls/hr IV Q24H TAJ Stop: 05/08/19 10:59 Last Infusion: 05/01/19 14:00 Dose: Infused Documented by: Ceftriaxone Sodium 1,000 mg/ (Dextrose) 50 mls @ 100 mls/hr IV Q24H [facility]; Protocol Stop: 05/08/19 10:59 Last Infusion: 05/01/19 12:02 Dose: Infused Documented by: Methylprednisolone 40 mg/ (Syringe) 0.64 mls @ 1.5 mls/min IV Q8H [facility] Stop: 06/01/19 13:59 Insulin Aspart (Novolog Flexpen) 0 units SC Q4 TAJ Stop: 05/31/19 11:59 Last Admin: 05/02/19 07:46 Dose: 11 units Documented by: Insulin Glargine (Lantus Solostar Pen) 0 units SC BID [facility]; Protocol Stop: 06/01/19 08:59 Last Admin: 05/02/19 07:46 Dose: 17 units Documented by: Magnesium Hydroxide (Milk Of Magnesia) 30 ml PO Q12H PRN PRN Reason: Constipation Stop: 05/30/19 16:51 Miscellaneous (Carbohydrates For Hypoglycemia) 15 - 30 gm PO UD PRN PRN Reason: Hypoglycemia Treatment Stop: 05/31/19 09:14 Miscellaneous Information (Consult Glycemic Management Pharmacy) 1 ea N/A UD PRN PRN Reason: Consult Stop: 05/31/19 12:20 Ondansetron HCl (Zofran) 4 mg IV Q12 PRN PRN Reason: Nausea Stop: 05/30/19 16:51 Polyethylene Glycol (Miralax Powder Packet) 17 gm PO DAILY PRN PRN Reason: Constipation Stop: 05/30/19 16:51 Tamsulosin HCl (Flomax) 0.4 mg PO HS [facility] Stop: 05/31/19 20:59 Last Admin: 05/01/19 20:17 Dose: 0.4 mg Documented by:
--- NOTE | 2019-05-02 10:20 | Pharmacy Report ---
Pharmacy Glycemic Short Note 2 - Date of Service May 02, 2019 - Glycemic Short BSG Results (Last 24 hours): 05/01/19 05/01/19 05/01/19 12:05 15:48 20:12 Glucose POC Glucose 200 H 186 H 207 H 05/02/19 05/02/19 05/02/19 00:00 02:33 04:15 Glucose 176 H POC Glucose 211 H 182 H 05/02/19 07:40 Glucose POC Glucose 192 H OUTPATIENT ANTIDIABETIC REGIMEN: * N/A * A1c = ?; not checked secondary to transfusions The patient is currently receiving: * Basal insulin: Lantus 12 units SQ BID x 2 doses on 05/01 * Correctional Insulin: Novolog Correction per scale ACHS Goal Range: Low 140 mg/dL - High 180 mg/dL Correction Factor: 35 mg/dL/unit * Prandial insulin: Per carb ratio of 1 unit per 11 grams CHO consumed ASSESSMENT: 05/02 * BSGs have remained above goal for last 24 hrs * Last BSG 192, this is a fasting value * Will increase basal and correctional insulin doses at this time. Patient has not yet eaten, thus will continue current prandial insulin dose and monitor response. * IV steroid dose will be reduced ~25% today 05/01 * 69 year old male presenting with weakness with 60 pound unintentional weight loss over several months, patient has history of B-cell lymphoma undergoing clinical surveillance with CT with new peripheral lung lesion. * No known history of diabetes and patient is not on medications outpatient. BSGs increased with initiation of methylprenisolone 40 mg q6H. Additionally patient is on phenylephrine and amiodarone drips. Patient is pancytopenic and on azithromycin/rocephin. * BSGs mildly elevated 188 this morning and then 200 at noon, (with no previous correction) * Initiated weight based stress of 2 lantus/novolog per icu protocol. Will co ntinue to monitor PLAN FOR INPATIENT GLYCEMIC CONTROL: * Basal insulin (increase in dose) * Lantus SQ BID per the following scale: * 0 units if less than 120 * 6 units if 121-150 * 12 units if 151-180 * 17 units if greater than 180 * Bolus insulin (increase in dose) * NovoLog per scale Q 4 hrs * Goal Range: Low 120 mg/dL - High 160 mg/dL * Correction Factor: 20 mg/dL/unit (increase in dose) * Nutritional / Prandial insulin per carb ratio of 1 unit per 8 grams CHO consumed (no change)
[2019-05-02] MEDS: AZITHROMYCIN 250 MG in DEXTROSE 5% 250 ML IV SCH (11:02)
[2019-05-02] MEDS: cefTRIAXone SODIUM 1,000 MG in DEXTROSE 5% 50 ML IV SCH (11:02)
--- NOTE | 2019-05-02 11:32 | Anesthesiology Consultation ---
Date of Service May 02, 2019 Pancytopenia presumable related to lymphoma - platlets at 41,000 - Hb 8 - monitor between now and Assessment & Plan (1) Encounter for pre-operative examination: Chart Review Chart Review: Pending: Refer to Additional Notes / Consult section (monitor his Hb between now and to make sure it does not drop below 8 and platelets don't drop significantly further) History Surgery Operation Date: 05/04/19 08:30 Proposed Procedures p Video Mediastinoscopy - Mathew Quinn MD, FACS Height/Weight Height: 5 ft 11 in Weight: 65.8 kg Allergies Allergy/AdvReac Type Severity Reaction Status Date / Time No Known Allergies Allergy * Verified 04/30/19 11:49 Medications Home Medications Medication Instructions Recorded Confirmed Last Taken atenolol 25 mg PO DAILY 03/07/19 04/30/19 03/07/19 atorvastatin 40 mg PO QAM 03/07/19 04/30/19 03/07/19 lisinopril 5 mg PO QAM 03/07/19 04/30/19 03/07/19 nitroglycerin 0.4 mg SUBLINGUAL Q4H PRN 03/07/19 04/30/19 Unknown aspirin [Aspir-81] 162 mg PO DAILY 04/30/19 04/30/19 Unknown Active Medications Generic Name Dose Route Start Last Admin Trade Name Freq PRN Reason Stop Dose Admin Acetaminophen 650 mg 04/30/19 16:52 04/30/19 20:13 Tylenol PO 05/30/19 16:51 650 mg Q4H PRN Administration Pain or Fever Pantoprazole Sodium 40 mg/ 10 mls @ 5 mls/min 05/01/19 01:30 05/02/19 07:45 Syringe IV 05/31/19 01:29 5 mls/min Q12 TAJ Administration Azithromycin 250 mg/ Dextrose 252.5 mls @ 125 mls/hr 05/01/19 11:00 05/02/19 11:02 IV 05/08/19 10:59 125 mls/hr Q24H TAJ Administration Ceftriaxone Sodium 1,000 mg/ 50 mls @ 100 mls/hr 05/01/19 11:00 05/02/19 11:02 Dextrose IV 05/08/19 10:59 100 mls/hr Q24H TAJ Administration Protocol Insulin Aspart 0 units 05/01/19 16:00 05/02/19 07:46 Novolog Flexpen SC 05/31/19 11:59 11 units Q4 TAJ Administration Insulin Glargine 0 units 05/02/19 09:00 05/02/19 07:46 Lantus Solostar Pen SC 06/01/19 08:59 17 units BID TAJ Administration Protocol Tamsulosin HCl 0.4 mg 05/01/19 21:00 05/01/19 20:17 Flomax PO 05/31/19 20:59 0.4 mg HS TAJ Administration Past Medical History Medical History HLD (hyperlipidemia) (Chronic) Tobacco abuse (Chronic) HTN (hypertension) (Chronic) BPH (benign prostatic hyperplasia) (Chronic) Heart failure (Chronic) PAD (peripheral artery disease) (Chronic) Lymphoma (Chronic) tx with lymph node resection in 2012 AAA (abdominal aortic aneurysm) (Chronic) Cervical stenosis of spinal canal (Resolved) A-fib With rapid rate requiring pressers until converted Anemia Mass of left lung Pancytopenia Peripheral vascular disease Past Family History Family History Mother Choked on food per pt history Father , unknown medical problems No problems noted. Brother Coronary heart disease massive ID age 61 Past Surgical History Surgical History History of fusion of cervical spine (Chronic) History of appendectomy (Chronic) S/P CABG x 3 (Chronic) S/P carotid endarterectomy (Chronic) Social History Smoking Status: Former smoker Smoking End Date: 1.5 months ago Hx Alcohol Use: No Hx Substance Use: No Physical Exam Vital Signs Last Vital Signs Temp 36.5 C 05/02/19 08:00 Pulse 61 05/02/19 10:00 Resp 21 05/02/19 10:00 BP 118/75 05/02/19 10:00 Pulse Ox 94 05/02/19 10:00 Testing Laboratory Results 05/02/19 02:33 05/02/19 02:33 PT 13.2 Seconds (9.0-12.0) H 05/02/19 02:33 INR 1.3 (0.9-1.1) H 05/02/19 02:33 APTT 38.4 Seconds (21.0-31.0) H 04/30/19 11:59 Blood Type A Positive 04/30/19 14:01 Antibody Screen NEGATIVE 04/30/19 14:01 04/30/19 17:20 Gram Stain - Final Sputum, Expectorated Sputum Culture - Final Moderate normal thompson. 04/30/19 13:59 Aerobic Blood Culture - Preliminary Blood No growth in Aerobic bottle after 24 hours. Anaerobic Blood Culture - Preliminary No growth in Anaerobic bottle after 24 hours. 04/30/19 14:00 Aerobic Blood Culture - Preliminary Blood No growth in Aerobic bottle after 24 hours. Anaerobic Blood Culture - Preliminary No growth in Anaerobic bottle after 24 hours. 05/02/19 05/02/19 05/02/19 07:40 04:15 00:00 POC Glucose 192 H 182 H 211 H Electrocardiogram Date: 05/01/19 Findings: + NSST changes and + AFIB @ ((flutter) 101 consider anterolateral ischemia) Chest X-Ray Date: 05/01/19 left lung cavitary lesion, no pneumothorax Echocardiogram Date: 05/01/19 EF: 40% RWMA: + akinetic (posterior wall) and + hypokinetic (inferior wall) Valvular Disease: + MR (mild to moderate)
[2019-05-02] MEDS ORDERED: ALBUT/IPRATROP 3MG/0.5MG NEB 3 ML VIAL NEB PRN (12:00)
[2019-05-02] MEDS ORDERED: SEVERE STRESS LEVEL ONE (12:59)
[2019-05-02] MEDS ORDERED: INSULIN PROTOCOL GOAL RANGE ONE (12:59)
[2019-05-02] MEDS ORDERED: INSULIN REGULAR 250 UNITS in SODIUM CHLORIDE 0.9% 247.5 ML IV SCH (13:00)
[2019-05-02] MEDS ORDERED: POTASSIUM CHLORIDE 20 MEQ TABCR PO ONE (13:15)
--- NOTE | 2019-05-02 15:59 | Progress Note ---
DATE: 05/02/2019 Mr. Gonzales was seen today. He remains in the ICU, bed 107. He has had a quiet night. He is on room air with 96% saturations. I do have a few concerns. One is that his white count is now down to 830. His platelet count is 41,000, although that does not concern me as much. I discussed this case with Dr. Danny Merrill from a Hematology/Oncology as well as Dr. Ferny Romero from Anesthesia. We have to get a diagnosis on this patient. We are going to perform a mediastinoscopy on 05/04/2019. I have explained to the patient and his family that he is going to be at an increased risk; however, a diagnosis is necessary. I have discussed this case with Dr. Abdifatah Minor from Pathology and we feel that a piece of tissue was of utmost importance to get a diagnosis, so we can start therapy. An endobronchial ultrasound with a fine needle aspiration will not suffice.
--- NOTE | 2019-05-02 18:37 | Hospitalist Progress Note ---
Date of Service May 02, 2019 Assessment & Plan (1) Mass of left lung: Present on admission with fall due to generalized weakness CT chest showed solid cavitary mass in the posterior basal left lower lobe that is highly suspicious for primary bronchogenic neoplasm. Mediastinal and hilar l ymphadenopathy highly suspicious for metastatic disease. Rabago significant weight loss for many months, worsening cough for the past few weeks. hilar lymphadenopathy highly suspicious for metastatic disease, left supraclavicular lymphadenopathy noted. Per d/w pulmonary , this could be lymphoma than primary lung malignancy. Per d/w oncology with pulmonary, biopsy of lymph node would provide more infor mation. Pulmonary will discuss with surgery to plan lymph node excision. Thoracic surgery on board Dr. Quinn that plan to perform a mediastinoscopy on 05/04/2019. Symptomatic Anemia/pancytopenia in setting of B cell small cell non-Hodgkin's lymphoma/splenomegaly: Chronic thrombocytopenia as per prior records. Chronic anemia in the range of 8-9. Hemoglobin on presentation 6.9. Received 2 units PRBC during hospital course do far No signs of active bleeding. Hbg 8.2 Monitor CBC Atrial fibrillation with RVR Contributing factors: Anemia Converted back to NSR Amidarone drip discontinue Not a candidate for anticoagulation given thrombocytopenia Echo showed EF 40-45%, Mild moderate MR, Mild TR, Post, inferior wall kinesis= old, LV -dilated Cardiology on board Hypotension BP stable Off Neosynephrine Possible pneumonia Patient does have productive sputum, some chest pain, baseline shortness of breath CT chest shows multifocal dependent infiltrates on background of emphysema concerning for aspiration or infection Sputum cx and blood cx negative Continue IV rocephin and azithromycin Non-Hodgkin's B-cell lymphoma Known history of non-Hodgkin's B-cell lymphoma diagnosed in 2012. Follows up with [facility] oncology outpatient on a regular basis As per recent CT scan done in January 2019, had progressive worsening of lymphadenopathy. However, did not have any symptoms related to lymphoma at that time, therefore follow-up was scheduled for May 2019 or sooner if he develops symptoms. CT scanning soft tissue neck, chest, abdomen, pelvis was done on admission shows lymphadenopathy at left base of neck and left supraclavicular fossa, splenomegaly Follow up with oncology Generalized weakness / Physical deconditioning causing frequent falls : Multifactorial Pancytopenia/symptomatic anemia, non-Hodgkin's B-cell lymphoma Fall precaution PT/OT History of coronary artery disease status post CABG x3 Hold aspirin due to drop on hgb and low platelet Continue with atorvastatin. COPD with no exacerbation Continue neb treatment Stable Abdominal aortic aneurysm Per CT scan- Slight interval increase in size of infrarenal abdominal aortic aneurysm which measures 3.7 x 2.6 cm Will need to monitor outpatient DVT prophylaxis SCDS/TEDS; Re thrombocytopenia and anemia Full code Disposition Will transfer to tele Subjective Pt was seen and examined Lying in bed with no distress Pt said that he feels ok He is been off the pressors and amiodarone drip Denies any chest pain, palpitation, dizziness and SOB Physical Exam Physical Exam: General- No acute distress Head- atraumatic Eyes- PERRL, EOMI, ENT- oropharynx clear Neck- supple, no JVD Lungs- clear to auscultation Heart- regular rhythm; no murmur Abdomen- normal bowel sounds, soft, nontender Extremities- no calf tenderness Neuro- alert, oriented x 3; PERRL, EOMI; no facial palsy; no dysarthria Skin- warm & dry Results & Data Vital Signs (Past 12 Hours) Vital Signs Temp Pulse Pulse Resp BP Pulse Ox 05/02/19 18:00 65 20 132/66 93 05/02/19 17:00 68 21 128/65 95 05/02/19 16:00 71 20 128/71 94 05/02/19 15:00 61 21 118/66 95 05/02/19 14:00 63 19 130/67 96 05/02/19 13:00 64 20 127/67 95 05/02/19 12:00 36.5 C 63 22 116/61 95 05/02/19 11:00 64 24 118/61 95 05/02/19 10:00 61 21 118/75 94 05/02/19 09:00 80 23 110/67 92 05/02/19 08:00 36.5 C 90 18 115/64 94 05/02/19 07:01 55 L 16 100 05/02/19 07:00 59 L 17 126/67 100
[2019-05-02] MEDS ORDERED: POTASSIUM CHLORIDE 20 MEQ TABCR PO SCH (21:00)
[2019-05-02] MEDS: TAMSULOSIN HCL 0.4 MG CAP PO SCH (21:55)
[2019-05-02] MEDS ORDERED: INSULIN GLARGINE SOLOSTAR 100 UNITS/ML 3 ML PEN SC ONE (22:00)
[2019-05-03] MEDS: methylPREDNISolone 40 MG in SYRINGE 0 ML IV SCH ×3 (06:28→21:15)
[2019-05-03 06:40] LABS: Hematocrit (blood only) 27.1 % (42-52); Hemoglobin 9.2 g/dL (14.0-18.0); Mean Corpuscular Hemoglobin 29.3 pg (25-34); Mean Corpuscular Hgb Conc 33.9 g/dL (32-36); Mean Corpuscular Volume 86.3 fL (80-100); RDW Coefficient of Variation 19.4 % (11.5-14.5); Red Blood Count 3.14 M/uL (4.7-6.1); White Blood Count 1.23 K/uL (4.8-10.8)
[2019-05-03 07:12] LABS: Mean Platelet Volume 8.9 fL (7.4-10.4); Platelet Count 46 K/uL (130-400)
[2019-05-03 07:16] LABS: BUN Creatinine Ratio 31.1 (10-20); Calcium 8.6 mg/dl (8.5-10.1); Creatinine Clr Calc Pharmacy 91.9 ml/min; Est GFR (African American) 109.8; Est GFR (Non-African American) 94.8; Potassium 4.6 mmol/L (3.5-5.1)
[2019-05-03] MEDS: PANTOprazole 40 MG in SYRINGE 0 ML IV SCH ×2 (08:49→21:15)
[2019-05-03] MEDS: INSULIN ASPART 100 UNITS/ML 3 ML PEN SC SCH ×4 (08:50→21:23)
[2019-05-03] MEDS ORDERED: INSULIN GLARGINE SOLOSTAR 100 UNITS/ML 3 ML PEN SC SCH (09:00)
--- NOTE | 2019-05-03 10:09 | Cardiology Progress Note ---
Date of Service May 03, 2019 Assessment & Plan (1) Pancytopenia: (2) Lymphoma: (3) PAF (paroxysmal atrial fibrillation): (4) Mass of left lung: (5) S/P CABG x 3: (6) S/P carotid endarterectomy: (7) AAA (abdominal aortic aneurysm): The patient remains clinically stable and is maintaining a sinus rhythm. He remains pancytopenic with a planned thorascopic procedure by surgery to perform a biopsy of a lung mass. This procedure is planned with increased risk to the pancytopenia and other medical problems. The patient was on atenolol at home. He is currently on no blood pressure medications or beta-blockers. Due to his risk of returning in the atrial fibrillation I am going to start metoprolol at 12.5 mg twice daily today. Subjective The patient is a good spirits. He has no new cardiac complaints. Review of Systems Review of Systems: All systems reviewed & are unremarkable except as noted in HPI & below No additional information. Physical Exam Physical Exam: General: no acute distress and stated age Head: normocephalic, no masses, lesions, tenderness or abnormalities Eyes: conjunctiva are pink and non-injected, sclera clear Neck: supple, no adenopathy, no bruits, normal jugular venous pulse, no hepatojugular reflux Chest: normal shape and normal respiratory effort Lungs: clear to auscultation and percussion Cardiac Exam: - regular rate & rhythm, no murmurs gallops or rubs - normal S1, normal S2 Pulses: 2(+) throughout Abdomen: abdomen soft, non-tender, no abnormal masses and no hepatosplenomegaly Musculoskeletal: no gait disturbance, no joint inflammation, no deforming arthritis Extremities: no edema and no cyanosis Neuro: grossly normal exam Results & Data Vital Signs (Past 12 Hours) Vital Signs Temp Pulse Pulse Pulse Resp BP Pulse Ox 05/03/19 07:26 36.4 C L 59 L 16 135/74 95 05/03/19 04:22 36.4 C L 67 16 106/65 93 05/03/19 01:23 36.5 C 54 L 18 136/69 93 05/02/19 22:55 55 L Laboratory Results Laboratory Results - last 24 hr 04/30/19 05/01/19 05/02/19 12:01 17:17 11:07 WBC 0.79 L* RBC 3.08 L Hgb 9.0 L Hct 26.2 L MCV 85.1 MCH 29.2 MCHC 34.4 RDW Std Deviation 60.2 H RDW Coeff of John 19.4 H Plt Count 43 L MPV 10.8 H Immature Gran % (Auto) 5.1 Neut % (Auto) 43.0 Lymph % (Auto) 50.6 Ramsey % (Auto) 1.3 Eos % (Auto) 0.0 Baso % (Auto) 0.0 Immature Gran # (Auto) 0.04 H Neut # (Auto) 0.34 L* Lymph # (Auto) 0.40 L Ramsey # (Auto) 0.01 L Eos # (Auto) 0.00 Baso # (Auto) 0.00 Echinocytes 1+ Haptoglobin 349 H Sodium Potassium Chloride Carbon Dioxide Anion Gap BUN Creatinine Est Cr Clr Drug Dosing Est GFR ( Amer) Est GFR (Non-Af Amer) BUN/Creatinine Ratio Glucose POC Glucose 269 H Calcium 05/02/19 05/02/19 05/02/19 14:23 15:37 16:37 WBC RBC Hgb Hct MCV MCH MCHC RDW Std Deviation RDW Coeff of John Plt Count MPV Immature Gran % (Auto) Neut % (Auto) Lymph % (Auto) Ramsey % (Auto) Eos % (Auto) Baso % (Auto) Immature Gran # (Auto) Neut # (Auto) Lymph # (Auto) Ramsey # (Auto) Eos # (Auto) Baso # (Auto) Echinocytes Haptoglobin Sodium Potassium Chloride Carbon Dioxide Anion Gap BUN Creatinine Est Cr Clr Drug Dosing Est GFR ( Amer) Est GFR (Non-Af Amer) BUN/Creatinine Ratio Glucose POC Glucose 153 H 119 H 109 H Calcium 05/02/19 05/02/19 05/02/19 17:32 18:34 19:34 WBC RBC Hgb Hct MCV MCH MCHC RDW Std Deviation RDW Coeff of John Plt Count MPV Immature Gran % (Auto) Neut % (Auto) Lymph % (Auto) Ramsey % (Auto) Eos % (Auto) Baso % (Auto) Immature Gran # (Auto) Neut # (Auto) Lymph # (Auto) Ramsey # (Auto) Eos # (Auto) Baso # (Auto) Echinocytes Haptoglobin Sodium Potassium Chloride Carbon Dioxide Anion Gap BUN Creatinine Est Cr Clr Drug Dosing Est GFR ( Amer) Est GFR (Non-Af Amer) BUN/Creatinine Ratio Glucose POC Glucose 117 H 117 H 111 H Calcium 05/02/19 05/03/19 05/03/19 21:34 01:02 04:13 WBC RBC Hgb Hct MCV MCH MCHC RDW Std Deviation RDW Coeff of John Plt Count MPV Immature Gran % (Auto) Neut % (Auto) Lymph % (Auto) Ramsey % (Auto) Eos % (Auto) Baso % (Auto) Immature Gran # (Auto) Neut # (Auto) Lymph # (Auto) Ramsey # (Auto) Eos # (Auto) Baso # (Auto) Echinocytes Haptoglobin Sodium Potassium Chloride Carbon Dioxide Anion Gap BUN Creatinine Est Cr Clr Drug Dosing Est GFR ( Amer) Est GFR (Non-Af Amer) BUN/Creatinine Ratio Glucose POC Glucose 106 H 142 H 131 H Calcium 05/03/19 05/03/19 05/03/19 06:29 06:29 07:26 WBC 1.23 L RBC 3.14 L Hgb 9.2 L Hct 27.1 L MCV 86.3 MCH 29.3 MCHC 33.9 RDW Std Deviation 62.0 H RDW Coeff of John 19.4 H Plt Count 46 L MPV 8.9 Immature Gran % (Auto) Neut % (Auto) Lymph % (Auto) Ramsey % (Auto) Eos % (Auto) Baso % (Auto) Immature Gran # (Auto) Neut # (Auto) Lymph # (Auto) Ramsey # (Auto) Eos # (Auto) Baso # (Auto) Echinocytes Haptoglobin Sodium 137 Potassium 4.6 D Chloride 106 Carbon Dioxide 25 Anion Gap 7.0 BUN 23 H Creatinine 0.74 Est Cr Clr Drug Dosing 91.9 Est GFR ( Amer) 109.8 Est GFR (Non-Af Amer) 94.8 BUN/Creatinine Ratio 31.1 H Glucose 135 H POC Glucose 149 H Calcium 8.6 Medications Administered Current Inpatient Medications Acetaminophen (Tylenol) 650 mg PO Q4H PRN PRN Reason: Pain or Fever Stop: 05/30/19 16:51 Last Admin: 04/30/19 20:13 Dose: 650 mg Documented by: Al Hydrox/Mg Hydrox/Simethicone (Maalox) 15 ml PO Q4H PRN PRN Reason: Dyspepsia Stop: 05/30/19 16:51 Albuterol (Duoneb) 3 ml NEB QIDR PRN PRN Reason: Shortness Of Breath Or Wheezing Stop: 05/30/19 11:59 Dextrose (Dextrose 50%) 25 - 50 ml IV UD PRN; Protocol PRN Reason: Hypoglycemia Protocol Stop: 05/31/19 09:14 Glucagon (Glucagen) 1 mg SQ UD PRN; Protocol PRN Reason: Hypoglycemia Protocol Stop: 05/31/19 09:14 Glucose (Glucose 40%) 15 - 30 gm PO UD PRN; Protocol PRN Reason: Hypoglycemia Protocol Stop: 05/31/19 09:14 Glucose (Dex4 Glucose) 4 - 8 tabs PO UD PRN; Protocol PRN Reason: Hypoglycemia Protocol Stop: 05/31/19 09:14 Pantoprazole Sodium 40 mg/ (Syringe) 10 mls @ 5 mls/min IV Q12 TAJ Stop: 05/31/19 01:29 Last Admin: 05/03/19 08:49 Dose: 5 mls/min Documented by: Azithromycin 250 mg/ Dextrose 252.5 mls @ 125 mls/hr IV Q24H TAJ Stop: 05/08/19 10:59 Last Infusion: 05/02/19 13:18 Dose: Infused Documented by: Ceftriaxone Sodium 1,000 mg/ (Dextrose) 50 mls @ 100 mls/hr IV Q24H TAJ; Protocol Stop: 05/08/19 10:59 Last Infusion: 05/02/19 12:00 Dose: Infused Documented by: Methylprednisolone 40 mg/ (Syringe) 0.64 mls @ 1.5 mls/min IV Q8H TAJ Stop: 06/01/19 13:59 Last Admin: 05/03/19 06:28 Dose: 1.5 mls/min Documented by: Insulin Aspart (Novolog Flexpen) 0 units SC ACHS TAJ Stop: 06/01/19 16:29 Last Admin: 05/03/19 08:50 Dose: 7 units Documented by: Insulin Glargine (Lantus Solostar Pen) 15 units SC BID TJA; Protocol Stop: 06/02/19 08:59 Last Admin: 05/03/19 08:50 Dose: 15 units Documented by: Magnesium Hydroxide (Milk Of Magnesia) 30 ml PO Q12H PRN PRN Reason: Constipation Stop: 05/30/19 16:51 Metoprolol Tartrate (Lopressor) 12.5 mg PO BID TAJ Stop: 06/02/19 10:14 Miscellaneous (Carbohydrates For Hypoglycemia) 15 - 30 gm PO UD PRN PRN Reason: Hypoglycemia Treatment Stop: 05/31/19 09:14 Miscellaneous Information (Consult Glycemic Management Pharmacy) 1 ea N/A UD PRN PRN Reason: Consult Stop: 05/31/19 12:20 Ondansetron HCl (Zofran) 4 mg IV Q12 PRN PRN Reason: Nausea Stop: 05/30/19 16:51 Polyethylene Glycol (Miralax Powder Packet) 17 gm PO DAILY PRN PRN Reason: Constipation Stop: 05/30/19 16:51 Tamsulosin HCl (Flomax) 0.4 mg PO HS TAJ Stop: 05/31/19 20:59 Last Admin: 05/02/19 21:55 Dose: 0.4 mg Documented by:
[2019-05-03 10:35] LABS: Nucleated RBC # (auto) 0.02 K/uL (0-0); Nucleated RBC % (auto) 1.6 %
--- NOTE | 2019-05-03 11:08 | Pharmacy Report ---
Pharmacy Glycemic Short Note 2 - Date of Service May 03, 2019 - Glycemic Short BSG Results (Last 24 hours): 05/02/19 05/02/19 05/02/19 11:07 14:23 15:37 Glucose POC Glucose 269 H 153 H 119 H 05/02/19 05/02/19 05/02/19 16:37 17:32 18:34 Glucose POC Glucose 109 H 117 H 117 H 05/02/19 05/02/19 05/03/19 19:34 21:34 01:02 Glucose POC Glucose 111 H 106 H 142 H 05/03/19 05/03/19 05/03/19 04:13 06:29 07:26 Glucose 135 H POC Glucose 131 H 149 H OUTPATIENT ANTIDIABETIC REGIMEN: * N/A * A1c = ?; not checked secondary to transfusions The patient is currently receiving: * Basal insulin: Lantus 17 units in AM, 8 units in PM on 05/02 * Correctional Insulin: Novolog Correction per scale ACHS Goal Range: Low 120 mg/dL - High 160 mg/dL Correction Factor: 20 mg/dL/unit * Prandial insulin: Per carb ratio of 1 unit per 8 grams CHO consumed * Insulin drip ran from 1300 - 2100 yesterday, with last drip rate of 0.8 units/hr ASSESSMENT: 05/03 * Mr. Gonzales's BSGs are improved today * Insulin drip was initiated for high BSGs in the ICU yesterday but was infused only for a short period of time before BSGs had improved * He remains on Solu-medrol 40 mg IV q8h * Will plan to increase basal to total of 30 units. Novolog parameters are already fairly aggressive so will continue for now * Patient will now be NPO after midnight for procedure with Dr. Quinn tomorrow. Will cut basal dose in 1/2 starting tonight since BSGs already at lower end of goal range. 05/02 * BSGs have remained above goal for last 24 hrs * Last BSG 192, this is a fasting value * Will increase basal and correctional insulin doses at this time. Patient has not yet eaten, thus will continue current prandial insulin dose and monitor response. * IV steroid dose will be reduced ~25% today 05/01 * 69 year old male presenting with weakness with 60 pound unintentional weight loss over several months, patient has history of B-cell lymphoma undergoing clinical surveillance with CT with new peripheral lung lesion. * No known history of diabetes and patient is not on medications outpatient. BSGs increased with initiation of methylprenisolone 40 mg q6H. Additionally patient is on phenylephrine and amiodarone drips. Patient is pancytopenic and on azithromycin/rocephin. * BSGs mildly elevated 188 this morning and then 200 at noon, (with no previous correction) * Initiated weight based stress of 2 lantus/novolog per icu protocol. Will continue to monitor PLAN FOR INPATIENT GLYCEMIC CONTROL: * d/c insulin drip * Basal insulin (increase in dose) * Lantus 15 units BID * Decrease to 8 units BID starting tonight for NPO status after midnight * Bolus insulin (tighten goal range) * NovoLog per scale ACHS * Goal Range: Low 110 mg/dL - High 150 mg/dL * Correction Factor: 20 mg/dL/unit * Nutritional / Prandial insulin per carb ratio of 1 unit per 8 grams CHO consumed
[2019-05-03 11:25] LABS: Basophils # (auto) 0.01 K/uL (0-0.2); Basophils % (auto) 0.8 %; Immature Granulocytes # (auto) 0.02 K/uL (0.00-0.02); Immature Granulocytes % (auto) 1.7 %; Lymphocytes # (auto) 0.62 K/uL (1.2-3.4); Lymphocytes % (auto) 52.1 %; Monocytes # (auto) 0.01 K/uL (0.11-0.59); Monocytes % (auto) 0.8 %; Neutrophils # (auto) 0.53 K/uL (1.4-6.5); Neutrophils % (auto) 44.6 %
[2019-05-03 11:27] LABS: Echinocytes 1+; Tear Drop Cells 1+; Toxic Granulation 1+
[2019-05-03] MEDS: cefTRIAXone SODIUM 1,000 MG in DEXTROSE 5% 50 ML IV SCH (12:25)
[2019-05-03] MEDS: AZITHROMYCIN 250 MG in DEXTROSE 5% 250 ML IV SCH (12:26)
[2019-05-03] MEDS: METOPROLOL TARTRATE 25 MG TAB PO SCH ×2 (15:37→21:14)
--- NOTE | 2019-05-03 18:18 | Hospitalist Progress Note ---
Date of Service May 03, 2019 Assessment & Plan (1) Mass of left lung: Present on admission with fall due to generalized weakness CT chest showed solid cavitary mass in the posterior basal left lower lobe that is highly suspicious for primary bronchogenic neoplasm. Mediastinal and hilar l ymphadenopathy highly suspicious for metastatic disease. Rabago significant weight loss for many months, worsening cough for the past few weeks. hilar lymphadenopathy highly suspicious for metastatic disease, left supraclavicular lymphadenopathy noted. Per d/w pulmonary , this could be lymphoma than primary lung malignancy. Per d/w oncology with pulmonary, biopsy of lymph node would provide more infor mation. Pulmonary will discuss with surgery to plan lymph node excision. Thoracic surgery on board Dr. Quinn that plan to perform a mediastinoscopy tomorrow Will make NPO after midnight Symptomatic Anemia/pancytopenia in setting of B cell small cell non-Hodgkin's lymphoma/splenomegaly: Chronic thrombocytopenia as per prior records. Chronic anemia in the range of 8-9. Hemoglobin on presentation 6.9. Received 2 units PRBC during hospital course do far No signs of active bleeding. Hbg 9.2 today Case discussed with Oncology Dr. Merrill and awared of the procedure in am Atrial fibrillation with RVR Contributing factors: Anemia Converted back to NSR Amidarone drip discontinued Not a candidate for anticoagulation given thrombocytopenia Echo showed EF 40-45%, Mild moderate MR, Mild TR, Post, inferior wall kinesis= old, LV -dilated Cardiology on board Starting on Metoprolol 12.5 BID Hypotension BP stable Off Neosynephrine Possible pneumonia Patient does have productive sputum, some chest pain, baseline shortness of breath CT chest shows multifocal dependent infiltrates on background of emphysema concerning for aspiration or infection Sputum cx and blood cx negative Continue IV rocephin and azithromycin Non-Hodgkin's B-cell lymphoma Known history of non-Hodgkin's B-cell lymphoma diagnosed in 2012. Follows up with [facility] oncology outpatient on a regular basis As per recent CT scan done in January 2019, had progressive worsening of lymphade nopathy. However, did not have any symptoms related to lymphoma at that time, therefore follow-up was scheduled for May 2019 or sooner if he develops symptoms. CT scanning soft tissue neck, chest, abdomen, pelvis was done on admission shows lymphadenopathy at left base of neck and left supraclavicular fossa, splenomegaly Follow up with oncology Generalized weakness / Physical deconditioning causing frequent falls : Multifactorial Pancytopenia/symptomatic anemia, non-Hodgkin's B-cell lymphoma Fall precaution PT/OT History of coronary artery disease status post CABG x3 Hold aspirin due to drop on hgb and low platelet Continue with atorvastatin. COPD with no exacerbation Continue neb treatment Stable Abdominal aortic aneurysm Per CT scan- Slight interval increase in size of infrarenal abdominal aortic aneurysm which measures 3.7 x 2.6 cm Will need to monitor outpatient DVT prophylaxis SCDS/TEDS; Re thrombocytopenia and anemia Full code Disposition Continue monitor in tele Subjective Pt was seen and examined Lying in bed with no distress Pt said that he feels ok Denies any chest pain, palpitation and SOB Physical Exam Physical Exam: General- No acute distress Head- atraumatic Eyes- PERRL, EOMI, ENT- oropharynx clear Neck- supple, no JVD Lungs- clear to auscultation Heart- regular rhythm; no murmur Abdomen- normal bowel sounds, soft, nontender Extremities- no calf tenderness Neuro- alert, oriented x 3; PERRL, EOMI; no facial palsy; no dysarthria Skin- warm & dry Results & Data Vital Signs (Past 12 Hours) Vital Signs Temp Pulse Resp BP Pulse Ox 05/03/19 15:32 36.6 C 70 18 117/59 L 96 05/03/19 10:53 36.4 C L 64 20 130/65 95 05/03/19 07:26 36.4 C L 59 L 16 135/74 95
--- NOTE | 2019-05-03 20:50 | Progress Note ---
DATE: 05/03/2019 Mr. Gonzales is seen today. His numbers have rebounded a bit. His platelet counts are up a bit at 46,000. His white count is up over 2000. I discussed this case in detail with the patient and we mentioned recurrent laryngeal nerve injuries as well as bleeding, although I am not too concerned about that. He is more concerned as am I about his diagnosis. We are going to proceed with a video mediastinoscopy tomorrow. FLAKO
[2019-05-03] MEDS: TAMSULOSIN HCL 0.4 MG CAP PO SCH (21:15)
[2019-05-03] MEDS: INSULIN GLARGINE SOLOSTAR 100 UNITS/ML 3 ML PEN SC SCH (21:23)
[2019-05-04 05:41] LABS: Hematocrit (blood only) 30.2 % (42-52); Mean Corpuscular Hemoglobin 28.7 pg (25-34); Mean Corpuscular Hgb Conc 33.1 g/dL (32-36); Mean Corpuscular Volume 86.8 fL (80-100); RDW Standard Deviation 60.7 fL (36.4-46.3); Red Blood Count 3.48 M/uL (4.7-6.1); White Blood Count 1.26 K/uL (4.8-10.8)
[2019-05-04 05:43] LABS: Mean Platelet Volume 9.3 fL (7.4-10.4); Platelet Count 58 K/uL (130-400)
[2019-05-04] MEDS: methylPREDNISolone 40 MG in SYRINGE 0 ML IV SCH ×3 (06:02→15:29)
[2019-05-04 06:48] LABS: Immature Granulocytes # (auto) 0.04 K/uL (0.00-0.02); Immature Granulocytes % (auto) 3.2 %; Lymphocytes # (auto) 0.78 K/uL (1.2-3.4); Lymphocytes % (auto) 61.9 %; Monocytes # (auto) 0.04 K/uL (0.11-0.59); Monocytes % (auto) 3.2 %; Neutrophils % (auto) 31.7 %; Toxic Granulation 1+
[2019-05-04] MEDS: INSULIN GLARGINE SOLOSTAR 100 UNITS/ML 3 ML PEN SC SCH ×2 (07:33→20:50)
[2019-05-04] MEDS: INSULIN ASPART 100 UNITS/ML 3 ML PEN SC SCH ×4 (07:35→20:56)
[2019-05-04] MEDS: METOPROLOL TARTRATE 25 MG TAB PO SCH ×2 (07:36→20:48)
[2019-05-04] MEDS: PANTOprazole 40 MG in SYRINGE 0 ML IV SCH ×2 (07:38→20:57)
[2019-05-04] MEDS ORDERED: PROPOFOL IV EMULSION 10 MG/ML 20 ML VIAL IV ONE (08:59)
[2019-05-04] MEDS ORDERED: CISATRACURIUM BESYLATE IV SOLN 2 MG/ML 10 ML VIAL IV ONE (08:59)
[2019-05-04] MEDS ORDERED: fentaNYL citrate 100 MCG/2 ML VIAL ONE (08:59)
[2019-05-04] MEDS ORDERED: MIDAZOLAM HCL 1 MG/ML 2ML VIAL ONE (08:59)
[2019-05-04] MEDS ORDERED: LIDOCAINE HCL 2% 2 ML VIAL/AMP(20MG/ML) INFIL ONE (08:59)
[2019-05-04] MEDS ORDERED: BUPIVACAINE 0.5 % 5 MG/1 ML MPF 30ML VIAL ONE (09:01)
--- NOTE | 2019-05-04 09:16 | History & Physical Bridge Note ---
Date of Service May 04, 2019 History & Physical Bridge Note I have examined the patient, reviewed the History & Physical and in the interval since the performance of the History & Physical I have noted the following changes of clinical significance: no changes noted
[2019-05-04] MEDS ORDERED: CEFAZOLIN 2000MG 2,000 MG/15 ML SYR IV ONE (10:43)
[2019-05-04] MEDS ORDERED: SURGICEL ABSORB HEMOSTAT 2IN X 14IN TOP ONE (11:23)
[2019-05-04] MEDS ORDERED: NEOSTIGMINE METHYLSULFATE 5 MG/5 ML SYR ONE (11:30)
[2019-05-04] MEDS ORDERED: GLYCOPYRROLATE 0.2 MG/ML VIAL ONE (11:30)
--- NOTE | 2019-05-04 11:39 | Post Operative Brief Note ---
PG Immediate Post Op with CF Date of Surgery May 04, 2019 Pre & Post Diagnosis Operation Date: 05/04/19 09:50 Pre-Op Diagnosis: Lymphoma left lower lobe mass Mediastinal lymphadenopathy Post-Op Diagnosis: Lymphoma left lower lobe mass Mediastinal lymphadenopathy Procedure Operation Date: 05/04/19 09:50 Actual Procedures p Video Mediastinoscopy - Mathew Quinn MD, FACS Surgeon Mathew Quinn MD, FACS Spice Room Worker Liliam Salas Estimated Blood Loss 75 Findings Consistent with Post-Op Diagnosis Specimens Specimen Description: Frozen section#1 R4 lymph node Frozen Section#2 R10 lymph node A. R4 lymph node x2 B. Level 7 lymph node
[2019-05-04] MEDS ORDERED: ATROPINE SULFATE 0.1 MG/ML 10ML SYR IV PRN (11:54)
[2019-05-04] MEDS ORDERED: ePHEDrine sulfate 50 MG/ML AMP IV PRN (11:54)
[2019-05-04] MEDS ORDERED: LABETALOL HCL IV 5 MG/ML 20ML IV PRN (11:54)
[2019-05-04] MEDS ORDERED: ONDANSETRON INJ 2 MG/ML 2 ML VIAL IV PRN (11:54)
[2019-05-04] MEDS ORDERED: NALOXONE HCL 0.4 MG/1 ML VIAL/CARP IV PRN (11:54)
[2019-05-04] MEDS ORDERED: FLUMAZENIL 0.1 MG/1 ML 10 ML VIAL IV PRN (11:54)
[2019-05-04] MEDS ORDERED: PROMETHAZINE HCL 12.5 MG in SODIUM CHLORIDE 0.9% 50 ML IV PRN (11:54)
[2019-05-04] MEDS ORDERED: fentaNYL citrate 100 MCG/2 ML VIAL IV PRN (11:54)
[2019-05-04] MEDS ORDERED: ROCURONIUM BROMIDE 10 MG/ML 5 ML VIAL ONE (12:15)
--- NOTE | 2019-05-04 12:27 | XRay Report ---
XR chest 1V portable CLINICAL HISTORY: mediastinoscopy postoperative COMPARISON STUDY: 05/01/2019 FINDINGS: No evidence for pneumothorax or pneumomediastinum. Unchanged infiltrative process left lung base. Lungs otherwise appear clear. Findings were prior median sternotomy. IMPRESSION: 1. No evidence for pneumothorax or pneumomediastinum. 2. Unchanged parenchymal infiltrative process left base. The above report was generated using voice recognition software. It may contain grammatical, syntax or spelling errors. Electronically signed by: Hipolito Haddad M.D. 05/04/2019 12:26 PM
--- NOTE | 2019-05-04 12:55 | Anesthesiology Progress Note ---
Date of Service May 04, 2019 Anesthesia Post Procedure Vital Signs Vital Signs: Temp Pulse Pulse Pulse Resp BP BP 05/04/19 12:50 64 19 121/65 05/04/19 12:40 36.5 C 63 19 124/62 05/04/19 12:30 67 19 118/59 L 05/04/19 12:20 81 19 113/53 L 05/04/19 12:10 77 19 115/71 05/04/19 12:00 80 20 118/79 05/04/19 11:52 36.3 C L 82 16 153/75 H 05/04/19 09:21 36.5 C 62 20 151/74 H 05/04/19 08:05 36.4 C L 52 L 16 140/63 05/04/19 08:00 58 L 05/04/19 03:39 36.9 C 64 16 123/67 05/04/19 00:35 36.5 C 61 16 143/67 H 05/03/19 20:50 36.4 C L 71 18 142/80 H 05/03/19 15:32 36.6 C 70 18 117/59 L BP Pulse Ox 05/04/19 12:50 95 05/04/19 12:40 112/49 L 95 05/04/19 12:30 117/52 L 96 05/04/19 12:20 103/50 L 95 05/04/19 12:10 113/53 L 94 05/04/19 12:00 123/74 94 05/04/19 11:52 96 05/04/19 09:21 99 05/04/19 08:05 96 05/04/19 08:00 05/04/19 03:39 98 05/04/19 00:35 95 05/03/19 20:50 96 05/03/19 15:32 96 Pain Intensity Right Foot: Pain Intensity: 0 Transfer of Care Handoff Completed per policy Notes Mental Status: alert / awake / arousable Patient Amnestic to Procedure: Yes Nausea / Vomiting: adequately controlled Pain: adequately controlled Airway Patency, RR, SpO2: stable & adequate BP & HR: stable & adequate Hydration State: stable & adequate Anesthetic Complications: no major complications apparent
[2019-05-04] MEDS: cefTRIAXone SODIUM 1,000 MG in DEXTROSE 5% 50 ML IV SCH (13:22)
[2019-05-04] MEDS: AZITHROMYCIN 250 MG in DEXTROSE 5% 250 ML IV SCH (13:29)
--- NOTE | 2019-05-04 14:55 | Pharmacy Report ---
Pharmacy Glycemic Short Note 2 - Date of Service May 04, 2019 - Glycemic Short BSG Results (Last 24 hours): 05/03/19 05/03/19 05/04/19 16:22 21:23 07:19 POC Glucose 162 H 123 H 127 H OUTPATIENT ANTIDIABETIC REGIMEN: * N/A * A1c = ?; not checked secondary to transfusions ASSESSMENT: * Pt received 42 units of insulin over the past 24hrs * 23 units of basal insulin * 19 units of prandial/correctional insulin * Basal insulin dosing reduced last evening and this morning for NPO status for video mediastinoscopy today * Will continue with reduced insulin dosing for NPO or increase back to previous dosing if/when PO intake resumed * No changes needed to CF/CR, post-prandial BSGs are within range PLAN FOR INPATIENT GLYCEMIC CONTROL: * Basal insulin * Lantus SQ BID * Give 8 units for NPO * Give 15 units if taking PO * Bolus insulin * NovoLog per scale ACHS * Goal Range: Low 110 mg/dL - High 150 mg/dL * Correction Factor: 20 mg/dL/unit * Nutritional / Prandial insulin per carb ratio of 1 unit per 8 grams CHO consumed
--- NOTE | 2019-05-04 17:39 | Hospitalist Progress Note ---
Date of Service May 04, 2019 Assessment & Plan (1) Mass of left lung: Present on admission with fall due to generalized weakness CT chest showed solid cavitary mass in the posterior basal left lower lobe that is highly suspicious for primary bronchogenic neoplasm. Mediastinal and hilar l ymphadenopathy highly suspicious for metastatic disease. Rabago significant weight loss for many months, worsening cough for the past few weeks. hilar lymphadenopathy highly suspicious for metastatic disease, left supraclavicular lymphadenopathy noted. Per d/w pulmonary , this could be lymphoma than primary lung malignancy. Per d/w oncology with pulmonary, biopsy of lymph node would provide more infor mation. Pulmonary will discuss with surgery to plan lymph node excision. S/P video mediastinoscopy done today by thoracic surgery Dr. Quinn Specimen sent to pathology - pending result Symptomatic Anemia/pancytopenia in setting of B cell small cell non-Hodgkin's lymphoma/splenomegaly: Chronic thrombocytopenia as per prior records. Chronic anemia in the range of 8-9. Hemoglobin on presentation 6.9. Received 2 units PRBC during hospital course do far No signs of active bleeding. Hbg 10 today Case discussed with Oncology Dr. Merrill and awared of the procedure in am Atrial fibrillation with RVR Contributing factors: Anemia Converted back to NSR Amidarone drip discontinued Not a candidate for anticoagulation given thrombocytopenia Echo showed EF 40-45%, Mild moderate MR, Mild TR, Post, inferior wall kinesis= old, LV -dilated Cardiology on board Continue Metoprolol 12.5 BID Hypotension BP stable Off Neosynephrine Possible pneumonia Patient does have productive sputum, some chest pain, baseline shortness of breath CT chest shows multifocal dependent infiltrates on background of emphysema concerning for aspiration or infection Sputum cx and blood cx negative Continue IV rocephin and azithromycin Non-Hodgkin's B-cell lymphoma Known history of non-Hodgkin's B-cell lymphoma diagnosed in 2012. Follows up with [facility] oncology outpatient on a regular basis As per recent CT scan done in January 2019, had progressive worsening of lymphadenopathy. However, did not have any symptoms related to lymphoma at that time, therefore follow-up was scheduled for May 2019 or sooner if he develops symptoms. CT scanning soft tissue neck, chest, abdomen, pelvis was done on admission shows lymphadenopathy at left base of neck and left supraclavicular fossa, splenomegaly Follow up with oncology Generalized weakness / Physical deconditioning causing frequent falls : Multifactorial Pancytopenia/symptomatic anemia, non-Hodgkin's B-cell lymphoma Fall precaution PT/OT History of coronary artery disease status post CABG x3 Hold aspirin due to drop on hgb and low platelet Continue with atorvastatin. COPD with no exacerbation Continue neb treatment Stable Abdominal aortic aneurysm Per CT scan- Slight interval increase in size of infrarenal abdominal aortic aneurysm which measures 3.7 x 2.6 cm Will need to monitor outpatient DVT prophylaxis SCDS/TEDS; Re thrombocytopenia and anemia Full code Disposition Continue monitor in tele Subjective Pt was seen and examined Lying in bed with no distress Pt had the biopsy done this morning with no complication He said that he feels fine Denies any chest pain, palpitation, dizziness and SOB Physical Exam Physical Exam: General- No acute distress Head- atraumatic Eyes- PERRL, EOMI, ENT- oropharynx clear Neck- supple, no JVD Lungs- clear to auscultation Heart- regular rhythm; no murmur Abdomen- normal bowel sounds, soft, nontender Extremities- no calf tenderness Neuro- alert, oriented x 3; PERRL, EOMI; no facial palsy; no dysarthria Skin- warm & dry Results & Data Vital Signs (Past 12 Hours) Vital Signs Temp Pulse Pulse Pulse Resp BP BP 05/04/19 16:00 36.6 C 73 22 110/62 05/04/19 15:15 36.6 C 68 22 110/62 05/04/19 14:15 36.6 C 67 18 116/60 05/04/19 14:00 36.6 C 65 22 122/62 05/04/19 13:45 36.6 C 64 18 118/61 05/04/19 13:30 36.5 C 64 22 117/61 05/04/19 13:15 36.5 C 64 22 126/62 05/04/19 12:50 64 19 121/65 05/04/19 12:40 36.5 C 63 19 124/62 05/04/19 12:30 67 19 118/59 L 05/04/19 12:20 81 19 113/53 L 05/04/19 12:10 77 19 115/71 05/04/19 12:00 80 20 118/79 05/04/19 11:52 36.3 C L 82 16 153/75 H 05/04/19 09:21 36.5 C 62 20 151/74 H 05/04/19 08:05 36.4 C L 52 L 16 140/63 05/04/19 08:00 58 L BP Pulse Ox 05/04/19 16:00 93 05/04/19 15:15 94 05/04/19 14:15 96 05/04/19 14:00 3 L 05/04/19 13:45 95 05/04/19 13:30 3 L 05/04/19 13:15 3 L 05/04/19 12:50 95 05/04/19 12:40 112/49 L 95 05/04/19 12:30 117/52 L 96 05/04/19 12:20 103/50 L 95 05/04/19 12:10 113/53 L 94 05/04/19 12:00 123/74 94 05/04/19 11:52 96 05/04/19 09:21 99 05/04/19 08:05 96 05/04/19 08:00
[2019-05-04] MEDS: TAMSULOSIN HCL 0.4 MG CAP PO SCH (20:48)
--- NOTE | 2019-05-04 22:33 | Operative Report ---
DATE OF OPERATION: 05/04/2019 PREOPERATIVE DIAGNOSES: 1. History of lymphoma. 2. Mediastinal lymphadenopathy. 3. Left lower lobe mass. 4. History of cigarette smoking. 5. Pancytopenia. POSTOPERATIVE DIAGNOSES: 1. History of lymphoma. 2. Mediastinal lymphadenopathy. 3. Left lower lobe mass. 4. History of cigarette smoking. 5. Pancytopenia. PROCEDURE: Video mediastinoscopy with biopsy. SURGEON: Mahtew Quinn MD. ORCHID SUPERINTENDENT: Rashida Salas RN. ANESTHESIA: General anesthesia, endotracheal intubation. INDICATION FOR PROCEDURE AND FINDINGS: This is a 69-year-old with a history of heavy cigarette smoking quit a few weeks ago who presented with weight loss and shortness of breath and was found to have marked mediastinal adenopathy. He has a history of a lymphoma diagnosed with a lymph node biopsy a few years ago. The patient presented with pancytopenia and was found to have a low hemoglobin and a low platelet count as well has a very low white count. This was somewhat stable and I brought him to the operating room today on 05/04/2019. He had an uncomplicated video mediastinoscopy. We biopsied the right level 4, level 7 and right level 10 lymph nodes. Frozen section showed no evidence of carcinoma. He tolerated it quite well. DESCRIPTION OF PROCEDURE: The patient brought to the operating room, laid in supine position. General anesthesia induced and endotracheal intubation was performed. After appropriate timeout had been called and prophylactic antibiotics given, an incision was made one fingerbreadth above the sternal notch. This was carried down to the strap muscles, which were divided in the midline and was able to develop with nice plane. I developed this plane bluntly and then placed the video mediastinoscope in place. I was able to dissect down to the bifurcation quite nicely. There is a very large right level 4 node and I biopsied this essentially in its entirety and sent it down to the lab for frozen. I biopsied another higher level 4 node and sent off multiple pieces. I then went down and biopsied the level 7 node and this had some bleeding which was controlled with cautery. I did not biopsy anything on the left. Going down the right, I biopsied a level 10 lymph node and got into some bleeding which was controlled with the cautery. I did place a piece of Surgicel over this. Frozen section showed no evidence of malignancy. He did have enough for flow cytometry. We had plenty of lymphatic tissue. I slowly withdrew the video mediastinoscope and saw no evidence of any further bleeding. A 3-0 Vicryl was used in running continuous fashion to close the strap muscles and 4-0 Monocryl was used in running subcuticular fashion to approximate the wound edges. He tolerated it well. I attest to the content of the Intraoperative Record and any orders documented therein. Any exception s are noted below.
[2019-05-05] MEDS: ACETAMINOPHEN 325 MG TAB PO PRN ×3 (00:04→20:29)
[2019-05-05 06:56] LABS: Hematocrit (blood only) 30.3 % (42-52); Hemoglobin 9.9 g/dL (14.0-18.0); Mean Corpuscular Hemoglobin 28.7 pg (25-34); Mean Corpuscular Hgb Conc 32.7 g/dL (32-36); Mean Corpuscular Volume 87.8 fL (80-100); RDW Coefficient of Variation 18.6 % (11.5-14.5); RDW Standard Deviation 60.2 fL (36.4-46.3); Red Blood Count 3.45 M/uL (4.7-6.1); White Blood Count 2.17 K/uL (4.8-10.8)
[2019-05-05] MEDS: methylPREDNISolone 40 MG in SYRINGE 0 ML IV SCH ×2 (07:39→20:29)
[2019-05-05] MEDS: METOPROLOL TARTRATE 25 MG TAB PO SCH ×2 (07:40→20:31)
[2019-05-05] MEDS: PANTOprazole 40 MG in SYRINGE 0 ML IV SCH (07:40)
[2019-05-05] MEDS: INSULIN ASPART 100 UNITS/ML 3 ML PEN SC SCH ×4 (07:45→20:34)
[2019-05-05] MEDS: INSULIN GLARGINE SOLOSTAR 100 UNITS/ML 3 ML PEN SC SCH (07:47)
[2019-05-05 07:48] LABS: Mean Platelet Volume 9.8 fL (7.4-10.4); Platelet Count 60 K/uL (130-400)
[2019-05-05 07:51] LABS: Acanthocytes 1+; Immature Granulocytes # (auto) 0.02 K/uL (0.00-0.02); Immature Granulocytes % (auto) 0.9 %; Lymphocytes # (auto) 1.59 K/uL (1.2-3.4); Lymphocytes % (auto) 73.3 %; Monocytes # (auto) 0.07 K/uL (0.11-0.59); Monocytes % (auto) 3.2 %; Neutrophils # (auto) 0.49 K/uL (1.4-6.5); Neutrophils % (auto) 22.6 %; Tear Drop Cells 1+; Toxic Granulation 3+
--- NOTE | 2019-05-05 10:09 | Cardiology Progress Note ---
Date of Service May 05, 2019 Assessment & Plan (1) Pancytopenia: (2) Lymphoma: (3) PAF (paroxysmal atrial fibrillation): (4) Mass of left lung: (5) S/P CABG x 3: (6) S/P carotid endarterectomy: (7) AAA (abdominal aortic aneurysm): The patient is clinically stable. Pathology is pending from recent mediastinoscopy and biopsy. The patient remains pancytopenic but is improving. He is maintaining sinus rhythm. Would recommend continuing the current cardiac treatment. Subjective The patient had an uneventful night. No additional cardiac complaints. Rhythm has remained sinus. Review of Systems Review of Systems: All systems reviewed & are unremarkable except as noted in HPI & below Nothing additional. Physical Exam Physical Exam: General: no acute distress and stated age Head: normocephalic, no masses, lesions, tenderness or abnormalities Eyes: conjunctiva are pink and non-injected, sclera clear Neck: supple, no adenopathy, no bruits, normal jugular venous pulse, no hepatojugular reflux Chest: normal shape and normal respiratory effort Lungs: clear to auscultation and percussion Cardiac Exam: - regular rate & rhythm, no murmurs gallops or rubs - normal S1, normal S2 Pulses: 2(+) throughout Abdomen: abdomen soft, non-tender, no abnormal masses and no hepatosplenomegaly Musculoskeletal: no gait disturbance, no joint inflammation, no deforming arthritis Extremities: no edema and no cyanosis Neuro: grossly normal exam Results & Data Vital Signs (Past 12 Hours) Vital Signs Temp Pulse Pulse Resp BP BP Pulse Ox 05/05/19 08:00 72 05/05/19 07:11 36.4 C L 51 L 16 127/62 92 05/05/19 04:00 36.8 C 58 L 19 143/66 H 91 05/04/19 23:56 57 L 145/69 H 93 Laboratory Results Laboratory Results - last 24 hr 05/04/19 05/04/19 05/04/19 11:00 11:29 13:54 WBC RBC Hgb Hct MCV MCH MCHC RDW Std Deviation RDW Coeff of John Plt Count MPV Immature Gran % (Auto) Neut % (Auto) Lymph % (Auto) [place] % (Auto) Eos % (Auto) Baso % (Auto) Immature Gran # (Auto) Neut # (Auto) Lymph # (Auto) [place] # (Auto) Eos # (Auto) Baso # (Auto) Toxic Granulation Tear Drop Cells Acanthocytes (Spur) POC Glucose 175 H B&T Cell Panel (Flow) Pending Pending 05/04/19 05/04/19 05/05/19 16:37 20:08 06:38 WBC 2.17 L RBC 3.45 L Hgb 9.9 L Hct 30.3 L MCV 87.8 MCH 28.7 MCHC 32.7 RDW Std Deviation 60.2 H RDW Coeff of John 18.6 H Plt Count 60 L MPV 9.8 Immature Gran % (Auto) 0.9 Neut % (Auto) 22.6 Lymph % (Auto) 73.3 Chester % (Auto) 3.2 Eos % (Auto) 0.0 Baso % (Auto) 0.0 Immature Gran # (Auto) 0.02 Neut # (Auto) 0.49 L* Lymph # (Auto) 1.59 Chester # (Auto) 0.07 L Eos # (Auto) 0.00 Baso # (Auto) 0.00 Toxic Granulation 3+ Tear Drop Cells 1+ Acanthocytes (Spur) 1+ POC Glucose 258 H 159 H B&T Cell Panel (Flow) 05/05/19 07:09 WBC RBC Hgb Hct MCV MCH MCHC RDW Std Deviation RDW Coeff of John Plt Count MPV Immature Gran % (Auto) Neut % (Auto) Lymph % (Auto) Chester % (Auto) Eos % (Auto) Baso % (Auto) Immature Gran # (Auto) Neut # (Auto) Lymph # (Auto) Chester # (Auto) Eos # (Auto) Baso # (Auto) Toxic Granulation Tear Drop Cells Acanthocytes (Spur) POC Glucose 88 B&T Cell Panel (Flow) Medications Administered Current Inpatient Medications Acetaminophen (Tylenol) 650 mg PO Q4H PRN PRN Reason: Pain or Fever Stop: 05/30/19 16:51 Last Admin: 05/05/19 06:23 Dose: 650 mg Documented by: Al Hydrox/Mg Hydrox/Simethicone (Maalox) 15 ml PO Q4H PRN PRN Reason: Dyspepsia Stop: 05/30/19 16:51 Albuterol (Duoneb) 3 ml NEB QIDR PRN PRN Reason: Shortness Of Breath Or Wheezing Stop: 05/30/19 11:59 Dextrose (Dextrose 50%) 25 - 50 ml IV UD PRN; Protocol PRN Reason: Hypoglycemia Protocol Stop: 05/31/19 09:14 Glucagon (Glucagen) 1 mg SQ UD PRN; Protocol PRN Reason: Hypoglycemia Protocol Stop: 05/31/19 09:14 Glucose (Glucose 40%) 15 - 30 gm PO UD PRN; Protocol PRN Reason: Hypoglycemia Protocol Stop: 05/31/19 09:14 Glucose (Dex4 Glucose) 4 - 8 tabs PO UD PRN; Protocol PRN Reason: Hypoglycemia Protocol Stop: 05/31/19 09:14 Pantoprazole Sodium 40 mg/ (Syringe) 10 mls @ 5 mls/min IV Q12 TAJ Stop: 05/31/19 01:29 Last Admin: 05/05/19 07:40 Dose: 5 mls/min Documented by: Azithromycin 250 mg/ Dextrose 252.5 mls @ 125 mls/hr IV Q24H [facility] Stop: 05/08/19 10:59 Last Infusion: 05/04/19 15:30 Dose: Infused Documented by: Ceftriaxone Sodium 1,000 mg/ (Dextrose) 50 mls @ 100 mls/hr IV Q24H TAJ; Protocol Stop: 05/08/19 10:59 Last Infusion: 05/04/19 13:50 Dose: 0 mls/hr Documented by: Methylprednisolone 40 mg/ (Syringe) 0.64 mls @ 1.5 mls/min IV BID [facility] Stop: 06/04/19 08:59 Last Admin: 05/05/19 07:39 Dose: 1.5 mls/min Documented by: Insulin Aspart (Novolog Flexpen) 0 units SC ACHS TAJ Stop: 06/01/19 16:29 Last Admin: 05/05/19 07:45 Dose: 5 units Documented by: Insulin Glargine (Lantus Solostar Pen) 0 units SC BID TAJ; Protocol Stop: 06/03/19 20:59 Last Admin: 05/05/19 07:47 Dose: 15 units Documented by: Magnesium Hydroxide (Milk Of Magnesia) 30 ml PO Q12H PRN PRN Reason: Constipation Stop: 05/30/19 16:51 Metoprolol Tartrate (Lopressor) 12.5 mg PO BID [facility] Stop: 06/02/19 10:14 Last Admin: 05/05/19 07:40 Dose: 12.5 mg Documented by: Miscellaneous (Carbohydrates For Hypoglycemia) 15 - 30 gm PO UD PRN PRN Reason: Hypoglycemia Treatment Stop: 05/31/19 09:14 Miscellaneous Information (Consult Glycemic Management Pharmacy) 1 ea N/A UD PRN PRN Reason: Consult Stop: 05/31/19 12:20 Ondansetron HCl (Zofran) 4 mg IV Q12 PRN PRN Reason: Nausea Stop: 05/30/19 16:51 Polyethylene Glycol (Miralax Powder Packet) 17 gm PO DAILY PRN PRN Reason: Constipation Stop: 05/30/19 16:51 Tamsulosin HCl (Flomax) 0.4 mg PO HS TAJ Stop: 05/31/19 20:59 Last Admin: 05/04/19 20:48 Dose: 0.4 mg Documented by:
--- NOTE | 2019-05-05 10:25 | Pharmacy Report ---
Pharmacy Glycemic Short Note 2 - Date of Service May 05, 2019 - Glycemic Short BSG Results (Last 24 hours): 05/04/19 05/04/19 05/04/19 13:54 16:37 20:08 POC Glucose 175 H 258 H 159 H 05/05/19 07:09 POC Glucose 88 OUTPATIENT ANTIDIABETIC REGIMEN: * N/A * A1c = ?; not checked secondary to transfusions ASSESSMENT: 05/05 * Patient received total of 36 units of insulin yesterday, of which 23 were basal (was NPO yesterday AM, changed to diet in afternoon) * Fasting BSG 88 mg/dL this morning, continues on diet this morning - patient requires about 23 units of Lantus while on diet / about ~45 units total of insulin per day; will continue with Lantus 15 units this AM, and add scale on for this evening * Continue same CF/CR. Steroids decreasing from solm 40 q 8 hrs to q12 hrs yesterday 05/04 * Pt received 42 units of insulin over the past 24hrs * 23 units of basal insulin * 19 units of prandial/correctional insulin * Basal insulin dosing reduced last evening and this morning for NPO status for video mediastinoscopy today * Will continue with reduced insulin dosing for NPO or increase back to previous dosing if/when PO intake resumed * No changes needed to CF/CR, post-prandial BSGs are within range PLAN FOR INPATIENT GLYCEMIC CONTROL: * Basal insulin - 15 units Qam * Lantus SQ BID * Give 0 for BSG < 110 * Give 5 for BSG 110-180 * Give 8 for BSG > 180 * Bolus insulin * NovoLog per scale ACHS * Goal Range: Low 110 mg/dL - High 150 mg/dL * Correction Factor: 20 mg/dL/unit * Nutritional / Prandial insulin per carb ratio of 1 unit per 8 grams CHO consumed
[2019-05-05] MEDS: cefTRIAXone SODIUM 1,000 MG in DEXTROSE 5% 50 ML IV SCH (11:07)
[2019-05-05] MEDS: AZITHROMYCIN 250 MG in DEXTROSE 5% 250 ML IV SCH (11:07)
--- NOTE | 2019-05-05 11:53 | Progress Note ---
DATE: 05/05/2019 The patient was seen today on 05/05/2019. He looks quite good. He had a small amount of ecchymosis, but really no swelling. His voice is strong. His x-ray looked good after the mediastinoscopy yesterday. Final pathology is still pending, but we saw no obvious evidence of carcinoma. This could represent lymphoma. At any rate, I am quite pleased with how well he looks today. If the patient is discharged from the hospital, I will see him back in the office and we will go over his pathology. I am still concerned about his left lower lobe mass. It appears from our preliminary samples that this may well represent a lymphoma.
--- NOTE | 2019-05-05 12:02 | Anesthesiology Progress Note ---
Date of Service May 05, 2019 Anesthesia Post Procedure Vital Signs Vital Signs: Temp Pulse Pulse Resp BP BP BP 05/05/19 11:07 36.4 C L 50 L 18 96/48 L 05/05/19 08:00 72 05/05/19 07:11 36.4 C L 51 L 16 127/62 05/05/19 04:00 36.8 C 58 L 19 143/66 H 05/04/19 23:56 57 L 145/69 H 05/04/19 19:00 36.7 C 62 18 119/59 L 05/04/19 16:00 36.6 C 73 22 110/62 05/04/19 15:15 36.6 C 68 22 110/62 05/04/19 14:15 36.6 C 67 18 116/60 05/04/19 14:00 36.6 C 65 22 122/62 05/04/19 13:45 36.6 C 64 18 118/61 05/04/19 13:30 36.5 C 64 22 117/61 05/04/19 13:15 36.5 C 64 22 126/62 05/04/19 12:50 64 19 121/65 05/04/19 12:40 36.5 C 63 19 124/62 112/49 L 05/04/19 12:30 67 19 118/59 L 117/52 L 05/04/19 12:20 81 19 113/53 L 103/50 L 05/04/19 12:10 77 19 115/71 113/53 L Pulse Ox 05/05/19 11:07 90 05/05/19 08:00 05/05/19 07:11 92 05/05/19 04:00 91 05/04/19 23:56 93 05/04/19 19:00 96 05/04/19 16:00 93 05/04/19 15:15 94 05/04/19 14:15 96 05/04/19 14:00 3 L 05/04/19 13:45 95 05/04/19 13:30 3 L 05/04/19 13:15 3 L 05/04/19 12:50 95 05/04/19 12:40 95 05/04/19 12:30 96 05/04/19 12:20 95 05/04/19 12:10 94 Pain Intensity Right Foot: Pain Intensity: 0 Notes Mental Status: alert / awake / arousable Patient Amnestic to Procedure: Yes Nausea / Vomiting: adequately controlled Pain: adequately controlled Airway Patency, RR, SpO2: stable & adequate BP & HR: stable & adequate Hydration State: stable & adequate Anesthetic Complications: no major complications apparent and Pt Satisfied with anesthetic care
--- NOTE | 2019-05-05 16:21 | Hospitalist Progress Note ---
Date of Service May 05, 2019 Assessment & Plan (1) Mass of left lung: Present on admission with fall due to generalized weakness CT chest showed solid cavitary mass in the posterior basal left lower lobe that is highly suspicious for primary bronchogenic neoplasm. Mediastinal and hilar l ymphadenopathy highly suspicious for metastatic disease. Rabago significant weight loss for many months, worsening cough for the past few weeks. hilar lymphadenopathy highly suspicious for metastatic disease, left supraclavicular lymphadenopathy noted. Per d/w pulmonary , this could be lymphoma than primary lung malignancy. Per d/w oncology with pulmonary, biopsy of lymph node would provide more infor mation. Pulmonary will discuss with surgery to plan lymph node excision. S/P video mediastinoscopy done yesterday by thoracic surgery Dr. Quinn Specimen sent to pathology - pending result Case discussed with Dr. Quinn and will follow outpatient Symptomatic Anemia/pancytopenia in setting of B cell small cell non-Hodgkin's lymphoma/splenomegaly: Chronic thrombocytopenia as per prior records. Chronic anemia in the range of 8-9. Hemoglobin on presentation 6.9. Received 2 units PRBC during hospital course do far No signs of active bleeding. Hbg 9.9 today Case discussed with Oncology Dr. Merrill and will follow as an outpatient stable Atrial fibrillation with RVR Contributing factors: Anemia Converted back to NSR Amiodarone drip discontinued Not a candidate for anticoagulation given thrombocytopenia Echo showed EF 40-45%, Mild moderate MR, Mild TR, Post, inferior wall kinesis= old, LV -dilated Cardiology on board Continue Metoprolol 12.5 BID on discharge Stable from cardiology standpoint Hypotension Off Neosynephrine Resolved Possible pneumonia Patient does have productive sputum, some chest pain, baseline shortness of breath CT chest shows multifocal dependent infiltrates on background of emphysema concerning for aspiration or infection Sputum cx and blood cx negative Continue IV rocephin and azithromycin Will change to oral abx on discharge Non-Hodgkin's B-cell lymphoma Known history of non-Hodgkin's B-cell lymphoma diagnosed in 2012. Follows up with [facility] oncology outpatient on a regular basis As per recent CT scan done in January 2019, had progressive worsening of lymphadenopathy. However, did not have any symptoms related to lymphoma at that time, therefore follow-up was scheduled for May 2019 or sooner if he develops symptoms. CT scanning soft tissue neck, chest, abdomen, pelvis was done on admission shows lymphadenopathy at left base of neck and left supraclavicular fossa, splenomegaly Follow up with oncology outpatient Generalized weakness / Physical deconditioning causing frequent falls : Multifactorial Pancytopenia/symptomatic anemia, non-Hodgkin's B-cell lymphoma Fall precaution PT/OT eval- waiting for therapy eval to discharge History of coronary artery disease status post CABG x3 Hold aspirin due to drop on hgb and low platelet Continue with atorvastatin. COPD Continue neb treatment Solumedrol taper, will transition to oral prednisone Stable Abdominal aortic aneurysm Per CT scan- Slight interval increase in size of infrarenal abdominal aortic aneurysm which measures 3.7 x 2.6 cm Will need to monitor outpatient DVT prophylaxis SCDS/TEDS; Re thrombocytopenia and anemia Full code Disposition Ok to discharge home tomorrow if safe from PT/OT standpoint Follow up with PCP Dr. Harris on 05/09 @ 10:05 AM Follow up with oncology Dr. Merrill Subjective Pt was seen and examined Lying in bed with no distress Pt said that he feels much better He said that his getting stronger Denies any chest pain, palpitation, dizziness and SOB Physical Exam Physical Exam: General- No acute distress Head- atraumatic Eyes- PERRL, EOMI, ENT- oropharynx clear Neck- supple, no JVD Lungs- clear to auscultation Heart- regular rhythm; no murmur Abdomen- normal bowel sounds, soft, nontender Extremities- no calf tenderness Neuro- alert, oriented x 3; PERRL, EOMI; no facial palsy; no dysarthria Skin- warm & dry Results & Data Vital Signs (Past 12 Hours) Vital Signs Temp Pulse Pulse Resp BP BP Pulse Ox 05/05/19 16:00 36.4 C L 76 22 136/76 100 05/05/19 15:45 36.5 C 53 L 18 144/67 H 94 05/05/19 11:07 36.4 C L 50 L 18 96/48 L 90 05/05/19 08:00 72 05/05/19 07:11 36.4 C L 51 L 16 127/62 92
[2019-05-05] MEDS: TAMSULOSIN HCL 0.4 MG CAP PO SCH (20:32)
[2019-05-05] MEDS: PANTOprazole 40 MG TAB PO SCH (20:35)
[2019-05-05] MEDS ORDERED: INSULIN GLARGINE SOLOSTAR 100 UNITS/ML 3 ML PEN SC SCH (21:00)
[2019-05-06] MEDS: PANTOprazole 40 MG TAB PO SCH (08:18)
[2019-05-06] MEDS: methylPREDNISolone 40 MG in SYRINGE 0 ML IV SCH (08:18)
[2019-05-06] MEDS: METOPROLOL TARTRATE 25 MG TAB PO SCH (08:18)
[2019-05-06] MEDS: INSULIN ASPART 100 UNITS/ML 3 ML PEN SC SCH ×2 (08:22→12:38)
[2019-05-06] MEDS ORDERED: INSULIN GLARGINE SOLOSTAR 100 UNITS/ML 3 ML PEN SC SCH (09:00)
--- NOTE | 2019-05-06 10:53 | Pharmacy Report ---
Pharmacy Glycemic Short Note 2 - Date of Service May 06, 2019 - Glycemic Short BSG Results (Last 24 hours): 05/05/19 05/05/19 05/05/19 11:04 16:19 20:22 POC Glucose 161 H 102 H 110 H 05/06/19 07:38 POC Glucose 111 H OUTPATIENT ANTIDIABETIC REGIMEN: * N/A * A1c = ?; not checked secondary to transfusions ASSESSMENT: * ? Diabetic, no outpatient antidiabetic medications and unable to assess degree of glycemic control since A1c not checked secondary to transfusion. * Pt receiving RTC Solumedrol * SQ basal bolus insulin initiated d/t steroid induced hyperglycemia * Pt has been receiving ~ 30-35 units of insulin per day with near adequate control. * BSGs ranging 88-161 mg/dl * 15 units on basal insulin * 15+ units of prandial/correctional insulin * Steroid dose reduced from Solumedrol 40mg IV Q8hrs to 40mg IV Q12hrs. Since total daily dose is still >80mg/dl unlikely to see a huge improvement in BSGs. * Will continue with ~30 units of insulin per day and taper with each step down in steroid dosing. PLAN FOR INPATIENT GLYCEMIC CONTROL: * Basal insulin - Lantus 15 units Qam * Bolus insulin * NovoLog per scale ACHS * Goal Range: Low 110 mg/dL - High 150 mg/dL * Correction Factor: 20 mg/dL/unit * Nutritional / Prandial insulin per carb ratio of 1 unit per 8 grams CHO consumed
--- NOTE | 2019-05-06 11:04 | Cardiology Progress Note ---
Date of Service May 06, 2019 Assessment & Plan (1) PAF (paroxysmal atrial fibrillation): Patient remains in sinus rhythm having converted with IV amiodarone. Now on oral metoprolol without amiodarone. He is not a candidate for anticoagulation or antiplatelet therapy due to his anemia and thrombocytopenia (2) Thrombocytopenia: CBC performed yesterday 05/05/2019 revealed stable hemoglobin of 9.9, platelet count of 60,000, compared to 58,000 on 05/04/2019 and 46,000 on 05/03/2019. (3) Lymphadenopathy: History of indolent B-cell lymphoma. Significant lymphadenopathy, for which he underwent mediastinoscopy, biopsy on 05/04/2019, pathology report pending. (4) S/P CABG x 3: Patient is long-standing history of coronary heart disease status post CABG x3 in 2004 and past left carotid endarterectomy, history of peripheral arterial disease with chronic claudication. Statin therapy likely held due to elevated bilirubin, transaminases earlier this admission. Check CMP tomorrow. Subjective Chief complaint: Follow-up atrial fibrillation Subjective: Patient sitting in bed. Comfortable. Denies complaints. Telemetry reveals sinus rhythm in the range of 60 bpm with occasional PVCs. No recent recurrence of atrial fibrillation. Review of Systems Review of Systems: All systems reviewed & are unremarkable except as noted in HPI & below Physical Exam Physical Exam: Temp Pulse Resp BP Pulse Ox 36.4 C L 56 L 18 160/77 H 97 05/06/19 06:52 05/06/19 08:00 05/06/19 04:56 05/06/19 06:52 05/06/19 06:52 Constitutional: no acute distress Respiratory: normal respiratory effort, lungs clear to auscultation Cardiovascular: RRR, no murmur, no edema Heart Sounds: no murmur Vessels: no JVD Extremities: no edema Chest (Breasts): Additional Comments: Well-healed midline sternotomy incision Gastrointestinal (Abdomen): normal bowel sounds, soft, nontender, no hepatosplenomegaly Neurologic: moves all extremities; no focal motor deficits Results & Data Vital Signs (Past 12 Hours) Vital Signs Temp Pulse Pulse Resp BP Pulse Ox 05/06/19 08:00 56 L 05/06/19 06:52 36.4 C L 72 160/77 H 97 05/06/19 04:56 36.4 C L 64 18 132/83 96 05/05/19 23:36 36.5 C 66 16 133/78 94 05/05/19 23:16 56 L Laboratory Results Intake and Output 05/05/19 05/06/19 05/06/19 22:59 06:59 14:59 Intake Total 500 / 1749.167 600 / 1749.167 Output Total 1550 / 3475 725 / 3475 Balance -1050 / -1725.833 -125 / -1725.833 Intake: Oral 500 / 1450 600 / 1450 Output: Urine 1550 / 3475 725 / 3475 Other: Weight 68.3 kg 68.1 kg Medications Administered Current Inpatient Medications Acetaminophen (Tylenol) 650 mg PO Q4H PRN PRN Reason: Pain or Fever Stop: 05/30/19 16:51 Last Admin: 05/05/19 20:29 Dose: 650 mg Documented by: Al Hydrox/Mg Hydrox/Simethicone (Maalox) 15 ml PO Q4H PRN PRN Reason: Dyspepsia Stop: 05/30/19 16:51 Albuterol (Duoneb) 3 ml NEB QIDR PRN PRN Reason: Shortness Of Breath Or Wheezing Stop: 05/30/19 11:59 Dextrose (Dextrose 50%) 25 - 50 ml IV UD PRN; Protocol PRN Reason: Hypoglycemia Protocol Stop: 05/31/19 09:14 Glucagon (Glucagen) 1 mg SQ UD PRN; Protocol PRN Reason: Hypoglycemia Protocol Stop: 05/31/19 09:14 Glucose (Glucose 40%) 15 - 30 gm PO UD PRN; Protocol PRN Reason: Hypoglycemia Protocol Stop: 05/31/19 09:14 Glucose (Dex4 Glucose) 4 - 8 tabs PO UD PRN; Protocol PRN Reason: Hypoglycemia Protocol Stop: 05/31/19 09:14 Azithromycin 250 mg/ Dextrose 252.5 mls @ 125 mls/hr IV Q24H TAJ Stop: 05/08/19 10:59 Last Infusion: 05/05/19 13:10 Dose: Infused Documented by: Ceftriaxone Sodium 1,000 mg/ (Dextrose) 50 mls @ 100 mls/hr IV Q24H TAJ; Protocol Stop: 05/08/19 10:59 Last Infusion: 05/05/19 11:35 Dose: Infused Documented by: Methylprednisolone 40 mg/ (Syringe) 0.64 mls @ 1.5 mls/min IV BID [facility] Stop: 06/04/19 08:59 Last Admin: 05/06/19 08:18 Dose: 1.5 mls/min Documented by: Insulin Aspart (Novolog Flexpen) 0 units SC ACHS [facility] Stop: 06/01/19 16:29 Last Admin: 05/06/19 08:22 Dose: Not Given Documented by: Insulin Glargine (Lantus Solostar Pen) 15 units SC QAM [facility]; Protocol Stop: 06/05/19 08:59 Last Admin: 05/06/19 08:18 Dose: 15 units Documented by: Insulin Glargine (Lantus Solostar Pen) 0 units SC HS [facility]; Protocol Stop: 06/04/19 20:59 Last Admin: 05/05/19 20:32 Dose: Not Given Documented by: Magnesium Hydroxide (Milk Of Magnesia) 30 ml PO Q12H PRN PRN Reason: Constipation Stop: 05/30/19 16:51 Metoprolol Tartrate (Lopressor) 12.5 mg PO BID [facility] Stop: 06/02/19 10:14 Last Admin: 05/06/19 08:18 Dose: 12.5 mg Documented by: Miscellaneous (Carbohydrates For Hypoglycemia) 15 - 30 gm PO UD PRN PRN Reason: Hypoglycemia Treatment Stop: 05/31/19 09:14 Miscellaneous Information (Consult Glycemic Management Pharmacy) 1 ea N/A UD PRN PRN Reason: Consult Stop: 05/31/19 12:20 Ondansetron HCl (Zofran) 4 mg IV Q12 PRN PRN Reason: Nausea Stop: 05/30/19 16:51 Pantoprazole Sodium (Protonix) 40 mg PO BID [facility] Stop: 06/04/19 20:59 Last Admin: 05/06/19 08:18 Dose: 40 mg Documented by: Polyethylene Glycol (Miralax Powder Packet) 17 gm PO DAILY PRN PRN Reason: Constipation Stop: 05/30/19 16:51 Tamsulosin HCl (Flomax) 0.4 mg PO HS [facility] Stop: 05/31/19 20:59 Last Admin: 05/05/19 20:32 Dose: 0.4 mg Documented by:
[2019-05-06] MEDS: cefTRIAXone SODIUM 1,000 MG in DEXTROSE 5% 50 ML IV SCH (11:46)
[2019-05-06 12:01] VITALS: PULSE 70; TEMP 98.4; O2SAT 100
[2019-05-06] MEDS: AZITHROMYCIN 250 MG in DEXTROSE 5% 250 ML IV SCH (12:19)
--- NOTE | 2019-05-06 12:28 | Hospitalist Progress Note ---
Date of Service May 06, 2019 Assessment & Plan (1) Mass of left lung: Left lung mass Presented with fall due to generalized weakness CT chest showed solid cavitary mass in the posterior basal left lower lobe that is highly suspicious for primary bronchogenic neoplasm. Mediastinal and hilar lymphadenopathy highly suspicious for metastatic disease. [place]ago significant weight loss for many months, worsening cough for the past few weeks; hilar lymphadenopathy highly suspicious for metastatic disease, left supraclavicular lymphadenopathy noted. -Per d/w pulmonary , this could be lymphoma than primary lung malignancy. -Per d/w oncology with pulmonary, biopsy of lymph node would provide more information. -S/P video mediastinoscopy done on 05/04/[address] Quinn -05/04/2017 - Specimen sent to pathology - pending result -Case discussed with Dr. Quinn and will follow outpatient Symptomatic Anemia/pancytopenia in setting of B cell small cell non-Hodgkin's lymphoma/splenomegaly: Chronic thrombocytopenia as per prior records. Chronic anemia in the range of 8-9. -Hemoglobin on presentation 6.9. -Received 2 units PRBC during hospital course do far -No signs of active bleeding. -Case discussed with Oncology Dr. Merrill and will follow as an outpatient Atrial fibrillation with RVR Contributing factors: Anemia -Converted back to NSR -Amiodarone drip discontinued -Not a candidate for anticoagulation given thrombocytopenia -Echo showed EF 40-45%, Mild moderate MR, Mild TR, Post, inferior wall kinesis= old, LV -dilated -Continue Metoprolol 12.5 BID on discharge -Cardiology on board Hypotension -Off Neosynephrine -Resolved Possible pneumonia Patient does have productive sputum, some chest pain, baseline shortness of breath -CT chest shows multifocal dependent infiltrates on background of emphysema concerning for aspiration or infection -Sputum cx and blood cx negative -On IV rocephin and azithromycin ---> Received IV antibiotics for 6 days. Wont give any on discharge Non-Hodgkin's B-cell lymphoma Known history of non-Hodgkin's B-cell lymphoma diagnosed in 2012. Follows up with [facility] oncology outpatient on a regular basis -As per recent CT scan done in January 2019, had progressive worsening of lymphadenopathy. However, did not have any symptoms related to lymphoma at that time, therefore follow-up was scheduled for May 2019 or sooner if he develops symptoms. -CT scanning soft tissue neck, chest, abdomen, pelvis was done on admission shows lymphadenopathy at left base of neck and left supraclavicular fossa, splenomegaly -Follow up with oncology outpatient Generalized weakness / Physical deconditioning causing frequent falls : -Multifactorial Pancytopenia/symptomatic anemia, non-Hodgkin's B-cell lymphoma -Fall precaution -PT/OT eval- Ambulating [address] way with no issues History of coronary artery disease status post CABG x3 -Hold aspirin due to drop on hgb and low platelet. Will restart it as no procedures planned and given the hx of CABG -Continue with atorvastatin. COPD -Continue neb treatment -Solumedrol taper, transitioned to PO prednisone Abdominal aortic aneurysm -Per CT scan- Slight interval increase in size of infrarenal abdominal aortic aneurysm which measures 3.7 x 2.6 cm -Will need to monitor outpatient DVT prophylaxis -SCDS/TEDS; Re thrombocytopenia and anemia Full code Disposition Ok to discharge home today Eager to be discharged. Follow up with PCP Dr. Harris on 05/09 @ 10:05 AM Follow up with oncology Dr. Merrill Subjective Patient denies any complaints. Ambulating in the [address] way and eager to be discharged home. Telemetry reveals sinus rhythm in the range of 60 bpm with occasional PVCs. No recent recurrence of atrial fibrillation. Physical Exam Physical Exam: General- Chronically ill looking, AAOX3, No acute distress Lungs- clear to auscultation Heart- regular rhythm; no murmur Abdomen- normal bowel sounds, soft, nontender Extremities- no calf tenderness Skin- warm & dry Results & Data Vital Signs (Past 12 Hours) Vital Signs Temp Pulse Pulse Resp BP BP Pulse Ox 05/06/19 11:40 36.9 C 70 16 95/53 L 100 05/06/19 08:00 56 L 05/06/19 06:52 36.4 C L 72 160/77 H 97 05/06/19 04:56 36.4 C L 64 18 132/83 96
--- NOTE | 2019-05-06 13:07 | Discharge Summary ---
Date of Service May 06, 2019 Admission HPI Per Admitting Provider This is a 69-year-old male who has a known significant PMH of CAD with history of CABG x3, HTN, HLD, CHF, PVD, AAA, BPH, history of non-Hodgkin's B-cell lymphoma neck 05/2013, chronic thromobocytopenia who presents to [facility] ED secondary to 5 falls in the past 5 days. Grandson at bedside. Patient elicits his last fall was back in 2013. He now has fallen 5 times in the past 5 days from standing position. He feels like "legs get so weak and I fall." No known injury except mild abrasion and bruising. Overall has noticed increased weakness for the past year, more pronounced in the past week. Has had a 80 pound weight loss in the past 6 months. Complains of productive cough for the past 2 weeks, sputum clear/white. Different than his "smoker's cough." Denies f/c/s, chest pain, sob, padilla, hemopytsis, night sweats, lightheaded, dizziness, syncope, n/v/d, hematemesis, hematochezia, melena. Elicits he moves his bowels every 5 days, that is normal for him. Despite a pound weight loss has overall good appetite. Of significance patient was diagnosed in April 2013 with low-grade non- Hodgkin's lymphoma, presented with lump in the neck on left side. Biopsy of the lymph node was done and was consistent with indolent low-grade non-Hodgkin's lymphoma. Follows Dr. Cho. Last seen 01/30/2019 which at that time patient overall been doing well. Given his low-grade lymphoma he had been managed conservatively. It was noted there was some unintentional weight loss at that visit but nothing clinically significant and patient otherwise had good appetite. He had CBC, CMP and LH were drawn. LDH was high which prompted CT scan. CT scan of chest was significant for multiple small supraclavicular lymph nodes, increased in size, multiple enlarged mediastinal and hilar lymph nodes. Pulmonary emphysema, new ill-defined patchy opacities in lower lobes, subtle ill-defined groundglass opacities also seen throughout the lung, new since prior exam. Abdomen pelvis CT significant for multiple large gastrohepatic, portal hepatic and retroperitoneal lymph nodes increased in size from prior exam, liver had mildly increased from 80.3 to 19.5 cm. Spleen has also increased in size fr om 12 cm to 16.3 cm. Stable infrarenal abdominal aortic aneurysm 3.9 x 4.2 cm. Principal Diagnosis 1. Left lung mass, possible lymphoma, biopsy pending 2. S/P Left Video mediastinoscopy with biopsy 3. Atrial fibrillation with RVR 4. Hypotension requiring pressors 5. Symptomatic Anemia/Pancytopenia 6. 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 Hx of CAD S/P CABG 2. AAA 3. COPD without exacerbation Discharge Exam General- Chronically ill looking, AAOX3, No acute distress Lungs- clear to auscultation Heart- regular rhythm; no murmur Abdomen- normal bowel sounds, soft, nontender Extremities- no calf tenderness Skin- warm & dry Discharge Data Allergies Allergy/AdvReac Type Severity Reaction Status Date / Time No Known Drug Allergies Allergy Verified 05/04/19 09:18 Consultations 04/30/19 13:39 ED Decision to Admit Stat 04/30/19 16:52 Consult Case Management - Discharge Planning Routine Consult Oncology Routine Consult Pulmonology Routine 04/30/19 22:28 Consult Plastics Technician Routine 04/30/19 23:11 Consult Plastics Technician Routine 05/01/19 01:36 Consult Case Management - Discharge Planning Routine 05/01/19 08:00 Consult Cardiology Routine Procedures Performed Operation Date: 05/04/19 09:50 Actual Procedures p Video Mediastinoscopy - Mathew Quinn MD, FACS Ordered Studies 04/30/19 11:37 CT abd pelvis IV con only Stat CT angio chest PE protocol Stat CT soft tissue neck w con Stat 05/01/19 03:20 US point of care ultrasound Urgent 05/01/19 09:26 US point of care ultrasound Routine Hospital Course (1) Mass of left lung: Left lung mass Presented with fall due to generalized weakness CT chest showed solid cavitary mass in the posterior basal left lower lobe that is highly suspicious for primary bronchogenic neoplasm. Mediastinal and hilar lymphadenopathy highly suspicious for metastatic disease. [place]ago significant weight loss for many months, worsening cough for the past few weeks; hilar lymphadenopathy highly suspicious for metastatic disease, left supraclavicular lymphadenopathy noted. -Per d/w pulmonary , this could be lymphoma than primary lung malignancy. -Per d/w oncology with pulmonary, biopsy of lymph node would provide more information. -S/P video mediastinoscopy done on 05/04/[address] Quinn -05/04/2017 - Specimen sent to pathology - pending result -Case discussed with Dr. Quinn and will follow outpatient Symptomatic Anemia/pancytopenia in setting of B cell small cell non-Hodgkin's lymphoma/splenomegaly: Chronic thrombocytopenia as per prior records. Chronic anemia in the range of 8-9. -Hemoglobin on presentation 6.9. -Received 2 units PRBC during hospital course do far -No signs of active bleeding. -Case discussed with Oncology Dr. Merrill and will follow as an outpatient Atrial fibrillation with RVR Contributing factors: Anemia -Converted back to NSR -Amiodarone drip discontinued -Not a candidate for anticoagulation given thrombocytopenia -Echo showed EF 40-45%, Mild moderate MR, Mild TR, Post, inferior wall kinesis= old, LV -dilated -Continue Metoprolol 12.5 BID on discharge -Cardiology on board Hypotension -Off Neosynephrine -Resolved Possible pneumonia Patient does have productive sputum, some chest pain, baseline shortness of breath -CT chest shows multifocal dependent infiltrates on background of emphysema concerning for aspiration or infection -Sputum cx and blood cx negative -On IV rocephin and azithromycin ---> Received IV antibiotics for 6 days. Wont give any on discharge Non-Hodgkin's B-cell lymphoma Known history of non-Hodgkin's B-cell lymphoma diagnosed in 2012. Follows up with [facility] oncology outpatient on a regular basis -As per recent CT scan done in January 2019, had progressive worsening of lymphadenopathy. However, did not have any symptoms related to lymphoma at that time, therefore follow-up was scheduled for May 2019 or sooner if he develops symptoms. -CT scanning soft tissue neck, chest, abdomen, pelvis was done on admission shows lymphadenopathy at left base of neck and left supraclavicular fossa, splenomegaly -Follow up with oncology outpatient Generalized weakness / Physical deconditioning causing frequent falls : -Multifactorial Pancytopenia/symptomatic anemia, non-Hodgkin's B-cell lymphoma -Fall precaution -PT/OT eval- Ambulating navarro way with no issues History of coronary artery disease status post CABG x3 -Hold aspirin due to drop on hgb and low platelet. Will restart it as no procedures planned and given the hx of CABG -Continue with atorvastatin. COPD -Continue neb treatment -Solumedrol taper, transitioned to PO prednisone Abdominal aortic aneurysm -Per CT scan- Slight interval increase in size of infrarenal abdominal aortic aneurysm which measures 3.7 x 2.6 cm -Will need to monitor outpatient DVT prophylaxis -SCDS/TEDS; Re thrombocytopenia and anemia Full code Disposition Ok to discharge home today Eager to be discharged. Follow up with PCP Dr. Harris on 05/09 @ 10:05 AM Follow up with oncology Dr. Merrill Total Time Total Time Spent Total Time Spent (In Minutes): 40 minutes Discharge Plan Discharge Items Patient Disposition: Home - Self-Care Reason For Visit: ANEMIA, NEW LUNG MASS Discharge Diagnosis: 1. Left lung mass S/P video mediastinoscopy on 05/04/19, Biopsy results pending 2. Atrial fibrillation with Rapid rate Discharge Goals: Decrease discomfort and Diagnostic testing Activity: Resume your previous activity Non-emergency contact: Primary Care Provider Call non-emergency contact if: your symptoms worsen Follow-up/Referrals: Danny Merrill MD [Surgeon] - (They will call you for appt date/time) Arjun Harris DO [Primary Care Provider] - 05/09/19 10:05 am Diet: Heart Healthy Addtl Provider Instructions: You were admitted to hospital for generalized weakness. You were found to have a left lung mass suspicious to be related to your lym phoma. You had a procedure called video mediastinoscopy with biopsy done on 05/04/19 - Results are still pending and needs to be followed up outpatient MEDICATION CHANGES 1. Discontinued atenolol, Lisinopril as BP borderline low and stable without being on it 2. New medication- Metoprolol tartrate 12.5 mg PO twice a day for Atrial fibrillation, rate control 3. New medication- tamsulosin 0.4 mg q HS for prostate enlargement Prescriptions: New tamsulosin 0.4 mg Capsule 0.4 mg PO HS 30 Days Qty: 30 RF: 0 metoprolol tartrate 25 mg Tablet 12.5 mg PO BID 30 Days Qty: 30 RF: 0 Continued atorvastatin 40 mg tablet 40 mg PO QAM RF: 0 nitroglycerin 0.4 mg tablet, sublingual 0.4 mg sublingual Q4H PRN (Reason: Angina) RF: 0 aspirin [Aspir-81] 81 mg Tablet,Delayed Release (Dr/Ec) 162 mg PO DAILY RF: 0 Discontinued lisinopril 5 mg tablet 5 mg PO QAM RF: 0 atenolol 50 mg tablet 25 mg PO DAILY RF: 0 Stand-Alone Forms: [facility] Discharge Orders: Discharge Order (Routine); Ordered 05/06/19 Ordered By: Danitza Merrill Admission Data Admit Date/Time: 04/30/19 14:48 Attending Provider: Danitza Merrill Admit Provider: Danitza Merrill Primary Care Provider: Arjun Harris Other Providers: Eddie Ayala ; Danitza Merrill ; Danny Merrill ; Anthony Ramirez ; Felipe Huerta Service: Telemetry Other Pending Studies at Discharge: Yes Studies:: FOLLOW UP PATHOLOGY RESULTS - 05/04/19 VIDEO MEDIASTINOSCOPY BIOPSY
[2019-05-06 14:05] VITALS: BP 114/75
--- NOTE | 2019-05-11 05:22 | Coding Query ---
PATHOLOGY To promote full compliance with coding requirements relating to patient care, physician participation is requested in all cases of floor tech uncertainty. Please assist us with the question(s) below: Please review the Pathology report (from mediastinoscopy) and please document any relevant diagnosis(es) below. Thank you . FRANCIS Barroso [facility] Diagnosis(es): MTDD
--- NOTE | 2019-06-21 04:45 | Coding Query ---
Non Small Cell Carcinoma of lung metastatic to mediastinal lymph nodes PATHOLOGY To promote full compliance with coding requirements relating to patient care, physician participation is requested in all cases of phlebotomist lab assistant uncertainty. Please assist us with the question(s) below: Please review the Pathology report and please document any relevant diagnosis(es) below: Diagnosis(es): Thank you [facility]
== END 2019-05-06 14:47 | disposition home or self-care (01) | DRG 166 ==
LOC: ED 10:10 → 2E 14:48 → SUATTDRO 14:48 → 2E 15:26 → 1E 22:26 → 2E 05-02 22:57

== ENCOUNTER 2019-05-18 07:28 | Inpatient (IN) ==
[2019-05-18] MEDS ORDERED: HYDROCODONE/ACETAMOPHEN 5/325MG TAB PO STA ×2 (07:51→13:02)
[2019-05-18] MEDS ORDERED: KETOROLAC TROMETHAMINE 60 MG/2 ML VIAL IM STA (07:51)
[2019-05-18] MEDS ORDERED: CYCLOBENZAPRINE HCL 10 MG TAB PO STA (07:51)
--- NOTE | 2019-05-18 07:58 | Emergency Department Note ---
History of Present Illness General Chief complaint: Neck Injury/Pain Stated complaint: NECK & LEG PAIN Time Seen by Provider: 05/18/19 07:35 History of Present Illness Maximum Pain Intensity: 10 This 69-year-old male presents to the ER with 2 complaints of left-sided neck pain and low back pain. The patient states 3 days a week ago he woke up in the morning and had pain and stiffness in the left side of his neck. The patient took 1 Motrin with little relief of the pain. He has not taken anything today. The patient tried a heating pad with slight relief of the pain. The patient also is complaining of low back pain that started this morning when he woke up. The patient thinks that he is just "sleeping wrong". The patient denies any pain radiating down his arms or legs. He denies any numbness and tingling. The patient states that he was recently diagnosed with lung cancer. He was recently hospitalized 2 weeks ago. The patient also states that he has had problems with his right shoulder for which he is currently being referred to orthopedics for evaluation of the right shoulder. The patient states that it hurts when he lays down which could be why he is laying differently at night. Home Medications Home Medications Medication Instructions Recorded Confirmed Type atorvastatin 40 mg PO QAM 03/07/19 05/18/19 History nitroglycerin 0.4 mg SUBLINGUAL Q4H PRN 03/07/19 05/18/19 History aspirin [Aspir-81] 162 mg PO DAILY 04/30/19 05/18/19 History metoprolol tartrate 12.5 mg PO BID 30 Days #30 tab 05/06/19 05/18/19 Rx tamsulosin 0.4 mg PO HS 30 Days #30 cap 05/06/19 05/18/19 Rx atenolol 25 mg PO DAILY 05/18/19 05/18/19 History lisinopril 5 mg PO DAILY 05/18/19 05/18/19 History Allergies Allergy/AdvReac Type Severity Reaction Status Date / Time No Known Drug Allergies Allergy Verified 05/18/19 08:09 Past Med/Surg History Medical History HLD (hyperlipidemia) (Chronic) Tobacco abuse (Chronic) HTN (hypertension) (Chronic) BPH (benign prostatic hyperplasia) (Chronic) Heart failure (Chronic) PAD (peripheral artery disease) (Chronic) Lymphoma (Chronic) tx with lymph node resection in 2013 AAA (abdominal aortic aneurysm) (Chronic) Cervical stenosis of spinal canal (Resolved) A-fib With rapid rate requiring pressers until converted Anemia Mass of left lung Pancytopenia Peripheral vascular disease Surgical History History of fusion of cervical spine (Chronic) History of appendectomy (Chronic) S/P CABG x 3 (Chronic) S/P carotid endarterectomy (Chronic) Family History Mother Choked on food per pt history Father , unknown medical problems No problems noted. Brother Coronary heart disease massive [place] age 61 Social History Preferred Language: Ghanaian Communication Ability: Effective Beliefs That Will Affect Care: None marital status: Current Living Situation: Spouse and Family Current Living Situation Comment: Lives with , grandson Feels Safe at Home: Yes Smoking Status: Current every day smoker packs per day: 1 ; Hx Alcohol Use: No Hx Substance Use: No Review of Systems A total of 10 systems reviewed and were otherwise negative Physical Exam Vital Signs Vital Signs - 24 hr 05/18/19 07:29 05/18/19 07:32 05/18/19 09:54 Temperature 36.8 C Temperature Source Oral Oral Sepsis Recent Fever Within 48 Hours No Sepsis New/Unexplained Change in Mental Status No Sepsis Action Taken by Nursing No Action Required Pulse Rate 100 H Pulse Rate [Right Finger] 74 Respiratory Rate 20 20 Respiratory Depth Normal Blood Pressure 101/56 L Blood Pressure [Left Arm] 110/52 L Blood Pressure Mean 71 Blood Pressure Mean [Left Arm] 71 Pulse Oximetry 98 95 Oxygen Delivery Method Room Air GENERAL: 69-year-old white male appears older than that he is in no acute distress. MENTAL Status: Alert and oriented x3. EYES: PERRLA. EOMs intact. NECK: Supple, no lymphadenopathy noted. No carotid bruits noted. LUNGS: Patient has rhonchi throughout both lung rosales. No wheezing noted. CARDIAC: Regular rate and rhythm without murmur. Pulses is full and equal throughout. CERVICAL SPINE: No gross bony deformity noted. The patient is nontender to palpation over the spinous processes. He is tender to palpation of his left paravertebral region. Right side nontender. The patient has full range of motion with pain elicited with right rotation and right bending. THORACIC SPINE: No gross bony deformity noted. The patient is nontender throughout. LUMBAR SPINE: No gross bony deformity noted. The patient is tender to palpation over the lower lumbar spinous processes. He is also tender to palpation over the paravertebral regions at this level. Limited range of motion secondary to pain. RIGHT HAND: There is edema and erythema noted over the dorsal and palmar aspect of the hand. Course Administered Medications Discontinued Medications Hydrocodone Bitart/Acetaminophen ([place] 5/325) 2 tab PO NOW STA Stop: 05/18/19 07:52 Last Admin: 05/18/19 08:04 Dose: 2 tab Documented by: [id number] Cyclobenzaprine HCl (Flexeril) 10 mg PO NOW STA Stop: 05/18/19 07:52 Last Admin: 05/18/19 08:04 Dose: 10 mg Documented by: [id number] Ketorolac Tromethamine (Toradol) 60 mg IM NOW STA Stop: 05/18/19 07:52 Last Admin: 05/18/19 08:04 Dose: 60 mg Documented by: [id number] Medical Decision Making Differential Diagnosis Lumbar strain versus, compression fracture, bone lesion, cervical strain Medical Records Attestation: I reviewed the patient's medical records. Home Medications Current Medication List: was personally reviewed by me Laboratory Data Result diagrams: 05/18/19 10:22 05/18/19 10:22 Lab Results 05/18/19 05/18/19 05/18/19 Range/Units 10:22 10:22 10:22 WBC 2.53 L (4.8-10.8) K/uL RBC 2.62 L (4.7-6.1) M/uL Hgb 7.7 L (14.0-18.0) g/dL Hct 23.1 L (42-52) % MCV 88.2 (80-100) fL MCH 29.4 (25-34) pg MCHC 33.3 (32-36) g/dL RDW Std Deviation 57.9 H (36.4-46.3) fL RDW Coeff of John 18.1 H (11.5-14.5) % Plt Count 79 L (130-400) K/uL MPV 9.9 (7.4-10.4) fL Immature Gran % (Auto) 0.4 % Neut % (Auto) 28.8 % Lymph % (Auto) 51.0 % [place] % (Auto) 19.8 % Eos % (Auto) 0.0 % Baso % (Auto) 0.0 % Immature Gran # (Auto) 0.01 (0.00-0.02) K/uL Neut # (Auto) 0.73 L* (1.4-6.5) K/uL Lymph # (Auto) 1.29 (1.2-3.4) K/uL [place] # (Auto) 0.50 (0.11-0.59) K/uL Eos # (Auto) 0.00 (0-0.5) K/uL Baso # (Auto) 0.00 (0-0.2) K/uL Toxic Granulation 2+ Acanthocytes (Spur) 1+ Schistocytes 1+ PT 12.5 H (9.0-12.0) Seconds INR 1.2 H (0.9-1.1) Sodium 134 L (136-145) mmol/L Potassium 4.1 (3.5-5.1) mmol/L Chloride 103 (98-107) mmol/L Carbon Dioxide 26 (21-32) mmol/L Anion Gap 6.0 (3-11) BUN 16 (7-18) mg/dl Creatinine 0.85 (0.6-1.4) mg/dl Est Cr Clr Drug Dosing Not Reportable Est GFR ( Amer) 103.8 Est GFR (Non-Af Amer) 89.5 BUN/Creatinine Ratio 19.2 (10-20) Glucose 108 H (70-99) mg/dl Calcium 8.4 L (8.5-10.1) mg/dl Imaging Data Attestation: I personally reviewed and interpreted this imaging study as follows: My Impression: No evidence of fracture within the lumbar spine Cortical fracture noted at the sacrococcygeal junction Radiologist's Impression: XR lumbar spine min 4V routine HISTORY: Pain Low back pain/history of lung cancer COMPARISON: None. FINDINGS: Moderate degenerative disc changes throughout the entire lumbar region. Slight concavity superior endplate L2 and L1 felt to be nonacute. Considerable anterior and anterolateral osteophytic changes throughout. Lateral projection suggests a nondisplaced cortical fracture of the sacrococcygeal junction. Age is uncertain. No subluxation. Moderate degenerative disc changes throughout IMPRESSION: 1. Moderate degenerative change throughout the entire lumbar region. 2. No acute process. 3. Potential cortical fracture sacrococcygeal junction with specific images of the sacrococcygeal region suggested. The above report was generated using voice recognition software. It may contain grammatical, syntax or spelling errors. Electronically signed by: Hipolito Haddad M.D. 05/18/2019 8:50 AM Dictated: 05/18/19 0847 Transcribed: 05/18/1946 XR sacrum coccyx min 2V CLINICAL HISTORY: Low back pain/abnormality seen on lumbar spine x-ray pain COMPARISON: None. DISCUSSION: Nondisplaced cortical fracture of the sacrococcygeal junction. Alignment is anatomic. Sacral foramina are symmetric. There is no evidence for soft tissue swelling. IMPRESSION: Nondisplaced cortical fracture sacrococcygeal junction. The above report was generated using voice recognition software. It may contain grammatical, syntax or spelling errors. Electronically signed by: Hipolito Haddad M.D. 05/18/2019 9:52 AM Dictated: 05/18/19 0952 Transcribed: 05/18/19 0952 RIGHT UPPER EXTREMITY VENOUS DOPPLER HISTORY: Erythema, edema, pain right upper extremity COMPARISON STUDY: None. FINDINGS: The right internal jugular vein is patent. There is normal flow within the right subclavian vein. There is normal flow and compressibility within the right axillary, basilic, radial, ulnar, and visualized cephalic veins. Near occlusive focal thrombus seen within the distal right basilic vein. IMPRESSION: Near occlusive focal thrombus within the distal right basilic vein. Electronically signed by: David Lyon M.D. 05/18/2019 12:38 PM Dictated: 05/18/19 1237 Transcribed: 05/18/19 1237 Blood Pressure Blood Pressure Findings: Low blood pressure MDM Narrative The patient was evaluated. Patient was given Toradol 60 mg IM, Flexeril 10 mg p.o. and [place] 5/325 mg 2 tablets p.o. for pain. X-ray of the lumbar spine was ordered interpreted by the radiologist and myself as above with no acute process within the lumbar spine but there is a potential cortical fracture at the sacrococcygeal junction and specific images were recommended. The patient was informed of the findings and was reevaluated. The patient states he was feeling much better. X-ray of the sacrococcygeal area was ordered and interpreted by the radiologist and myself as above nondisplaced cortical fracture at the sac rococcygeal junction. The patient was informed of the findings. This was obtained. CBC and differential, renal profile was ordered. Coags were ordered. Coags were PT 12.5 and INR 1.2 labs revealed an anemia at hemoglobin of 7.7 and hematocrit of 23.1. The patient required packed RBCs when he was in the hospital 2 weeks ago. His hemoglobin was down to 6.9 but then went up to over 9 after receiving the RBCs. A venous Doppler was performed of the right upper extremity and revealed near occlusive thrombus of the distal basilic vein the patient was informed of the findings. The patient was independently evaluated by Dr. Coronel who agrees with treatment plan[facility] Impression & Plan DVT (deep venous thrombosis), Anemia, Neutropenia, Sacral fracture Discharge Plan Visit Data Chief Complaint: Neck Injury/Pain Stated Complaint: NECK & LEG PAIN ED Provider: Tyrel Coronel ED Midlevel Provider: Nichole Haddad Discharge Problem: DVT (deep venous thrombosis), Anemia, Neutropenia, Sacral fracture Patient Disposition: Being Evaluated by Hospitalist Condition: Good Forms Stand Alone Forms: [facility] [employer] Prescriptions Prescriptions: No Action atorvastatin 40 mg tablet 40 mg PO QAM RF: 0 nitroglycerin 0.4 mg tablet, sublingual 0.4 mg sublingual Q4H PRN (Reason: Angina) RF: 0 aspirin [Aspir-81] 81 mg Tablet,Delayed Release (Dr/Ec) 162 mg PO DAILY RF: 0 tamsulosin 0.4 mg Capsule 0.4 mg PO HS 30 Days Qty: 30 RF: 0 metoprolol tartrate 25 mg Tablet 12.5 mg PO BID 30 Days Qty: 30 RF: 0 lisinopril 5 mg tablet 5 mg PO DAILY RF: 0 atenolol 50 mg tablet 25 mg PO DAILY RF: 0 Referrals Referrals: Arjun Harris, [Primary Care Provider] -
--- NOTE | 2019-05-18 08:51 | XRay Report ---
XR lumbar spine min 4V routine HISTORY: Pain Low back pain/history of lung cancer COMPARISON: None. FINDINGS: Moderate degenerative disc changes throughout the entire lumbar region. Slight concavity superior endplate L2 and L1 felt to be nonacute. Considerable anterior and anterolateral osteophytic changes throughout. Lateral projection suggests a nondisplaced cortical fracture of the sacrococcygeal junction. Age is u ncertain. No subluxation. Moderate degenerative disc changes throughout IMPRESSION: 1. Moderate degenerative change throughout the entire lumbar region. 2. No acute process. 3. Potential cortical fracture sacrococcygeal junction with specific images of the sacrococcygeal reg ion suggested. The above report was generated using voice recognition software. It may contain grammatical, syntax or spelling errors. Electronically signed by: Hipolito Haddad M.D. 05/18/2019 8:50 AM
--- NOTE | 2019-05-18 09:54 | XRay Report ---
XR sacrum coccyx min 2V CLINICAL HISTORY: Low back pain/abnormality seen on lumbar spine x-ray pain COMPARISON: None. DISCUSSION: Nondisplaced cortical fracture of the sacrococcygeal junction. Alignment is anatomic. Sac ral foramina are symmetric. There is no evidence for soft tissue swelling. IMPRESSION: Nondisplaced cortical fracture sacrococcygeal junction. The above report was generated using voice recognition software. It may contain grammatical, syntax or spelling errors. Electronically signed by: Hipolito Haddad M.D. 05/18/2019 9:52 AM
[2019-05-18 10:35] LABS: Hematocrit (blood only) 23.1 % (42-52); Hemoglobin 7.7 g/dL (14.0-18.0); Mean Corpuscular Hemoglobin 29.4 pg (25-34); Mean Corpuscular Hgb Conc 33.3 g/dL (32-36); Mean Corpuscular Volume 88.2 fL (80-100); RDW Coefficient of Variation 18.1 % (11.5-14.5); RDW Standard Deviation 57.9 fL (36.4-46.3); Red Blood Count 2.62 M/uL (4.7-6.1); White Blood Count 2.53 K/uL (4.8-10.8)
[2019-05-18 10:37] LABS: Mean Platelet Volume 9.9 fL (7.4-10.4); Platelet Count 79 K/uL (130-400)
[2019-05-18 10:54] LABS: BUN Creatinine Ratio 19.2 (10-20); Blood Urea Nitrogen 16 mg/dl (7-18); Calcium 8.4 mg/dl (8.5-10.1); Carbon Dioxide 26 mmol/L (21-32); Chloride 103 mmol/L (98-107); Est GFR (African American) 103.8; Est GFR (Non-African American) 89.5; Glucose 108 mg/dl (70-99); Potassium 4.1 mmol/L (3.5-5.1); Sodium 134 mmol/L (136-145)
[2019-05-18 11:01] LABS: INR 1.2 (0.9-1.1); Prothrombin Time 12.5 Seconds (9.0-12.0)
[2019-05-18 11:20] LABS: Acanthocytes 1+; Immature Granulocytes # (auto) 0.01 K/uL (0.00-0.02); Immature Granulocytes % (auto) 0.4 %; Lymphocytes # (auto) 1.29 K/uL (1.2-3.4); Monocytes % (auto) 19.8 %; Neutrophils # (auto) 0.73 K/uL (1.4-6.5); Neutrophils % (auto) 28.8 %; Schistocytes 1+; Toxic Granulation 2+
--- NOTE | 2019-05-18 12:40 | Ultrasound Report ---
RIGHT UPPER EXTREMITY VENOUS DOPPLER HISTORY: Erythema, edema, pain right upper extremity COMPARISON STUDY: None. FINDINGS: The right internal jugular vein is patent. There is normal flow within the right subclavian vein. There is normal flow and compressibility within the right axillary, basilic, radial, ulnar, an d visualized cephalic veins. Near occlusive focal thrombus seen within the distal right basilic vein. IMPRESSION: Near occlusive focal thrombus within the distal right basilic vein. Electronically signed by: David Lyon M.D. 05/18/2019 12:38 PM
--- NOTE | 2019-05-18 12:58 | Emergency Department Note ---
ED Visit Note Staff note: I have reviewed the Patients chart and have discussed this case with my PA. I generally agree with the ED note and findings. .
--- NOTE | 2019-05-18 13:16 | Emergency Department Note ---
ED Visit Note Staff note: I have reviewed the Patients chart and have discussed this case with my PA. I generally agree with the ED note and findings. . : DVT (deep venous thrombosis) Qualifiers: DVT location: upper extremity Affected thrombotic vein of extremity: other upper extremity vein Chronicity: acute Laterality: right Qualified Code(s): I82.621 - Acute embolism and thrombosis of deep veins of right upper extremity Anemia Qualifiers: Anemia type: iron deficiency Iron deficiency anemia type: unspecified iron deficiency Qualified Code(s): D50.9 - Iron deficiency anemia, unspecified Neutropenia Qualifiers: Neutropenia type: unspecified Qualified Code(s): D70.9 - Neutropenia, unspecified Sacral fracture Qualifiers: Encounter type: initial encounter Fracture type: closed Fracture morphology: unspecified fracture morphology Qualified Code(s): S32.10XA - Unspecified fracture of sacrum, initial encounter for closed fracture
[2019-05-18 14:40] LABS: Troponin I 0.016 ng/ml (0-0.045)
--- NOTE | 2019-05-18 15:03 | History & Physical Report ---
Date of Service May 18, 2019 Assessment & Plan (1) DVT (deep venous thrombosis): Noted to have near-occlusive thrombus distal right basilic vein - suspect acute due to new onset of swelling in right hand/forearm since discharge. Denies increased shortness of breath but did have transient chest pain last evening relieved by nitro. Troponin today is negative. - Monitor on telemetry - Will consult hem/onc for recommendations on anticoagulation due to pancytopenia - Currently vitals are stable - no tachycardia, no hypoxia, no tachypnea. Will monitor closely and if develops hypoxia, persistent tachycardia, recurrent chest pain, may consider CTA chest to r/o PE. (2) Pancytopenia: WBCs and platelets appears relatively stable from outpatient values and discharge. However, hemoglobin has dropped from 9.9 (on 05/05)/10.6 (on 05/09) to 7.7 today. Monitor for stability. May need to consider transfusion during this admission. Pt denies active bleeding including no epistaxis, hematuria, blood in stools. (3) Sacral fracture: Likely related to a prior fall but pt reports no falls since discharged - unclear how old fracture is based on imaging. - Pain control - PT/OT consults - Fall precautions (4) PAF (paroxysmal atrial fibrillation): Converted to sinus rhythm during last admission with amiodarone. - Monitor on telemetry - Continue beta-nilton (5) CAD (coronary artery disease): - Continue beta-nilton, aspirin. Will need to clarify if pt is taking statin. Appears to have been held at some point during hospitalization due to elevated LFTs but resolved upon f/u labs as outpatient. Tentatively will resume while admitted. 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 - Consult stem roller or crusher operator for additional supplement recommendations - Will give 1 liter of NSS due to clinical mild dehydration on exam Pt seen and reviewed with attending physician, Dr. Garcia. Plan of care d iscussed and as outlined above. Gene Barker PA-C History of Present Illness Chief Complaint: Back and neck pain Primary Care Provider: Arjun Harris DO This is a 69-year-old male with a PMH of CAD with history of CABG x3, HTN, HLD, CHF, PVD, AAA, BPH, history of non-Hodgkin's B-cell lymphoma neck 05/2013, chronic thrombocytopenia (more recently pancytopenia) and new left lung mass who presented to ED with intractable back and neck pain. Pt was recently admitted to this facility from 04/30-05/06/19 with left lung mass, atrial fibrillation with RVR (converted with amiodarone to NSR), hypotension requiring pressors and symptomatic anemia/pancytopenia. Pt reports that since discharge he has overall done well. Followed up with CT surgery and PCP but has not yet seen oncology. He denies any falls since discharge. His appetite has been good and he is supplementing with Boost 2x/day. His labs were rechecked as outpatient and blood counts have been stable with no additional need for transfusion (received four units during last admission). He also saw orthopedics due to right shoulder issues. He reports that Dr. Badillo noted swelling of pt's RUE so he had the nurse wrap the area with an KEENAN wrap. Pt reports that he left the wrap in place for 3-4 days and when he removed it the area was less swollen. However, the swelling has gradually returned over the past couple days. Today, he presented to the ED with increased lower back pain and neck pain - initially attributed to sleeping in a different position from the shoulder pain. Tried Motrin x 1 and heat at home without significant relief. He reports that his initial pain was "15" out of 10 but is currently well-controlled and rates as 7/. Pt was originally diagnosed with low-grade non-Hodgkin's lymphoma in April 2013 which has been managed conservatively. Prior to this month, his last visit with oncology (Dr. Cho) was 01/30/19 when he was noted to have an elevated LDH so a CT of chest/abdomen/pelvis were done and showed multiple small supraclavicular lymph nodes, increased in size, multiple enlarged mediastinal and hilar lymph nodes. Pulmonary emphysema, new ill-defined patchy opacities in lower lobes, subtle ill-defined groundglass opacities also seen throughout the lung, new since prior exam. Multiple large gastrohepatic, portal hepatic and retroperitoneal lymph nodes increased in size from prior exam, liver had mildly increased from 80.3 to 19.5 cm. Spleen has also increased in size from 12 cm to 16.3 cm. Stable infrarenal abdominal aortic aneurysm 3.[address] chest done 04/30/19 showed no PE; elevated right heart pressure; solid cavitary mass in the posterior basal left lower lobe, highly suspicious for primary bronchogenic neoplasm vs infection (less likely); mediastinal and hilater LAD highly suspicious for metastatic disease; left supraclavicular LAD; patchy predominant dependent infiltrates and tree-in-bud opacities (aspiration vs infection vs metastatic disease); background emphysema and bronchitis, evidence of smoking- related lung injury; splenomegaly. Pt was seen by CT surgery, Dr. Quinn, during admission and underwent mediastinoscopy with biopsy of multiple LN on 05/04/19. Pt followed up with CT surg on 05/16/19 to review pathology that showed CLL and non-small cell lung cancer per outpt note. Allergies Allergy/AdvReac Type Severity Reaction Status Date / Time No Known Drug Allergies Allergy Verified 05/18/19 08:09 Home Medications Home Medications Medication Instructions Recorded Confirmed Type atorvastatin 40 mg PO QAM 03/07/19 05/18/19 History nitroglycerin 0.4 mg SUBLINGUAL Q4H PRN 03/07/19 05/18/19 History aspirin [Aspir-81] 162 mg PO DAILY 04/30/19 05/18/19 History metoprolol tartrate 12.5 mg PO BID 30 Days #30 tab 05/06/19 05/18/19 Rx tamsulosin 0.4 mg PO HS 30 Days #30 cap 05/06/19 05/18/19 Rx Past Med/Surg History Medical History Peripheral vascular disease (Chronic) Pancytopenia A-fib With rapid rate requiring pressers until converted Mass of left lung HLD (hyperlipidemia) (Chronic) Tobacco abuse (Chronic) HTN (hypertension) (Chronic) BPH (benign prostatic hyperplasia) (Chronic) Heart failure (Chronic) PAD (peripheral artery disease) (Chronic) Lymphoma (Chronic) tx with lymph node resection in 2013 AAA (abdominal aortic aneurysm) (Chronic) Cervical stenosis of spinal canal (Resolved) Anemia Surgical History History of fusion of cervical spine (Chronic) History of appendectomy (Chronic) S/P CABG x 3 (Chronic) S/P carotid endarterectomy (Chronic) Family History Mother Choked on food per pt history Father , unknown medical problems No problems noted. Brother Coronary heart disease massive RI age 61 Social History Preferred Language: Czech Communication Ability: Effective Beliefs That Will Affect Care: None marital status: Current Living Situation: Spouse and Family Current Living Situation Comment: Lives with , grandson Feels Safe at Home: Yes Smoking Status: Current every day smoker Tobacco Type: cigarettes ; packs per day: 1 ; Cigarettes Per Day: 10 ; Hx Alcohol Use: No Hx Substance Use: No Review of Systems Review of Systems: All systems reviewed & are unremarkable except as noted in HPI & below Constitutional: + chills (on Wednesday for half a day), + fatigue and + weakness; no fever and no sweats Pt with a history of recent wt loss but is unsure today if his weight has been stable Eyes: no diplopia and no worsening vision Ear, Nose, Mouth, Throat: no ear pain, no nasal congestion, no sore throat and no dysphagia Respiratory: + cough and + sputum production (occasionally cough is productive of "mucus"); no chest congestion, no dyspnea on exertion, no hemoptysis and no wheezing Cardiovascular: + chest pain (last evening - described as burning discomfort. Took nitro and resolved) and + edema (RUE - denies LE edema. ); no palpitations, no lightheadedness, no syncope and no calf pain Gastrointestinal: + diarrhea/loose stools (pt related to taking tamsulosin - thinks this has been causing diarrhea so stopped this three days ago); no abdominal pain, no nausea, no vomiting, no blood in stools and no melena Genitourinary: + nocturia (chronic 2-3x/night); no dysuria, no urinary frequency and no hematuria Musculoskeletal: + back pain and + neck pain Integumentary: no rash and no non-healing lesions Neurologic: + falls (was admitted for frequent falls earlier this month - pt denies any new falls since ); no seizure-like activity, no dizziness, no syncope and no headache(s) Physical Exam Constitutional: + thin and + frail appearing; no acute distress Eyes: PERRL, conjunctivae normal, anicteric sclerae ENMT: Nose: no external nose abnormality and no nasal discharge Mouth: + oral mucosal abnormality (dry oral mucosa) and + dentition abnormality (multiple teeth missing) Throat: no posterior oropharynx abnormality Neck: trachea midline Respiratory: + cough (intermittently during exam); no respiratory distress, no labored breathing and does not use accessory muscles Auscultation: + rhonchi (occasional that clear with coughing); no rales and no wheezes Cardiovascular: Rate/Rhythm: regular rate and regular rhythm Heart Sounds: no murmur Vessels: dorsalis pedis pulses present and radial pulses present; no JVD Extremities: no calf tenderness and no pedal edema Gastrointestinal (Abdomen): Inspection/Auscultation: normal bowel sounds; abdomen not distended Percussion/Palpation: abdomen soft; abdomen nontender Musculoskeletal: Head/Neck/Chest: normocephalic, head atraumatic and neck supple Palpation of chest wall without pain Decreased safety assistant strength on right due to pain/swelling, 5/5 on left Dorsiflexion/plantarflexion 4/5 RUE with mild edema of hand> forearm. Mild erythema of right hand Skin: no jaundice Neurologic: moves all extremities Speech / Cognition: normal speech Psychiatric: A+Ox3, euthymic affect Results & Data Vital Signs (Past 12 Hours) Vital Signs Temp Pulse Pulse Resp BP BP Pulse Ox 05/18/19 14:00 76 20 106/56 L 96 05/18/19 12:58 67 18 106/52 L 96 05/18/19 09:54 74 20 110/52 L 95 05/18/19 07:32 36.8 C 100 H 20 101/56 L 98 Laboratory Results Laboratory Results - last 24 hr 05/18/19 05/18/19 05/18/19 10:22 10:22 10:22 WBC 2.53 L RBC 2.62 L Hgb 7.7 L Hct 23.1 L MCV 88.2 MCH 29.4 MCHC 33.3 RDW Std Deviation 57.9 H RDW Coeff of John 18.1 H Plt Count 79 L MPV 9.9 Immature Gran % (Auto) 0.4 Neut % (Auto) 28.8 Lymph % (Auto) 51.0 Mcleod % (Auto) 19.8 Eos % (Auto) 0.0 Baso % (Auto) 0.0 Immature Gran # (Auto) 0.01 Neut # (Auto) 0.73 L* Lymph # (Auto) 1.29 Mcleod # (Auto) 0.50 Eos # (Auto) 0.00 Baso # (Auto) 0.00 Toxic Granulation 2+ Acanthocytes (Spur) 1+ Schistocytes 1+ PT 12.5 H INR 1.2 H Sodium 134 L Potassium 4.1 Chloride 103 Carbon Dioxide 26 Anion Gap 6.0 BUN 16 Creatinine 0.85 Est Cr Clr Drug Dosing Not Reportable Est GFR ( Amer) 103.8 Est GFR (Non-Af Amer) 89.5 BUN/Creatinine Ratio 19.2 Glucose 108 H Calcium 8.4 L Troponin I 05/18/19 10:22 WBC RBC Hgb Hct MCV MCH MCHC RDW Std Deviation RDW Coeff of John Plt Count MPV Immature Gran % (Auto) Neut % (Auto) Lymph % (Auto) Mcleod % (Auto) Eos % (Auto) Baso % (Auto) Immature Gran # (Auto) Neut # (Auto) Lymph # (Auto) Mcleod # (Auto) Eos # (Auto) Baso # (Auto) Toxic Granulation Acanthocytes (Spur) Schistocytes PT INR Sodium Potassium Chloride Carbon Dioxide Anion Gap BUN Creatinine Est Cr Clr Drug Dosing Est GFR ( Amer) Est GFR (Non-Af Amer) BUN/Creatinine Ratio Glucose Calcium Troponin I 0.016 Diagnostic Findings Lumbar Spine X-ray 05/18/19 - IMPRESSION: 1. Moderate degenerative change throughout the entire lumbar region. 2. No acute process. 3. Potential cortical fracture sacrococcygeal junction with specific images of the sacrococ cygeal region suggested. Sacrum and Coccyx X-ray 05/18/19 - IMPRESSION: Nondisplaced cortical fracture sacrococcygeal junction. RUE Venous Doppler 05/18/19 - IMPRESSION: Near occlusive focal thrombus within the distal right basilic vein. Medications Administered Discontinued Medications Hydrocodone Bitart/Acetaminophen (Flint 5/325) 2 tab PO NOW STA Stop: 05/18/19 07:52 Last Admin: 05/18/19 08:04 Dose: 2 tab Documented by: [id number] Hydrocodone Bitart/Acetaminophen (Flint 5/325) 1 tab PO NOW STA Stop: 05/18/19 13:03 Last Admin: 05/18/19 13:26 Dose: 1 tab Documented by: [id number] Cyclobenzaprine HCl (Flexeril) 10 mg PO NOW STA Stop: 05/18/19 07:52 Last Admin: 05/18/19 08:04 Dose: 10 mg Documented by: [id number] Ketorolac Tromethamine (Toradol) 60 mg IM NOW STA Stop: 05/18/19 07:52 Last Admin: 05/18/19 08:04 Dose: 60 mg Documented by: [id number] Code Status & VTE Plan Code Status Pt requests to be full code as long as reasonable change of recovery. Declines to be on a ventilator long-term but willing to if only for a few days. VTE Prophylaxis Plan VTE Prophylaxis will be ordered: No Reason for no VTE drug order: Contraindicated (potential contraindication due to thrombocytopenia/concern for active blood loss with drop in H&H from last week. Await hem/onc opinion. ) Supervising Physician Co-Signing Physician Notes Pt was seen and examined. Agreed with Kinjal DONIS exam, assessment and plan. 69-year-old male with a PMH of CAD with history of CABG x3, HTN, HLD, CHF, PVD, AAA, BPH, history of non-Hodgkin's B-cell lymphoma neck 05/2013, chronic thrombocytopenia non smal cell lung carcinoma presented to ED with worsening intractable back and neck pain. He is also having righ hand pain and swelling. Xray sacrum/coccyx showed nondisplaced cortical fracture sacrococcygeal junction. Doppler of RUE showed near occlusive focal thrombus within the distal right basilic vein. Lab on admission showed low platelets 78 and hemoglobin 7.7. Case discussed with Oncology Dr. Cho advised not to start on anticoagulant due to thrombocytopenia and dropped in hemoglobin form 9.9 (on 05/05) to 7.[address] Cho said that in the past his platelet dropped as low in the 40's. Dr. Cho said that he would see him next week in the office. Currently pt is stable. Consider CTA chest to r/o any PE if pt develops any sign of PE such as SOB, tachycardia or chest pain. Currently denies any chest pain and SOB. PT/OT eval and fall precaution. Will monitor closely. MD Jose (1) DVT (deep venous thrombosis) Affected thrombotic vein of extremity: other upper extremity vein Chronicity: acute DVT location: upper extremity Laterality: right Qualified Code(s): I82.621 - Acute embolism and thrombosis of deep veins of right upper extremity (2) Lymphoma B-cell lymphoma type: unspecified B-cell Lymphoma site: unspecified region Lymphoma type: non-Hodgkin Non-Hodgkin lymphoma type: B-cell Qualified Code(s): C85.10 - Unspecified B-cell lymphoma, unspecified site (3) Sacral fracture Encounter type: initial encounter Fracture morphology: unspecified fracture morphology Fracture type: closed Qualified Code(s): S32.10XA - Unspecified fracture of sacrum, initial encounter for closed fracture
[2019-05-18] MEDS ORDERED: SODIUM CHLORIDE 0.9% 1000ML 1,000 ML IV SCH (18:00)
[2019-05-18] MEDS: HYDROCODONE/ACETAMOPHEN 5/325MG TAB PO PRN (20:00)
[2019-05-18] MEDS: TAMSULOSIN HCL 0.4 MG CAP PO SCH (20:01)
[2019-05-18] MEDS: METOPROLOL TARTRATE 25 MG TAB PO SCH (20:01)
[2019-05-18] MEDS ORDERED: METOPROLOL TARTRATE 25 MG TAB PO STA (23:23)
[2019-05-18 23:44] LABS: Magnesium 2.2 mg/dl (1.8-2.4)
[2019-05-19] MEDS: HYDROCODONE/ACETAMOPHEN 5/325MG TAB PO PRN ×4 (02:30→20:57)
[2019-05-19 05:43] LABS: Hemoglobin 7.6 g/dL (14.0-18.0); Mean Corpuscular Hemoglobin 28.9 pg (25-34); Mean Corpuscular Volume 87.5 fL (80-100); RDW Coefficient of Variation 17.8 % (11.5-14.5); RDW Standard Deviation 57.4 fL (36.4-46.3); Red Blood Count 2.63 M/uL (4.7-6.1); White Blood Count 1.91 K/uL (4.8-10.8)
[2019-05-19 06:04] LABS: Platelet Count 83 K/uL (130-400)
[2019-05-19 06:05] LABS: Immature Granulocytes # (auto) 0.01 K/uL (0.00-0.02); Immature Granulocytes % (auto) 0.5 %; Lymphocytes # (auto) 0.93 K/uL (1.2-3.4); Lymphocytes % (auto) 48.7 %; Monocytes # (auto) 0.38 K/uL (0.11-0.59); Monocytes % (auto) 19.9 %; Neutrophils # (auto) 0.59 K/uL (1.4-6.5); Neutrophils % (auto) 30.9 %
[2019-05-19 06:07] LABS: Albumin Level 2.1 gm/dl (3.4-5.0); BUN Creatinine Ratio 26.1 (10-20); Calcium 7.7 mg/dl (8.5-10.1); Creatinine Clr Calc Pharmacy 97.5 ml/min; Est GFR (African American) 113.7; Est GFR (Non-African American) 98.1; Potassium 4.5 mmol/L (3.5-5.1)
[2019-05-19 06:10] LABS: Albumin Globulin Ratio 0.5 (0.9-2); Bilirubin,Total 1.2 mg/dl (0.2-1); Globulin 3.9 gm/dl (2.5-4.0)
[2019-05-19 06:28] LABS: Giant Platelets 1+; Poikilocytosis Present
[2019-05-19] MEDS: ATORVASTATIN 40 MG TAB PO SCH (08:35)
[2019-05-19] MEDS: ASPIRIN 81 MG ECTAB PO SCH (08:35)
[2019-05-19] MEDS: METOPROLOL TARTRATE 25 MG TAB PO SCH ×2 (08:35→20:58)
[2019-05-19] MEDS ORDERED: SODIUM CHLORIDE 0.9% 250 ML IV PRN (09:20)
[2019-05-19] MEDS: LIDOCAINE 5% 1 PATCH TD SCH (10:45)
--- NOTE | 2019-05-19 13:06 | Hospitalist Progress Note ---
Date of Service May 19, 2019 Assessment & Plan (1) DVT (deep venous thrombosis): Present on admission with right upper extremity swelling and tenderness Doppler of RUE showed near-occlusive thrombus distal right basilic vein Case discussed with Hem/onc Dr. Cho about anticoagulant Dr. Cho advised not to start on anticoagulant due to thrombocytopenia and dropped in hemoglobin from 9.9 (on 05/05) to 7.7 Dr. Cho said that in the past his platelet dropped as low in the 40's. He recommended to continue aspirin Will continue monitor closely (2) Pancytopenia: Anemia Platelet 83, WBC 1.9 and Hgb 7.6 today type and cross and consent signed Will transfuse 1 unit PRBC No active sign of bleeding Monitor CBC Follow up with Hem/Onc next week (3) Sacral fracture: Back pain Mostly related to fall Sacrum xray showed nondisplaced cortical fracture sacrococcygeal junction. Xray Lumbar spine showed moderate degenerative change throughout the entire lumbar region. Continue pain control Fall precaution PT/OT (4) PAF (paroxysmal atrial fibrillation): On NSR with rate control Continue metoprolol and aspirin Not a candidate for anticoagulant due to low platelet and low hgb (5) CAD (coronary artery disease): Continue beta-nilton, aspirin. Stable (6) Mass of left lung: Mediastinoscopy with LN biopsies during last admission - path c/w metastatic non-small cell in 2/4 nodes, all nodes with chronic lymphocytic leukemia/small lymphocytic lymphoma Follow up with Dr. 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 (10) Malnutrition: Continue boost supplement DVT px on SCDS Disposition Will discharge home tomorrow CODE STATUS Full code Subjective Pt was seen and examined Lying in bed with no distress Pt said that he is having back pain He said that the pain med helped He said that his strength seems to improve slightly He is not very excited with the idea to go to rehab denies any chest pain, palpitation, dizziness and SOB Physical Exam Physical Exam: General- cachectic Head- atraumatic Eyes- PERRL, EOMI, ENT- oropharynx clear Neck- supple, no JVD Lungs- clear to auscultation Heart- regular rhythm; no murmur Abdomen- normal bowel sounds, soft, nontender Extremities- no calf tenderness Neuro- alert, oriented x 3; PERRL, EOMI; no facial palsy; no dysarthria Skin- warm & dry Results & Data Vital Signs (Past 12 Hours) Vital Signs Temp Pulse Resp BP Pulse Ox 05/19/19 11:08 36.8 C 78 17 91/55 L 93 05/19/19 07:31 37.0 C 94 H 19 120/56 L 94 05/19/19 03:43 37.2 C 86 22 107/52 L 94 (1) DVT (deep venous thrombosis) Affected thrombotic vein of extremity: other upper extremity vein Chronicity: acute DVT location: upper extremity Laterality: right Qualified Code(s): I82.621 - Acute embolism and thrombosis of deep veins of right upper extremity (2) Lymphoma B-cell lymphoma type: unspecified B-cell Lymphoma site: unspecified region Lymphoma type: non-Hodgkin Non-Hodgkin lymphoma type: B-cell Qualified Code(s): C85.10 - Unspecified B-cell lymphoma, unspecified site (3) Sacral fracture Encounter type: initial encounter Fracture morphology: unspecified fracture morphology Fracture type: closed Qualified Code(s): S32.10XA - Unspecified fracture of sacrum, initial encounter for closed fracture
[2019-05-19] MEDS: TAMSULOSIN HCL 0.4 MG CAP PO SCH (20:59)
[2019-05-19] MEDS ORDERED: KETOROLAC TROMETHAMINE 15 MG/ML VIAL IV ONE (23:55)
[2019-05-20] MEDS: TIZANIDINE HCL 4 MG TABLET PO PRN ×2 (00:36→08:32)
[2019-05-20 08:03] LABS: Hematocrit (blood only) 25.7 % (42-52); Hemoglobin 8.6 g/dL (14.0-18.0); Mean Corpuscular Hemoglobin 29.2 pg (25-34); Mean Corpuscular Hgb Conc 33.5 g/dL (32-36); Mean Corpuscular Volume 87.1 fL (80-100); RDW Coefficient of Variation 17.4 % (11.5-14.5); RDW Standard Deviation 55.3 fL (36.4-46.3); Red Blood Count 2.95 M/uL (4.7-6.1); White Blood Count 1.66 K/uL (4.8-10.8)
[2019-05-20 08:04] LABS: Mean Platelet Volume 9.2 fL (7.4-10.4); Platelet Count 83 K/uL (130-400)
[2019-05-20] MEDS: ATORVASTATIN 40 MG TAB PO SCH (08:31)
[2019-05-20] MEDS: METOPROLOL TARTRATE 25 MG TAB PO SCH (08:31)
[2019-05-20] MEDS: LIDOCAINE 5% 1 PATCH TD SCH (08:31)
[2019-05-20] MEDS: ASPIRIN 81 MG ECTAB PO SCH (08:31)
[2019-05-20] MEDS: HYDROCODONE/ACETAMOPHEN 5/325MG TAB PO PRN (08:34)
--- NOTE | 2019-05-20 12:24 | Hospitalist Progress Note ---
Date of Service May 20, 2019 Assessment & Plan (1) DVT (deep venous thrombosis): Present on admission with right upper extremity swelling and tenderness Doppler of RUE showed near-occlusive thrombus distal right basilic vein Case discussed with Hem/onc Dr. Cho about anticoagulant Dr. Cho advised not to start on anticoagulant due to thrombocytopenia and dropped in hemoglobin from 9.9 (on 05/05) to 7.7 Dr. Cho said that in the past his platelet dropped as low in the 40's. He recommended to continue aspirin for now Follow up with Hem/Onc and will reassess on anticoagulant if platelet and hgb improves. (2) Pancytopenia: Anemia Platelet 83, WBC 1.6 and Hgb 8.6 today type and cross and consent signed Received 1 unit PRBC today No active sign of bleeding Follow up with Hem/Onc next week Check CBC within 5 days (3) Sacral fracture: Back pain Mostly related to fall Sacrum xray showed nondisplaced cortical fracture sacrococcygeal junction. Xray Lumbar spine showed moderate degenerative change throughout the entire lumbar region. Does not want to go to rehab Continue pain control Fall precaution Continue PT/OT (4) PAF (paroxysmal atrial fibrillation): On NSR with rate control Continue metoprolol and aspirin Not a candidate for anticoagulant due to low platelet and low hgb (5) CAD (coronary artery disease): Continue beta-nilton, aspirin. Stable (6) Mass of left lung: Mediastinoscopy with LN biopsies during last admission - path c/w met astatic non-small cell in 2/4 nodes, all nodes with chronic lymphocytic leukemia/small lymphocytic lymphoma Follow up with Dr. 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 Cho on 05/30 @ 2:15 PM Follow up with your primary care provider Dr. Harris (Office will call you for the appointment) Subjective Pt was seen and examined Lying in bed with no distress Pt said he feels a little better He said that back pain/spasm improves after receiving the muscle relaxant He does not want to go to rehab Denies any chest pain, palpitation and SOB Physical Exam Physical Exam: General- cachectic Head- atraumatic Eyes- PERRL, EOMI, ENT- oropharynx clear Neck- supple, no JVD Lungs- clear to auscultation Heart- regular rhythm; no murmur Abdomen- normal bowel sounds, soft, nontender Extremities- no calf tenderness Neuro- alert, oriented x 3; PERRL, EOMI; no facial palsy; no dysarthria Skin- warm & dry Results & Data Vital Signs (Past 12 Hours) Vital Signs Temp Pulse Resp BP Pulse Ox 05/20/19 11:40 36.7 C 73 18 114/63 94 05/20/19 07:36 36.9 C 80 18 136/58 L 96 05/20/19 03:50 36.7 C 72 17 124/61 97 (1) DVT (deep venous thrombosis) Affected thrombotic vein of extremity: other upper extremity vein Chronicity: acute DVT location: upper extremity Laterality: right Qualified Code(s): I82.621 - Acute embolism and thrombosis of deep veins of right upper extremity (2) Lymphoma B-cell lymphoma type: unspecified B-cell Lymphoma site: unspecified region Lymphoma type: non-Hodgkin Non-Hodgkin lymphoma type: B-cell Qualified Code(s): C85.10 - Unspecified B-cell lymphoma, unspecified site (3) Sacral fracture Encounter type: initial encounter Fracture morphology: unspecified fracture morphology Fracture type: closed Qualified Code(s): S32.10XA - Unspecified fracture of sacrum, initial encounter for closed fracture
--- NOTE | 2019-05-21 09:00 | Discharge Summary ---
Date of Service May 20, 2019 Admission HPI Per Admitting Provider This is a 69-year-old male with a PMH of CAD with history of CABG x3, HTN, HLD, CHF, PVD, AAA, BPH, history of non-Hodgkin's B-cell lymphoma neck 05/2013, chronic thrombocytopenia (more recently pancytopenia) and new left lung mass who presented to ED with intractable back and neck pain. Pt was recently admitted to this facility from 04/30-05/06/19 with left lung mass, atrial fibrillation with RVR (converted with amiodarone to NSR), hypotension requiring pressors and symptomatic anemia/pancytopenia. Pt reports that since discharge he has overall done well. Followed up with CT surgery and PCP but has not yet seen oncology. He denies any falls since discharge. His appetite has been good and he is supplementing with Boost 2x/day. His labs were rechecked as outpatient and blood counts have been stable with no additional need for transfusion (received four units during last admission). He also saw orthopedics due to right shoulder issues. He reports that Dr. Badillo noted swelling of pt's RUE so he had the nurse wrap the area with an KEENAN wrap. Pt reports that he left the wrap in place for 3-4 days and when he removed it the area was less swollen. However, the swelling has gradually returned over the past couple days. Today, he presented to the ED with increased lower back pain and neck pain - initially attributed to sleeping in a different position from the shoulder pain. Tried Motrin x 1 and heat at home without significant relief. He reports that his initial pain was "15" out of 10 but is currently well-controlled and rates as 7/10. Pt was originally diagnosed with low-grade non-Hodgkin's lymphoma in April 2013 which has been managed conservatively. Prior to this month, his last visit with oncology (Dr. Cho) was 01/30/19 when he was noted to have an elevated LDH so a CT of chest/abdomen/pelvis were done and showed multiple small supraclavicular lymph nodes, increased in size, multiple enlarged mediastinal and hilar lymph nodes. Pulmonary emphysema, new ill-defined patchy opacities in lower lobes, subtle ill-defined groundglass opacities also seen throughout the lung, new since prior exam. Multiple large gastrohepatic, portal hepatic and retroperitoneal lymph nodes increased in size from prior exam, liver had mildly increased from 80.3 to 19.5 cm. Spleen has also increased in size from 12 cm to 16.3 cm. Stable infrarenal abdominal aortic aneurysm 3.[address] chest done 04/30/19 showed no PE; elevated right heart pressure; solid cavitary mass in the posterior basal left lower lobe, highly suspicious for primary bronchogenic neoplasm vs infection (less likely); mediastinal and hilater LAD highly suspicious for metastatic disease; left supraclavicular LAD; patchy predominant dependent infiltrates and tree-in-bud opacities (aspiration vs infection vs metastatic disease); background emphysema and bronchitis, evidence of smoking- related lung injury; splenomegaly. Pt was seen by CT surgery, Dr. Quinn, during admission and underwent mediastinoscopy with biopsy of multiple LN on 05/04/19. Pt followed up with CT surg on 05/16/19 to review pathology that showed CLL and non-small cell lung cancer per outpt note. Admission Exam Per Admitting Provider Review of Systems: All systems reviewed & are unremarkable except as noted in HPI & below Constitutional: + chills (on Wednesday for half a day), + fatigue and + weakness; no fever and no sweats Pt with a history of recent wt loss but is unsure today if his weight has been stable Eyes: no diplopia and no worsening vision Ear, Nose, Mouth, Throat: no ear pain, no nasal congestion, no sore throat and no dysphagia Respiratory: + cough and + sputum production (occasionally cough is productive of "mucus"); no chest congestion, no dyspnea on exertion, no hemoptysis and no wheezing Cardiovascular: + chest pain (last evening - described as burning discomfort. Took nitro and resolved) and + edema (RUE - denies LE edema. ); no palpitations, no lightheadedness, no syncope and no calf pain Gastrointestinal: + diarrhea/loose stools (pt related to taking tamsulosin - thinks this has been causing diarrhea so stopped this three days ago); no abdominal pain, no nausea, no vomiting, no blood in stools and no melena Genitourinary: + nocturia (chronic 2-3x/night); no dysuria, no urinary frequency and no hematuria Musculoskeletal: + back pain and + neck pain Integumentary: no rash and no non-healing lesions Neurologic: + falls (was admitted for frequent falls earlier this month - pt denies any new falls since ); no seizure-like activity, no dizziness, no syncope and no headache(s) Principal Diagnosis DVT (deep venous thrombosis) Sacral Fracture Pancytopenia PAF (paroxysmal atrial fibrillation) Chronic lymphocytic leukemia Hypertension BPH (benign prostatic hyperplasia) Discharge Exam General- cachectic Head- atraumatic Eyes- PERRL, EOMI, ENT- oropharynx clear Neck- supple, no JVD Lungs- clear to auscultation Heart- regular rhythm; no murmur Abdomen- normal bowel sounds, soft, nontender Extremities- no calf tenderness Neuro- alert, oriented x 3; PERRL, EOMI; no facial palsy; no dysarthria Skin- warm & dry Discharge Data Allergies Allergy/AdvReac Type Severity Reaction Status Date / Time No Known Drug Allergies Allergy Verified 05/18/19 08:09 Consultations 05/18/19 12:53 ED Decision to Admit Stat 05/18/19 15:14 Consult Oncology Routine Ordered Studies 05/18/19 10:04 US venous doppler UE RT Stat RIGHT UPPER EXTREMITY VENOUS DOPPLER HISTORY: Erythema, edema, pain right upper extremity COMPARISON STUDY: None. FINDINGS: The right internal jugular vein is patent. There is normal flow within the right subclavian vein. There is normal flow and compressibility within the right axillary, basilic, radial, ulnar, and visualized cephalic veins. Near occlusive focal thrombus seen within the distal right basilic vein. IMPRESSION: Near occlusive focal thrombus within the distal right basilic vein. Electronically signed by: David Lyon M.D. 05/18/2019 12:38 PM Dictated: 05/18/19 1237 Transcribed: 05/18/19 1237 XR sacrum coccyx min 2V CLINICAL HISTORY: Low back pain/abnormality seen on lumbar spine x-ray pain COMPARISON: None. DISCUSSION: Nondisplaced cortical fracture of the sacrococcygeal junction. Alignment is anatomic. Sacral foramina are symmetric. There is no evidence for soft tissue swelling. IMPRESSION: Nondisplaced cortical fracture sacrococcygeal junction. The above report was generated using voice recognition software. It may contain grammatical, syntax or spelling errors. Electronically signed by: Hipolito Haddad M.D. 05/18/2019 9:52 AM Dictated: 05/18/1951 Transcribed: 05/18/1952 XR lumbar spine min 4V routine HISTORY: Pain Low back pain/history of lung cancer COMPARISON: None. FINDINGS: Moderate degenerative disc changes throughout the entire lumbar region. Slight concavity superior endplate L2 and L1 felt to be nonacute. Considerable anterior and anterolateral osteophytic changes throughout. Lateral projection suggests a nondisplaced cortical fracture of the sacrococcygeal junction. Age is uncertain. No subluxation. Moderate degenerative disc changes throughout IMPRESSION: 1. Moderate degenerative change throughout the entire lumbar region. 2. No acute process. 3. Potential cortical fracture sacrococcygeal junction with specific images of the sacrococcygeal region suggested. The above report was generated using voice recognition software. It may contain grammatical, syntax or spelling errors. Electronically signed by: Hipolito Haddad M.D. 05/18/2019 8:50 AM Dictated: 05/18/19846 Transcribed: 05/18/19846 Hospital Course (1) DVT (deep venous thrombosis): Present on admission with right upper extremity swelling and tenderness Doppler of RUE showed near-occlusive thrombus distal right basilic vein Case discussed with Hem/onc Dr. Cho about anticoagulant Dr. Cho advised not to start on anticoagulant due to thrombocytopenia and dropped in hemoglobin from 9.9 (on 05/05) to 7.7 Dr. Cho said that in the past his platelet dropped as low in the 40's. He recommended to continue aspirin for now Follow up with Hem/Onc and will reassess on anticoagulant if platelet and hgb improves. (2) Pancytopenia: Anemia Platelet 83, WBC 1.6 and Hgb 8.6 today type and cross and consent signed Received 1 unit PRBC today No active sign of bleeding Follow up with Hem/Onc next week Check CBC within 5 days (3) Sacral fracture: Back pain Mostly related to fall Sacrum xray showed nondisplaced cortical fracture sacrococcygeal junction. Xray Lumbar spine showed moderate degenerative change throughout the entire lumbar region. Does not want to go to rehab Continue pain control Fall precaution Continue PT/OT (4) PAF (paroxysmal atrial fibrillation): On NSR with rate control Continue metoprolol and aspirin Not a candidate for anticoagulant due to low platelet and low hgb (5) CAD (coronary artery disease): Continue beta-nilton, aspirin. Stable (6) Mass of left lung: Mediastinoscopy with LN biopsies during last admission - path c/w metastatic non-small cell in 2/4 nodes, all nodes with chronic lymphocytic leukemia/small lymphocytic lymphoma Follow up with Dr. 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 Cho on 05/30 @ 2:15 PM Follow up with your primary care provider Dr. Harris (Office will call you for the appointment) Total Time Total Time Spent Total Time Spent (In Minutes): 35 minutes Total Time Includes: Examination of the Patient, Discharge Planning, Medication Reconciliation, Communication With Other Providers and Other Discharge Plan Discharge Items Patient Disposition: Home - Home Health Services Reason For Visit: RUE DVT, SACROCOCCYGEAL FRACTURE Discharge Diagnosis: DVT (deep venous thrombosis) Sacral Fracture Pancytopenia PAF (paroxysmal atrial fibrillation) Chronic lymphocytic leukemia Hypertension BPH (benign prostatic hyperplasia) Condition: Good Discharge Goals: Decrease discomfort Activity: Resume your previous activity Activity Comment: As tolerated Non-emergency contact: Primary Care Provider Call non-emergency contact if: you have any medication questions Follow-up/Referrals: Arjun Harris, [Primary Care Provider] - Diet: Heart Healthy Addtl Provider Instructions: Follow up with Oncology Dr. Cho on 05/30 @ 2:15 PM Follow up with your primary care provider Dr. Harris (Office will call you for the appointment) Continue physical and occupational therapy Fall precaution Check CBC within 1 week to check hemoglobin and platelet level Monitor for any abnormal bleeding such as blood in your stool and your urine Do not drive or operate any machine after taking narcotic Please hold next dose of hydrocodone if you become drowsy and lethargy Prescriptions: New tizanidine 4 mg Tablet 2 mg PO BID PRN (Reason: muscle spasticity) Qty: 30 RF: 0 hydrocodone-acetaminophen [Neoga] 5-325 mg Tablet 1 tab PO Q8H PRN (Reason: pain) Qty: 12 RF: 0 Continued atorvastatin 40 mg tablet 40 mg PO QAM RF: 0 nitroglycerin 0.4 mg tablet, sublingual 0.4 mg sublingual Q4H PRN (Reason: Angina) RF: 0 aspirin [Aspir-81] 81 mg Tablet,Delayed Release (Dr/Ec) 162 mg PO DAILY RF: 0 tamsulosin 0.4 mg Capsule 0.4 mg PO HS 30 Days Qty: 30 RF: 0 metoprolol tartrate 25 mg Tablet 12.5 mg PO BID 30 Days Qty: 30 RF: 0 Stand-Alone Forms: [facility], [facility] Discharge Orders: Discharge Order (Routine); Ordered 05/20/19 Ordered By: Memo Garcia Admission Data Admit Date/Time: 05/18/19 13:52 Attending Provider: Memo Garcia Admit Provider: Memo Garcia Primary Care Provider: Arjun Harris Other Providers: Janae Isidro ; Julissa Cho Service: Telemetry Other Interventions: Discharge Summary Assessment (RN) Last Done: 05/20/19 13:18 DC Date/Time DO NOT enter until pt leaves facility: 05/20/19 15:00
== END 2019-05-20 15:00 | disposition home health service (06) | DRG 300 ==
LOC: ED 07:28 → 2S 13:52

== ENCOUNTER 2019-07-02 20:56 | Inpatient (IN) ==
[2019-07-02] MEDS ORDERED: SODIUM CHLORIDE 0.9% 1000ML 500 ML IV ONE (21:56)
--- NOTE | 2019-07-02 22:14 | XRay Report ---
XR chest 1V portable CLINICAL HISTORY: Sepsis COMPARISON STUDY: 05/04/2019 FINDINGS: There are postsurgical changes of a midline sternotomy. There are asymmetric increased inte rstitial markings, likely representing asymmetric edema. There is an increasing left lower lung zone opacity. There are no significant pleural effusions. IMPRESSION: 1. Slight enlargement in the left lower lobe opacity. This is likely neoplastic 2. Asymmetric right lung edema pattern. While likely representing asymmetric cardiogenic edema, and i nterstitial infectious or inflammatory processes could appear similar Electronically signed by: Fuad Carpenter M.D. 07/02/2019 10:13 PM
[2019-07-02 23:03] LABS: Hematocrit (blood only) 18.2 % (42-52); Hemoglobin 6.1 g/dL (14.0-18.0); Mean Corpuscular Hemoglobin 30.7 pg (25-34); Mean Corpuscular Hgb Conc 33.5 g/dL (32-36); Mean Corpuscular Volume 91.5 fL (80-100); Mean Platelet Volume 10.1 fL (7.4-10.4); Platelet Count 141 K/uL (130-400); RDW Coefficient of Variation 20.8 % (11.5-14.5); Red Blood Count 1.99 M/uL (4.7-6.1); White Blood Count 3.59 K/uL (4.8-10.8)
[2019-07-02] MEDS ORDERED: fentaNYL citrate 100 MCG/2 ML VIAL IV STA (23:03)
[2019-07-02 23:10] LABS: Alanine Aminotransferase 55 U/L (12-78); Aspartate Aminotransferase 92 U/L (15-37); BUN Creatinine Ratio 34.6 (10-20); Blood Urea Nitrogen 24 mg/dl (7-18); Calcium 8.5 mg/dl (8.5-10.1); Carbon Dioxide 25 mmol/L (21-32); Chloride 92 mmol/L (98-107); Creatinine Clr Calc Pharmacy 96.1 ml/min; Est GFR (African American) 111.7; Est GFR (Non-African American) 96.4; Glucose 108 mg/dl (70-99); INR 1.3 (0.9-1.1); Partial Thromboplastin Ratio 1.3; Partial Thromboplastin Time 35.9 Seconds (21.0-31.0); Potassium 4.7 mmol/L (3.5-5.1); Prothrombin Time 13.2 Seconds (9.0-12.0); Sodium 126 mmol/L (136-145)
[2019-07-02] MEDS ORDERED: SODIUM CHLORIDE 0.9% 250 ML IV PRN (23:11)
[2019-07-02 23:24] LABS: Albumin Globulin Ratio 0.5 (0.9-2); Alkaline Phosphatase 393 U/L (45-117); Bilirubin,Total 2.6 mg/dl (0.2-1); Creatine Kinase 332 U/L (39-308); Globulin 4.3 gm/dl (2.5-4.0); Total Protein 6.3 gm/dl (6.4-8.2)
[2019-07-02] MEDS ORDERED: IOVERSOL 100ml IV PRN (23:44)
[2019-07-02 23:59] LABS: ALC (manual) 1.78 K/uL (1.2-3.4); ANC (manual) 1.59 K/uL (1.4-6.5); Acanthocytes 1+; Anisocytosis Present; Lymphocytes # (manual) 1.78 K/uL (1.2-3.4); Lymphocytes % (manual) 49.6 %; Monocytes # (manual) 0.19 K/uL (0.11-0.59); Monocytes % (manual) 5.2 %; Neutrophils # (manual) 1.59 K/uL (1.4-6.5); Neutrophils % (manual) 44.3 %; Promyelocytes # (manual) 0.03 K/uL (0-0); Promyelocytes % (manual) 0.9 %
[2019-07-03] MEDS ORDERED: cefTRIAXone SODIUM 2,000 MG/70 ML BAG IV STA (00:01)
--- NOTE | 2019-07-03 00:01 | Emergency Department Note ---
ED Visit Note Patient was seen and evaluated at the bedside w/ Catherine Barnett PA-C . Please see their note for history, physical, details, and disposition. Patient apparently is on hospice but was brought to the emergency department due to declining care. There is a concern of possible negligence there was a concern about the possibility of the grandson stealing the patient's morphine. The patient does have multiple medical comorbidities but is DNR/DNI. The power of staff attorney is requesting that the patient received full care. Patient was consented for blood did have blood work completed positive troponin. No chest pains. . : Myocardial infarction Qualifiers: Myocardial infarction type: unspecified Involved coronary artery: unspecified coronary artery Qualified Code(s): I21.9 - Acute myocardial infarction, unspecified
--- NOTE | 2019-07-03 00:11 | Emergency Department Note ---
History of Present Illness General Chief complaint: Illness Stated complaint: GENERALIZED PAIN, LOWER BACK PAIN History of Present Illness Maximum Pain Intensity: 8 This 69-year-old presents to the ER complaining of increasing weakness body aches who is on hospice for lung cancer with metastases Location: Generalized Quality: Aching Severity: Moderate Duration: Past few days Timing: Patient fell out of bed the other day and has been getting worse Context: Family was concerned and brought him in Modifying factors: better with rest; worse with activity Patient states his hospice nurse gives him his medications but is not there daily. Sometimes his [id number] gives him his medications. He is unsure what he is supposed to take. Patient denies chest pain, neck pain, abdominal pain, fever, chills. He states is tolerating p.o. fluids but has a decreased appetite. He has required blood transfusions in the past. He has a history of thrombocytopenia. He has a DVT in the right arm. This is treated with aspirin. Home Medications Home Medications Medication Instructions Recorded Confirmed Type atorvastatin 40 mg PO QAM 03/07/19 07/02/19 History nitroglycerin 0.4 mg SUBLINGUAL Q4H PRN 03/07/19 07/02/19 History aspirin [Aspir-81] 162 mg PO DAILY 04/30/19 07/02/19 History hydrocodone-acetaminophen [[place]] 1 tab PO Q8H PRN #12 tab 05/20/19 07/02/19 Rx tizanidine 2 mg PO BID PRN #30 tab 05/20/19 07/02/19 Rx docusate sodium 100 mg PO BID 07/02/19 07/02/19 History metoprolol succinate 12.5 mg PO QAM 07/02/19 07/02/19 History polyethylene glycol 3350 [Miralax] 17 g PO DIRECTED PRN 07/02/19 07/02/19 History tamsulosin 0.4 mg PO HS 07/02/19 07/02/19 History Allergies Allergy/AdvReac Type Severity Reaction Status Date / Time No Known Drug Allergies Allergy Verified 07/02/19 21:36 Past Med/Surg History Medical History Peripheral vascular disease (Chronic) Pancytopenia A-fib With rapid rate requiring pressers until converted Mass of left lung HLD (hyperlipidemia) (Chronic) Tobacco abuse (Chronic) HTN (hypertension) (Chronic) BPH (benign prostatic hyperplasia) (Chronic) Heart failure (Chronic) PAD (peripheral artery disease) (Chronic) Lymphoma (Chronic) tx with lymph node resection in 2012 AAA (abdominal aortic aneurysm) (Chronic) Cervical stenosis of spinal canal (Resolved) Anemia Surgical History History of fusion of cervical spine (Chronic) History of appendectomy (Chronic) S/P CABG x 3 (Chronic) S/P carotid endarterectomy (Chronic) Family History Mother Choked on food per pt history Father , unknown medical problems No problems noted. Brother Coronary heart disease massive [place] age 61 Social History Preferred Language: Peruvian Communication Ability: Effective Beliefs That Will Affect Care: None marital status: Current Living Situation: Spouse and Family Current Living Situation Comment: Lives with , grandson Feels Safe at Home: Yes Smoking Status: Current every day smoker Tobacco Type: cigarettes ; packs per day: 1 ; Cigarettes Per Day: 10 ; Hx Alcohol Use: No Hx Substance Use: No Review of Systems All systems reviewed & are unremarkable except as noted in HPI & below Physical Exam Vital Signs Vital Signs - 24 hr 07/02/19 21:08 07/02/19 21:13 07/02/19 21:21 Temperature 36.4 C L Temperature Source Oral Sepsis Recent Fever Within 48 Hours No Sepsis New/Unexplained Change in Mental Status No Sepsis Action Taken by Nursing No Action Required Pulse Rate 110 H 118 H Pulse Rate from SpO2 Sensor 108 H Pulse Rhythm Regular Pulse Strength Normal Respiratory Rate 21 19 Respiratory Effort / Characteristics Non-Labored Respiratory Depth Normal Blood Pressure 105/58 L 105/58 L Blood Pressure Mean 73 73 Pulse Oximetry 96 98 98 Oxygen Delivery Method Room Air Room Air 07/02/19 21:47 07/02/19 22:00 07/02/19 22:30 Temperature Temperature Source Sepsis Recent Fever Within 48 Hours Sepsis New/Unexplained Change in Mental Status Sepsis Action Taken by Nursing Pulse Rate 113 H 110 H 111 H Pulse Rate from SpO2 Sensor 107 H 108 H Pulse Rhythm Pulse Strength Respiratory Rate 21 21 20 Respiratory Effort / Characteristics Respiratory Depth Blood Pressure 110/57 L 99/64 L 98/62 L Blood Pressure Mean 74 75 74 Pulse Oximetry 93 96 Oxygen Delivery Method 07/02/19 23:00 07/02/19 23:30 07/02/19 23:34 Temperature Temperature Source Sepsis Recent Fever Within 48 Hours Sepsis New/Unexplained Change in Mental Status Sepsis Action Taken by Nursing Pulse Rate 113 H 104 H 105 H Pulse Rate from SpO2 Sensor 110 H 104 H Pulse Rhythm Pulse Strength Respiratory Rate 28 H 19 21 Respiratory Effort / Characteristics Respiratory Depth Blood Pressure 93/56 L 78/55 L 92/54 L Blood Pressure Mean 68 62 66 Pulse Oximetry 95 94 Oxygen Delivery Method 07/02/19 23:45 07/02/19 23:58 07/03/19 00:00 Temperature Temperature Source Sepsis Recent Fever Within 48 Hours Sepsis New/Unexplained Change in Mental Status Sepsis Action Taken by Nursing Pulse Rate 99 H 104 H Pulse Rate from SpO2 Sensor 101 H 103 H Pulse Rhythm Pulse Strength Respiratory Rate 24 24 Respiratory Effort / Characteristics Respiratory Depth Blood Pressure 96/56 L 91/54 L Blood Pressure Mean 69 66 Pulse Oximetry 94 92 100 Oxygen Delivery Method Room Air 07/03/19 00:30 07/03/19 00:39 07/03/19 01:00 Temperature Temperature Source Sepsis Recent Fever Within 48 Hours Sepsis New/Unexplained Change in Mental Status Sepsis Action Taken by Nursing Pulse Rate 99 H 98 H 105 H Pulse Rate from SpO2 Sensor 98 H 106 H Pulse Rhythm Pulse Strength Respiratory Rate 26 H 20 25 H Respiratory Effort / Characteristics Respiratory Depth Blood Pressure 92/56 L 99/55 L 102/60 Blood Pressure Mean 68 69 74 Pulse Oximetry 94 97 Oxygen Delivery Method 07/03/19 01:37 07/03/19 01:40 07/03/19 02:00 Temperature 36.9 C Temperature Source Oral Sepsis Recent Fever Within 48 Hours Sepsis New/Unexplained Change in Mental Status Sepsis Action Taken by Nursing Pulse Rate 100 H 102 H 108 H Pulse Rate from SpO2 Sensor 101 H 102 H Pulse Rhythm Pulse Strength Respiratory Rate 17 27 H 22 Respiratory Effort / Characteristics Respiratory Depth Blood Pressure 91/53 L 85/58 L 96/64 L Blood Pressure Mean 65 67 74 Pulse Oximetry 97 93 Oxygen Delivery Method 07/03/19 02:20 07/03/19 02:35 Temperature 36.4 C L 36.7 C Temperature Source Oral Oral Sepsis Recent Fever Within 48 Hours Sepsis New/Unexplained Change in Mental Status Sepsis Action Taken by Nursing Pulse Rate 110 H 106 H Pulse Rate from SpO2 Sensor Pulse Rhythm Pulse Strength Respiratory Rate 23 24 Respiratory Effort / Characteristics Respiratory Depth Blood Pressure 95/57 L 110/67 Blood Pressure Mean 69 81 Pulse Oximetry 99 95 Oxygen Delivery Method VITALS: Vitals are noted on the nurse's note and reviewed by myself. Vital signs hypertensive and tachycardic. GENERAL: Elderly male pale appearing, in no acute distress, nondiaphoretic SKIN: The skin was without rashes, erythema, edema, or bruising. There is no tenting of the skin. Capillary reflex less than 2 seconds. Stage I pressure ulcer to the sacral region without signs of infection. HEAD: Normocephalic atraumatic. EARS: External auditory canals clear, tympanic membranes pearly alegre without erythema or effusion bilaterally. EYES: Pupils equal round and reactive to light and accommodation. Conjunctivae without injection, sclerae with slight icterus. Extraocular movements intact. NOSE: Patent, turbinates without inflammation or discharge. No sinus tenderness. MOUTH: Mucous membranes moist. Pharynx without erythema or exudate. Uvula midline. Airway patent. Tongue does not deviate. NECK: Supple without nuchal rigidity. No lymphadenopathy. No thyromegaly. Cervical spine is nontender. No JVD. HEART: Regular rate and rhythm LUNGS: Mild diffuse and expiratory wheezes. No retractions or accessory muscle use. ABDOMEN: Positive bowel sounds x 4. Normal tympanic percussion. Soft, minimally tender diffusely without localized pain, without masses or organomegaly. Rodrigez sign negative. No guarding or rebound tenderness. No CVA tenderness MUSCULOSKELETAL: No muscle atrophy, erythema noted. Pedal edema present. NEURO: Patient was alert and oriented to person place and time. Normal sensation to light and sharp touch. No focal neurological deficits. Course Administered Medications Ioversol (Optiray 320 100ml) 93 ml IV ONCE PRN PRN Reason: Interaction Checking Stop: 07/06/19 23:43 Last Admin: 07/02/19 23:45 Dose: 93 ml Documented by: [id number] Discontinued Medications Fentanyl Citrate (Fentanyl Citrate) 50 mcg IV NOW STA Stop: 07/02/19 23:04 Last Admin: 07/02/19 23:11 Dose: 50 mcg Documented by: [id number] Fentanyl Citrate (Fentanyl Citrate) 50 mcg IV NOW STA Stop: 07/03/19 00:28 Last Admin: 07/03/19 00:40 Dose: 50 mcg Documented by: [id number] Sodium Chloride (Nss 1000ml) 500 mls @ 999 mls/hr IV .Q31M ONE Stop: 07/02/19 22:26 Last Infusion: 07/03/19 00:57 Dose: 0 mls/hr Documented by: [id number] Admin: 07/02/19 22:15 Dose: 999 mls/hr Documented by: [id number] Sodium Chloride (Nss 1000ml) 500 mls @ 999 mls/hr IV .Q31M ONE Stop: 07/03/19 00:46 Last Infusion: 07/03/19 01:16 Dose: 0 mls/hr Documented by: [id number] Admin: 07/03/19 00:45 Dose: 999 mls/hr Documented by: [id number] Piperacillin Sod/Tazobactam Sod (Zosyn) 4.5 gm in 120 mls @ 240 mls/hr IV NOW ONE Stop: 07/03/19 00:45 Last Infusion: 07/03/19 01:16 Dose: 0 mls/hr Documented by: [id number] Admin: 07/03/19 00:43 Dose: 240 mls/hr Documented by: [id number] Sodium Chloride (Nss) 250 mls @ 999 mls/hr IV .Q16M ONE Stop: 07/03/19 02:08 Last Infusion: 07/03/19 02:19 Dose: 0 mls/hr Documented by: [id number] Admin: 07/03/19 01:45 Dose: 999 mls/hr Documented by: [id number] Medical Decision Making Medical Records Attestation: I reviewed the patient's medical records. Home Medications Current Medication List: was personally reviewed by me Laboratory Data Attestation: I reviewed the patient's lab results. Result diagrams: 07/02/19 22:30 07/02/19 22:30 Lab Results 07/02/19 07/02/19 07/02/19 Range/Units 22:30 22:30 22:30 WBC 3.59 L (4.8-10.8) K/uL RBC 1.99 L (4.7-6.1) M/uL Hgb 6.1 L* (14.0-18.0) g/dL Hct 18.2 L* (42-52) % MCV 91.5 (80-100) fL MCH 30.7 (25-34) pg MCHC 33.5 (32-36) g/dL RDW Std Deviation 69.0 H (36.4-46.3) fL RDW Coeff of John 20.8 H (11.5-14.5) % Plt Count 141 (130-400) K/uL MPV 10.1 (7.4-10.4) fL Neutrophils % (Manual) 44.3 % Lymphocytes % (Manual) 49.6 % Monocytes % (Manual) 5.2 % Promyelocytes % (Man) 0.9 % Neutrophils # (Manual) 1.59 (1.4-6.5) K/uL Total Absolute Neuts 1.59 (1.4-6.5) K/uL Lymphocytes # (Manual) 1.78 (1.2-3.4) K/uL Total Abs Lymphocytes 1.78 (1.2-3.4) K/uL Monocytes # (Manual) 0.19 (0.11-0.59) K/uL Promyelocytes # (Man) 0.03 H (0-0) K/uL Anisocytosis Present Acanthocytes (Spur) 1+ PT 13.2 H (9.0-12.0) Seconds INR 1.3 H (0.9-1.1) APTT 35.9 H (21.0-31.0) Seconds PTT Ratio 1.3 Sodium (136-145) mmol/L Potassium (3.5-5.1) mmol/L Chloride (98-107) mmol/L Carbon Dioxide (21-32) mmol/L Anion Gap (3-11) BUN (7-18) mg/dl Creatinine (0.6-1.4) mg/dl Est Cr Clr Drug Dosing ml/min Est GFR ( Amer) Est GFR (Non-Af Amer) BUN/Creatinine Ratio (10-20) Glucose (70-99) mg/dl Osmolality (280-300) mOsm/kg Lactate (0.4-2.0) mmol/L Calcium (8.5-10.1) mg/dl Magnesium (1.8-2.4) mg/dl Total Bilirubin (0.2-1) mg/dl AST (15-37) U/L ALT (12-78) U/L Alkaline Phosphatase (45-117) U/L Total Creatine Kinase (39-308) U/L Troponin I (0-0.045) ng/ml NT-Pro-B Natriuret Pep (0-900) pg/ml Total Protein (6.4-8.2) gm/dl Albumin (3.4-5.0) gm/dl Globulin (2.5-4.0) gm/dl Albumin/Globulin Ratio (0.9-2) Procalcitonin 0.68 H (0-0.5) ng/ml Urine Color Urine Appearance (Clear) Urine pH (4.5-7.5) Ur Specific [place] (1.000-1.030) Urine Protein (Negative) Urine Glucose (UA) (Negative) Urine Ketones (Negative) Urine Blood (Negative) Urine Nitrite (Negative) Urine Bilirubin (Negative) Urine Urobilinogen (Negative) Ur Leukocyte Esterase (Negative) Urine WBC (Auto) (0-5) /hpf Urine RBC (Auto) (0-4) /hpf U Hyaline Cast (Auto) (0-5) /lpf U Epithel Cells (Auto) (0-5) /lpf Urine Bacteria (Auto) (Negative) Urine Yeast Urine Opiates Screen (Neg) Ur Methadone, Qual (Neg) Urine Barbiturates (Neg) Ur Phencyclidine (PCP) (Neg) U Amphetamin/Meth Scrn (Neg) MDMA (Ecstasy) Screen (Neg) U Benzodiazepines Scrn (Neg) Ur Cocaine Metabolite (Neg) U Marijuana (THC) Screen (Neg) Blood Type Antibody Screen Crossmatch 07/02/19 07/02/19 07/02/19 Range/Units 22:30 22:30 22:30 WBC (4.8-10.8) K/uL RBC (4.7-6.1) M/uL Hgb (14.0-18.0) g/dL Hct (42-52) % MCV (80-100) fL MCH (25-34) pg MCHC (32-36) g/dL RDW Std Deviation (36.4-46.3) fL RDW Coeff of John (11.5-14.5) % Plt Count (130-400) K/uL MPV (7.4-10.4) fL Neutrophils % (Manual) % Lymphocytes % (Manual) % Monocytes % (Manual) % Promyelocytes % (Man) % Neutrophils # (Manual) (1.4-6.5) K/uL Total Absolute Neuts (1.4-6.5) K/uL Lymphocytes # (Manual) (1.2-3.4) K/uL Total Abs Lymphocytes (1.2-3.4) K/uL Monocytes # (Manual) (0.11-0.59) K/uL Promyelocytes # (Man) (0-0) K/uL Anisocytosis Acanthocytes (Spur) PT (9.0-12.0) Seconds INR (0.9-1.1) APTT (21.0-31.0) Seconds PTT Ratio Sodium 126 L (136-145) mmol/L Potassium 4.7 (3.5-5.1) mmol/L Chloride 92 L (98-107) mmol/L Carbon Dioxide 25 (21-32) mmol/L Anion Gap 9.0 (3-11) BUN 24 H (7-18) mg/dl Creatinine 0.71 (0.6-1.4) mg/dl Est Cr Clr Drug Dosing 96.1 ml/min Est GFR ( Amer) 111.7 Est GFR (Non-Af Amer) 96.4 BUN/Creatinine Ratio 34.6 H (10-20) Glucose 108 H (70-99) mg/dl Osmolality 264 L (280-300) mOsm/kg Lactate 1.3 (0.4-2.0) mmol/L Calcium 8.5 (8.5-10.1) mg/dl Magnesium 2.0 (1.8-2.4) mg/dl Total Bilirubin 2.6 H (0.2-1) mg/dl AST 92 H (15-37) U/L ALT 55 (12-78) U/L Alkaline Phosphatase 393 H (45-117) U/L Total Creatine Kinase 332 H (39-308) U/L Troponin I 7.000 H* (0-0.045) ng/ml NT-Pro-B Natriuret Pep > 29532 H (0-900) pg/ml Total Protein 6.3 L (6.4-8.2) gm/dl Albumin 2.0 L (3.4-5.0) gm/dl Globulin 4.3 H (2.5-4.0) gm/dl Albumin/Globulin Ratio 0.5 L (0.9-2) Procalcitonin (0-0.5) ng/ml Urine Color Urine Appearance (Clear) Urine pH (4.5-7.5) Ur Specific [place] (1.000-1.030) Urine Protein (Negative) Urine Glucose (UA) (Negative) Urine Ketones (Negative) Urine Blood (Negative) Urine Nitrite (Negative) Urine Bilirubin (Negative) Urine Urobilinogen (Negative) Ur Leukocyte Esterase (Negative) Urine WBC (Auto) (0-5) /hpf Urine RBC (Auto) (0-4) /hpf U Hyaline Cast (Auto) (0-5) /lpf U Epithel Cells (Auto) (0-5) /lpf Urine Bacteria (Auto) (Negative) Urine Yeast Urine Opiates Screen (Neg) Ur Methadone, Qual (Neg) Urine Barbiturates (Neg) Ur Phencyclidine (PCP) (Neg) U Amphetamin/Meth Scrn (Neg) MDMA (Ecstasy) Screen (Neg) U Benzodiazepines Scrn (Neg) Ur Cocaine Metabolite (Neg) U Marijuana (THC) Screen (Neg) Blood Type Antibody Screen Crossmatch 07/02/19 07/02/19 07/02/19 Range/Units 23:22 23:38 23:38 WBC (4.8-10.8) K/uL RBC (4.7-6.1) M/uL Hgb (14.0-18.0) g/dL Hct (42-52) % MCV (80-100) fL MCH (25-34) pg MCHC (32-36) g/dL RDW Std Deviation (36.4-46.3) fL RDW Coeff of John (11.5-14.5) % Plt Count (130-400) K/uL MPV (7.4-10.4) fL Neutrophils % (Manual) % Lymphocytes % (Manual) % Monocytes % (Manual) % Promyelocytes % (Man) % Neutrophils # (Manual) (1.4-6.5) K/uL Total Absolute Neuts (1.4-6.5) K/uL Lymphocytes # (Manual) (1.2-3.4) K/uL Total Abs Lymphocytes (1.2-3.4) K/uL Monocytes # (Manual) (0.11-0.59) K/uL Promyelocytes # (Man) (0-0) K/uL Anisocytosis Acanthocytes (Spur) PT (9.0-12.0) Seconds INR (0.9-1.1) APTT (21.0-31.0) Seconds PTT Ratio Sodium (136-145) mmol/L Potassium (3.5-5.1) mmol/L Chloride (98-107) mmol/L Carbon Dioxide (21-32) mmol/L Anion Gap (3-11) BUN (7-18) mg/dl Creatinine (0.6-1.4) mg/dl Est Cr Clr Drug Dosing ml/min Est GFR ( Amer) Est GFR (Non-Af Amer) BUN/Creatinine Ratio (10-20) Glucose (70-99) mg/dl Osmolality (280-300) mOsm/kg Lactate (0.4-2.0) mmol/L Calcium (8.5-10.1) mg/dl Magnesium (1.8-2.4) mg/dl Total Bilirubin (0.2-1) mg/dl AST (15-37) U/L ALT (12-78) U/L Alkaline Phosphatase (45-117) U/L Total Creatine Kinase (39-308) U/L Troponin I (0-0.045) ng/ml NT-Pro-B Natriuret Pep (0-900) pg/ml Total Protein (6.4-8.2) gm/dl Albumin (3.4-5.0) gm/dl Globulin (2.5-4.0) gm/dl Albumin/Globulin Ratio (0.9-2) Procalcitonin (0-0.5) ng/ml Urine Color Dark Yellow Urine Appearance Cloudy A (Clear) Urine pH 5.0 (4.5-7.5) Ur Specific [place] 1.020 (1.000-1.030) Urine Protein Negative (Negative) Urine Glucose (UA) Negative (Negative) Urine Ketones Negative (Negative) Urine Blood 2+ H (Negative) Urine Nitrite Positive A (Negative) Urine Bilirubin 2+ H (Negative) Urine Urobilinogen Positive H (Negative) Ur Leukocyte Esterase 1+ H (Negative) Urine WBC (Auto) 5-10 H (0-5) /hpf Urine RBC (Auto) 0-4 (0-4) /hpf U Hyaline Cast (Auto) 5-10 H (0-5) /lpf U Epithel Cells (Auto) 10-20 H (0-5) /lpf Urine Bacteria (Auto) 1+ H (Negative) Urine Yeast Not Reportable Urine Opiates Screen Pos H (Neg) Ur Methadone, Qual Neg (Neg) Urine Barbiturates Neg (Neg) Ur Phencyclidine (PCP) Neg (Neg) U Amphetamin/Meth Scrn Neg (Neg) MDMA (Ecstasy) Screen Neg (Neg) U Benzodiazepines Scrn Neg (Neg) Ur Cocaine Metabolite Neg (Neg) U Marijuana (THC) Screen Neg (Neg) Blood Type A Positive Antibody Screen NEGATIVE Crossmatch See Detail Imaging Data Attestation: I personally reviewed and interpreted this imaging study as follows: Blood Pressure Blood Pressure Findings: Low blood pressure MDM Narrative Prior records/ancillary studies reviewed and summarized above. Nursing notes reviewed. Additional history obtained from family. The patient's history was concerning for increasing fatigue, bone pain who fell a few days ago who is on hospice for terminal lung cancer. Differential diagnosis: Etiologies such as metabolic, progression of cancer, infection, hypo/hyperglycemia, electrolyte abnormalities, cardiac sources, intracerebral event, toxicologic, neurologic, as well as others were entertained. Physical examination: As above. ER treatment provided: IV Lock IV fluids, Zosyn, RBCs On reassessment the patient felt better. Diagnostics interpretation by me: ECG: Ordered for weakness EKG: Normal sinus, ST depression in the anterior lateral leads, normal intervals, EKG compared to prior EKG: Impression normal sinus rhythm with ST depression in the lateral leads interpreted by myself I think arrhythmia is unlikely. EKG shows normal sinus rhythm with no interval abnormalities such as QT prolongation or WPW. There are no findings to suggest Brugada syndrome. Cardiac monitoring in the emergency department reveals no tachycardic or bradycardic dysrhythmia. Hypertrophic cardiomyopathy was considered but there are no clear historical elements pointing toward this. EKG is not suggestive. The QRS voltage is not extremely large and there are no suggestive Q waves. The labs revealed severe anemia and patient was consented to blood. Paperwork was filled out and placed on chart. Elevated troponin. Patient's EKG does not show ischemia. Patient is not a candidate for interventional treatment. Urine concerning for infection and sent for culture Imaging studies: CT ABDOMEN & PELVIS With Contrast: Axial images only. No reformatted sagittal or coronal images. Mass in the left lung base measuring approximate 4.2 cm. Pulmonary emphysema. Basilar atelectasis/pneumonitis. Old granulomatous disease. Cholelithiasis and gallbladder wall thickening-edema. Splenomegaly. Abdominal aortic aneurysm measuring 3.6 cm. Diffuse atherosclerotic disease Severe atrophy of the right kidney. Bejarano catheter. Presumed appendectomy. Correlate. No colitis or bowel obstruction. Radiologist: Bud Diallo M.D. Negative Head CT scan per Stat radiology The patient's family is requesting that we manage his symptoms and give antibiotics, fluids and blood to treat. They do not want him intubated or CPR. I did inform the family that he most likely is suffering from a heart attack but is not a candidate for treatment interventionally and they understand this. Patient is on hospice but the family and patient would like everything done today besides intubation and CPR. Consultation: A consultation was placed with the hospitalist, Dr Wheatley. The case was discussed and diagnostics were reviewed. The patient was evaluated in the ER for further treatment. CURB Score: Confusion: 0 Urea (BUN > 19): 1 Respiratory Rate (>30/min): 0 Blood Pressure: Diastolic <60 or Systolic <90 1 Age (>= 65) 1 Total (0-1 low risk, 2-5 high risk): 3 HEART SCORE: Hx: high/mod/low suspicion: 1 ECG: ST depression/nonspecific changes/normal: 2 Age: Greater than 65/45-64/less than 45: 2 Risk factors: (Hypertension, hyperlipidemia, diabetes, coronary disease, tobacco use, cocaine use): 2 Troponin: Greater than 2 times normal limits/1-2 times normal limits/normal: 2 Total: 7 Exam and history seem consistent with severe anemia, non-STEMI, pneumonia, UTI and possible infected gallbladder. Patient was started on antibiotics. He was typed and crossmatch. He was hypotensive and given fluids and the blood pressure came up. Blood cultures are pending. Negative lactic acid. Sodium was low. Patient was given fluids. Patient and family are agreeable to treatment plan of admission. Medicine was consulted. Curb score was high. Patient was given Zosyn. He was admitted. Heart score was elevated. Troponin was positive. Patient had an abnormal EKG. By the evaluation outlined above emergent etiologies such as intracerebral event, toxologic, neurologic, abnormalities blood glucose, metabolic, as well as others were deemed relatively unlikely. The pt informed about the findings as listed above. All questions were answered and pleased with the treatment. Case reviewed with my attending The chart was completed utilizing [employer] voice recognition software. Grammatical errors, random word insertions, pronoun errors, and incomplete sentences are an occassional consequence of this system due to software limitations, ambient noise, and hardware issues. Any formal questions or concerns about the content, text, or information contained within the body of this dictation should be directly addressed to the physician assistant to the dean for clarification. Impression & Plan Myocardial infarction, Pneumonia, Anemia, Acute hyponatremia Discharge Plan Visit Data Chief Complaint: Illness Stated Complaint: GENERALIZED PAIN, LOWER BACK PAIN ED Provider: Xander Szymanski ED Midlevel Provider: Catherine Barnett Discharge Problem: Myocardial infarction, Pneumonia, Anemia, Acute hyponatremia Patient Disposition: Admitted As Inpatient Condition: Critical Forms Stand Alone Forms: My [facility] Prescriptions Prescriptions: No Action atorvastatin 40 mg tablet 40 mg PO QAM RF: 0 nitroglycerin 0.4 mg tablet, sublingual 0.4 mg sublingual Q4H PRN (Reason: Angina) RF: 0 aspirin [Aspir-81] 81 mg Tablet,Delayed Release (Dr/Ec) 162 mg PO DAILY RF: 0 tizanidine 4 mg Tablet 2 mg PO BID PRN (Reason: muscle spasticity) Qty: 30 RF: 0 hydrocodone-acetaminophen [[place]] 5-325 mg Tablet 1 tab PO Q8H PRN (Reason: pain) Qty: 12 RF: 0 tamsulosin 0.4 mg capsule 0.4 mg PO HS RF: 0 docusate sodium 100 mg Capsule 100 mg PO BID RF: 0 metoprolol succinate 25 mg tablet extended release 24 hr 12.5 mg PO QAM RF: 0 polyethylene glycol 3350 [Miralax] 17 gram/dose Powder 17 g PO DIRECTED PRN (Reason: Constipation) RF: 0 Referrals Referrals: Arjun Harris, [Primary Care Provider] -
[2019-07-03] MEDS ORDERED: PIPERACILLIN/TAZOBACTAM 4.5 GM/120 ML BAG IV ONE (00:16)
[2019-07-03] MEDS ORDERED: SODIUM CHLORIDE 0.9% 1000ML 500 ML IV ONE (00:16)
[2019-07-03] MEDS ORDERED: PIPERACILL/TAZOBAC CONSULT ACTIVE PRN (00:16)
[2019-07-03] MEDS ORDERED: METOPROLOL SUCC 25MG EXT REL TAB PO SCH ×2 (00:25→09:00)
[2019-07-03] MEDS ORDERED: fentaNYL citrate 100 MCG/2 ML VIAL IV STA (00:27)
[2019-07-03 00:32] LABS: Appearance Urine Cloudy (Clear); Blood Urine 2+ (Negative); Color Urine Dark Yellow; Glucose Urine UA Negative (Negative); Ketones Urine Negative (Negative); Leukocyte Esterase Urine 1+ (Negative); Nitrite Urine Positive (Negative); Protein Urine Negative (Negative); Urobilinogen Urine Positive (Negative)
[2019-07-03 00:48] LABS: Bilirubin Urine 2+ (Negative)
[2019-07-03 00:50] LABS: Ictotest Urine Positive (Negative)
[2019-07-03 00:53] LABS: NT Pro B Type Natriuretic Pept > 35000 pg/ml (0-900)
[2019-07-03 00:54] LABS: Bacteria Urine Automated 1+ (Negative); RBC Urine Automated 0-4 /hpf (0-4)
[2019-07-03 01:01] LABS: Amphetamines+Metham, Urine Neg (Neg); Barbiturates, Urine Neg (Neg); Benzodiazepine, Urine Neg (Neg); Cocaine, Urine Neg (Neg); MDMA (Ecstacy), Urine Neg (Neg); Methadone, Urine Neg (Neg); Opiate, Urine Pos (Neg); Phencyclidine, Urine Neg (Neg)
[2019-07-03] MEDS ORDERED: SODIUM CHLORIDE 0.9% 250 ML IV PRN ×3 (01:10→19:25)
[2019-07-03] MEDS ORDERED: SODIUM CHLORIDE 0.9% 250 ML IV ONE (01:53)
[2019-07-03] MEDS ORDERED: ALBUMIN 25% 50 ML IV ONE (01:59)
--- NOTE | 2019-07-03 02:39 | History & Physical Report ---
Date of Service July 03, 2019 Assessment & Plan (1) Generalized weakness: Deconditioning/steady decline over the last few months hx lung cancer, NHL/CLL (poor candidate for chemotherapy due to functional status) Multifactorial : Decompensated heart failure secondary to NSTEMI hx chronic systolic heart failure secondary to ischemic cardiomyopathy (EF 40 to 45%, TTE 2019), hx CAD sp CABG Symptomatic anemia History chronic pancytopenia hemoglobin drop from baseline secondary to blood dyscrasia No overt GI/ bleeding Complicated UTI, history of BPH No sepsis PAF, patient NSR not on anticoagulation secondary to thrombocytopenia/bleeding risk hx PVD status post surgery hypertension, BP on the lower side Chronic hyponatremia, possible SIADH, hx lung cancer past tobacco/alcohol abuse per records history traumatic sacral fracture, healing well as per patient hx superficial thrombosis, RUE PCU Diuretic Rx TTE, Cardiology consult RE ACS, CHF Strict I/Os, daily weights, CHF education Trend troponin, continue aspirin, beta-nilton, statin Rx for ACS; IV heparin precluded by thrombocytopenia/bleeding risk Transfuse PRBC to maintain hemoglobin greater than 9 given ongoing ACS, appropriate to give IV Lasix after each unit pRBC transfused given pulmonary congestion Follow urine cultures, IV Ceftriaxone Hyponatremia work-up, fluid restriction, may need Nephrology opinion for hyponatremia PT OT eval Consider Palliative care consult DVT prophylaxis. Teds (pharmacologic anticoagulation contraindicated by thrombocytopenia, SCDs contraindicated by LE PVD) DNR History of Present Illness Chief Complaint: Worsening weakness, abdominal pain Primary Care Provider: Arjun Harris DO History obtained from patient, family, and records. Medical history significant for chronic systolic heart failure secondary to ischemic cardiomyopathy (EF 40 to 45%, TTE 2019), CAD sp CABG, PAF not on anticoagulation, PVD status post surgery, hypertension, hyperlipidemia, hx NSCLC, NHL/CLL, chronic pancytopenia, hx BPH, past tobacco/alcohol abuse per records, history traumatic sacral fracture. Recent confinement April 2019 for superficial thrombus, RUE. Anticoagulation not recommended due to thrombocytopenia. Patient seen at PCPs office 3 weeks ago. Weight continues to decrease, poor appetite. Sacral wound healing well. Patient on home hospice for additional help at home last few months. Worsening shortness of breath on exertion, generalized weakness the last 2 weeks as per patient. Fall from bed a few days ago. No chest pain, no unusual cough symptoms. Increasing body aches. Patient had worsening abdominal distention, generalized abdominal discomfort and constipation yesterday with urinary retention. No black/bloody stools as per patient account. Patient requested to be brought to the emergency room. Bejarano catheter placed for urinary retention. IV Zosyn given for possible UTI. 1 unit packed RBC transfused at the ER for hemoglobin of 6.4. Patient and family agreeable to patient disenrollment from home hospice for now to receive inpatient treatment for current medical issues. 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 Allergies Allergy/AdvReac Type Severity Reaction Status Date / Time No Known Drug Allergies Allergy Verified 07/02/19 21:36 Home Medications Home Medications Medication Instructions Recorded Confirmed Type atorvastatin 40 mg PO QAM 03/07/19 07/02/19 History nitroglycerin 0.4 mg SUBLINGUAL Q4H PRN 03/07/19 07/02/19 History aspirin [Aspir-81] 162 mg PO DAILY 04/30/19 07/02/19 History hydrocodone-acetaminophen [[place]] 1 tab PO Q8H PRN #12 tab 05/20/19 07/02/19 Rx tizanidine 2 mg PO BID PRN #30 tab 05/20/19 07/02/19 Rx docusate sodium 100 mg PO BID 07/02/19 07/02/19 History metoprolol succinate 12.5 mg PO QAM 07/02/19 07/02/19 History polyethylene glycol 3350 [Miralax] 17 g PO DIRECTED PRN 07/02/19 07/02/19 History tamsulosin 0.4 mg PO HS 07/02/19 07/02/19 History Past Med/Surg History Medical History Peripheral vascular disease (Chronic) Pancytopenia A-fib With rapid rate requiring pressers until converted Mass of left lung HLD (hyperlipidemia) (Chronic) Tobacco abuse (Chronic) HTN (hypertension) (Chronic) BPH (benign prostatic hyperplasia) (Chronic) Heart failure (Chronic) PAD (peripheral artery disease) (Chronic) Lymphoma (Chronic) tx with lymph node resection in 2012 AAA (abdominal aortic aneurysm) (Chronic) Cervical stenosis of spinal canal (Resolved) Anemia Surgical History History of fusion of cervical spine (Chronic) History of appendectomy (Chronic) S/P CABG x 3 (Chronic) S/P carotid endarterectomy (Chronic) Family History Mother Choked on food per pt history Father , unknown medical problems No problems noted. 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 Beliefs That Will Affect Care: None marital status: Current Living Situation: Family Current Living Situation Comment: with and grandson Other Information That Helps Us Care for You: No Feels Safe at Home: Yes Safety Concerns: Feels Safe At This Time Smoking Status: Heavy tobacco smoker Tobacco Type: cigarettes ; packs per day: 1 ; Cigarettes Per Day: 10 ; Do You Dip or Chew Tobacco: No ; Second Hand Exposure: Yes ; Tobacco Cessation Education Requested by Patient: No Hx Alcohol Use: No Hx Substance Use: No Review of Systems Review of Systems: As per HPI, all 10 systems reviewed, all other ROS negative Physical Exam Physical Exam: GENERAL: uncomfortable, no overt respiratory distress, chronically ill SKIN: Pallor, warm HEENT: Pale palpebral conjunctivae, no ptosis, dry buccal mucosa NECK : Supple, no tenderness CHEST : Decreased breath sounds, occasional expiratory wheezes, no tenderness HEART : Diminished S1-S2, tachycardic, systolic murmur ABDOMEN: Some distention, nontender EXTREMITIES : Bilateral LE swelling, no LE tenderness, no other conspicuous deformities noted NEUROLOGIC : Coherent, no facial asymmetry, no other gross focality Results & Data Vital Signs (Past 12 Hours) Vital Signs Temp Pulse Resp BP Pulse Ox 07/03/19 02:35 36.7 C 106 H 24 110/67 95 07/03/19 02:20 36.4 C L 110 H 23 95/57 L 99 07/03/19 02:00 36.9 C 108 H 22 96/64 L 07/03/19 01:40 102 H 27 H 85/58 L 93 07/03/19 01:37 100 H 17 91/53 L 97 07/03/19 01:00 105 H 25 H 102/60 97 07/03/19 00:39 98 H 20 99/55 L 94 07/03/19 00:30 99 H 26 H 92/56 L 07/03/19 00:00 104 H 24 91/54 L 100 07/02/19 23:58 99 H 24 96/56 L 92 07/02/19 23:45 94 07/02/19 23:34 105 H 21 92/54 L 07/02/19 23:30 104 H 19 78/55 L 94 07/02/19 23:00 113 H 28 H 93/56 L 95 07/02/19 22:30 111 H 20 98/62 L 07/02/19 22:00 110 H 21 99/64 L 96 07/02/19 21:47 113 H 21 110/57 L 93 07/02/19 21:21 98 07/02/19 21:13 36.4 C L 118 H 19 105/58 L 98 07/02/19 21:08 110 H 21 105/58 L 96 Laboratory Results Laboratory Results WBC 3.59 K/uL (4.8-10.8) L 07/02/19 22:30 RBC 1.99 M/uL (4.7-6.1) L 07/02/19 22:30 Hgb 6.1 g/dL (14.0-18.0) L* 07/02/19 22:30 Hct 18.2 % (42-52) L* 07/02/19 22:30 MCV 91.5 fL (80-100) 07/02/19 22:30 MCH 30.7 pg (25-34) 07/02/19 22:30 MCHC 33.5 g/dL (32-36) 07/02/19 22:30 RDW Std Deviation 69.0 fL (36.4-46.3) H 07/02/19 22:30 RDW Coeff of John 20.8 % (11.5-14.5) H 07/02/19 22:30 Plt Count 141 K/uL (130-400) 07/02/19 22:30 MPV 10.1 fL (7.4-10.4) 07/02/19 22:30 Neutrophils % (Manual) 44.3 % 07/02/19 22:30 Lymphocytes % (Manual) 49.6 % 07/02/19 22:30 Monocytes % (Manual) 5.2 % 07/02/19 22:30 Promyelocytes % (Man) 0.9 % 07/02/19 22:30 Neutrophils # (Manual) 1.59 K/uL (1.4-6.5) 07/02/19 22:30 Total Absolute Neuts 1.59 K/uL (1.4-6.5) 07/02/19 22:30 Lymphocytes # (Manual) 1.78 K/uL (1.2-3.4) 07/02/19 22:30 Total Abs Lymphocytes 1.78 K/uL (1.2-3.4) 07/02/19 22:30 Monocytes # (Manual) 0.19 K/uL (0.11-0.59) 07/02/19 22:30 Promyelocytes # (Man) 0.03 K/uL (0-0) H 07/02/19 22:30 Anisocytosis Present 07/02/19:30 Acanthocytes (Spur) 1+ 07/02/19 22:30 PT 13.2 Seconds (9.0-12.0) H 07/02/19 22:30 INR 1.3 (0.9-1.1) H 07/02/19 22:30 APTT 35.9 Seconds (21.0-31.0) H 07/02/19 22:30 PTT Ratio 1.3 07/02/19 22:30 Sodium 126 mmol/L (136-145) L 07/02/19 22:30 Potassium 4.7 mmol/L (3.5-5.1) 07/02/19 22:30 Chloride 92 mmol/L (98-107) L 07/02/19 22:30 Carbon Dioxide 25 mmol/L (21-32) 07/02/19 22:30 Anion Gap 9.0 (3-11) 07/02/19 22:30 BUN 24 mg/dl (7-18) H 07/02/19 22:30 Creatinine 0.71 mg/dl (0.6-1.4) 07/02/19 22:30 Est Cr Clr Drug Dosing 96.1 ml/min 07/02/19 22:30 Est GFR ( Amer) 111.7 07/02/19 22:30 Est GFR (Non-Af Amer) 96.4 07/02/19 22:30 BUN/Creatinine Ratio 34.6 (10-20) H 07/02/19 22:30 Glucose 108 mg/dl (70-99) H 07/02/19 22:30 Lactate 1.3 mmol/L (0.4-2.0) 07/02/19 22:30 Calcium 8.5 mg/dl (8.5-10.1) 07/02/19:30 Magnesium 2.0 mg/dl (1.8-2.4) 07/02/19:30 Total Bilirubin 2.6 mg/dl (0.2-1) H 07/02/19 22:30 AST 92 U/L (15-37) H 07/02/19 22:30 ALT 55 U/L (12-78) 07/02/19 22:30 Alkaline Phosphatase 393 U/L (45-117) H 07/02/19 22:30 Total Creatine Kinase 332 U/L (39-308) H 07/02/19 22:30 Troponin I 7.000 ng/ml (0-0.045) H* 07/02/19 22:30 NT-Pro-B Natriuret Pep > 40191 pg/ml (0-900) H 07/02/19 22:30 Total Protein 6.3 gm/dl (6.4-8.2) L 07/02/19 22:30 Albumin 2.0 gm/dl (3.4-5.0) L 07/02/19:30 Globulin 4.3 gm/dl (2.5-4.0) H 07/02/19 22:30 Albumin/Globulin Ratio 0.5 (0.9-2) L 07/02/19 22:30 Procalcitonin 0.68 ng/ml (0-0.5) H 07/02/19 22:30 Urine Color Dark Yellow 07/02/19 23:38 Urine Appearance Cloudy (Clear) A 07/02/19 23:38 Urine pH 5.0 (4.5-7.5) 07/02/19 23:38 Ur Specific [place] 1.020 (1.000-1.030) 07/02/19 23:38 Urine Protein Negative (Negative) 07/02/19 23:38 Urine Glucose (UA) Negative (Negative) 07/02/19 23:38 Urine Ketones Negative (Negative) 07/02/19 23:38 Urine Blood 2+ (Negative) H 07/02/19 23:38 Urine Nitrite Positive (Negative) A 07/02/19 23:38 Urine Bilirubin 2+ (Negative) H 07/02/19 23:38 Urine Urobilinogen Positive (Negative) H 07/02/19 23:38 Ur Leukocyte Esterase 1+ (Negative) H 07/02/19 23:38 Urine WBC (Auto) 5-10 /hpf (0-5) H 07/02/19 23:38 Urine RBC (Auto) 0-4 /hpf (0-4) 07/02/19 23:38 U Hyaline Cast (Auto) 5-10 /lpf (0-5) H 07/02/19 23:38 U Epithel Cells (Auto) 10-20 /lpf (0-5) H 07/02/19 23:38 Urine Bacteria (Auto) 1+ (Negative) H 07/02/19 23:38 Urine Yeast Not Reportable 07/02/19 23:38 Urine Opiates Screen Pos (Neg) H 07/02/19 23:38 Ur Methadone, Qual Neg (Neg) 07/02/19 23:38 Urine Barbiturates Neg (Neg) 07/02/19 23:38 Ur Phencyclidine (PCP) Neg (Neg) 07/02/19 23:38 U Amphetamin/Meth Scrn Neg (Neg) 07/02/19 23:38 MDMA (Ecstasy) Screen Neg (Neg) 07/02/19 23:38 U Benzodiazepines Scrn Neg (Neg) 07/02/19 23:38 Ur Cocaine Metabolite Neg (Neg) 07/02/19 23:38 U Marijuana (THC) Screen Neg (Neg) 07/02/19 23:38 Blood Type A Positive 07/02/19 23:22 Antibody Screen NEGATIVE 07/02/19 23:22 Crossmatch See Detail 07/02/19 23:22 Stool Hemoccult was negative. Diagnostic Findings CT head initial read: No acute intracranial process; involutional changes/small vessel ischemic disease CT abdomen pelvis initial read: Left lung base mass measuring 4.2 cm, pulmonary emphysema. Bibasilar atelectasis/pneumonitis, old granulomatous disease Cholelithiasis, splenomegaly, AAA 3.6 cm, diffuse atherosclerotic disease, presumed appendectomy, severe atrophy right kidney, Bejarano catheter Chest x-ray : 1. Slight enlargement in the left lower lobe opacity. This is likely neoplastic 2. Asymmetric right lung edema pattern. While likely representing asymmetric cardiogenic edema, and interstitial infectious or inflammatory processes could appear similar EKG as per my interpretation : Rate 105, sinus tachycardia, LAD, LAFB, LVH, T wave inversion lateral leads, ST depression anterolateral leads
[2019-07-03] MEDS ORDERED: ALBUMIN 25% 50 ML with FUROSEMIDE 40 MG IV ONE ×2 (03:30→06:00)
[2019-07-03] MEDS ORDERED: TIZANIDINE HCL 4 MG TABLET PO PRN (04:19)
[2019-07-03] MEDS ORDERED: PROMETHAZINE HCL 12.5 MG in SODIUM CHLORIDE 0.9% 50 ML IV PRN (04:19)
[2019-07-03] MEDS ORDERED: NITROGLYCERIN SL 0.4 MG/TAB TAB SL PRN ×2 (04:19)
[2019-07-03] MEDS ORDERED: IPRATROPIUM BROMIDE NEB SOLN 0.02% 2.5 ML VIAL INH PRN (04:19)
[2019-07-03] MEDS ORDERED: ACETAMINOPHEN 325 MG TAB PO PRN (04:19)
[2019-07-03] MEDS ORDERED: LEVALBUTEROL 1.25MG/0.5ML NEB INH PRN (04:19)
[2019-07-03] MEDS ORDERED: POLYETHYLENE (MIRALAX) 17 GM PACK PO PRN (04:19)
[2019-07-03] MEDS ORDERED: XOPENEX/ATROVENT 1.25mg/0.5MG NEB COMBO NEB PRN (04:19)
[2019-07-03] MEDS ORDERED: MoRPHine SULFATE 2 MG/ML CARP IV PRN (04:19)
--- NOTE | 2019-07-03 06:37 | CT Scan Report ---
CT OF THE HEAD WITHOUT CONTRAST CLINICAL HISTORY: ams, lung CA w/ mets COMPARISON STUDY: MRI of the brain October 22, 2008. Head CT May 28, 2015. CT DOSE: 614.27 mGy.cm TECHNIQUE: Helical axial images of the head were obtained without IV contrast. Automated exposure con trol was utilized for the study. A dose lowering technique was utilized adhering to the principles o f ALARA. FINDINGS: No acute intracranial hemorrhage, midline shift or mass effect is present. The ventricular system is unremarkable. The basilar cisterns are patent. No extra-axial collections are present. Ther e are no findings to suggest acute dural sinus thrombosis or acute territorial infarct. White matter hypodensities favor small vessel disease. No significant calvarial abnormalities are present. Visuali zed portions of the sinuses and mastoid air cells are clear. IMPRESSION: No acute intracranial findings. Electronically signed by: Rajesh Smith M.D. 07/03/2019 6:36 AM
--- NOTE | 2019-07-03 06:49 | CT Scan Report ---
CT abd pelvis IV con only CT DOSE: 408.24 mGy.cm HISTORY: Pain. Nausea. mid abd pain TECHNIQUE: Multiaxial CT images of the abdomen and pelvis were performed following the use of intrave nous contrast. A dose lowering technique was utilized adhering to the principles of ALARA. COMPARISON STUDY: 04/30/2019 FINDINGS: Bilateral parenchymal infiltrative change. Moderate increase in volume of a masslike proces s left base currently measuring 4.2 cm. Stable splenomegaly. Unchanged 3.9 cm infrarenal abdominal ao rtic aneurysm. Several small gallstones within the gallbladder lumen. Small amount of pericholecystic edematous liriano ge. Atrophy right kidney unchanged. The left kidney is negative for hydronephrosis. Nonobstructive bowel pattern. Atherosclerotic change of the abdominal and pelvic arterial vasculature . IMPRESSION: 1. Bibasilar parenchymal infiltrative change. 2. Slight increase in volume of a mass process left lower lobe. 3. Stable splenomegaly. 4. Unchanged atrophy right kidney. 5. Stable infrarenal abdominal aortic aneurysm. 6. Seminal contracted gallbladder containing a combination of gallstones and trace pedis sludge. Mild pericholecystic edematous change. The above report was generated using voice recognition software. It may contain grammatical, syntax or spelling errors. Electronically signed by: Hipolito Haddad M.D. 07/03/2019 6:47 AM
[2019-07-03] MEDS: METOPROLOL SUCC 25MG EXT REL TAB PO SCH (07:41)
[2019-07-03 07:44] LABS: Hematocrit (blood only) 18.2 % (42-52); Hemoglobin 6.1 g/dL (14.0-18.0); Mean Corpuscular Hemoglobin 30.2 pg (25-34); Mean Corpuscular Hgb Conc 33.5 g/dL (32-36); Mean Corpuscular Volume 90.1 fL (80-100); Mean Platelet Volume 9.4 fL (7.4-10.4); Platelet Count 123 K/uL (130-400); RDW Coefficient of Variation 20.4 % (11.5-14.5); RDW Standard Deviation 66.3 fL (36.4-46.3); Red Blood Count 2.02 M/uL (4.7-6.1); White Blood Count 3.23 K/uL (4.8-10.8)
[2019-07-03] MEDS: HYDROCODONE/ACETAMOPHEN 5/325MG TAB PO PRN ×3 (07:45→20:28)
[2019-07-03] MEDS ORDERED: FUROSEMIDE 20 MG in SYRINGE 0 ML IV PRN (07:56)
[2019-07-03] MEDS: DOCUSATE SODIUM/SENNA 50/8.6MG TAB PO SCH ×2 (08:03→20:29)
[2019-07-03] MEDS: ASPIRIN 81 MG ECTAB PO SCH (08:03)
[2019-07-03 08:04] LABS: Calcium 8.4 mg/dl (8.5-10.1); Creatinine Clr Calc Pharmacy 86.2 ml/min; Est GFR (African American) 107.5; Est GFR (Non-African American) 92.8; Potassium 4.6 mmol/L (3.5-5.1)
[2019-07-03] MEDS: ATORVASTATIN 40 MG TAB PO SCH (08:04)
[2019-07-03] MEDS: cefTRIAXone SODIUM 1,000 MG in DEXTROSE 5% 50 ML IV SCH (08:04)
[2019-07-03 08:08] LABS: Acanthocytes 1+; Anisocytosis Present; Basophils # (auto) 0.01 K/uL (0-0.2); Basophils % (auto) 0.3 %; Immature Granulocytes # (auto) 0.01 K/uL (0.00-0.02); Immature Granulocytes % (auto) 0.3 %; Lymphocytes # (auto) 1.17 K/uL (1.2-3.4); Lymphocytes % (auto) 36.2 %; Monocytes # (auto) 0.39 K/uL (0.11-0.59); Monocytes % (auto) 12.1 %; Neutrophils # (auto) 1.65 K/uL (1.4-6.5); Neutrophils % (auto) 51.1 %
[2019-07-03 08:13] LABS: Troponin I 6.05 ng/ml (0-0.045)
--- NOTE | 2019-07-03 11:59 | Palliative Care Consultation ---
Date of Consultation July 03, 2019 Assessment & Plan (1) Goals of care, counseling/discussion: -69 year old gentleman with PMH metastatic lung cancer, ischemic cardiomyopathy, EF 40-45%, CABG, PAF not on anticoagulation, PVD, htn, HLD, NHL/CLL, chronic pancytopenia, BPH, and others, presented to the hospital from home with c/o increased abdominal discomfort, constipation, weakness, and a fall a few days ago. He was found to have a hgb of 6.1, elevated troponin of 7, reported EKG changes, and a positive UA. He was admitted to telemetry unit, started on abx, transfused with PRBCs. Cardiology consulted-- pateint's bp is too low to start beta nilton, patient and family do not want aggressive treatment or invasive procedures. Cardiology recommends supportive care while in hospital and for patient to resumer hospice care at home. Patient's constipation has resolved. Palliative care consulted. -Met with patient and his daughter/POAAlice, in room 238-1 this morning. Patient AA&O x4. Denies pain at this time, but does get occasional back pain and BL leg pain. -Patient confirmed that he is DNR/DNI. He does not want aggressive medical care. He really only came to the hospital because he fell a few days ago and has been feeling very "lousy" since then. He was only on hospice for about a week prior, and wasn't exactly familiar with their protocol. -He did not have a BM for 4-5 days, abdominal distention was worsening. He is chronically on pain meds at home and thought that maybe they had been increased lately, but he wasn't sure. Patient has now had several large BMs. He is on senna daily, and I told he and his daughter that he should take miralax daily as well. -Patient and his daughter state the goal is for patient to return home on hospice care after hospitalization. They are ok with continuing abx and transfusions as needed to keep hgb >9. -Palliative care will continue to follow. (2) Metastatic lung carcinoma: (3) NSTEMI (non-ST elevated myocardial infarction): (4) Generalized weakness: (5) Ischemic cardiomyopathy: History of Present Illness Attending Physician: Memo Garcia MD History of Present Illness This 69 year old gentleman with PMH metastatic lung cancer, ischemic cardiomyopathy, EF 40-45%, CABG, PAF not on anticoagulation, PVD, htn, HLD, NHL/CLL, chronic pancytopenia, BPH, and others, presented to the hospital from home with c/o increased abdominal discomfort, constipation, weakness, and a fall a few days ago. He was found to have a hgb of 6.1, elevated troponin of 7, reported EKG changes, and a positive UA. He was admitted to telemetry unit, started on abx, transfused with PRBCs. Cardiology consulted-- pateint's bp is too low to start beta nilton, patient and family do not want aggressive treatment or invasive procedures. Cardiology recommends supportive care while in hospital and for patient to resumer hospice care at home. Patient's constipation has resolved. Palliative care consulted. Thank you kindly for this consult. Palliative care team will follow as needed. Allergies Allergy/AdvReac Type Severity Reaction Status Date / Time No Known Drug Allergies Allergy Verified 07/02/19 21:36 Home Medications Home Medications Medication Instructions Recorded Confirmed Type atorvastatin 40 mg PO QAM 03/07/19 07/02/19 History nitroglycerin 0.4 mg SUBLINGUAL Q4H PRN 03/07/19 07/02/19 History aspirin [Aspir-81] 162 mg PO DAILY 04/30/19 07/02/19 History hydrocodone-acetaminophen [[place]] 1 tab PO Q8H PRN #12 tab 05/20/19 07/02/19 Rx tizanidine 2 mg PO BID PRN #30 tab 05/20/19 07/02/19 Rx docusate sodium 100 mg PO BID 07/02/19 07/02/19 History metoprolol succinate 12.5 mg PO QAM 07/02/19 07/02/19 History polyethylene glycol 3350 [Miralax] 17 g PO DIRECTED PRN 07/02/19 07/02/19 History tamsulosin 0.4 mg PO HS 07/02/19 07/02/19 History Patient History Medical History Peripheral vascular disease (Chronic) Pancytopenia A-fib With rapid rate requiring pressers until converted Mass of left lung HLD (hyperlipidemia) (Chronic) Tobacco abuse (Chronic) HTN (hypertension) (Chronic) BPH (benign prostatic hyperplasia) (Chronic) Heart failure (Chronic) PAD (peripheral artery disease) (Chronic) Lymphoma (Chronic) tx with lymph node resection in 2013 AAA (abdominal aortic aneurysm) (Chronic) Cervical stenosis of spinal canal (Resolved) Anemia Surgical History History of fusion of cervical spine (Chronic) History of appendectomy (Chronic) S/P CABG x 3 (Chronic) S/P carotid endarterectomy (Chronic) Family History Mother Choked on food per pt history Father , unknown medical problems No problems noted. 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 Beliefs That Will Affect Care: None marital status: Current Living Situation: Family Current Living Situation Comment: with and grandson Other Information That Helps Us Care for You: No Feels Safe at Home: Yes Safety Concerns: Feels Safe At This Time Smoking Status: Heavy tobacco smoker Tobacco Type: cigarettes ; packs per day: 1 ; Cigarettes Per Day: 10 ; Do You Dip or Chew Tobacco: No ; Second Hand Exposure: Yes ; Tobacco Cessation Education Requested by Patient: No Hx Alcohol Use: No Hx Substance Use: No Review of Systems Constitutional: + weakness Ear, Nose, Mouth, Throat: no dysphagia Respiratory: + cough and + dyspnea on exertion Cardiovascular: + edema (BL feet); no chest pain Gastrointestinal: no abdominal pain constipation resolved Musculoskeletal: + back pain (leg pain) Psychiatric: no anxiety Physical Exam Constitutional: well developed and well nourished; no acute distress ENMT: external ear and nose normal, oropharynx normal Respiratory: normal respiratory effort, lungs clear to auscultation Auscultation: + diminished lung sounds and + crackles (LLL few, fine) Cardiovascular: Rate/Rhythm: regular rate and regular rhythm Extremities: + edema (+2 BL feet) Gastrointestinal (Abdomen): Inspection/Auscultation: abdomen normal to inspection and normal bowel sounds Percussion/Palpation: abdomen soft Neurologic: moves all extremities and awake Psychiatric: Orientation: alert and oriented x 3 Insight: + limited insight Results & Data Vital Signs (Past 12 Hours) Vital Signs Temp Pulse Pulse Pulse Resp BP BP 07/03/19 11:09 36.6 C 91 H 12 100/64 07/03/19 10:20 36.7 C 95 H 12 99/60 L 07/03/19 09:37 36.5 C 92 H 12 98/60 L 07/03/19 09:22 36.5 C 85 12 99/63 L 07/03/19 09:01 36.9 C 94 H 12 87/54 L 07/03/19 07:47 36.9 C 99 H 20 99/65 L 07/03/19 06:58 36.8 C 101 H 20 96/62 L 07/03/19 06:18 111 H 93/61 L 07/03/19 05:25 36.8 C 106 H 22 99/59 L 07/03/19 04:40 36.7 C 99 H 17 94/59 L 07/03/19 04:20 36.9 C 98 H 105 H 18 104/66 07/03/19 03:40 36.4 C L 101 H 20 97/61 L 07/03/19 03:05 36.3 C L 108 H 21 100/62 07/03/19 02:35 36.7 C 106 H 24 110/67 07/03/19 02:20 36.4 C L 110 H 23 95/57 L 07/03/19 02:00 36.9 C 108 H 22 96/64 L 07/03/19 01:40 102 H 27 H 85/58 L 07/03/19 01:37 100 H 17 91/53 L 07/03/19 01:00 105 H 25 H 102/60 07/03/19 00:39 98 H 20 99/55 L 07/03/19 00:30 99 H 26 H 92/56 L 07/03/19 00:00 104 H 24 91/54 L Pulse Ox 07/03/19 11:09 95 07/03/19 10:20 96 07/03/19 09:37 93 07/03/19 09:22 96 07/03/19 09:01 96 07/03/19 07:47 96 07/03/19 06:58 96 07/03/19 06:18 07/03/19 05:25 95 10/14/19 04:40 97 07/03/19 04:20 98 07/03/19 03:40 93 07/03/19 03:05 97 07/03/19 02:35 95 07/03/19 02:20 99 07/03/19 02:00 07/03/19 01:40 93 07/03/19 01:37 97 07/03/19 01:00 97 07/03/19 00:39 94 07/03/19 00:30 07/03/19 00:00 100 Time Spent Midlevel 70 minutes with >50% of the time spent at bedside with patient and family discussing condition and GOC.
--- NOTE | 2019-07-03 13:17 | Hospitalist Progress Note ---
Date of Service July 03, 2019 Assessment & Plan (1) Generalized weakness: 69 yo hospice patient present on admission with worsening weakness, poor appetite abdominal pain, constipation associated with urinary retention Possible related to his recent declining due to his very poor prognosis and low hgb Hemoglobin on admission 6.1 Fall precaution PT/OT eval NSTEMI Severe ischemic cardiomyopathy Troponin on admission 7, then trending down to 6 No anticoagulant due to low hemoglobin and thrombocytopenia Cardiology on board ECHO showed severe reduced LV systolic function with severe global hypokinesis with EF 15-20 Continue aspirin, statin and metoprolol Case discussed with cardio and no further cardiac testing or intervention due to his very poor prognosis Palliative care on board Current denies any chest pain Acute sycstolic heart failure ProBNP on admission >31030 CXR showed asymmetric right lung edema pattern. While likely representing asymmetric cardiogenic edema, Lasix 20mg IV x1 given Due to low BP unable to administer aggressive diuretic cardiology on board Pancytopenia Anemia Platelet 140, Hgb 6.1 on admission Received 1 unit PRBC last night and additional 1 unit given now Will monitor H/H Received Lasix 20mg IV btw transfusion Will keep Hgb above 9 due to NSTEMI Follow up with Hem/Onc next week Constipation Abdominal pain CT abd/pelvis showed nonobstructive bowel pattern. Received Miralax and Senokot Had 3 BM so far Clinically stable PAF (paroxysmal atrial fibrillation): rate control l Continue metoprolol and aspirin Not a candidate for anticoagulant due to low platelet and low hgb Hyponatremia Possible related to poor oral intake Na on admission 126 Received Lasix 20mgx1 Monitor BMP Lung Infiltrate CXR showed slight enlargement in the left lower lobe opacity. This is likely neoplastic CT showed bibasilar parenchymal infiltrative change. Received Zosyn in the ER Continue Rocephin IV Blood cx and urine cx pending Mass of left lung Mediastinoscopy with LN biopsies during last admission - path c/w metastatic non-small cell in 2/4 nodes, all nodes with chronic lymphocytic leukemia/small lymphocytic lymphoma CT showed slight increase in volume of a mass process left lower lobe. Very Poor prognosis Was in hospice before admitting in the hospital Palliative care on board HTN (hypertension) Continue Toprol XL Will monitor closely due to low BP BPH (benign prostatic hyperplasia): Urinary retention Seems to be worsening due to constipation Continue flomax Malnutrition Continue boost supplement DVT px on SCDS (Due to low platelet and low hgb) CODE STATUS DNR Subjective Pt was seen and examined. Lying in bed with no distress getting ready to eat lunch. Pt said that he does not have any SOB, but he feels very weak. He said that he does not have any energy. I explained to him that his prognosis is very poor He said that he understood his prognosis and the senior applications engineer already told him that not much can be done for is severe ischemic cardiomyopathy He said that he feels slightly better because his abdominal pain improves and he had BM today Currently denies any chest pain, palpitation, dizziness and SOB Physical Exam Physical Exam: General- No acute distress Head- atraumatic Eyes- PERRL, EOMI, ENT- oropharynx clear Neck- supple, no JVD Lungs- Diminished BS Heart- regular rhythm; no murmur Abdomen- normal bowel sounds, soft, +tender Extremities- no calf tenderness Neuro- alert, oriented x 3; PERRL, EOMI; no facial palsy; no dysarthria Skin- warm & dry Results & Data Vital Signs (Past 12 Hours) Vital Signs Temp Pulse Pulse Pulse Resp BP BP 07/03/19 13:07 36.7 C 88 12 100/63 07/03/19 12:23 93 H 12 96/62 L 07/03/19 11:09 36.6 C 91 H 12 100/64 07/03/19 10:20 36.7 C 95 H 12 99/60 L 07/03/19 09:37 36.5 C 92 H 12 98/60 L 07/03/19 09:22 36.5 C 85 12 99/63 L 07/03/19 09:01 36.9 C 94 H 12 87/54 L 07/03/19 07:47 36.9 C 99 H 20 99/65 L 07/03/19 06:58 36.8 C 101 H 20 96/62 L 07/03/19 06:18 111 H 93/61 L 07/03/19 05:25 36.8 C 106 H 22 99/59 L 07/03/19 04:40 36.7 C 99 H 17 94/59 L 07/03/19 04:20 36.9 C 98 H 105 H 18 104/66 07/03/19 03:40 36.4 C L 101 H 20 97/61 L 07/03/19 03:05 36.3 C L 108 H 21 100/62 07/03/19 02:35 36.7 C 106 H 24 110/67 07/03/19 02:20 36.4 C L 110 H 23 95/57 L 07/03/19 02:00 36.9 C 108 H 22 96/64 L 07/03/19 01:40 102 H 27 H 85/58 L 07/03/19 01:37 100 H 17 91/53 L Pulse Ox 07/03/19 13:07 96 07/03/19 12:23 93 07/03/19 11:09 95 07/03/19 10:20 96 07/03/19 09:37 93 07/03/19 09:22 96 07/03/19 09:01 96 07/03/19 07:47 96 07/03/19 06:58 96 07/03/19 06:18 07/03/19 05:25 95 07/03/19 04:40 97 07/03/19 04:20 98 07/03/19 03:40 93 07/03/19 03:05 97 07/03/19 02:35 95 07/03/19 02:20 99 07/03/19 02:00 07/03/19 01:40 93 07/03/19 01:37 97
--- NOTE | 2019-07-03 16:40 | Cardiology Consultation ---
Date of Consultation July 03, 2019 Assessment & Plan (1) Ischemic cardiomyopathy: The patient and his family were counseled on his newly found reduction of his LV systolic function. Given the global pattern of hypokinesis I am inclined to believe that this is catecholamine induced rather than actively ischemic given his lack of symptoms. They have all agreed that no interventional procedure should be performed and given his multiple comorbidities I am in agreement with this. the most prudent course of action at this point would be for medical therapy along with transfusion support to maintain hemoglobin at least greater than 9. Unfortunately he is significantly hypotensive and I am unable to start any beta blockade at this time. He is asymptomatic from a cardiac standpoint so no other intervention will be performed at this time. I agree that the patient should be transfused and receive loop diuretic after each unit as volume status should be followed clinically. Ultimately I believe the most prudent course of action would be for hospice care which may provide as needed Lasix at home and the patient and his family are all in agreement with this plan. (2) NSTEMI (non-ST elevated myocardial infarction): Unclear if troponin elevation and EKG changes are secondary to active ischemia or more likely myocardial strain due to profound anemia. Plan as above (3) Anemia: Transfuse with a goal hemoglobin greater than 9 from a cardiac standpoint (4) PAF (paroxysmal atrial fibrillation): Stable (5) Metastatic lung carcinoma: Hospice care History of Present Illness Reason for Consultation: NSTEMI Requesting Physician: Dr. Wheatley Attending Physician: Memo Garcia MD History of Present Illness It was my pleasure to see Mr. Gonzales in consultation today July 03, 2019. He is a very pleasant yet very medically complicated 69-year-old gentleman who is currently on hospice care for malignant lung carcinoma. He presented to [facility] via his family on 07/03/2019 with complaints of increasing weakness and dyspnea over the last 2 weeks. His family states that he continues to deteriorate and continues to lose weight. But he states that he is comfortable and has not been having any pain at home. Upon presentation [facility] is EKG showed significant ischemic EKG changes and significant troponin elevation of 7. He was diagnosed with a non-ST segment elevation myocardial infarction but the patient and his family both agreed that he did not want any invasive testing performed. He was also found to be profoundly anemic with a hemoglobin of 6.1 and he was transfused packed red blood cells with Lasix. At the time of my interview the patient was resting comfortably without complaint and states he is very been feeling better after receiving 2 units of packed red blood cells. He has not had any shortness of breath since admission and denies any chest pain. Past medical history: 1. Atherosclerotic coronary disease, status post coronary bypass grafting, May 2005; PERSAUD graft to LAD, saphenous vein graft to obtuse marginal, saphenous vein graft to posterior descending artery. 2. Atherosclerotic carotid disease, status post left carotid endarterectomy. 3. Atherosclerotic peripheral vascular disease, with chronic right lower extremity 3-block claudication. 4. History of hypertension. 5. History of hyperlipidemia. 6. Chronic tobacco use. 7. Low-grade non-Hodgkin lymphoma. 8. Malignant lung carcinoma with diffuse metastasis Allergies Allergy/AdvReac Type Severity Reaction Status Date / Time No Known Drug Allergies Allergy Verified 07/02/19 21:36 Home Medications Home Medications Medication Instructions Recorded Confirmed Type atorvastatin 40 mg PO QAM 03/07/19 07/02/19 History nitroglycerin 0.4 mg SUBLINGUAL Q4H PRN 03/07/19 07/02/19 History aspirin [Aspir-81] 162 mg PO DAILY 04/30/19 07/02/19 History hydrocodone-acetaminophen [[place]] 1 tab PO Q8H PRN #12 tab 05/20/19 07/02/19 Rx tizanidine 2 mg PO BID PRN #30 tab 05/20/19 07/02/19 Rx docusate sodium 100 mg PO BID 07/02/19 07/02/19 History metoprolol succinate 12.5 mg PO QAM 07/02/19 07/02/19 History polyethylene glycol 3350 [Miralax] 17 g PO DIRECTED PRN 07/02/19 07/02/19 History tamsulosin 0.4 mg PO HS 07/02/19 07/02/19 History Patient History Medical History Peripheral vascular disease (Chronic) Pancytopenia A-fib With rapid rate requiring pressers until converted Mass of left lung HLD (hyperlipidemia) (Chronic) Tobacco abuse (Chronic) HTN (hypertension) (Chronic) BPH (benign prostatic hyperplasia) (Chronic) Heart failure (Chronic) PAD (peripheral artery disease) (Chronic) Lymphoma (Chronic) tx with lymph node resection in 2013 AAA (abdominal aortic aneurysm) (Chronic) Cervical stenosis of spinal canal (Resolved) Anemia Surgical History History of fusion of cervical spine (Chronic) History of appendectomy (Chronic) S/P CABG x 3 (Chronic) S/P carotid endarterectomy (Chronic) Family History Mother Choked on food per pt history Father , unknown medical problems No problems noted. 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 [employer] Required: No Beliefs That Will Affect Care: None marital status: Current Living Situation: Family Current Living Situation Comment: with and grandson Other Information That Helps Us Care for You: No Feels Safe at Home: Yes Safety Concerns: Feels Safe At This Time Smoking Status: Heavy tobacco smoker Tobacco Type: cigarettes ; packs per day: 1 ; Cigarettes Per Day: 10 ; Do You Dip or Chew Tobacco: No ; Second Hand Expo sure: Yes ; Tobacco Cessation Education Requested by Patient: No Hx Alcohol Use: No Hx Substance Use: No Review of Systems Review of Systems: All systems reviewed & are unremarkable except as noted in HPI & below Physical Exam Physical Exam: General: Awake, alert and oriented x 3. No acute distress. HEENT: Normocephalic, atraumatic. Pupils equal, round and reactive to light and accommodation. Extraocular muscles are intact. Anicteric sclera. Moist mucous membranes. Neck: No JVD. No bruit. Cardiovascular: Regular. Positive S-4. Normal S-1 and S-2. No S-3. 3/6 holosystolic ejection murmur, left sternal border, mid-clavicular line with radiation to the axilla. No rubs. Pulmonary: Clear to auscultation bilaterally. No rales, rhonchi, or wheezing. Abdomen: Bowel sounds x 4, soft. No rebound, guarding or tenderness. No organomegaly. Extremities: No clubbing, cyanosis or edema. +2 pedal pulses bilaterally. Skin: Warm and dry. Results & Data Vital Signs (Past 12 Hours) Vital Signs Temp Pulse Pulse Resp BP BP Pulse Ox 07/03/19 16:00 36.5 C 96 H 20 95/57 L 95 07/03/19 13:07 36.7 C 88 12 100/63 96 07/03/19 12:23 93 H 12 96/62 L 93 07/03/19 11:09 36.6 C 91 H 12 100/64 95 07/03/19 10:20 36.7 C 95 H 12 99/60 L 96 07/03/19 09:37 36.5 C 92 H 12 98/60 L 93 07/03/19 09:22 36.5 C 85 12 99/63 L 96 07/03/19 09:01 36.9 C 94 H 12 87/54 L 96 07/03/19 07:47 36.9 C 99 H 20 99/65 L 96 07/03/19 06:58 36.8 C 101 H 20 96/62 L 96 07/03/19 06:18 111 H 93/61 L 07/03/19 05:25 36.8 C 106 H 22 99/59 L 95 07/03/19 04:40 36.7 C 99 H 17 94/59 L 97 (1) Anemia Anemia type: iron deficiency Iron deficiency anemia type: unspecified iron deficiency Qualified Code(s): D50.9 - Iron deficiency anemia, unspecified
[2019-07-03] MEDS ORDERED: FUROSEMIDE 40 MG in SYRINGE 0 ML IV ONE (17:00)
[2019-07-03 19:19] LABS: Hematocrit (blood only) 20.9 % (42-52); Mean Corpuscular Hemoglobin 30.2 pg (25-34); Mean Corpuscular Hgb Conc 33.5 g/dL (32-36); Mean Corpuscular Volume 90.1 fL (80-100); Mean Platelet Volume 9.2 fL (7.4-10.4); Platelet Count 121 K/uL (130-400); RDW Coefficient of Variation 20.1 % (11.5-14.5); RDW Standard Deviation 64.9 fL (36.4-46.3); Red Blood Count 2.32 M/uL (4.7-6.1); White Blood Count 2.91 K/uL (4.8-10.8)
[2019-07-03 20:39] LABS: Anisocytosis Present; Basophils # (auto) 0.01 K/uL (0-0.2); Basophils % (auto) 0.3 %; Echinocytes 1+; Immature Granulocytes # (auto) 0.04 K/uL (0.00-0.02); Immature Granulocytes % (auto) 1.4 %; Lymphocytes # (auto) 1.02 K/uL (1.2-3.4); Lymphocytes % (auto) 35.1 %; Monocytes # (auto) 0.33 K/uL (0.11-0.59); Monocytes % (auto) 11.3 %; Neutrophils # (auto) 1.51 K/uL (1.4-6.5); Neutrophils % (auto) 51.9 %; Poikilocytosis Present
[2019-07-03] MEDS ORDERED: TAMSULOSIN HCL 0.4 MG CAP PO SCH (21:00)
[2019-07-04] MEDS: HYDROCODONE/ACETAMOPHEN 5/325MG TAB PO PRN ×3 (00:24→11:34)
[2019-07-04 06:59] LABS: Hematocrit (blood only) 22.9 % (42-52); Hemoglobin 7.8 g/dL (14.0-18.0); Mean Corpuscular Hemoglobin 30.4 pg (25-34); Mean Corpuscular Hgb Conc 34.1 g/dL (32-36); Mean Corpuscular Volume 89.1 fL (80-100); Mean Platelet Volume 9.7 fL (7.4-10.4); Platelet Count 115 K/uL (130-400); RDW Coefficient of Variation 20.2 % (11.5-14.5); RDW Standard Deviation 64.5 fL (36.4-46.3); Red Blood Count 2.57 M/uL (4.7-6.1); White Blood Count 2.27 K/uL (4.8-10.8)
[2019-07-04] MEDS: ASPIRIN 81 MG ECTAB PO SCH (07:25)
[2019-07-04] MEDS: ATORVASTATIN 40 MG TAB PO SCH (07:25)
[2019-07-04] MEDS: METOPROLOL SUCC 25MG EXT REL TAB PO SCH (07:25)
[2019-07-04] MEDS: DOCUSATE SODIUM/SENNA 50/8.6MG TAB PO SCH (07:27)
[2019-07-04] MEDS: cefTRIAXone SODIUM 1,000 MG in DEXTROSE 5% 50 ML IV SCH (07:33)
[2019-07-04 07:34] LABS: BUN Creatinine Ratio 31.5 (10-20); Calcium 8.1 mg/dl (8.5-10.1); Creatinine Clr Calc Pharmacy 106.5 ml/min; Est GFR (African American) 118.1; Est GFR (Non-African American) 101.9; Potassium 3.5 mmol/L (3.5-5.1)
--- NOTE | 2019-07-04 10:59 | Cardiology Progress Note ---
Date of Service July 04, 2019 Assessment & Plan (1) Ischemic cardiomyopathy: He has remained clinically stable without any symptoms He does not examine his volume overloaded today despite receiving 3 units of packed red blood cells Again given his borderline hypotension I will hold off on daily diuretics and instead use them on a as needed basis only and his volume status will continue to be followed clinically. He is to return back home for home hospice and hospice nursing can provide PRN Lasix IV as necessary. My office will be happy to if necessary provide guidelines and orders if necessary It is okay to discharge the patient home on hospice from a cardiac standpoint His heart rate remains elevated which is understandable given the clinical context. I am unable to start beta-blockers so at this time we will start him on low-dose digoxin and plan on doing 0.125 mcg every other day (2) NSTEMI (non-ST elevated myocardial infarction): Unclear if troponin elevation and EKG changes are secondary to active ischemia or more likely myocardial strain due to profound anemia. Plan as above (3) Anemia: Transfuse to comfort Given the clinical context I would not attempt to achieve hemoglobin greater than 9 and would transfuse only as the patient is symptomatic (4) PAF (paroxysmal atrial fibrillation): Stable (5) Metastatic lung carcinoma: Hospice care Subjective Patient seen and examined with his daughter at bedside. He denies any complaints and states that he has had a good night overall. He specifically denies experiencing any chest pain, shortness of breath, palpitations, lightheadedness, dizziness or syncope. He received a total of 3 units of packed red blood cells to this point. Telemetry reviewed: Normal sinus rhythm/tachycardia without arrhythmia Review of Systems Review of Systems: All systems reviewed & are unremarkable except as noted in HPI & below Physical Exam Physical Exam: General: Awake, alert and oriented x 3. No acute distress. HEENT: Normocephalic, atraumatic. Pupils equal, round and reactive to light and accommodation. Extraocular muscles are intact. Anicteric sclera. Moist mucous membranes. Neck: No JVD. No bruit. Cardiovascular: Regular. Positive S-4. Normal S-1 and S-2. No S-3. 3/6 mid to late systolic ejection murmur, greatest at the right sternal border, second intercostal space with radiation to the bilateral carotids. No rubs. Pulmonary: Clear to auscultation bilaterally. No rales, rhonchi, or wheezing. Abdomen: Bowel sounds x 4, soft. No rebound, guarding or tenderness. No organomegaly. Extremities: No clubbing, cyanosis or edema. +2 pedal pulses bilaterally. Skin: Warm and dry. Results & Data Vital Signs (Past 12 Hours) Vital Signs Temp Pulse Pulse Resp BP BP Pulse Ox 07/04/19 07:30 36.8 C 99 H 18 113/64 97 07/04/19 02:48 36.8 C 102 H 19 105/65 98 07/03/19 23:32 36.3 C L 93 H 20 102/66 94 07/03/19 23:10 36.5 C 99 H 20 101/59 L 93 (1) Anemia Anemia type: iron deficiency Iron deficiency anemia type: unspecified iron deficiency Qualified Code(s): D50.9 - Iron deficiency anemia, unspecified
--- NOTE | 2019-07-04 11:55 | Palliative Care Progress Note ---
Date of Service July 04, 2019 Assessment & Plan (1) Goals of care, counseling/discussion: -Patient seen with his daughter/Alice GÓMEZ, at bedside. Patient sleeping soundly. Daughter states he is feeling better today as far as the abdominal pain. -Patient stated yesterday that his goal is to get back home with hospice. -pmo manager spoke with patient today and he stated he wants to get back home today, does not want to stay for any further blood work or transfusions. Case management to coordinate. -Patient has pain medications at home per him and his daughter. Were signed up with [facility]. As long as they can take him back, okay for discharge. -Palliative to sign off. (2) Metastatic lung carcinoma: (3) NSTEMI (non-ST elevated myocardial infarction): (4) Generalized weakness: (5) Ischemic cardiomyopathy: Subjective Patient seen with his daughter/Alice GÓMEZ, at bedside. Patient sleeping soundly. Daughter states he is feeling better today as far as the abdominal pain. Review of Systems Review of Systems: did not obtain as patient was sleeping soundly Physical Exam Constitutional: well developed and well nourished; no acute distress ENMT: external ear and nose normal, oropharynx normal Respiratory: normal respiratory effort, lungs clear to auscultation Auscultation: + diminished lung sounds and + crackles (LLL few, fine) Cardiovascular: Rate/Rhythm: regular rate and regular rhythm Extremities: + edema (+2 BL feet) Gastrointestinal (Abdomen): Inspection/Auscultation: abdomen normal to inspection and normal bowel sounds Percussion/Palpation: abdomen soft Neurologic: moves all extremities and awake Results & Data Vital Signs (Past 12 Hours) Vital Signs Temp Pulse Resp BP Pulse Ox 07/04/19 11:38 36.8 C 99 H 18 101/66 95 07/04/19 07:30 36.8 C 99 H 18 113/64 97 07/04/19 02:48 36.8 C 102 H 19 105/65 98 Time Spent Midlevel 25 minutes with >50% of the time spent at bedside with patient and family discussing condition and GOC.
--- NOTE | 2019-07-04 12:00 | Hospitalist Progress Note ---
Date of Service July 04, 2019 Assessment & Plan (1) Generalized weakness: 69 yo hospice patient present on admission with worsening weakness, poor appetite abdominal pain, constipation associated with urinary retention Possible related to his recent declining due to his very poor prognosis and low hgb Hemoglobin on admission 6.1 Fall precaution PT/OT eval NSTEMI Severe ischemic cardiomyopathy Troponin on admission 7, then trending down to 6 No anticoagulant due to low hemoglobin and thrombocytopenia Cardiology on board ECHO showed severe reduced LV systolic function with severe global hypokinesis with EF 15-20 Continue aspirin, statin and metoprolol Case discussed with cardio and no further cardiac testing or intervention due to his very poor prognosis Palliative care on board Current denies any chest pain Acute sycstolic heart failure ProBNP on admission >15646 CXR showed asymmetric right lung edema pattern. While likely representing asymmetric cardiogenic edema, Lasix 20mg IV x1 given Due to low BP unable to administer aggressive diuretic cardiology on board Unable to give beta nilton due to low PB cardiology recommended to start on digoxin 0.125 3xweek hospice nursing can provide PRN Lasix IV as necessary as per cardiology for comfort measure Pancytopenia Anemia Platelet 140, Hgb 6.1 on admission Received 1 unit PRBC last night and additional 1 unit given now Hgb 7.8 today Received 3 units PRBC during hospital course Will not be able to keep hgb above 9 due to risk of volume overload for recurrent blood transfusion Pt does not want any additional transfusion Constipation Abdominal pain CT abd/pelvis showed nonobstructive bowel pattern. Continue Miralax and Senokot has been having BM Clinically stable PAF (paroxysmal atrial fibrillation): rate control Continue aspirin Unable to give the metoprolol due to Low BP cardiology recommended digoxin Not a candidate for anticoagulant due to low platelet and low hgb Hyponatremia Possible related to poor oral intake Na on admission 126 Na improved to 130 Monitor BMP Lung Infiltrate CXR showed slight enlargement in the left lower lobe opacity. This is likely neoplastic CT showed bibasilar parenchymal infiltrative change. Received Zosyn in the ER Continue Rocephin IV Blood cx and urine cx no growth Pt does not want to continue IV abx, he wants to transition to hospice Daughter at bedside agreed with his decison Will d/c abx on discharge Mass of left lung Mediastinoscopy with LN biopsies during last admission - path c/w metastatic non-small cell in 2/4 nodes, all nodes with chronic lymphocytic leukemia/small lymphocytic lymphoma CT showed slight increase in volume of a mass process left lower lobe. Very Poor prognosis Was in hospice before admitting in the hospital Palliative care on board Will transition to home hospice HTN (hypertension) Hold Toprol XL due to low BP Will monitor closely due to low BP BPH (benign prostatic hyperplasia): Urinary retention Seems to be worsening due to constipation Continue flomax Pt does not want to keep the raza on discharge Does not want to wait to do void trial He wants to go home Will give an order with the hospice nurse, ok to place raza cath if develops any urinary retention Malnutrition Continue boost supplement DVT px on SCDS (Due to low platelet and low hgb) CODE STATUS DNR Disposition Discharge home with hospice Subjective Pt was seen and examined Lying in bed with no distress with daughter at bedside Pt said that he feels better He said that he wants to go home with hospice He said that he wants to be comfortable He wants to discontinue any IV abx or additional blood transfusion He does not want to keep the raza cath He does not want to wait until voiding to discharge He said that his breathing Results & Data Vital Signs (Past 12 Hours) Vital Signs Temp Pulse Resp BP Pulse Ox 07/04/19 11:38 36.8 C 99 H 18 101/66 95 07/04/19 07:30 36.8 C 99 H 18 113/64 97 07/04/19 02:48 36.8 C 102 H 19 105/65 98
[2019-07-05 02:49] LABS: Codeine Urine NEGATIVE NG/ML (CUTOFF=50); Hydrocodone Urine NEGATIVE NG/ML (CUTOFF=50); Hydromor Urine 64 NG/ML (CUTOFF=50); Morphine Urine 1040 NG/ML (CUTOFF=50); Norhydrocodone Conf Ur NEGATIVE NG/ML (CUTOFF=50); Noroxycodone Urine 106 NG/ML (CUTOFF=50); Oxycodone Urine 210 NG/ML (CUTOFF=50); Oxymorph Urine 1290 NG/ML (CUTOFF=50)
--- NOTE | 2019-07-06 23:05 | Discharge Summary ---
Date of Service July 04, 2019 Admission HPI Per Admitting Provider History obtained from patient, family, and records. Medical history significant for chronic systolic heart failure secondary to ischemic cardiomyopathy (EF 40 to 45%, TTE 2019), CAD sp CABG, PAF not on anticoagulation, PVD status post surgery, hypertension, hyperlipidemia, hx NSCLC, NHL/CLL, chronic pancytopenia, hx BPH, past tobacco/alcohol abuse per records, history traumatic sacral fracture. Recent confinement April 2019 for superficial thrombus, RUE. Anticoagulation not recommended due to thrombocytopenia. Patient seen at PCPs office 3 weeks ago. Weight continues to decrease, poor appetite. Sacral wound healing well. Patient on home hospice for additional help at home last few months. Worsening shortness of breath on exertion, generalized weakness the last 2 weeks as per patient. Fall from bed a few days ago. No chest pain, no unusual cough symptoms. Increasing body aches. Patient had worsening abdominal distention, generalized abdominal discomfort and constipation yesterday with urinary retention. No black/bloody stools as per patient account. Patient requested to be brought to the emergency room. Raza catheter placed for urinary retention. IV Zosyn given for possible UTI. 1 unit packed RBC transfused at the ER for hemoglobin of 6.4. Patient and family agreeable to patient disenrollment from home hospice for now to receive inpatient treatment for current medical issues. 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 Admission Exam Per Admitting Provider GENERAL: uncomfortable, no overt respiratory distress, chronically ill SKIN: Pallor, warm HEENT: Pale palpebral conjunctivae, no ptosis, dry buccal mucosa NECK : Supple, no tenderness CHEST : Decreased breath sounds, occasional expiratory wheezes, no tenderness HEART : Diminished S1-S2, tachycardic, systolic murmur ABDOMEN: Some distention, nontender EXTREMITIES : Bilateral LE swelling, no LE tenderness, no other conspicuous deformities noted NEUROLOGIC : Coherent, no facial asymmetry, no other gross focality Principal Diagnosis Acute sycstolic heart failure NSTEMI Pancytopenia Anemia Generalized Weakness Constipation Urinary retention BPH PAF (paroxysmal atrial fibrillation) Hyponatremia Lung Infiltrate Discharge Exam General- No acute distress Head- atraumatic Eyes- PERRL, EOMI, ENT- oropharynx clear Neck- supple, no JVD Lungs- Diminished BS Heart- regular rhythm; no murmur Abdomen- normal bowel sounds, soft, +tender Extremities- no calf tenderness Neuro- alert, oriented x 3; PERRL, EOMI; no facial palsy; no dysarthria Skin- warm & dry Discharge Data Allergies Allergy/AdvReac Type Severity Reaction Status Date / Time No Known Drug Allergies Allergy Verified 07/02/19 21:36 Consultations 07/03/19 00:27 ED Decision to Admit Stat 07/03/19 04:19 Consult Cardiology Routine Consult Case Management - Discharge Planning Routine 07/03/19 08:45 Consult Palliative Care Routine Ordered Studies 07/02/19 21:55 CT abd pelvis IV con only Urgent CT head/brain wo con Stat XR chest 1V portable CLINICAL HISTORY: Sepsis COMPARISON STUDY: 05/04/2019 FINDINGS: There are postsurgical changes of a midline sternotomy. There are asymmetric increased interstitial markings, likely representing asymmetric edema. There is an increasing left lower lung zone opacity. There are no significant pleural effusions. IMPRESSION: 1. Slight enlargement in the left lower lobe opacity. This is likely neoplastic 2. Asymmetric right lung edema pattern. While likely representing asymmetric cardiogenic edema, and interstitial infectious or inflammatory processes could appear similar Electronically signed by: Fuad Carpenter M.D. 07/02/2019 10:13 PM Dictated: 07/02/192208 Transcribed: 07/02/192208 CT OF THE HEAD WITHOUT CONTRAST CLINICAL HISTORY: ams, lung CA w/ mets COMPARISON STUDY: MRI of the brain October 22, 2008. Head CT May 28, 2015. CT DOSE: 614.27 mGy.cm TECHNIQUE: Helical axial images of the head were obtained without IV contrast. Automated exposure control was utilized for the study. A dose lowering technique was utilized adhering to the principles of ALARA. FINDINGS: No acute intracranial hemorrhage, midline shift or mass effect is present. The ventricular system is unremarkable. The basilar cisterns are patent. No extra-axial collections are present. There are no findings to suggest acute dural sinus thrombosis or acute territorial infarct. White matter hypodensities favor small vessel disease. No significant calvarial abnormalities are present. Visualized portions of the sinuses and mastoid air cells are clear. IMPRESSION: No acute intracranial findings. Electronically signed by: Rajesh Smith M.D. 07/03/2019 6:36 AM Dictated: 07/03/19632 Transcribed: 07/03/19632 CT abd pelvis IV con only CT DOSE: 408.24 mGy.cm HISTORY: Pain. Nausea. mid abd pain TECHNIQUE: Multiaxial CT images of the abdomen and pelvis were performed following the use of intravenous contrast. A dose lowering technique was utilized adhering to the principles of ALARA. COMPARISON STUDY: 04/30/2019 FINDINGS: Bilateral parenchymal infiltrative change. Moderate increase in volume of a masslike process left base currently measuring 4.2 cm. Stable splenomegaly. Unchanged 3.9 cm infrarenal abdominal aortic aneurysm. Several small gallstones within the gallbladder lumen. Small amount of pericholecystic edematous change. Atrophy right kidney unchanged. The left kidney is negative for hydronephrosis. Nonobstructive bowel pattern. Atherosclerotic change of the abdominal and pelvic arterial vasculature. IMPRESSION: 1. Bibasilar parenchymal infiltrative change. 2. Slight increase in volume of a mass process left lower lobe. 3. Stable splenomegaly. 4. Unchanged atrophy right kidney. 5. Stable infrarenal abdominal aortic aneurysm. 6. Seminal contracted gallbladder containing a combination of gallstones and trace pedis sludge. Mild pericholecystic edematous change. The above report was generated using voice recognition software. It may contain grammatical, syntax or spelling errors. Electronically signed by: Hipolito Haddad M.D. 07/03/2019 6:47 AM Dictated: 07/03/19641 Transcribed: 07/03/19641 Hospital Course (1) Generalized weakness: 69 yo hospice patient present on admission with worsening weakness, poor appetite abdominal pain, constipation associated with urinary retention Possible related to his recent declining due to his very poor prognosis and low hgb Hemoglobin on admission 6.1 Fall precaution PT/OT eval NSTEMI Severe ischemic cardiomyopathy Troponin on admission 7, then trending down to 6 No anticoagulant due to low hemoglobin and thrombocytopenia Cardiology on board ECHO showed severe reduced LV systolic function with severe global hypokinesis with EF 15-20 Continue aspirin, statin and metoprolol Case discussed with cardio and no further cardiac testing or intervention due to his very poor prognosis Palliative care on board Current denies any chest pain Acute sycstolic heart failure ProBNP on admission >85126 CXR showed asymmetric right lung edema pattern. While likely representing asymmetric cardiogenic edema, Lasix 20mg IV x1 given Due to low BP unable to administer aggressive diuretic cardiology on board Unable to give beta nilton due to low PB cardiology recommended to start on digoxin 0.125 3xweek hospice nursing can provide PRN Lasix IV as necessary as per cardiology for comfort measure Pancytopenia Anemia Platelet 140, Hgb 6.1 on admission Received 1 unit PRBC last night and additional 1 unit given now Hgb 7.8 today Received 3 units PRBC during hospital course Will not be able to keep hgb above 9 due to risk of volume overload for recurre nt blood transfusion Pt does not want any additional transfusion Constipation Abdominal pain CT abd/pelvis showed nonobstructive bowel pattern. Continue Miralax and Senokot has been having BM Clinically stable PAF (paroxysmal atrial fibrillation): rate control Continue aspirin Unable to give the metoprolol due to Low BP cardiology recommended digoxin Not a candidate for anticoagulant due to low platelet and low hgb Hyponatremia Possible related to poor oral intake Na on admission 126 Na improved to 130 Monitor BMP Lung Infiltrate CXR showed slight enlargement in the left lower lobe opacity. This is likely neoplastic CT showed bibasilar parenchymal infiltrative change. Received Zosyn in the ER Continue Rocephin IV Blood cx and urine cx no growth Pt does not want to continue IV abx, he wants to transition to hospice Daughter at bedside agreed with his decison Will d/c abx on discharge Mass of left lung Mediastinoscopy with LN biopsies during last admission - path c/w metastatic non-small cell in 2/4 nodes, all nodes with chronic lymphocytic leukemia/small lymphocytic lymphoma CT showed slight increase in volume of a mass process left lower lobe. Very Poor prognosis Was in hospice before admitting in the hospital Palliative care on board Will transition to home hospice HTN (hypertension) Hold Toprol XL due to low BP Will monitor closely due to low BP BPH (benign prostatic hyperplasia): Urinary retention Seems to be worsening due to constipation Continue flomax Pt does not want to keep the raza on discharge Does not want to wait to do void trial He wants to go home Will give an order with the hospice nurse, ok to place raza cath if develops any urinary retention Malnutrition Continue boost supplement DVT px on SCDS (Due to low platelet and low hgb) CODE STATUS DNR Disposition Discharge home with hospice Total Time Total Time Spent Total Time Spent (In Minutes): 35 minutes Total Time Includes: Examination of the Patient, Discharge Planning, Medication Reconciliation, Communication With Other Providers and Other Discharge Plan Discharge Items Patient Disposition: Hospice - Home Reason For Visit: chf Discharge Diagnosis: Acute sycstolic heart failure NSTEMI Pancytopenia Anemia Generalized Weakness Constipation Urinary retention BPH PAF (paroxysmal atrial fibrillation) Hyponatremia Lung Infiltrate Condition on Discharge: Critical Activity: Resume your previous activity Activity Comment: as tolerated Non-emergency contact: Primary Care Provider Call non-emergency contact if: you have any medication questions Follow-up/Referrals: Arjun Harris DO [Primary Care Provider] - Diet: Heart Healthy Addtl Attending Provider Instructions: Discharge home with home hospice Follow up with the hospice team Ok to place raza catheter if needs for urinary retention Hospice nursing can provide PRN Lasix IV as necessary for comfort Continue pain control for comfort care Pending Studies at Discharge: No Stand-Alone Forms: [facility] [employer] mobile Medications and DC Order Prescriptions: New sennosides-docusate sodium [Senokot-S] 8.6-50 mg Tablet 1 tab PO BID Qty: 30 RF: 0 digoxin 125 mcg (0.125 mg) tablet 125 mcg PO UD Qty: 30 RF: 0 ipratropium bromide 0.02 % Solution 0.5 mg inhalation Q4H PRN (Reason: SOB ) 30 Days Qty: 75 RF: 0 levalbuterol HCl 1.25 mg/0.5 mL Solution For Nebulization 1.25 mg inhalation Q4H PRN (Reason: shortness of breath or wheezing) 30 Days Qty: 60 RF: 0 Continued atorvastatin 40 mg tablet 40 mg PO QAM RF: 0 nitroglycerin 0.4 mg tablet, sublingual 0.4 mg sublingual Q4H PRN (Reason: Angina) RF: 0 aspirin [Aspir-81] 81 mg Tablet,Delayed Release (Dr/Ec) 162 mg PO DAILY RF: 0 tizanidine 4 mg Tablet 2 mg PO BID PRN (Reason: muscle spasticity) Qty: 30 RF: 0 hydrocodone-acetaminophen [[place]] 5-325 mg Tablet 1 tab PO Q8H PRN (Reason: pain) Qty: 12 RF: 0 tamsulosin 0.4 mg capsule 0.4 mg PO HS RF: 0 polyethylene glycol 3350 [Miralax] 17 gram/dose Powder 17 g PO DIRECTED PRN (Reason: Constipation) RF: 0 Discontinued docusate sodium 100 mg Capsule 100 mg PO BID RF: 0 metoprolol succinate 25 mg tablet extended release 24 hr 12.5 mg PO QAM RF: 0 Discharge Orders: Discharge Order (Routine); Ordered 07/04/19 Ordered By: Memo Garcia Admission Data Admit Date/Time: 07/03/19 02:43 Attending Provider: Memo Garcia Admit Provider: Mathew Wheatley Primary Care Provider: Arjun Harris Other Providers: Brittany Barrera ; Wali Heard Other Interventions: Discharge Summary Assessment (RN) Last Done: 07/04/19 12:18 DC Date/Time DO NOT enter until pt leaves facility: 07/04/19 16:47
== END 2019-07-04 16:47 | disposition hospice, home (50) | DRG 280 ==
LOC: ED 20:56 → 2S 07-03 02:43